=== PATIENT | female | born 1960 | race Caucasian/White ===

== ENCOUNTER 2016-04-01 09:54 | Emergency (ER) | payer BC ==
[2016-04-01] MEDS ORDERED: LORazepam 1 MG Tab PO ONE (10:07)
[2016-04-01 17:35] VITALS: BP 128/75
--- NOTE | 2016-04-02 12:35 | ER ---
DATE SEEN: 04/01/2016 TIME SEEN: The patient was seen at 0500 hours. CHIEF COMPLAINT: Anxiety attack. The patient went to [facility] last night. She was with her mother and father and has been living with them for the last 4 plus years. There, she experienced the anxiety attack. She was then taken to [facility] ED and given 2 doses of Ativan IV plus another medication - Vistaril. She seemed to do well. Then she came home. About 0300 or 0400 hours in the morning, she experienced another anxiety attack. Now presents because she has anxiety, does not know what to do with herself. I have known this patient before, extensive history. PAST MEDICAL HISTORY: Anorexia with weight loss, chronic obstructive lung disease, GERD, seizure disorder, insomnia, migraines, chronic headaches, DRUG- SEEKING BEHAVIOR, chronic pain, arthritis, antrectomy and vagotomy and pyloroplasty. History of chronic nausea and chronic pain. In the past, she has had problems with medication causing globus hystericus and felt like she "had a jawbreaker in her throat." She was given epinephrine one time. She also has a very significant social dilemma. She apparently has exhausted her relationship with her legal assistant because of her chronic complaints of pain and drug-seeking behavior. Quote per Dr. Dobson ([phone]), psychologist. I called him and he was very enlightening. He states she has not been seen by him for 10+ years. She has had chronic problem of drug addiction and drug withdrawal, frequent medicine abuse and shopping around for drugs. Often she would go 50 miles to get drugs outside the community. She has been to [place] for addiction therapy and has not seemed to be successful. Her has now given up on her, is more exhausted with her behavior. Consequently, she is living with her parents. She apparently has gone shopping for drugs on many occasions and abused analgesics for a long period of time, 25 years. More recently, the patient has been seen by Dr. Kwok, he has been decreasing her medications. I called Dr. Kwok and he started in December 2015, the patient came in "stoned". Could not talk. Her Keppra levels were less than 2, were very low. She was taking other medications, it was quite obvious to him that she was drug seeking, drug shopping, and abusing drugs. With this, he has carefully decreased her medications. She is taking less gabapentin. She was taking excessive amounts of gabapentin. In the past, she has seen Dr. Ayoub for cognitive behavior therapy and she has not seen Dr. Ayoub for a while. With this information, it is very apparent that patient does use the system, takes advantage of it, and takes advantage of her parents, is a drug seeker, and has many of the skills associated with that behavior. She claims that she was short of breath. At this point, there is no evidence for tachypnea. No evidence for compromised oxygen saturation as her oxygen saturation is 98%. ALLERGIES: Bupropion, Thorazine, metoclopramide, Zofran, and Compazine. CURRENT MEDICATIONS: 1. Lunesta (eszopiclone) 3 mg at bedtime. 2. Levothyroxine 50 mcg daily. 3. Dulcolax as needed. 4. Vitamin D. 5. Vitamin C. 6. Imitrex p.r.n. IM. 7. Xarelto 15 mg daily. 8. Ranitidine 150 mg b.i.d. 9. Potassium chloride 20 mEq daily. 10.Magnesium oxide 400 mg daily. 11.Levetiracetam 250 mg b.i.d. 12.Topiramate 200 mg at bedtime. 13.Carafate 1 g q.i.d. PHYSICAL EXAMINATION: GENERAL: An asthenic woman with decreased muscle mass. Alert, appropriate, and has angular features. Edentulous. VITAL SIGNS: Blood pressure 113/76, heart rate 90, respirations 18, oxygen saturation 100%, temperature is 36.7 degrees centigrade. 40.8 kg, unchanged from December 03, 2015, same weight. HEENT: PERRLA intact. The patient has pupils that are fixed at approximately 4 mm. They do react to light. EOMs normal. Hearing is appropriate. Oriented x3. NECK: No bruits. No thyromegaly. LUNGS: Clear to auscultation without rales, rhonchi, or wheezes. HEART: S1, S2. No murmur. Regular rate and rhythm. ABDOMEN: Soft. No guarding. No abdominal discomfort. BACK: Negative. EXTREMITIES: Lower extremities without pedal edema. Has decreased muscle mass in lower extremities. Deep tendon reflexes hypoactive, upper and lower extremities. NEUROLOGIC: Cranial nerves 2 through 12 intact. Oriented x3. Gait appropriate. The patient does not appear as anxious as she describes herself. She has kept saying that she is anxious. Before, I was able to speak to Dr. Dobson and also Dr. Kwok, I did give her medication 1 mg Ativan orally and "she wasn't feeling better," so I gave her 50 mg hydroxyzine orally. This seemed to decrease her anxiety and no more IV medicine given. Once I had the information from Dr. Dobson and Dr. Kwok, it was apparent that her drug seeking behavior is a long time, chronic, and 25 years' duration. I told her I did not want to be part of her drug-seeking behavior nor would I provide refill of her lorazepam. She has a container that was filled at [facility] last night, approximately 8 tablets of lorazepam. She can use as needed. If she runs out, then she has to deal with her anxiety and have further followup. She is to follow up with Dr. Kwok next week and Dr. Dobson states he is no longer practicing. Consequently, she needs to get appointment, find somebody else to help her with this. She has also seen Dr. Ayoub in the past. I find from Dr Argueta and Dr Kwok that her parents are enabling her behavior. She is also very manipulative and she needs a very concrete structured program to manage her anxiety. No laboratory tests were performed today. /[id number] LAURA/ELISABET BUCHANAN
--- NOTE | 2016-04-17 01:34 | ER ---
DATE SEEN: 04/01/2016 DIAGNOSES: 1. Anxiety attack. 2. Chemical dependency. 3. Anorexia. 4. Chronic obstructive pulmonary disease. 5. Gastroesophageal reflux disease. 6. Seizure disorder. 7. Insomnia. 8. Migraines. 9. Chronic headaches. 10.Drug-seeking behavior. 11.Chronic pain. 12.Arthritis. 13.Antrectomy, vagotomy, and pyloroplasty. 14.Chronic pain history. /[id number] LAURA/ELISABET
== END 2016-04-01 13:25 | disposition home or self-care (01) ==
LOC: FB.ED 09:54
DX: F41.9 Anxiety disorder, unspecified (principal); J44.9 Chronic obstructive pulmonary disease, unspecified; K21.9 Gastro-esophageal reflux disease without esophagitis; G40.909 Epilepsy, unspecified, not intractable, without status epilepticus; G47.00 Insomnia, unspecified; G43.909 Migraine, unspecified, not intractable, without status migrainosus; G89.29 Other chronic pain; M19.90 Unspecified osteoarthritis, unspecified site; Z76.5 Malingerer [conscious simulation]; Z98.890 Other specified postprocedural states; Z88.8 Allergy status to other drugs, medicaments and biological substances; Z79.899 Other long term (current) drug therapy
CPT/HCPCS: 99283; A9270

== ENCOUNTER 2016-04-13 15:24 | Emergency (ER) | payer BC ==
--- NOTE | 2016-04-15 15:17 | ER ---
DATE SEEN: 04/13/2016 TIME SEEN: The patient was seen at 1550. HISTORY OF PRESENT ILLNESS: Kayce has a remarkable history of drug seeking and anxiety attacks. Today, she is agitated because she has had many medications withdrawn from her regimen by Dr. Kwok. She has a long history of anorexia, COPD, smoking, GERD, seizure disorder, insomnia, migraines, chronic headache, drug-seeking behavior, chronic pain, arthritis, antrectomy, vagotomy, pyloroplasty, more recently seen for "something in the throat" (globus hystericus). See my previous note on 04/01/2016, in regard to significant history regarding her drug-seeking behavior. See notes of medication listed on the chart. I am not going to re-dictate them. For previous surgeries, please see what is documented also, which is antrectomy, vagotomy, and pyloroplasty. She has been to see Dr. Ayoub multiple times for cognitive behavior therapy. Of note, she has not pursued this consistently. The last time I saw her, I encouraged her to follow up with Dr. Kwok and Dr. Ayoub, and I had a lengthy discussion with Dr. Dobson, who is no longer practicing psychology. The patient is known to be very manipulative and I instructed her that she needs a very concrete structured program to manage her anxiety. No tests were performed on the and none will be done today. On examination, the patient started by saying she is so shaky, she does not know what to do with herself, but as the interview progressed, the shakiness relented. ALLERGIES: She has multiple allergies, see previous chart. MEDICATIONS: She has multiple medications, see chart before. PHYSICAL EXAMINATION: VITAL SIGNS: Blood pressure 137/89, heart rate 101, respirations 20, oxygen saturation 98%, temperature is 35.6. 45.8 kilos, unchanged from previous visit 04/01/2016. GENERAL: Very asthenic, thin woman, who was shaking with just watching her and she was shaking relentlessly. I think she can create the shaking if she wants to. HEENT: PERRLA intact. Pharynx without abnormality. NECK: Supple. No thyromegaly. LUNGS: Clear to auscultation. No rales or rhonchi. HEART: S1, S2. No murmur. Port is noted in the right anterior chest. She has marked bony thoracic cage. ABDOMEN: Soft. No hepatosplenomegaly. No guarding. Multiple scars noted, healed without tenderness. LOWER EXTREMITIES: Without edema. DISCUSSION: The patient when completed, she asked me, "Well, aren't you going to do a urinalysis, I just finished my urinary tract medicines yesterday." I told her that IDSA does not suggest repeating urinalysis the day after having completed urinary tract medicine. The patient is dismissed to follow up with Dr. Kwok and Dr. Ayoub. She needs to continue with cognitive behavior therapy and continue with the drug withdrawal process. I advised her that the agitation is a sign of drug withdrawal and is a good sign because she has a potential for getting in touch with the real life that she needs to lead, one without medication, drugs, and continued drug-seeking behavior. The patient dismissed to follow up with doctor in a week. /[id number] LAURA/ELISABET
--- NOTE | 2016-04-27 01:58 | ER ---
DATE SEEN: 04/13/2016 ADDENDUM: DIAGNOSES: 1. Anxiety neurosis. 2. Somatic disorder. 3. Depression. 4. Poor insight. 5. Past significant history of chemical dependence. 6. Manipulative behavior in the past. 7. Seizure disorder. 8. Gastroesophageal reflux disease. 9. Insomnia. 10.Migraines. 11.Chronic headaches. 12.Drug-seeking behavior. 13.Chronic pain. 14.Status post antrectomy. 15.Vagotomy. 16.Pyloroplasty. 17.Globus hystericus. 18.Previous surgery; antrectomy, vagotomy, and pyloroplasty. /[id number] LAURA/ELISABET
== END 2016-04-13 16:35 | disposition home or self-care (01) ==
LOC: FB.ED 15:24
CPT/HCPCS: 99283

== ENCOUNTER 2016-04-15 14:17 | Emergency (ER) | payer BC ==
[2016-04-15] MEDS ORDERED: Ketorolac 60 MG/2 ML SDV IM ONE (15:03)
--- NOTE | 2016-04-15 15:09 | EDM.PDOC ---
ED HPI GENERAL MEDICAL PROBLEM - General Stated Complaint: HEAD ACHE ANXITITY Time Seen by Provider: 04/15/16 15:04 Source of Information: Reports: Patient History Limitations: Reports: No limitations - History of Present Illness INITIAL COMMENTS - FREE TEXT/NARRATIVE: c/o "tough 4 weeks" also with R sided CORDOVA chronic HAs x yrs, has been seen in [place], [place] and [place] took Imitrex this AM and some APAP which did not help says her PCP Dr Kwok stopped tramadol and gabapentin at her last visit and she would like them back says she likes buprenorphine and Vistaril, however she also states she is taking Ativan and VIstaril daily has had drug seeking behavior x 25y, see previous note from Dr Carbajal from yesterday she just got off an antbx for a UTI and thinks it may be back - Related Data Allergies Allergy/AdvReac Type Severity Reaction Status Date / Time bupropion HCl Allergy Respiratory Verified 04/15/16 15:08 [From Wellbutrin] Distress chlorpromazine HCl Allergy Respiratory Verified 04/15/16 15:08 [From Thorazine] Distress metoclopramide [From Reglan] Allergy Anaphylactic Verified 04/15/16 15:08 Shock ondansetron HCl [From Zofran] Allergy Respiratory Verified 04/15/16 15:08 Distress prochlorperazine edisylate Allergy Respiratory Verified 04/15/16 15:08 [From Compazine] Distress prochlorperazine maleate Allergy Respiratory Verified 04/15/16 15:08 [From Compazine] Distress temazepam [From Restoril] Allergy Headache Verified 04/15/16 15:08 Home Meds: Home Meds Ranitidine HCl [Zantac] 150 mg PO BID PRN 10/19/12 [History] SUMAtriptan [Imitrex] 6 mg IM DAILY PRN 10/19/12 [History] Topiramate [Topamax] 200 mg PO BEDTIME 10/19/12 [History] Docusate Sodium [Colace] 200 mg PO DAILY 05/03/13 [History] Magnesium Oxide 400 mg PO DAILY 05/03/13 [History] Potassium Chloride 20 meq PO DAILY 05/03/13 [History] Esomeprazole [NexIUM] 40 mg PO DAILY 09/21/13 [History] Rivaroxaban [Xarelto] 15 mg PO DAILY 08/09/15 [History] Levothyroxine [Synthroid] 50 mcg PO ACBREAKFAST 10/07/15 [History] Sucralfate 1 gm PO QIDACANDBED 02/19/16 [History] Triamcinolone Acetonide [Triamcinolone Acetonide 0.1% Crm] 1 applic TOP ASDIRECTED PRN 02/19/16 [History] hydrOXYzine Pamoate [Vistaril] 25 mg PO TID PRN 02/19/16 [History] levETIRAcetam [Keppra] 250 mg PO BID 02/19/16 [History] LORazepam [Ativan] 1 mg PO ASDIRECTED PRN 04/13/16 [History] QUEtiapine [SEROquel] 25 mg PO ASDIRECTED 04/13/16 [History] Past Medical History - Past Health History Medical/Surgical History: Denies Medical/Surgical History HEENT History: Reports: Other (see below) Other HEENT History: chronic headaches Cardiovascular History: Reports: Blood clots/VTE/DVT Respiratory History: Reports: SOB Gastrointestinal History: Reports: Other (see below) Other Gastrointestinal History: Chronic nausea, ulcers 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: Neurological History: Reports: Headaches, chronic, Seizure Psychiatric History: Reports: Addiction, Depression Endocrine/Metabolic History: Reports: Hypothyroidism Other Dermatologic History: Open sores noted on bilateral arms, lower back - Infectious Disease History Infectious Disease History: Reports: Mumps - Past Surgical History Head Surgeries/Procedures: Reports: None GI Surgical History: Reports: Other (see below) Other GI Surgeries/Procedures: states that part of her stomach was taken out because of ulceration Musculoskeletal Surgical History: Reports: Other (see below) Other Musculoskeletal Surgeries/Procedures:: states that has been having trouble walking and was referred to PT; States that she was told by the PT that she is having toruble walking partly because she has no much muscles in her legs. Social & Family History - Family History Family Medical History: Noncontributory - Tobacco Use Smoking Status *Q: Never Smoker Month Tobacco Last Used: ? Second Hand Smoke Exposure: No - Caffeine Use Caffeine Use: Reports: Soda - Alcohol Use Days Per Week of Alcohol Use: 0 - Recreational Drug Use Recreational Drug Use: No ED ROS GENERAL - Review of Systems Review Of Systems: See Below Constitutional: Reports: no symptoms HEENT: Reports: No symptoms Respiratory: Reports: no symptoms Cardiovascular: Reports: No symptoms Endocrine: Reports: no symptoms GI/Abdominal: Reports: No symptoms : Reports: no symptoms Musculoskeletal: Reports: no symptoms Skin: Reports: no symptoms Neurological: Reports: headache Psychiatric: Reports: No symptoms Hematologic/Lymphatic: Reports: no symptoms Immunologic: Reports: no symptoms ED EXAM, GENERAL - Physical Exam Exam: See Below Exam Limited By: No limitations General Appearance: alert, WD/WN, no apparent distress Eye Exam: bilateral eye: normal inspection Nose: normal inspection, normal mucosa, no blood Throat/Mouth: Normal inspection, Normal lips, Normal gums, Normal oropharynx, Normal voice, No airway compromise, Other (denture plate up) Head: atraumatic, normocephalic Neck: normal inspection, supple, non-tender, full range of motion Respiratory/Chest: no respiratory distress, lungs clear, normal breath sounds, no accessory muscle use, chest non-tender Cardiovascular: normal peripheral pulses, regular rate, rhythm, no edema, no gallop, no JVD, other (2/6 JAYLA at [facility]SB) GI/Abdominal: soft, non tender Back Exam: normal inspection, full range of motion, NT Extremities: normal inspection, normal range of motion, non-tender, normal capillary refill, no pedal edema Neurological: alert, oriented, no motor/sensory deficits Psychiatric: normal affect, normal mood Skin Exam: Warm, Dry, Intact, Normal color, No rash Lymphatic: no adenopathy Course - Vital Signs Last Recorded V/S: Last Vital Signs Temp 36.8 C 04/15/16 14:20 Pulse 99 04/15/16 14:20 Resp 18 04/15/16 14:20 BP 113/79 04/15/16 14:20 Pulse Ox 99 04/15/16 14:20 - Orders/Labs/Meds Labs: Laboratory Tests 04/15/16 Range/Units 14:45 Urine Color Yellow (YELLOW) Urine Appearance Clear (CLEAR) Urine pH 5.0 (5.0-6.5) Ur Specific Ten Sleep 1.010 (1.010-1.025) Urine Protein Negative (NEGATIVE) mg/dL Urine Glucose (UA) Normal (NEGATIVE) mg/dL Urine Ketones Negative (NEGATIVE) mg/dL Urine Occult Blood Moderate H (NEGATIVE) Urine Nitrite Negative (NEGATIVE) Urine Bilirubin Negative (NEGATIVE) Urine Urobilinogen Normal (NEGATIVE) mg/dL Ur Leukocyte Esterase Negative (NEGATIVE) Urine RBC 0-5 (0) Urine WBC 0-5 (0) Ur Squamous Epith Cells Rare (NS,R,O) Urine Bacteria Few H (NS) Urine Mucus Few H (NS) Meds: Medications Discontinued Medications Generic Name Dose Route Start Last Admin Trade Name Freq PRN Reason Stop Dose Admin Ketorolac Tromethamine 60 mg 04/15/16 15:03 04/15/16 15:49 Toradol IM 04/15/16 15:04 60 mg ONETIME ONE Administration - Re-Assessments/Exams Free Text/Narrative Re-Assessment/Exam: 04/15/16 16:01 u/a neg, pt quite pleased to learn this, received Toradol, remains comfortable Departure - Departure Time of Disposition: 16:02 Disposition: Home, Self-Care 01 Condition: good Clinical Impression: Tension headache Additional Instructions: Continue current meds. Use ice packs and acetaminophen 650 mg 4 times a day for your headache. See Dr Kwok in the next week.
[2016-04-15 15:31] VITALS: BP 113/79
== END 2016-04-15 16:10 | disposition home or self-care (01) ==
LOC: FB.ED 14:17
DX: G44.209 Tension-type headache, unspecified, not intractable (principal); F32.9 Major depressive disorder, single episode, unspecified; E03.9 Hypothyroidism, unspecified; Z79.899 Other long term (current) drug therapy; Z88.8 Allergy status to other drugs, medicaments and biological substances
CPT/HCPCS: 81001; 96372; 99284; J1885

== ENCOUNTER 2016-06-03 15:16 | Emergency (ER) | payer BC ==
[2016-06-03] MEDS ORDERED: SUMAtriptan 6 MG/0.5 ML SDV SUBCUT ONE (17:12)
--- NOTE | 2016-06-03 17:15 | EDM.PDOC ---
ED HPI HEADACHE COMPLAINT - General Stated Complaint: HEADACHE Time Seen by Provider: 06/03/16 15:16 Source: Reports: Patient History Limitations: Reports: No limitations - History of Present Illness INITIAL COMMENTS - FREE TEXT/NARRATIVE: 56 years old w f with chronic H/A seen at multiple medical centers including [facility], [facility] etc. Pt was requesting mutiple pain meds. [facility] No N/V/D or other medical issues. Symptom Onset Date: 05/13/16 Symptom Onset Time: 09:00 Timing/Duration: Reports: intermittent, waxing/waning Location: Reports: generalized Quality: Reports: pounding, squeezing Severity: Reports: moderate Associated Symptoms: Reports: denies other symptoms - Related Data Allergies/ADRs: Allergies Allergy/AdvReac Type Severity Reaction Status Date / Time bupropion HCl Allergy Respiratory Verified 04/15/16 15:08 [From Wellbutrin] Distress chlorpromazine HCl Allergy Respiratory Verified 04/15/16 15:08 [From Thorazine] Distress metoclopramide [From Reglan] Allergy Anaphylactic Verified 04/15/16 15:08 Shock ondansetron HCl [From Zofran] Allergy Respiratory Verified 04/15/16 15:08 Distress prochlorperazine edisylate Allergy Respiratory Verified 04/15/16 15:08 [From Compazine] Distress prochlorperazine maleate Allergy Respiratory Verified 04/15/16 15:08 [From Compazine] Distress temazepam [From Restoril] Allergy Headache Verified 04/15/16 15:08 Home Meds: Home Meds Ranitidine HCl [Zantac] 150 mg PO BID PRN 10/19/12 [History] SUMAtriptan [Imitrex] 6 mg IM DAILY PRN 10/19/12 [History] Topiramate [Topamax] 200 mg PO BEDTIME 10/19/12 [History] Docusate Sodium [Colace] 200 mg PO DAILY 05/03/13 [History] Magnesium Oxide 400 mg PO DAILY 05/03/13 [History] Potassium Chloride 20 meq PO DAILY 05/03/13 [History] Esomeprazole [NexIUM] 40 mg PO DAILY 09/21/13 [History] Rivaroxaban [Xarelto] 15 mg PO DAILY 07/02/16 [History] Levothyroxine [Synthroid] 50 mcg PO ACBREAKFAST 10/07/15 [History] Sucralfate 1 gm PO QIDACANDBED 02/19/16 [History] Triamcinolone Acetonide [Triamcinolone Acetonide 0.1% Crm] 1 applic TOP ASDIRECTED PRN 02/19/16 [History] hydrOXYzine Pamoate [Vistaril] 25 mg PO TID PRN 02/19/16 [History] levETIRAcetam [Keppra] 250 mg PO BID 02/19/16 [History] LORazepam [Ativan] 1 mg PO ASDIRECTED PRN 04/13/16 [History] QUEtiapine [SEROquel] 25 mg PO ASDIRECTED 04/13/16 [History] Past Medical History - Past Health History Medical/Surgical History: Denies Medical/Surgical History HEENT History: Reports: Other (see below) Other HEENT History: chronic headaches Cardiovascular History: Reports: Blood clots/VTE/DVT Respiratory History: Reports: SOB Gastrointestinal History: Reports: Other (see below) Other Gastrointestinal History: Chronic nausea, ulcers 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: Neurological History: Reports: Headaches, chronic, Seizure Psychiatric History: Reports: Addiction, Depression Endocrine/Metabolic History: Reports: Hypothyroidism Other Dermatologic History: Open sores noted on bilateral arms, lower back - Infectious Disease History Infectious Disease History: Reports: Mumps - Past Surgical History Head Surgeries/Procedures: Reports: None GI Surgical History: Reports: Other (see below) Other GI Surgeries/Procedures: states that part of her stomach was taken out because of ulceration Musculoskeletal Surgical History: Reports: Other (see below) Other Musculoskeletal Surgeries/Procedures:: states that has been having trouble walking and was referred to PT; States that she was told by the PT that she is having toruble walking partly because she has no much muscles in her legs. Social & Family History - Family History Family Medical History: Noncontributory - Tobacco Use Smoking Status *Q: Never Smoker Month Tobacco Last Used: ? Second Hand Smoke Exposure: No - Caffeine Use Caffeine Use: Reports: Soda - Alcohol Use Days Per Week of Alcohol Use: 0 - Recreational Drug Use Recreational Drug Use: No ED ROS GENERAL - Review of Systems Review Of Systems: See Below Constitutional: Reports: no symptoms HEENT: Reports: No symptoms Respiratory: Reports: No Symptoms Cardiovascular: Reports: No symptoms Endocrine: Reports: no symptoms GI/Abdominal: Reports: No symptoms : Reports: no symptoms Musculoskeletal: Reports: no symptoms Skin: Reports: no symptoms Neurological: Reports: No Symptoms Psychiatric: Reports: No symptoms Hematologic/Lymphatic: Reports: no symptoms - Physical Exam Exam: See Below Exam Limited By: No limitations General Appearance: alert, WD/WN, mild distress, cachetic Eye Exam: bilateral eye: normal inspection Ears: normal external exam Nose: normal inspection Throat/Mouth: Other (dry mucosal membrane) Head Exam: atraumatic, normocephalic Neck: normal inspection, supple, non-tender, full range of motion Respiratory/Chest: no respiratory distress, lungs clear, normal breath sounds, no accessory muscle use, chest non-tender Cardiovascular: normal peripheral pulses, regular rate, rhythm, no edema GI/Abdominal: normal bowel sounds, soft, non tender, no organomegaly, no distention, no abnormal bruit, no mass (Female) Exam: Deferred Rectal (Female) Exam: Deferred Neuro Exam (Abbreviated): alert, oriented, CN II-XII intact, normal cognition, normal gait, no motor/sensory deficits Back Exam: normal inspection, full range of motion Extremities: normal inspection, normal range of motion, non-tender, no pedal edema Psychiatric: depressed mood Skin Exam: Warm, Dry, Intact, Normal color, No rash Course - Vital Signs Text/Narrative:: 56 years old w f with chronic H/A seen at multiple medical centers including [facility], [facility] etc. Pt was requesting mutiple pain meds. [facility]. No N/V/D or other medical issues. PE: Chronic headache Consultation: Dr. Kwok: Absolitely no Narcs as per neurologist Impression: Chronic intermittent H/A Tx: Imitrex Reexam: improved(?) Plan: D/C home with instructions - Orders/Labs/Meds Meds: Medications Discontinued Medications Generic Name Dose Route Start Last Admin Trade Name Freq PRN Reason Stop Dose Admin Sumatriptan Succinate 6 mg 06/03/16 17:12 06/03/16 17:25 Imitrex SUBCUT 06/03/16 17:13 6 mg ONETIME ONE Administration Departure - Departure Time of Disposition: 17:14 Disposition: Home, Self-Care 01 Condition: good Clinical Impression: Chronic headaches Qualifiers: Headache type: unspecified Intractability: not intractable Qualified Code(s): R51 - Headache Referrals: Greg Kwok MD [Primary Care Provider] - Forms: ED Department Discharge Additional Instructions: please f/u with Neuro/PMD please cont your current meds, Please come back if symptoms get worse acutely
[2016-06-03 21:55] VITALS: BP 147/82
== END 2016-06-03 17:45 | disposition home or self-care (01) ==
LOC: FB.ED 15:16
DX: R51 Headache (principal); F32.9 Major depressive disorder, single episode, unspecified; E03.9 Hypothyroidism, unspecified; Z88.8 Allergy status to other drugs, medicaments and biological substances; Z79.899 Other long term (current) drug therapy
CPT/HCPCS: 96372; 99283; J3030

== ENCOUNTER 2016-08-01 21:37 | Emergency (ER) | payer BC ==
[2016-08-01 21:55] VITALS: BP 137/84
[2016-08-01] MEDS ORDERED: hydrOXYzine HCl 50 MG/ML SDV IM ONE (22:19)
--- NOTE | 2016-08-01 22:35 | EDM.PDOC ---
ED HPI GENERAL MEDICAL PROBLEM - General Chief Complaint: Headache Stated Complaint: MIGRAINE Time Seen by Provider: 08/01/16 21:52 Source of Information: Reports: Patient, Other ([facility] staff) History Limitations: Reports: Uncooperative - History of Present Illness INITIAL COMMENTS - FREE TEXT/NARRATIVE: 56 y.o.w.f with multiple medical issues. H/O narcotic addition, came to the ed , from the assisted because of chronic pain at her r temp area. Pt is a little worse today. Pt received imitrex without help. it is not the worst headache, no trauma. Pt was seen for same multiple times in this ED. Pt is requesting Narcotics Pt denies any other acute medical issues at this time. Onset: Today Onset Date: 08/01/16 Onset Time: 14:00 Duration: Hour(s): Location: Reports: Head (not worsed headache) Quality: Reports: Dull Headache Pain Score (Numeric/FACES): 9 - Related Data Allergies Allergy/AdvReac Type Severity Reaction Status Date / Time bupropion HCl Allergy Respiratory Verified 08/01/16 21:52 [From Wellbutrin] Distress chlorpromazine HCl Allergy Respiratory Verified 08/01/16 21:52 [From Thorazine] Distress metoclopramide [From Reglan] Allergy Anaphylactic Verified 08/01/16 21:52 Shock ondansetron HCl [From Zofran] Allergy Respiratory Verified 08/01/16 21:52 Distress prochlorperazine edisylate Allergy Respiratory Verified 08/01/16 21:52 [From Compazine] Distress prochlorperazine maleate Allergy Respiratory Verified 08/01/16 21:52 [From Compazine] Distress temazepam [From Restoril] Allergy Headache Verified 08/01/16 21:52 Home Meds: Home Meds Ranitidine HCl [Zantac] 150 mg PO BID PRN 10/19/12 [History] SUMAtriptan [Imitrex] 6 mg IM DAILY PRN 10/19/12 [History] Topiramate [Topamax] 200 mg PO BEDTIME 10/19/12 [History] Docusate Sodium [Colace] 200 mg PO DAILY 05/03/13 [History] Magnesium Oxide 400 mg PO DAILY 05/03/13 [History] Potassium Chloride 20 meq PO DAILY 05/03/13 [History] Esomeprazole [NexIUM] 40 mg PO DAILY 09/21/13 [History] Rivaroxaban [Xarelto] 15 mg PO DAILY 08/09/15 [History] Levothyroxine [Synthroid] 50 mcg PO ACBREAKFAST 10/07/15 [History] Sucralfate 1 gm PO QIDACANDBED 02/19/16 [History] Triamcinolone Acetonide [Triamcinolone Acetonide 0.1% Crm] 1 applic TOP ASDIRECTED PRN 02/19/16 [History] hydrOXYzine Pamoate [Vistaril] 25 mg PO TID PRN 02/19/16 [History] levETIRAcetam [Keppra] 250 mg PO BID 02/19/16 [History] LORazepam [Ativan] 1 mg PO ASDIRECTED PRN 04/13/16 [History] QUEtiapine [SEROquel] 25 mg PO ASDIRECTED 04/13/16 [History] Past Medical History - Past Health History Medical/Surgical History: Denies Medical/Surgical History HEENT History: Reports: Other (See Below) Other HEENT History: chronic headaches Cardiovascular History: Reports: Blood Clots/VTE/DVT Respiratory History: Reports: SOB Gastrointestinal History: Reports: Other (See Below) Other Gastrointestinal History: Chronic nausea, ulcers 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: Neurological History: Reports: Headaches, Chronic, Seizure Psychiatric History: Reports: Addiction, Depression Endocrine/Metabolic History: Reports: Hypothyroidism Other Dermatologic History: Open sores noted on bilateral arms, lower back - Infectious Disease History Infectious Disease History: Reports: Mumps - Past Surgical History Head Surgeries/Procedures: Reports: None GI Surgical History: Reports: Other (See Below) Musculoskeletal Surgical History: Reports: Other (See Below) Social & Family History - Family History Family Medical History: Noncontributory - Tobacco Use Smoking Status *Q: Never Smoker Month Tobacco Last Used: ? Second Hand Smoke Exposure: No - Caffeine Use Caffeine Use: Reports: Soda - Alcohol Use Days Per Week of Alcohol Use: 0 - Recreational Drug Use Recreational Drug Use: No ED ROS GENERAL - Review of Systems Review Of Systems: See Below Constitutional: Reports: No Symptoms HEENT: Reports: Other (H/A) Respiratory: Reports: No Symptoms Cardiovascular: Reports: No Symptoms Endocrine: Reports: No Symptoms GI/Abdominal: Reports: No Symptoms : Reports: No Symptoms Musculoskeletal: Reports: No Symptoms Skin: Reports: No Symptoms Neurological: Reports: No Symptoms Psychiatric: Reports: No Symptoms Hematologic/Lymphatic: Reports: No Symptoms Immunologic: Reports: No Symptoms - Physical Exam Exam: See Below Exam Limited By: No Limitations General Appearance: Alert, No Apparent Distress, Cachetic Eye Exam: Bilateral Eye: Normal Inspection Ears: Normal External Exam Nose: Normal Inspection Throat/Mouth: Normal Inspection, Normal Lips Head Exam: Atraumatic, Normocephalic Neck: Normal Inspection, Supple, Non-Tender, Full Range of Motion Respiratory/Chest: No Respiratory Distress, Lungs Clear, Normal Breath Sounds Cardiovascular: Normal Peripheral Pulses, Regular Rate, Rhythm, No Edema GI/Abdominal: Normal Bowel Sounds, Soft, Non-Tender, No Organomegaly (Female) Exam: Deferred Rectal (Female) Exam: Deferred Neuro Exam (Abbreviated): Alert, Oriented, CN II-XII Intact, Normal Cognition, Normal Gait, No Motor/Sensory Deficits Back Exam: Normal Inspection, Full Range of Motion Extremities: Normal Inspection, Normal Range of Motion, Non-Tender, No Pedal Edema Psychiatric: Anxious Skin Exam: Warm, Dry, Intact, Normal Color, No Rash Course - Vital Signs Text/Narrative:: 56 y.o.w.f with multiple medical issues. H/O narcotic addition, came to the ed , from the assisted because of chronic pain at her r temp area. Pt is a little worse today. Pt received imitrex without help. it is not the worst headache, no trauma. Pt was seen for same multiple times in this ED. Pt is requesting Narcotics Pt denies any other acute medical issues at this time. Vistaril helped her in the past PE: Cachexia, H/O r temp headache. NAD Impression: Narcotic seeking, tension H/A H/O Migraine H/A Tx: Vistaril I.M Reexam: Improved Plan: D/C back to the [facility] with instructions Last Recorded V/S: Last Vital Signs Temp 36.8 C 08/01/16 21:52 Pulse 94 08/01/16 21:52 Resp 16 08/01/16 21:52 BP 137/84 08/01/16 21:52 Pulse Ox 100 08/01/16 21:52 - Orders/Labs/Meds Meds: Medications Discontinued Medications Generic Name Dose Route Start Last Admin Trade Name Kyung PRN Reason Stop Dose Admin Hydroxyzine HCl 25 mg 08/01/16 22:19 08/01/16 22:36 Vistaril IM 08/01/16 22:20 25 mg ONETIME ONE Administration Departure - Departure Time of Disposition: 22:34 Disposition: Home, Self-Care 01 Condition: Good Clinical Impression: Tension headache, Narcotic addiction - Discharge Information Referrals: Greg Kwok MD [Primary Care Provider] - Forms: ED Department Discharge Additional Instructions: please f/u in am with your PMD, come back if worse.
== END 2016-08-01 22:35 | disposition home or self-care (01) ==
LOC: FB.ED 21:37
DX: G44.209 Tension-type headache, unspecified, not intractable (principal); F11.20 Opioid dependence, uncomplicated; F32.9 Major depressive disorder, single episode, unspecified; E03.9 Hypothyroidism, unspecified; Z88.8 Allergy status to other drugs, medicaments and biological substances; Z79.899 Other long term (current) drug therapy
CPT/HCPCS: 96372; 99282; J3410

== ENCOUNTER 2016-08-19 03:20 | Emergency (ER) | payer BC ==
[2016-08-19 03:35] VITALS: BP 115/66
--- NOTE | 2016-08-19 03:59 | EDM.PDOC ---
ED HPI GENERAL MEDICAL PROBLEM - General Chief Complaint: Lower Extremity Injury/Pain Stated Complaint: FALL RT SIDE PAIN Time Seen by Provider: 08/19/16 03:45 Source of Information: Reports: Patient, Old Records History Limitations: Reports: No Limitations - History of Present Illness INITIAL COMMENTS - FREE TEXT/NARRATIVE: 56 yo female fell in her home about 6 pm 08/18. It took her until now to get to a phone due to R thigh pain that resulted from the fall. No other injuries reported. Here via EMS. 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) - Related Data Allergies Allergy/AdvReac Type Severity Reaction Status Date / Time bupropion HCl Allergy Respiratory Verified 08/19/16 03:25 [From Wellbutrin] Distress chlorpromazine HCl Allergy Respiratory Verified 08/19/16 03:25 [From Thorazine] Distress metoclopramide [From Reglan] Allergy Anaphylactic Verified 08/19/16 03:25 Shock ondansetron HCl [From Zofran] Allergy Respiratory Verified 08/19/16 03:25 Distress prochlorperazine edisylate Allergy Respiratory Verified 08/19/16 03:25 [From Compazine] Distress prochlorperazine maleate Allergy Respiratory Verified 08/19/16 03:25 [From Compazine] Distress temazepam [From Restoril] Allergy Headache Verified 08/19/16 03:25 Home Meds: Home Meds Ranitidine HCl [Zantac] 150 mg PO BID PRN 10/19/12 [History] SUMAtriptan [Imitrex] 6 mg IM DAILY PRN 10/19/12 [History] Topiramate [Topamax] 200 mg PO BEDTIME 10/19/12 [History] Docusate Sodium [Colace] 200 mg PO DAILY 05/03/13 [History] Magnesium Oxide 400 mg PO DAILY 05/03/13 [History] Potassium Chloride 20 meq PO DAILY 05/03/13 [History] Esomeprazole [NexIUM] 40 mg PO DAILY 09/21/13 [History] Rivaroxaban [Xarelto] 15 mg PO DAILY 08/09/15 [History] Levothyroxine [Synthroid] 50 mcg PO ACBREAKFAST 10/07/15 [History] Sucralfate 1 gm PO QIDACANDBED 02/19/16 [History] Triamcinolone Acetonide [Triamcinolone Acetonide 0.1% Crm] 1 applic TOP ASDIRECTED PRN 02/19/16 [History] hydrOXYzine Pamoate [Vistaril] 25 mg PO TID PRN 02/19/16 [History] levETIRAcetam [Keppra] 250 mg PO BID 02/19/16 [History] LORazepam [Ativan] 1 mg PO ASDIRECTED PRN 04/13/16 [History] QUEtiapine [SEROquel] 25 mg PO ASDIRECTED 04/13/16 [History] Past Medical History - Past Health History Medical/Surgical History: Denies Medical/Surgical History HEENT History: Reports: Other (See Below) Other HEENT History: chronic headaches Cardiovascular History: Reports: Blood Clots/VTE/DVT Respiratory History: Reports: SOB Gastrointestinal History: Reports: Other (See Below) Other Gastrointestinal History: Chronic nausea, ulcers 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: Neurological History: Reports: Headaches, Chronic, Seizure Psychiatric History: Reports: Addiction, Depression Endocrine/Metabolic History: Reports: Hypothyroidism Other Dermatologic History: Open sores noted on bilateral arms, lower back - Infectious Disease History Infectious Disease History: Reports: Mumps - Past Surgical History Head Surgeries/Procedures: Reports: None GI Surgical History: Reports: Other (See Below) Musculoskeletal Surgical History: Reports: Other (See Below) Social & Family History - Family History Family Medical History: Noncontributory - Tobacco Use Smoking Status *Q: Never Smoker Month Tobacco Last Used: ? Second Hand Smoke Exposure: No - Caffeine Use Caffeine Use: Reports: None - Alcohol Use Days Per Week of Alcohol Use: 0 - Recreational Drug Use Recreational Drug Use: No Review of Systems - Review of Systems Review Of Systems: See Below Constitutional: Reports: No Symptoms Eyes: Reports: No Symptoms Ears: Reports: No Symptoms Nose: Reports: No Symptoms Mouth/Throat: Reports: No Symptoms Respiratory: Reports: No Symptoms Cardiovascular: Reports: No Symptoms GI/Abdominal: Reports: No Symptoms Genitourinary: Reports: No Symptoms Musculoskeletal: Reports: Leg Pain (R thigh) Skin: Reports: No Symptoms Neurological: Reports: No Symptoms ED EXAM, GENERAL - Physical Exam Exam: See Below Exam Limited By: No Limitations General Appearance: Alert, No Apparent Distress, Thin Eye Exam: Bilateral Eye: Normal Inspection, PERRL Ears: Normal External Exam, Normal Canal, Hearing Grossly Normal Ear Exam: Bilateral Ear: Auricle Normal, Canal Normal Nose: Normal Inspection, Normal Mucosa, No Blood Throat/Mouth: Normal Inspection, Normal Lips, Normal Oropharynx, Normal Voice, No Airway Compromise, Other (edentulous) Head: Atraumatic, Normocephalic Neck: Normal Inspection, Supple, Non-Tender Respiratory/Chest: No Respiratory Distress, Lungs Clear, Normal Breath Sounds, No Accessory Muscle Use Cardiovascular: Regular Rate, Rhythm GI/Abdominal: Normal Bowel Sounds, Soft, Non-Tender, No Distention Back Exam: Normal Inspection. No: CVA Tenderness (R), CVA Tenderness (L) Extremities: Normal Inspection, Leg Pain (R thigh area laterally), Limited Range of Motion (apparently due to pain.). No: Normal Range of Motion, Non- Tender, Pedal Edema, Redness Neurological: Alert, Oriented, CN II-XII Intact, No Motor/Sensory Deficits Psychiatric: Normal Affect, Normal Mood Skin Exam: Warm, Dry, Intact, Normal Color, No Rash Lymphatic: No Adenopathy Course - Vital Signs Text/Narrative:: R femur X-ray-R intertroch hip fx R hip X-ray-R intertroch hip fx LR 125 ml/h IV, Dilaudid 1 [address] IV [place] [address]. Freeman accepting @ [facility] Last Recorded V/S: Last Vital Signs Temp 36.8 C 08/19/16 03:27 Pulse 88 08/19/16 03:27 Resp 18 08/19/16 03:27 BP 115/66 08/19/16 03:27 Pulse Ox 98 08/19/16 03:27 - Orders/Labs/Meds Orders: Active Orders 24 hr Category Date Time Status Femur Min 2V Rt [CR] Stat Exams 08/19/16 03:37 Ordered Hip Min 2V or 3V Rt [CR] Stat Exams 08/19/16 03:38 Ordered Departure - Departure Time of Disposition: 04:40 Disposition: DC/Tfer to Acute Hospital 02 Condition: Fair Clinical Impression: Intertrochanteric fracture, hip - Discharge Information Forms: ED Department Discharge - My Orders Last 24 Hours: My Active Orders 08/19/16 03:37 Femur Min 2V Rt [CR] Stat 08/19/16 03:38 Hip Min 2V or 3V Rt [CR] Stat - Assessment/Plan Last 24 Hours: My Active Orders 08/19/16 03:37 Femur Min 2V Rt [CR] Stat 08/19/16 03:38 Hip Min 2V or 3V Rt [CR] Stat
[2016-08-19] MEDS ORDERED: HYDROmorphone 2 MG/ML SDV IVPUSH ONE (04:11)
[2016-08-19] MEDS ORDERED: Lactated Ringers 1,000 ML IV SCH (04:15)
[2016-08-19] MEDS ORDERED: hydrOXYzine HCl 50 MG/ML SDV IM ONE (04:35)
--- NOTE | 2016-08-19 13:49 | CR ---
INDICATION: Fall. RIGHT FEMUR: Five images of the right femur were obtained 08/19/2016, and revealed a comminuted intertrochanteric fracture with lateral angulation at the fracture site and some distraction of the fracture fragments. There is also an appearance of posterior angulation at the fracture site. The hip joint appears fairly intact. Vascular calcifications are noted in the thigh. IMPRESSION: Comminuted intertrochanteric fracture with mild deformity. MTDD
== END 2016-08-19 05:45 ==
LOC: FB.ED 03:20
DX: S72.141A Displaced intertrochanteric fracture of right femur, initial encounter for closed fracture (principal); E03.9 Hypothyroidism, unspecified; F32.9 Major depressive disorder, single episode, unspecified; Z86.718 Personal history of other venous thrombosis and embolism; Z79.899 Other long term (current) drug therapy; Z88.8 Allergy status to other drugs, medicaments and biological substances; W19.XXXA Unspecified fall, initial encounter; Y92.009 Unspecified place in unspecified non-institutional (private) residence as the place of occurrence of the external cause
CPT/HCPCS: 36415; 73552; 80053; 83735; 85027; 96361; 96372; 96374; 99285; J1170; J3410; J7120

== ENCOUNTER 2016-11-17 20:22 | Emergency (ER) | payer BC ==
[2016-11-17] MEDS ORDERED: BUPRENORPHINE 0.3 MG/ML IVPUSH ONE (20:47)
[2016-11-17] MEDS ORDERED: hydrOXYzine HCl 50 MG/ML SDV IM ONE (20:48)
--- NOTE | 2016-11-17 20:55 | EDM.PDOC ---
ED HPI GENERAL MEDICAL PROBLEM - General Chief Complaint: Neuro Symptoms/Deficits Stated Complaint: GENERAL Time Seen by Provider: 11/17/16 20:40 Source of Information: Reports: Patient, Old Records History Limitations: Reports: No Limitations - History of Present Illness INITIAL COMMENTS - FREE TEXT/NARRATIVE: 56 yo female with multiple medical problems presents with intermittent shaking today. She has a CORDOVA and nausea without vomiting. No fever. Has a pHx of seizures and is on Keppra. Says she's not had a level done in a long time. Also has a hx of potassium deficit and hasn't had this checked for a long time either. Broke a hip in August and has been back to her home for about 2 weeks only after recovering at a local [facility]. Still uses a walker to get around and tonight is too light-headed to stand. Onset: Today Onset Date: 11/17/16 Onset Time: 11:00 Duration: Hour(s):, Getting Worse, Waxing/Waning Location: Reports: Generalized Quality: Reports: Ache (headache is her only new pain, has a pHx also of chronic CORDOVA's. ) Severity: Moderate Improves with: Reports: None Worsens with: Reports: None Context: Reports: Other (Hx of CORDOVA's. No hx of tremors like she's having today. ) Associated Symptoms: Reports: Headaches, Nausea/Vomiting (no vomiting), Weakness. 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) (none) - Related Data Allergies Allergy/AdvReac Type Severity Reaction Status Date / Time bupropion HCl Allergy Respiratory Verified 08/19/16 03:25 [From Wellbutrin] Distress chlorpromazine HCl Allergy Respiratory Verified 08/19/16 03:25 [From Thorazine] Distress metoclopramide [From Reglan] Allergy Anaphylactic Verified 08/19/16 03:25 Shock ondansetron HCl [From Zofran] Allergy Respiratory Verified 08/19/16 03:25 Distress prochlorperazine edisylate Allergy Respiratory Verified 08/19/16 03:25 [From Compazine] Distress prochlorperazine maleate Allergy Respiratory Verified 08/19/16 03:25 [From Compazine] Distress temazepam [From Restoril] Allergy Headache Verified 08/19/16 03:25 Home Meds: Home Meds Ranitidine HCl [Zantac] 150 mg PO BID PRN 10/19/12 [History] SUMAtriptan [Imitrex] 6 mg IM DAILY PRN 10/19/12 [History] Topiramate [Topamax] 200 mg PO BEDTIME 10/19/12 [History] Docusate Sodium [Colace] 200 mg PO DAILY 05/03/13 [History] Magnesium Oxide 400 mg PO DAILY 05/03/13 [History] Potassium Chloride 20 meq PO DAILY 05/03/13 [History] Esomeprazole [NexIUM] 40 mg PO DAILY 09/21/13 [History] Rivaroxaban [Xarelto] 15 mg PO DAILY 08/09/15 [History] Levothyroxine [Synthroid] 50 mcg PO ACBREAKFAST 10/07/15 [History] Sucralfate 1 gm PO QIDACANDBED 02/19/16 [History] Triamcinolone Acetonide [Triamcinolone Acetonide 0.1% Crm] 1 applic TOP ASDIRECTED PRN 02/19/16 [History] hydrOXYzine Pamoate [Vistaril] 25 mg PO TID PRN 02/19/16 [History] levETIRAcetam [Keppra] 250 mg PO BID 02/19/16 [History] LORazepam [Ativan] 1 mg PO ASDIRECTED PRN 04/13/16 [History] QUEtiapine [SEROquel] 25 mg PO ASDIRECTED 04/13/16 [History] Past Medical History - Past Health History Medical/Surgical History: Denies Medical/Surgical History HEENT History: Reports: Other (See Below) Other HEENT History: chronic headaches Cardiovascular History: Reports: Blood Clots/VTE/DVT Respiratory History: Reports: SOB Gastrointestinal History: Reports: Other (See Below) Other Gastrointestinal History: Chronic nausea, ulcers 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: Neurological History: Reports: Headaches, Chronic, Seizure Psychiatric History: Reports: Addiction, Depression Endocrine/Metabolic History: Reports: Hypothyroidism Other Dermatologic History: Open sores noted on bilateral arms, lower back - Infectious Disease History Infectious Disease History: Reports: Mumps - Past Surgical History Head Surgeries/Procedures: Reports: None GI Surgical History: Reports: Other (See Below) Musculoskeletal Surgical History: Reports: Other (See Below) Social & Family History - Family History Family Medical History: Noncontributory - Tobacco Use Smoking Status *Q: Never Smoker Month Tobacco Last Used: ? Second Hand Smoke Exposure: No - Caffeine Use Caffeine Use: Reports: None - Alcohol Use Days Per Week of Alcohol Use: 0 - Recreational Drug Use Recreational Drug Use: No ED ROS GENERAL - Review of Systems Review Of Systems: See Below Constitutional: Reports: Weakness. Denies: Fever, Chills, Diaphoresis HEENT: Reports: No Symptoms Respiratory: Reports: No Symptoms Cardiovascular: Reports: Lightheadedness. Denies: Chest Pain, Claudication, Dyspnea on Exertion, Edema, Orthopnea, Palpitations, Syncope Endocrine: Reports: No Symptoms GI/Abdominal: Reports: Nausea. Denies: Abdominal Pain, Anorexia, Black Stool, Bloody Stool, Constipation, Diarrhea, Decreased Appetite, Distension, Hematemesis, Hematochezia, Stool Incontinence, Vomiting : Reports: No Symptoms Musculoskeletal: Reports: No Symptoms Skin: Reports: No Symptoms Neurological: Reports: Dizziness, Headache, Tremors (intermittent coarse shaking , not a seizure as she is fully awake with them. ), Difficulty Walking, Weakness. Denies: Confusion, Numbness, Trouble Speaking, Change in Speech, Gait Disturbance Psychiatric: Reports: No Symptoms Hematologic/Lymphatic: Reports: No Symptoms ED EXAM, NEURO - Physical Exam Exam: See Below Exam Limited By: No Limitations General Appearance: Alert, WD/WN, No Apparent Distress, Thin Eye Exam: Bilateral Eye: Normal Inspection, PERRL Ears: Normal External Exam, Normal Canal, Hearing Grossly Normal Nose: Normal Inspection, Normal Mucosa, No Blood Throat/Mouth: Normal Inspection, Normal Lips, Normal Oropharynx, Normal Voice, No Airway Compromise, Other (edentulous) Head Exam: Atraumatic, Normocephalic Neck: Normal Inspection, Supple, Non-Tender Respiratory/Chest: No Respiratory Distress, Lungs Clear, Normal Breath Sounds, No Accessory Muscle Use Cardiovascular: Regular Rate, Rhythm, No Edema GI/Abdominal: Normal Bowel Sounds, Soft, Non-Tender, No Distention Neurological: Alert, Normal Mood/Affect, CN II-XII Intact, No Motor/Sensory Deficits, Oriented x 3 Back Exam: Normal Inspection. No: CVA Tenderness (R), CVA Tenderness (L) Extremities: Normal Inspection, Normal Range of Motion, Non-Tender, No Pedal Edema Psychiatric: Normal Affect, Normal Mood Skin Exam: Warm, Dry, Intact, Normal Color, No Rash Course - Vital Signs Last Recorded V/S: Last Vital Signs Temp 37.2 C 11/17/16 20:22 Pulse 91 11/17/16 20:22 Resp 18 11/17/16 20:22 BP 136/81 11/17/16 20:22 Pulse Ox 100 11/17/16 20:22 - Orders/Labs/Meds Orders: Active Orders 24 hr Category Date Time Status Central Line Assessment [RC] DAILY Care 11/17/16 21:09 Active CULTURE URINE [RM] Stat Lab 11/17/16 23:20 Ordered KEPPRA [REF] Stat Lab 11/17/16 21:00 Received Lactated Ringers [Ringers, Lactated] 1,000 ml Med 11/17/16 21:00 Active IV ASDIRECTED SUMAtriptan [Imitrex] Med 11/17/16 23:24 Once 6 mg SUBCUT ONETIME ONE Sodium Chloride 0.9% [Saline Flush] Med 11/17/16 21:30 Active 10 ml FLUSH ASDIRECTED PRN Medication Orders Lactated Ringer's (Ringers, Lactated) 1,000 mls @ 500 mls/hr IV ASDIRECTED DOMINIQUE Last Admin: 11/17/16 21:08 Dose: 500 mls/hr Sodium Chloride (Saline Flush) 10 ml FLUSH ASDIRECTED PRN PRN Reason: Keep Vein Open Last Admin: 11/17/16 23:19 Dose: 10 ml Admin: 11/17/16 21:31 Dose: 10 ml Labs: Laboratory Tests 11/17/16 11/17/16 11/17/16 Range/Units 21:00 21:00 22:53 WBC 3.9 L (4.5-12.0) X10-3/uL RBC 4.21 (3.23-5.20) x10(6)uL Hgb 11.9 (11.5-15.5) g/dL Hct 36.5 (30.0-51.3) % MCV 86.8 (80-96) fL MCH 28.3 (27.7-33.6) pg MCHC 32.6 (32.2-35.4) g/dL RDW 17.7 H (11.5-15.5) % Plt Count 300 (125-369) X10(3)uL Sodium 136 (135-145) mmol/L Potassium 3.8 (3.5-5.3) mmol/L Chloride 107 D (100-110) mmol/L Carbon Dioxide 21 L (23-29) mmol/L BUN 9 (5-20) mg/dL Creatinine 0.8 (0.6-1.3) mg/dL Est Cr Clr Drug Dosing TNP Estimated GFR (MDRD) > 60 (>60) BUN/Creatinine Ratio 11.3 (9-20) Glucose 109 (80-116) mg/dL Calcium 8.5 L (8.6-10.2) mg/dL Magnesium 1.9 (1.8-2.5) mg/dL Urine Color Yellow (YELLOW) Urine Appearance Slightly cloudy (CLEAR) Urine pH 7.0 H (5.0-6.5) Ur Specific [place] 1.010 (1.010-1.025) Urine Protein Negative (NEGATIVE) mg/dL Urine Glucose (UA) Normal (NEGATIVE) mg/dL Urine Ketones Negative (NEGATIVE) mg/dL Urine Occult Blood Negative (NEGATIVE) Urine Nitrite Negative (NEGATIVE) Urine Bilirubin Negative (NEGATIVE) Urine Urobilinogen Normal (NEGATIVE) mg/dL Ur Leukocyte Esterase Moderate H (NEGATIVE) Urine RBC 0-5 (0) Urine WBC 5-10 (0) Ur Squamous Epith Cells Occasional (NS,R,O) Urine Bacteria Many H (NS) Urine Mucus Few H (NS) Meds: Medications Generic Name Dose Route Start Last Admin Trade Name Kyung PRN Reason Stop Dose Admin Lactated Ringer's 1,000 mls @ 500 mls/hr 11/17/16 21:00 11/17/16 21:08 Ringers, Lactated IV 500 mls/hr ASDIRECTED DOMINIQUE Administration Sodium Chloride 10 ml 11/17/16 21:30 11/17/16 23:19 Saline Flush FLUSH 10 ml ASDIRECTED PRN Administration Keep Vein Open Discontinued Medications Generic Name Dose Route Start Last Admin Trade Name Freq PRN Reason Stop Dose Admin Buprenorphine 0.6 mg 11/17/16 20:47 11/17/16 21:20 Buprenex IVPUSH 11/17/16 20:48 0.6 mg ONETIME ONE Administration Heparin Sodium (Porcine) 500 units 11/17/16 23:09 11/17/16 23:19 Heparin Lock Flush 100 Units/Ml FLUSH 11/17/16 23:10 500 units ASDIRECTED ONE Administration Hydroxyzine HCl 50 mg 11/17/16 20:48 11/17/16 21:16 Vistaril IM 11/17/16 20:49 50 mg ONETIME ONE Administration Departure - Departure Time of Disposition: 23:24 Disposition: Home, Self-Care 01 Condition: Fair Clinical Impression: Nausea, Dizziness Headache Qualifiers: Headache type: unspecified Headache chronicity pattern: chronic headache Intractability: not intractable Qualified Code(s): R51 - Headache - Discharge Information Referrals: Jesse Gresham MD [Primary Care Provider] - Forms: ED Department Discharge - My Orders Last 24 Hours: My Active Orders 11/17/16 21:00 KEPPRA [REF] Stat Lactated Ringers [Ringers, Lactated] 1,000 ml IV ASDIRECTED 11/17/16 21:09 Central Line Assessment [RC] DAILY 11/17/16 21:30 Sodium Chloride 0.9% [Saline Flush] 10 ml FLUSH ASDIRECTED PRN 11/17/16 23:20 CULTURE URINE [RM] Stat 11/17/16 23:24 SUMAtriptan [Imitrex] 6 mg SUBCUT ONETIME ONE - Assessment/Plan Last 24 Hours: My Active Orders 11/17/16 21:00 KEPPRA [REF] Stat Lactated Ringers [Ringers, Lactated] 1,000 ml IV ASDIRECTED 11/17/16 21:09 Central Line Assessment [RC] DAILY 11/17/16 21:30 Sodium Chloride 0.9% [Saline Flush] 10 ml FLUSH ASDIRECTED PRN 11/17/16 23:20 CULTURE URINE [RM] Stat 11/17/16 23:24 SUMAtriptan [Imitrex] 6 mg SUBCUT ONETIME ONE
[2016-11-17] MEDS ORDERED: Lactated Ringers 1,000 ML IV SCH (21:00)
[2016-11-17] MEDS: Sodium Chloride 0.9% 10 ML Syringe FLUSH PRN ×2 (21:31→23:19)
[2016-11-17 21:46] VITALS: BP 136/81
[2016-11-17] MEDS ORDERED: SUMAtriptan 6 MG/0.5 ML SDV SUBCUT ONE (23:24)
--- NOTE | 2016-11-22 08:53 | ER ---
DATE SEEN: 11/17/2016 HISTORY OF PRESENT ILLNESS: The patient was seen by Dr. Tracey on 11/17/2016. This lab report returned greater than 100,000 colonies of E. coli. Plan to use TMP/SMX one b.i.d. for 3 days, total of 6 tablets. Prescription called into [facility]. Also, I spoke to the patient and she does not have symptoms of urinary tract infection presently, but we agreed it was appropriate to start the medicine. She has not had any recurrent shaking, but she has had "some twitching" since today, 11/20/2016. In the past, she has been on Keppra [address] Tracey so astutely did a Keppra level and the Keppra is less than 2 (normal is 5-30). PLAN: The patient was advised to increase her Keppra to b.i.d. Apparently, she had worked with her doctor, and they had attempted to decrease it to 500 mg a day, but she says the shaking is new. I think I am going to go back to b.i.d. She has ample medicines at home to give herself b.i.d. Consequently, the patient will continue with b.i.d. medicine Keppra and she is hopeful that that will diminish her shaking. The patient will be following up with Dr. Gresham. /[id number] LAURA/ELISABET
== END 2016-11-17 23:50 | disposition home or self-care (01) ==
LOC: FB.ED 20:22
DX: R51 Headache (principal); R42 Dizziness and giddiness; R11.2 Nausea with vomiting, unspecified; Z88.8 Allergy status to other drugs, medicaments and biological substances; Z79.899 Other long term (current) drug therapy; E03.9 Hypothyroidism, unspecified
CPT/HCPCS: 36591; 80048; 80177; 81001; 83735; 85027; 87086; 87088; 96361; 96372; 96374; 96375; 99284; J0592; J1642; J3030; J3410; J7050; J7120; 36415; 87186

== ENCOUNTER 2016-12-06 12:37 | Emergency (ER) | payer BC ==
[2016-12-06] MEDS ORDERED: BUPRENORPHINE 0.3 MG/ML IM STA (14:28)
[2016-12-06] MEDS ORDERED: hydrOXYzine HCl 50 MG/ML SDV IM ONE (14:28)
[2016-12-06] MEDS ORDERED: BUPRENORPHINE 0.3 MG/ML IVPUSH STA (15:08)
[2016-12-06] MEDS ORDERED: BUPRENORPHINE 0.3 MG/ML IM ONE (15:40)
[2016-12-06 15:56] VITALS: BP 119/73
--- NOTE | 2016-12-06 16:17 | EDM.PDOC ---
ED HPI GENERAL MEDICAL PROBLEM - General Chief Complaint: Headache Stated Complaint: HEADACHE, VOMITTING Time Seen by Provider: 12/06/16 12:37 Source of Information: Reports: Patient History Limitations: Reports: No Limitations, Physical Impairment - History of Present Illness INITIAL COMMENTS - FREE TEXT/NARRATIVE: 56 years old w f came to the ed due to headache and anxiety, her usual medical issues here in the ed. Pt was seen multiple times for same her in the ed requesting Vistaril, NS, vitamins and 0.6 mg Buprenex i.m Pt has many other chronic medical issues, Her BP 119/73 pulse 105 RR 20 Temp 36.5 Onset: Unknown/Unsure Onset Date: 12/06/16 Onset Time: 06:00 Duration: Chronic, Other (little worse today) Quality: Reports: Ache Severity: Mild Improves with: Reports: Rest Worsens with: Reports: Movement Context: Reports: Other (Unknown) Associated Symptoms: Reports: No Other Symptoms - Related Data Allergies Allergy/AdvReac Type Severity Reaction Status Date / Time bupropion HCl Allergy Respiratory Verified 08/19/16 03:25 [From Wellbutrin] Distress chlorpromazine HCl Allergy Respiratory Verified 08/19/16 03:25 [From Thorazine] Distress metoclopramide [From Reglan] Allergy Anaphylactic Verified 08/19/16 03:25 Shock ondansetron HCl [From Zofran] Allergy Respiratory Verified 08/19/16 03:25 Distress prochlorperazine edisylate Allergy Respiratory Verified 08/19/16 03:25 [From Compazine] Distress prochlorperazine maleate Allergy Respiratory Verified 08/19/16 03:25 [From Compazine] Distress temazepam [From Restoril] Allergy Headache Verified 08/19/16 03:25 Home Meds: Home Meds Ranitidine HCl [Zantac] 150 mg PO BID PRN 10/19/12 [History] SUMAtriptan [Imitrex] 6 mg IM DAILY PRN 10/19/12 [History] Docusate Sodium [Colace] 200 mg PO DAILY 05/03/13 [History] Magnesium Oxide 400 mg PO DAILY 05/03/13 [History] Potassium Chloride 20 meq PO DAILY 05/03/13 [History] Esomeprazole [NexIUM] 40 mg PO DAILY 09/21/13 [History] Rivaroxaban [Xarelto] 15 mg PO DAILY 08/09/15 [History] Levothyroxine [Synthroid] 50 mcg PO ACBREAKFAST 10/07/15 [History] Sucralfate 1 gm PO QIDACANDBED 02/19/16 [History] levETIRAcetam [Keppra] 250 mg PO DAILY 02/19/16 [History] LORazepam [Ativan] 1 mg PO ASDIRECTED PRN 04/13/16 [History] QUEtiapine [SEROquel] 25 mg PO ASDIRECTED 04/13/16 [History] Ascorbate Calcium [Vitamin C] 500 mg PO DAILY 11/18/16 [History] Bisacodyl [Dulcolax] 10 mg RECTAL DAILY PRN 11/18/16 [History] Calcium Carbonate 1,250 mg PO DAILY 11/18/16 [History] Cholecalciferol (Vitamin D3) [Vitamin D3] 2,000 unit PO DAILY 11/18/16 [History] Docusate Sodium [Colace] 100 mg PO DAILY PRN 11/18/16 [History] Esomeprazole [NexIUM] 40 mg PO DAILY 11/18/16 [History] Levothyroxine 37.5 mg PO DAILY 11/18/16 [History] Lidocaine 5% [Lidoderm 5%] 1 patch TOP Q12H 11/18/16 [History] Magnesium Oxide [Magnesium] 400 mg PO DAILY 11/18/16 [History] Melatonin/Pyridoxine HCl (B6) [Melatonin 3 mg Tablet] 6 mg PO DAILY 11/18/16 [ History] PARoxetine [Paxil] 20 mg PO DAILY 11/18/16 [History] Polyethylene Glycol [Polyox Wsr-301] 17 gm PO DAILY 11/18/16 [History] Potassium Chloride [Klor-Con M20] 20 meq PO DAILY 11/18/16 [History] QUEtiapine [SEROquel] 100 mg PO BEDTIME 11/18/16 [History] Scopolamine [Transderm-Scop] 1 patch TOP Q3D 11/18/16 [History] Sennosides/Docusate Sodium [Senna-Docusate Sodium Tablet] 1 tab PO BID PRN 11/18 [History] Topiramate 150 mg PO BEDTIME 11/18/16 [History] Zolpidem Tartrate [Ambien] 5 mg PO BEDTIME PRN 11/18/16 [History] hydrOXYzine Pamoate [Hydroxyzine Pamoate] 50 mg PO Q6H PRN 11/18/16 [History] oxyCODONE HCl/Acetaminophen [oxyCODONE-Acetaminophen 5-325] 1 tab PO TID PRN 01/23 [History] oxyCODONE [Oxycodone HCl] 10 mg PO BID 11/18/16 [History] Past Medical History - Past Health History Medical/Surgical History: Denies Medical/Surgical History HEENT History: Reports: Other (See Below) Other HEENT History: chronic headaches Cardiovascular History: Reports: Blood Clots/VTE/DVT Respiratory History: Reports: SOB Gastrointestinal History: Reports: Other (See Below) Other Gastrointestinal History: Chronic nausea, ulcers 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 History: Reports: Headaches, Chronic, Seizure Psychiatric History: Reports: Addiction, Depression Endocrine/Metabolic History: Reports: Hypothyroidism Other Dermatologic History: Open sores noted on bilateral arms, lower back - Infectious Disease History Infectious Disease History: Reports: Mumps - Past Surgical History Head Surgeries/Procedures: Reports: None GI Surgical History: Reports: Other (See Below) Musculoskeletal Surgical History: Reports: Other (See Below) Social & Family History - Family History Family Medical History: Noncontributory - Tobacco Use Smoking Status *Q: Never Smoker Month Tobacco Last Used: ? Second Hand Smoke Exposure: No - Caffeine Use Caffeine Use: Reports: None - Alcohol Use Days Per Week of Alcohol Use: 0 - Recreational Drug Use Recreational Drug Use: No ED ROS GENERAL - Review of Systems Review Of Systems: Unable To Obtain - Physical Exam Exam: See Below Exam Limited By: Physical Impairment General Appearance: Alert, WD/WN, No Apparent Distress, Cachetic Eye Exam: Bilateral Eye: Normal Inspection Ears: Normal External Exam Nose: Normal Inspection Throat/Mouth: Normal Inspection, Normal Lips Head Exam: Atraumatic, Normocephalic Neck: Normal Inspection, Supple, Non-Tender, Full Range of Motion Respiratory/Chest: No Respiratory Distress Cardiovascular: Normal Peripheral Pulses, Regular Rate, Rhythm GI/Abdominal: Normal Bowel Sounds, Soft, Non-Tender (Female) Exam: Deferred Rectal (Female) Exam: Deferred Neuro Exam (Abbreviated): Alert, Oriented, CN II-XII Intact, Normal Cognition, Normal Gait DTR: 0: Bicep (L) Back Exam: Normal Inspection Extremities: Normal Inspection, Normal Range of Motion, Non-Tender Psychiatric: Depressed Mood Skin Exam: Warm, Dry, Intact Course - Vital Signs Text/Narrative:: 56 years old w f came to the ed due to headache and anxiety, her usual medical issues here in the ed. Pt was seen multiple times for same her in the ed requesting Vistaril, NS, vitamins and 0.6 mg Buprenex i.m Pt has many other chronic medical issues, Her BP 119/73 pulse 105 RR 20 Temp 36.5 PE: Cachectic 56 y.o.w.f NAD with tension like headache Impression: Tension Headache, Anxiety Tx: Vistaril, Buprenex Reexam: Improved Plan: D/C with instructions Last Recorded V/S: Last Vital Signs Temp 36.9 C 12/06/16 15:55 Pulse 102 H 12/06/16 15:55 Resp 18 12/06/16 15:55 BP 119/73 12/06/16 15:55 Pulse Ox 97 12/06/16 15:55 - Orders/Labs/Meds Labs: Laboratory Tests 12/06/16 Range/Units 13:40 Urine Color Yellow (YELLOW) Urine Appearance Clear (CLEAR) Urine pH 5.0 (5.0-6.5) Ur Specific [place] 1.010 (1.010-1.025) Urine Protein Negative (NEGATIVE) mg/dL Urine Glucose (UA) Normal (NEGATIVE) mg/dL Urine Ketones 15 H (NEGATIVE) mg/dL Urine Occult Blood Moderate H (NEGATIVE) Urine Nitrite Negative (NEGATIVE) Urine Bilirubin Negative (NEGATIVE) Urine Urobilinogen Normal (NEGATIVE) mg/dL Ur Leukocyte Esterase Negative (NEGATIVE) Urine RBC 0-5 (0) Urine WBC 0-5 (0) Ur Squamous Epith Cells Occasional (NS,R,O) Urine Bacteria Rare H (NS) Meds: Medications Discontinued Medications Generic Name Dose Route Start Last Admin Trade Name Freq PRN Reason Stop Dose Admin Buprenorphine 0.3 mg 12/06/16 14:28 12/06/16 14:43 Buprenex IM 12/06/16 14:29 0.3 mg ONETIME STA Administration Buprenorphine 0.3 mg 12/06/16 15:08 12/06/16 15:41 Buprenex IVPUSH 12/06/16 15:09 Not Given ONETIME STA Buprenorphine 0.3 mg 12/06/16 15:40 12/06/16 15:43 Buprenex IM 12/06/16 15:41 0.3 mg ONETIME ONE Administration Hydroxyzine HCl 50 mg 12/06/16 14:28 12/06/16 14:43 Vistaril IM 12/06/16 14:29 50 mg ONETIME ONE Administration Departure - Departure Time of Disposition: 16:19 Disposition: Home, Self-Care 01 Condition: Good Clinical Impression: Anxiety Headache Qualifiers: Headache type: unspecified Headache chronicity pattern: chronic headache Intractability: not intractable Qualified Code(s): R51 - Headache - Discharge Information Referrals: Jesse Gresham MD [Primary Care Provider] - Forms: ED Department Discharge Additional Instructions: Please cont your meds, please come back if your symptoms get worse acutely.
== END 2016-12-06 16:05 | disposition home or self-care (01) ==
LOC: FB.ED 12:37
DX: G44.209 Tension-type headache, unspecified, not intractable (principal); Z88.8 Allergy status to other drugs, medicaments and biological substances; Z79.899 Other long term (current) drug therapy
CPT/HCPCS: 81001; 96372; 99283; J0592; J3410

== ENCOUNTER 2016-12-16 09:22 | Emergency (ER) | payer BC ==
[2016-12-16] MEDS ORDERED: hydrOXYzine HCl 50 MG/ML SDV IM ONE (10:29)
[2016-12-16] MEDS ORDERED: Sodium Chloride 0.9% 1,000 ML IV SCH (10:30)
[2016-12-16] MEDS ORDERED: Dexamethasone 4 MG/ML SDV IVPUSH ONE (10:34)
--- NOTE | 2016-12-16 10:39 | EDM.PDOC ---
ED HPI GENERAL MEDICAL PROBLEM - General Chief Complaint: Genitourinary Problem Stated Complaint: VOMITING Time Seen by Provider: 12/16/16 10:00 Source of Information: Reports: Patient, Old Records History Limitations: Reports: No Limitations - History of Present Illness INITIAL COMMENTS - FREE TEXT/NARRATIVE: Theresa returns to [facility] with ongoing sxs of migraine headache over the past 3 weeks, associated with some nausea, loss of appetite, and 5# wt loss. She tapered off the OxyContin 3 days ago, and has escalated use of Percocet 5/325 to about 4-5 pills per day for headache management. She feels weak, tired, and is requesting a Buprenex 0.6 mg IV injection. She was seen by a PCP 3 days ago, and prescribed the Percocet. She was last seen at [facility] on December 06 for similar concerns. Right Leg Pain Score (Numeric/FACES): 9 - Related Data Allergies Allergy/AdvReac Type Severity Reaction Status Date / Time bupropion HCl Allergy Respiratory Verified 12/16/16 09:47 [From Wellbutrin] Distress chlorpromazine HCl Allergy Respiratory Verified 12/16/16 09:47 [From Thorazine] Distress metoclopramide [From Reglan] Allergy Anaphylactic Verified 12/16/16 09:47 Shock ondansetron HCl [From Zofran] Allergy Respiratory Verified 12/16/16 09:47 Distress prochlorperazine edisylate Allergy Respiratory Verified 12/16/16 09:47 [From Compazine] Distress prochlorperazine maleate Allergy Respiratory Verified 12/16/16 09:47 [From Compazine] Distress temazepam [From Restoril] Allergy Headache Verified 12/16/16 09:47 Home Meds: Home Meds Ranitidine HCl [Zantac] 150 mg PO BID PRN 10/19/12 [History] SUMAtriptan [Imitrex] 6 mg IM DAILY PRN 10/19/12 [History] Docusate Sodium [Colace] 200 mg PO DAILY 05/03/13 [History] Magnesium Oxide 400 mg PO DAILY 05/03/13 [History] Potassium Chloride 20 meq PO DAILY 05/03/13 [History] Esomeprazole [NexIUM] 40 mg PO DAILY 09/21/13 [History] Rivaroxaban [Xarelto] 15 mg PO DAILY 08/09/15 [History] Levothyroxine [Synthroid] 50 mcg PO ACBREAKFAST 10/07/15 [History] Sucralfate 1 gm PO QIDACANDBED 02/19/16 [History] levETIRAcetam [Keppra] 250 mg PO DAILY 02/19/16 [History] LORazepam [Ativan] 1 mg PO ASDIRECTED PRN 04/13/16 [History] QUEtiapine [SEROquel] 25 mg PO ASDIRECTED 04/13/16 [History] Ascorbate Calcium [Vitamin C] 500 mg PO DAILY 11/18/16 [History] Bisacodyl [Dulcolax] 10 mg RECTAL DAILY PRN 11/18/16 [History] Calcium Carbonate 1,250 mg PO DAILY 11/18/16 [History] Cholecalciferol (Vitamin D3) [Vitamin D3] 2,000 unit PO DAILY 11/18/16 [History] Docusate Sodium [Colace] 100 mg PO DAILY PRN 11/18/16 [History] Esomeprazole [NexIUM] 40 mg PO DAILY 11/18/16 [History] Levothyroxine 37.5 mg PO DAILY 11/18/16 [History] Lidocaine 5% [Lidoderm 5%] 1 patch TOP Q12H 11/18/16 [History] Magnesium Oxide [Magnesium] 400 mg PO DAILY 11/18/16 [History] Melatonin/Pyridoxine HCl (B6) [Melatonin 3 mg Tablet] 6 mg PO DAILY 11/18/16 [ History] PARoxetine [Paxil] 20 mg PO DAILY 11/18/16 [History] Polyethylene Glycol [Polyox Wsr-301] 17 gm PO DAILY 11/18/16 [History] Potassium Chloride [Klor-Con M20] 20 meq PO DAILY 11/18/16 [History] QUEtiapine [SEROquel] 100 mg PO BEDTIME 11/18/16 [History] Scopolamine [Transderm-Scop] 1 patch TOP Q3D 11/18/16 [History] Sennosides/Docusate Sodium [Senna-Docusate Sodium Tablet] 1 tab PO BID PRN 11/18 [History] Topiramate 150 mg PO BEDTIME 11/18/16 [History] Zolpidem Tartrate [Ambien] 5 mg PO BEDTIME PRN 11/18/16 [History] hydrOXYzine Pamoate [Hydroxyzine Pamoate] 50 mg PO Q6H PRN 11/18/16 [History] oxyCODONE HCl/Acetaminophen [oxyCODONE-Acetaminophen 5-325] 1 tab PO TID PRN 01/23 [History] oxyCODONE [Oxycodone HCl] 10 mg PO BID 11/18/16 [History] Past Medical History - Past Health History Medical/Surgical History: Denies Medical/Surgical History HEENT History: Reports: Other (See Below) Other HEENT History: chronic headaches Cardiovascular History: Reports: Blood Clots/VTE/DVT Respiratory History: Reports: SOB Gastrointestinal History: Reports: Other (See Below) Other Gastrointestinal History: Chronic nausea, ulcers [employer] History: Reports: Neurological History: Reports: Headaches, Chronic, Migraines, Seizure Psychiatric History: Reports: Addiction, Depression Endocrine/Metabolic History: Reports: Hypothyroidism Dermatologic History: Reports: Other (See Below) Other Dermatologic History: Open sores noted on bilateral arms, lower back - Infectious Disease History Infectious Disease History: Reports: Mumps - Past Surgical History Head Surgeries/Procedures: Reports: None GI Surgical History: Reports: Other (See Below) Musculoskeletal Surgical History: Reports: Other (See Below) Social & Family History - Family History Family Medical History: Noncontributory - Tobacco Use Smoking Status *Q: Never Smoker Month Tobacco Last Used: ? Second Hand Smoke Exposure: No - Caffeine Use Caffeine Use: Reports: Soda - Alcohol Use Days Per Week of Alcohol Use: 0 - Recreational Drug Use Recreational Drug Use: No ED ROS GENERAL - Review of Systems Review Of Systems: ROS reveals no pertinent complaints other than HPI. ED EXAM, GENERAL - Physical Exam Exam: See Below Exam Limited By: No Limitations General Appearance: Alert, WD/WN, No Apparent Distress, Anxious Eye Exam: Bilateral Eye: Normal Inspection, PERRL Ears: Normal External Exam Nose: Normal Inspection Throat/Mouth: Normal Inspection Head: Atraumatic, Normocephalic Neck: Normal Inspection, Supple Respiratory/Chest: Lungs Clear, Normal Breath Sounds, No Accessory Muscle Use Cardiovascular: Regular Rate, Rhythm, No Murmur GI/Abdominal: Normal Bowel Sounds, Soft, Non-Tender, No Organomegaly, No Distention Back Exam: Normal Inspection Extremities: Normal Inspection Neurological: Alert, Oriented, CN II-XII Intact, No Motor/Sensory Deficits Psychiatric: Normal Affect, Anxious Skin Exam: Warm, Dry Lymphatic: No Adenopathy Course - Vital Signs Text/Narrative:: Following assession at the [facility], I administered NS 1L IV thru port, Decadron 10 mg IV, and Vistaril 50 mg IM. She reported no improvement in anxiety with the Vistaril, and administered Ativan 1.0 mg po. Patient tolerated therapy. Her request for opioids was denied. Last Recorded V/S: Last Vital Signs Temp 36.8 C 12/16/16 09:56 Pulse 80 12/16/16 12:00 Resp 18 12/16/16 09:56 BP 135/81 12/16/16 12:00 Pulse Ox 100 12/16/16 09:56 - Orders/Labs/Meds Orders: Active Orders 24 hr Category Date Time Status Implanted Port Access [RC] ASDIRECTED Care 12/16/16 10:39 Active Implanted Port De-Access [RC] ASDIRECTED Care 12/16/16 11:59 Active Meds: Medications Discontinued Medications Generic Name Dose Route Start Last Admin Trade Name Freq PRN Reason Stop Dose Admin Dexamethasone 10 mg 12/16/16 10:34 12/16/16 10:48 Dexamethasone IVPUSH 12/16/16 10:35 10 mg ONETIME ONE Administration Heparin Sodium (Porcine) 300 units 12/16/16 11:38 Heparin Lock Flush 100 Units/Ml FLUSH ASDIRECTED PRN Keep Vein Open Heparin Sodium (Porcine) 500 units 12/16/16 11:42 12/16/16 11:44 Heparin Lock Flush 100 Units/Ml FLUSH 500 units ASDIRECTED PRN Administration Keep Vein Open Hydroxyzine HCl 50 mg 12/16/16 10:29 12/16/16 10:48 Vistaril IM 12/16/16 10:30 50 mg ONETIME ONE Administration Sodium Chloride 1,000 mls @ 999 mls/hr 12/16/16 10:30 12/16/16 10:46 Normal Saline IV 999 mls/hr ASDIRECTED DOMINIQUE Administration Lorazepam 1 mg 12/16/16 11:36 12/16/16 11:43 Ativan PO 12/16/16 11:37 1 mg ONETIME ONE Administration Departure - Departure Time of Disposition: 12:00 Disposition: Home, Self-Care 01 Condition: Fair Clinical Impression: Migraine - Discharge Information Referrals: Jesse Gersham MD [Primary Care Provider] - Forms: ED Department Discharge Additional Instructions: See PCP as needed - Problem List & Annotations (1) Migraine SNOMED Code(s): 38310104 Code(s): G43.909 - MIGRAINE, UNSP, NOT INTRACTABLE, WITHOUT STATUS MIGRAINOSUS Status: Acute Annotation/Comment:: Organized migraine headache, managed with Dilaudid 2 mg IM and Vistaril 50 mg IM. She will follow up with neurology this week. Headache with migrainous features that showed improvement with rehydration. Nausea improved with Vistaril 50 mg IM. A request for opioids was denied. She was advised to follow up with PCP who already has provided her with a prescription for Percocet 5/325. Decadron 10 mg IV was administered for prevention of recurrence of migraine headache. (2) Anxiety SNOMED Code(s): 30200856 Code(s): F41.9 - ANXIETY DISORDER, UNSPECIFIED Status: Acute Annotation/ Comment:: Anxiety improved with Ativan 1 mg po. She must see PCP for any maintenance management of chronic anxiety. - Problem List Review Problem List Initiated/Reviewed/Updated: Yes - My Orders Last 24 Hours: My Active Orders 12/16/16 10:39 Implanted Port Access [RC] ASDIRECTED 12/16/16 11:59 Implanted Port De-Access [RC] ASDIRECTED - Assessment/Plan Last 24 Hours: My Active Orders 12/16/16 10:39 Implanted Port Access [RC] ASDIRECTED 12/16/16 11:59 Implanted Port De-Access [RC] ASDIRECTED Plan: Follow up with PCP.
[2016-12-16] MEDS ORDERED: LORazepam 1 MG Tab PO ONE (11:36)
[2016-12-16 12:02] VITALS: BP 135/81
== END 2016-12-16 12:00 | disposition home or self-care (01) ==
LOC: FB.ED 09:22
DX: G43.909 Migraine, unspecified, not intractable, without status migrainosus (principal); F32.9 Major depressive disorder, single episode, unspecified; E03.9 Hypothyroidism, unspecified; Z79.899 Other long term (current) drug therapy; Z88.8 Allergy status to other drugs, medicaments and biological substances
CPT/HCPCS: 96361; 96372; 96374; 99283; A9270; J1100; J1642; J3410; J7040

== ENCOUNTER 2016-12-20 09:50 | Emergency (ER) | payer BC ==
[2016-12-20] MEDS ORDERED: hydrOXYzine HCl 50 MG/ML SDV IM ONE ×3 (10:33→12:50)
[2016-12-20] MEDS ORDERED: Ketorolac 60 MG/2 ML SDV IM ONE ×2 (10:34→10:41)
--- NOTE | 2016-12-20 10:39 | EDM.PDOC ---
ED HPI GENERAL MEDICAL PROBLEM - General Stated Complaint: VOMITING Time Seen by Provider: 12/20/16 10:25 Source of Information: Reports: Patient History Limitations: Reports: No Limitations - History of Present Illness INITIAL COMMENTS - FREE TEXT/NARRATIVE: c/o CORDOVA x 3w also with chronic anxiety, out of oxycodone which she has been taking 2 tabs at a time says she came to ED because no clinic apts available no acute c/o wants more oxycodone altho told that this cannot be rx'ed from ED requesting Vistaril took Imitrex this AM without benefit has nausea seen in clinic 1w ago with same c/o, pt did not like the provider PCP Dr Gresham who is on vacation - Related Data Allergies Allergy/AdvReac Type Severity Reaction Status Date / Time bupropion HCl Allergy Respiratory Verified 12/16/16 09:47 [From Wellbutrin] Distress chlorpromazine HCl Allergy Respiratory Verified 12/16/16 09:47 [From Thorazine] Distress metoclopramide [From Reglan] Allergy Anaphylactic Verified 12/16/16 09:47 Shock ondansetron HCl [From Zofran] Allergy Respiratory Verified 12/16/16 09:47 Distress prochlorperazine edisylate Allergy Respiratory Verified 12/16/16 09:47 [From Compazine] Distress prochlorperazine maleate Allergy Respiratory Verified 12/16/16 09:47 [From Compazine] Distress temazepam [From Restoril] Allergy Headache Verified 12/16/16 09:47 Home Meds: Home Meds Ranitidine HCl [Zantac] 150 mg PO BID PRN 10/19/12 [History] SUMAtriptan [Imitrex] 6 mg IM DAILY PRN 10/19/12 [History] Docusate Sodium [Colace] 200 mg PO DAILY 05/03/13 [History] Magnesium Oxide 400 mg PO DAILY 05/03/13 [History] Potassium Chloride 20 meq PO DAILY 05/03/13 [History] Esomeprazole [NexIUM] 40 mg PO DAILY 09/21/13 [History] Rivaroxaban [Xarelto] 15 mg PO DAILY 08/09/15 [History] Levothyroxine [Synthroid] 50 mcg PO ACBREAKFAST 10/07/15 [History] Sucralfate 1 gm PO QIDACANDBED 02/19/16 [History] levETIRAcetam [Keppra] 250 mg PO DAILY 02/19/16 [History] LORazepam [Ativan] 1 mg PO ASDIRECTED PRN 04/13/16 [History] QUEtiapine [SEROquel] 25 mg PO ASDIRECTED 04/13/16 [History] Ascorbate Calcium [Vitamin C] 500 mg PO DAILY 11/18/16 [History] Bisacodyl [Dulcolax] 10 mg RECTAL DAILY PRN 11/18/16 [History] Calcium Carbonate 1,250 mg PO DAILY 11/18/16 [History] Cholecalciferol (Vitamin D3) [Vitamin D3] 2,000 unit PO DAILY 11/18/16 [History] Docusate Sodium [Colace] 100 mg PO DAILY PRN 11/18/16 [History] Esomeprazole [NexIUM] 40 mg PO DAILY 11/18/16 [History] Levothyroxine 37.5 mg PO DAILY 11/18/16 [History] Lidocaine 5% [Lidoderm 5%] 1 patch TOP Q12H 11/18/16 [History] Magnesium Oxide [Magnesium] 400 mg PO DAILY 11/18/16 [History] Melatonin/Pyridoxine HCl (B6) [Melatonin 3 mg Tablet] 6 mg PO DAILY 11/18/16 [ History] PARoxetine [Paxil] 20 mg PO DAILY 11/18/16 [History] Polyethylene Glycol [Polyox Wsr-301] 17 gm PO DAILY 11/18/16 [History] Potassium Chloride [Klor-Con M20] 20 meq PO DAILY 11/18/16 [History] QUEtiapine [SEROquel] 100 mg PO BEDTIME 11/18/16 [History] Scopolamine [Transderm-Scop] 1 patch TOP Q3D 11/18/16 [History] Sennosides/Docusate Sodium [Senna-Docusate Sodium Tablet] 1 tab PO BID PRN 11/18 [History] Topiramate 150 mg PO BEDTIME 11/18/16 [History] Zolpidem Tartrate [Ambien] 5 mg PO BEDTIME PRN 11/18/16 [History] hydrOXYzine Pamoate [Hydroxyzine Pamoate] 50 mg PO Q6H PRN 11/18/16 [History] oxyCODONE HCl/Acetaminophen [oxyCODONE-Acetaminophen 5-325] 1 tab PO TID PRN 01/23 [History] oxyCODONE [Oxycodone HCl] 10 mg PO BID 11/18/16 [History] hydrOXYzine Pamoate [Hydroxyzine Pamoate] 50 mg PO TID PRN #60 capsule 12/20/16 [Rx] Past Medical History - Past Health History Medical/Surgical History: Denies Medical/Surgical History HEENT History: Reports: Other (See Below) Other HEENT History: chronic headaches Cardiovascular History: Reports: Blood Clots/VTE/DVT Respiratory History: Reports: SOB Gastrointestinal History: Reports: Other (See Below) Other Gastrointestinal History: Chronic nausea, 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: Neurological History: Reports: Headaches, Chronic, Migraines, Seizure Psychiatric History: Reports: Addiction, Depression Endocrine/Metabolic History: Reports: Hypothyroidism Dermatologic History: Reports: Other (See Below) Other Dermatologic History: Open sores noted on bilateral arms, lower back - Infectious Disease History Infectious Disease History: Reports: Mumps - Past Surgical History Head Surgeries/Procedures: Reports: None GI Surgical History: Reports: Other (See Below) Musculoskeletal Surgical History: Reports: Other (See Below) Social & Family History - Family History Family Medical History: Noncontributory - Tobacco Use Smoking Status *Q: Never Smoker Month Tobacco Last Used: ? Second Hand Smoke Exposure: No - Caffeine Use Caffeine Use: Reports: Soda - Alcohol Use Days Per Week of Alcohol Use: 0 - Recreational Drug Use Recreational Drug Use: No ED ROS GENERAL - Review of Systems Review Of Systems: See Below Constitutional: Reports: No Symptoms HEENT: Reports: No Symptoms Respiratory: Reports: No Symptoms Cardiovascular: Reports: No Symptoms Endocrine: Reports: No Symptoms GI/Abdominal: Reports: No Symptoms : Reports: No Symptoms Musculoskeletal: Reports: No Symptoms Skin: Reports: No Symptoms Neurological: Reports: Headache Psychiatric: Reports: No Symptoms Hematologic/Lymphatic: Reports: No Symptoms Immunologic: Reports: No Symptoms ED EXAM, GENERAL - Physical Exam Exam: See Below Exam Limited By: No Limitations General Appearance: Alert, WD/WN, No Apparent Distress, Other (moves easily, no evidence of pain or distress) Eye Exam: Bilateral Eye: EOMI, PERRL Ears: Normal External Exam Nose: Normal Inspection, Normal Mucosa, No Blood Throat/Mouth: Normal Inspection, Normal Lips, Normal Voice, No Airway Compromise Head: Atraumatic, Normocephalic, Other (NT, turns neck easily) Neck: Normal Inspection, Supple, Non-Tender, Full Range of Motion Respiratory/Chest: No Respiratory Distress, Lungs Clear, Normal Breath Sounds, No Accessory Muscle Use, Chest Non-Tender Cardiovascular: Normal Peripheral Pulses, Regular Rate, Rhythm, No Edema, No Gallop, No JVD, No Rub, Other (2/6 JAYLA at [facility]) GI/Abdominal: Normal Bowel Sounds, Soft, Non-Tender Back Exam: Normal Inspection, Full Range of Motion, NT Extremities: Normal Inspection, Normal Range of Motion, Non-Tender, No Pedal Edema, Other (turgor wnl) Neurological: Alert, Oriented, CN II-XII Intact, Normal Cognition, No Motor/ Sensory Deficits Psychiatric: Anxious Skin Exam: Warm, Dry, Intact, Normal Color, No Rash Lymphatic: No Adenopathy Course - Vital Signs Last Recorded V/S: Last Vital Signs Temp 36.8 C 12/20/16 11:30 Pulse 93 12/20/16 11:30 Resp 18 12/20/16 11:30 BP 134/84 12/20/16 11:30 Pulse Ox 100 12/20/16 11:30 - Orders/Labs/Meds Orders: Active Orders 24 hr Category Date Time Status Sodium Chloride 0.9% [Normal Saline] 1,000 ml Med 12/20/16 11:44 Ordered IV .BOLUS Medication Orders Sodium Chloride (Normal Saline) 1,000 mls @ 999 mls/hr IV .BOLUS ONE Stop: 12/20/16 12:44 Meds: Medications Generic Name Dose Route Start Last Admin Trade Name Freq PRN Reason Stop Dose Admin Sodium Chloride 1,000 mls @ 999 mls/hr 12/20/16 11:44 Normal Saline IV 12/20/16 12:44 .BOLUS ONE Discontinued Medications Generic Name Dose Route Start Last Admin Trade Name Freq PRN Reason Stop Dose Admin Diphenhydramine HCl 50 mg 12/20/16 11:16 12/20/16 11:39 Benadryl IM 12/20/16 11:17 50 mg ONETIME ONE Administration Hydroxyzine HCl 50 mg 12/20/16 10:33 12/20/16 10:58 Vistaril IM 12/20/16 10:34 Not Given ONETIME ONE Hydroxyzine HCl 50 mg 12/20/16 10:41 12/20/16 11:02 Vistaril IM 12/20/16 10:42 50 mg ONETIME ONE Administration Ketorolac Tromethamine 60 mg 12/20/16 10:34 12/20/16 10:58 Toradol IM 12/20/16 10:35 Not Given ONETIME ONE Ketorolac Tromethamine 60 mg 12/20/16 10:41 12/20/16 11:19 Toradol IM 12/20/16 10:42 60 mg ONETIME ONE Administration Metoclopramide HCl 10 mg 12/20/16 10:56 Reglan IM 12/20/16 10:57 ONETIME ONE - Re-Assessments/Exams Free Text/Narrative Re-Assessment/Exam: 12/20/16 12:00 pt declined Toradol, did accept Vistaril 50 mg IM and Benadryl 50 mg IM, she requested RF on her hydroxyzine 50 mg tid at home, has 2 caps left, had gottne 60 tabs on last fill Departure - Departure Time of Disposition: 12:00 Disposition: Home, Self-Care 01 Condition: Good Clinical Impression: Chronic daily headache, Opioid dependence, Opioid withdrawal - Discharge Information Prescriptions: hydrOXYzine Pamoate [Hydroxyzine Pamoate] 50 mg PO TID PRN #60 capsule PRN Reason: Headache Referrals: Magdaleno Alvarez MD [Primary Care Provider] - Additional Instructions: Continue current meds. See a doctor at the clinic in the 1-2 days for followup. - My Orders Last 24 Hours: My Active Orders 12/20/16 11:44 Sodium Chloride 0.9% [Normal Saline] 1,000 ml IV .BOLUS - Assessment/Plan Last 24 Hours: My Active Orders 12/20/16 11:44 Sodium Chloride 0.9% [Normal Saline] 1,000 ml IV .BOLUS
[2016-12-20] MEDS ORDERED: Metoclopramide 10 MG/2 ML SDV IM ONE (10:56)
[2016-12-20] MEDS ORDERED: diphenhydrAMINE 50 MG/ML SDV IM ONE (11:16)
[2016-12-20 11:31] VITALS: BP 134/84
[2016-12-20] MEDS ORDERED: Sodium Chloride 0.9% 1,000 ML IV ONE (11:44)
[2016-12-20] MEDS ORDERED: Sodium Chloride 0.9% 10 ML Syringe FLUSH STA (13:22)
== END 2016-12-20 13:54 | disposition home or self-care (01) ==
LOC: FB.ED 09:50
DX: R51 Headache (principal); F11.23 Opioid dependence with withdrawal; F32.9 Major depressive disorder, single episode, unspecified; E03.9 Hypothyroidism, unspecified; Z79.899 Other long term (current) drug therapy; Z88.8 Allergy status to other drugs, medicaments and biological substances
CPT/HCPCS: 96360; 96372; 99283; J1200; J1642; J1885; J3410; J7040; J7050

== ENCOUNTER 2017-01-01 14:12 | Emergency (ER) | payer BC ==
[2017-01-01] MEDS ORDERED: Sodium Chloride 0.9% 1,000 ML IV ONE (14:36)
[2017-01-01] MEDS: Sodium Chloride 0.9% 10 ML Syringe FLUSH PRN ×2 (14:45→16:45)
--- NOTE | 2017-01-01 15:03 | EDM.PDOC ---
ED HPI GENERAL MEDICAL PROBLEM - General Chief Complaint: Headache Stated Complaint: HEADACHE Time Seen by Provider: 01/01/17 14:12 Source of Information: Reports: Patient, Family (mother) - History of Present Illness INITIAL COMMENTS - FREE TEXT/NARRATIVE: 56 y.o.w.f with multiple medical issues, including eating disorder, chronic intermittent headache and nausea, came to the ed due severe weight loss and weakness, unable to ambulate. Pt came to the ED by wheelchair with her mom. Her mom is very concerned about her daughter's fast deteriorating. Pt is requesting pain meds and vistaril for nausea. Pt denied vomiting but does eat nearly close to nothing. BP 138/99 pulse 98 temp 36.9 RR 16 Pulse ox 100% Onset Date: 12/15/16 Onset Time: 08:00 Duration: Chronic, Constant Location: Reports: Head, Generalized Quality: Reports: Ache, Same as Previous Episode Severity: Severe (weight loss) Improves with: Reports: Eating Headache Pain Score (Numeric/FACES): 7 - Related Data Allergies Allergy/AdvReac Type Severity Reaction Status Date / Time bupropion HCl Allergy Respiratory Verified 01/01/17 14:56 [From Wellbutrin] Distress chlorpromazine HCl Allergy Respiratory Verified 01/01/17 14:56 [From Thorazine] Distress metoclopramide [From Reglan] Allergy Anaphylactic Verified 01/01/17 14:56 Shock ondansetron HCl [From Zofran] Allergy Respiratory Verified 01/01/17 14:56 Distress prochlorperazine edisylate Allergy Respiratory Verified 01/01/17 14:56 [From Compazine] Distress prochlorperazine maleate Allergy Respiratory Verified 01/01/17 14:56 [From Compazine] Distress temazepam [From Restoril] Allergy Headache Verified 01/01/17 14:56 Home Meds: Home Meds Ranitidine HCl [Zantac] 150 mg PO BID PRN 10/19/12 [History] SUMAtriptan [Imitrex] 6 mg IM DAILY PRN 10/19/12 [History] Docusate Sodium [Colace] 200 mg PO DAILY 05/03/13 [History] Rivaroxaban [Xarelto] 15 mg PO DAILY 08/09/15 [History] Levothyroxine [Synthroid] 50 mcg PO ACBREAKFAST 10/07/15 [History] Sucralfate 1 gm PO QIDACANDBED 02/19/16 [History] levETIRAcetam [Keppra] 250 mg PO DAILY 02/19/16 [History] LORazepam [Ativan] 1 mg PO ASDIRECTED PRN 04/13/16 [History] QUEtiapine [SEROquel] 25 mg PO ASDIRECTED 04/13/16 [History] Ascorbate Calcium [Vitamin C] 500 mg PO DAILY 11/18/16 [History] Bisacodyl [Dulcolax] 10 mg RECTAL DAILY PRN 11/18/16 [History] Calcium Carbonate 1,250 mg PO DAILY 11/18/16 [History] Cholecalciferol (Vitamin D3) [Vitamin D3] 2,000 unit PO DAILY 11/18/16 [History] Docusate Sodium [Colace] 100 mg PO DAILY PRN 11/18/16 [History] Esomeprazole [NexIUM] 40 mg PO DAILY 11/18/16 [History] Levothyroxine 37.5 mg PO DAILY 11/18/16 [History] Lidocaine 5% [Lidoderm 5%] 1 patch TOP Q12H 11/18/16 [History] Magnesium Oxide [Magnesium] 400 mg PO DAILY 11/18/16 [History] Melatonin/Pyridoxine HCl (B6) [Melatonin 3 mg Tablet] 6 mg PO DAILY 11/18/16 [ History] PARoxetine [Paxil] 20 mg PO DAILY 11/18/16 [History] Polyethylene Glycol [Polyox Wsr-301] 17 gm PO DAILY 11/18/16 [History] Potassium Chloride [Klor-Con M20] 20 meq PO DAILY 11/18/16 [History] QUEtiapine [SEROquel] 100 mg PO BEDTIME 11/18/16 [History] Scopolamine [Transderm-Scop] 1 patch TOP Q3D 11/18/16 [History] Sennosides/Docusate Sodium [Senna-Docusate Sodium Tablet] 1 tab PO BID PRN 11/18 [History] Topiramate 150 mg PO BEDTIME 11/18/16 [History] Zolpidem Tartrate [Ambien] 5 mg PO BEDTIME PRN 11/18/16 [History] hydrOXYzine Pamoate [Hydroxyzine Pamoate] 50 mg PO Q6H PRN 11/18/16 [History] oxyCODONE HCl/Acetaminophen [oxyCODONE-Acetaminophen 5-325] 1 tab PO BID PRN 01/23 [History] hydrOXYzine Pamoate [Hydroxyzine Pamoate] 50 mg PO TID PRN #60 capsule 12/20/16 [Rx] Meclizine [Antivert] 12.5 mg PO TID PRN 01/01/17 [History] Past Medical History - Past Health History Medical/Surgical History: Denies Medical/Surgical History HEENT History: Reports: Other (See Below) Other HEENT History: chronic headaches Cardiovascular History: Reports: Blood Clots/VTE/DVT Respiratory History: Reports: SOB Gastrointestinal History: Reports: Other (See Below) Other Gastrointestinal History: Chronic nausea, ulcers [employer] History: Reports: Neurological History: Reports: Headaches, Chronic, Migraines, Seizure Psychiatric History: Reports: Addiction, Depression Endocrine/Metabolic History: Reports: Hypothyroidism Dermatologic History: Reports: Other (See Below) Other Dermatologic History: Open sores noted on bilateral arms, lower back - Infectious Disease History Infectious Disease History: Reports: Mumps - Past Surgical History Head Surgeries/Procedures: Reports: None GI Surgical History: Reports: Other (See Below) Musculoskeletal Surgical History: Reports: Other (See Below) Social & Family History - Family History Family Medical History: Noncontributory - Tobacco Use Smoking Status *Q: Never Smoker Month Tobacco Last Used: ? Second Hand Smoke Exposure: No - Caffeine Use Caffeine Use: Reports: Soda - Alcohol Use Days Per Week of Alcohol Use: 0 - Recreational Drug Use Recreational Drug Use: No Recreational Drug Type: Reports: Ativan ED ROS GENERAL - Review of Systems Review Of Systems: See Below Constitutional: Reports: Weakness, Weight Loss HEENT: Reports: No Symptoms Respiratory: Reports: No Symptoms Cardiovascular: Reports: No Symptoms Endocrine: Reports: No Symptoms GI/Abdominal: Reports: No Symptoms : Reports: No Symptoms Musculoskeletal: Reports: Other (too weak to ambulate) Skin: Reports: No Symptoms Neurological: Reports: Difficulty Walking, Weakness Psychiatric: Reports: No Symptoms Hematologic/Lymphatic: Reports: No Symptoms Immunologic: Reports: No Symptoms - Physical Exam Exam: See Below Exam Limited By: Physical Impairment General Appearance: Alert, WD/WN, No Apparent Distress, Cachetic (severe ) Eye Exam: Bilateral Eye: Normal Inspection Ears: Normal External Exam Nose: Normal Inspection Throat/Mouth: Other (dry mucosal membrane) Head Exam: Atraumatic, Normocephalic Neck: Normal Inspection, Supple, Non-Tender Respiratory/Chest: No Respiratory Distress Cardiovascular: Normal Peripheral Pulses, Regular Rate, Rhythm GI/Abdominal: Normal Bowel Sounds, Soft, Non-Tender (Female) Exam: Deferred Rectal (Female) Exam: Deferred Neuro Exam (Abbreviated): Alert, Oriented, CN II-XII Intact, Normal Cognition, Abnormal Gait (deu to weakness) Back Exam: Normal Inspection, Full Range of Motion Extremities: Other (peripheral muscle wasting) Psychiatric: Other (h/o eating disorder as per Gordon Morales) Skin Exam: Warm, Dry Course - Vital Signs Text/Narrative:: 56 y.o.w.f with multiple medical issues, including eating disorder, chronic intermittent headache and nausea, came to the ed due severe weight loss and weakness, unable to ambulate. Pt came to the ED by wheelchair with her mom. He mom is very concerned about her daughter's fast deteriorating. Pt is requesting pain meds and vistaril for nausea. Pt denied vomiting but does eat nearly close to nothing. BP 138/99 pulse 98 temp 36.9 RR 16 Pulse ox 100% PE: cachectic, weak 56 WF requesting specific meds for headache and nausea Labs: CBC WNL CK 15, BUN/CR 9/ UA no UTI Impression: Gen weakness, decreased CK (15, nl 60-160), severe cachexia, dehydration, unable to ambulate, chronic nausea, pathological weight loss, unable to ambulate, H/O eating disorder. 4.00 pm: consultation: Dr. Gresham: send to [facility], did not recommend more pain meds which may have effects on her eating disorder. 4.12 pm consultation: Dr. Freeman. Hospitalist [facility]: Refused accepting the patient for transfer and admission for parenteral nutrition 4.39 pm consultation: Dr. Chakraborty, Hospitalist: [facility]: Accepted the patient for further care 5.10 pm Pt refused to be admitted to this Hospital as well. Tx: Vistaril for nausea. Reexam: Nausea has improved, pt is too week to ambulate, no able to ambulate by wheelchair because of her weakness. Pt is very argumentative the entire time while here in the ED. Her mom was present 5:14 pm Pt decided to sign out AMA. She was signing the AMA papers. She received the lab results as well. Pt was OX# at he time of signing koko AMA papers Plan: Pt signed out AMA and left by wheelchair with help from her mom Addendum: 01/02/2017 Pt's mom came back on 01/02/2017 requesting the entire medical record, which was given to her by the nurse by accident. The medical record was not reviewed and signed at that time Last Recorded V/S: Last Vital Signs Temp 36.8 C 01/01/17 14:15 Pulse Resp 16 01/01/17 16:10 BP 132/84 01/01/17 16:10 Pulse Ox 99 01/01/17 16:10 - Orders/Labs/Meds Labs: Laboratory Tests 01/01/17 01/01/17 01/01/17 Range/Units 14:45 14:45 15:30 WBC 7.2 (4.5-12.0) X10-3/uL RBC 4.45 (3.23-5.20) x10(6)uL Hgb 13.4 (11.5-15.5) g/dL Hct 39.8 (30.0-51.3) % MCV 89.5 (80-96) fL MCH 30.1 (27.7-33.6) pg MCHC 33.6 (32.2-35.4) g/dL RDW 15.0 (11.5-15.5) % Plt Count 424 H (125-369) X10(3)uL MPV 7.2 L (7.4-10.4) fL Neut % (Auto) 71.6 (46-82) % Lymph % (Auto) 21.8 (13-37) % Miner % (Auto) 5.7 (4-12) % Eos % (Auto) 1 (1.0-5.0) % Baso % (Auto) 0 (0-2) % Neut # (Auto) 5.2 (1.6-8.3) # Lymph # (Auto) 1.6 (0.6-5.0) # Miner # (Auto) 0.4 (0.0-1.3) # Eos # (Auto) 0.0 (0.0-0.8) # Baso # (Auto) 0.0 (0.0-0.2) # Sodium 135 (135-145) mmol/L Potassium 3.6 (3.5-5.3) mmol/L Chloride 106 (100-110) mmol/L Carbon Dioxide 19 L (23-29) mmol/L BUN 9 (5-20) mg/dL Creatinine 0.9 (0.6-1.3) mg/dL Est Cr Clr Drug Dosing TNP Estimated GFR (MDRD) > 60 (>60) BUN/Creatinine Ratio 10.0 (9-20) Glucose 132 H (80-116) mg/dL Calcium 9.2 (8.6-10.2) mg/dL Creatine Kinase 15 L (60-160) IU/L Urine Color Yellow (YELLOW) Urine Appearance Clear (CLEAR) Urine pH 5.0 (5.0-6.5) Ur Specific [place] 1.020 (1.010-1.025) Urine Protein Negative (NEGATIVE) mg/dL Urine Glucose (UA) Normal (NEGATIVE) mg/dL Urine Ketones Negative (NEGATIVE) mg/dL Urine Occult Blood Trace (NEGATIVE) Urine Nitrite Negative (NEGATIVE) Urine Bilirubin Negative (NEGATIVE) Urine Urobilinogen Normal (NEGATIVE) mg/dL Ur Leukocyte Esterase Negative (NEGATIVE) Urine RBC Not seen (0) Urine WBC 0-5 (0) Ur Squamous Epith Cells Few H (NS,R,O) Urine Bacteria Few H (NS) Meds: Medications Discontinued Medications Generic Name Dose Route Start Last Admin Trade Name Freq PRN Reason Stop Dose Admin Heparin Sodium (Porcine) Confirm 01/01/17 16:19 01/01/17 16:40 Heparin Lock Flush 100 Units/Ml Administered 01/01/17 16:20 Not Given Dose 500 units .ROUTE .STK-MED ONE Heparin Sodium (Porcine) 500 units 01/01/17 16:00 01/01/17 16:22 Heparin Lock Flush 100 Units/Ml FLUSH 500 units ASDIRECTED PRN Administration Keep Vein Open Hydroxyzine HCl 25 mg 01/01/17 17:06 01/01/17 17:18 Vistaril IM 01/01/17 17:07 25 mg Q4H ONE Administration Sodium Chloride 1,000 mls @ 999 mls/hr 01/01/17 14:36 01/01/17 14:52 Normal Saline IV 01/01/17 15:36 999 mls/hr .BOLUS ONE Administration Sodium Chloride 10 ml 01/01/17 16:00 01/01/17 16:45 Saline Flush FLUSH 10 ml ASDIRECTED PRN Administration Keep Vein Open Departure - Departure Time of Disposition: 17:40 Disposition: Against Medical Advice 07 Condition: Fair Clinical Impression: Cachexia, Abnormal creatine kinase level, Dehydration - Discharge Information Referrals: Jesse Gresham MD [Primary Care Provider] - Forms: ED Department Discharge
[2017-01-01] MEDS ORDERED: hydrOXYzine HCl 50 MG/ML SDV IM ONE (17:06)
[2017-01-01 18:22] VITALS: BP 132/84
== END 2017-01-01 17:40 | disposition left against medical advice (07) ==
LOC: FB.ED 14:12
DX: E86.0 Dehydration (principal); R64 Cachexia; R94.4 Abnormal results of kidney function studies; Z88.8 Allergy status to other drugs, medicaments and biological substances; Z79.899 Other long term (current) drug therapy
CPT/HCPCS: 80048; 81001; 82550; 85025; 96360; 96372; 99284; J1642; J3410; J7040; J7050; 36415

== ENCOUNTER 2017-01-05 17:41 | Observation (INO) | payer BC ==
[2017-01-05] MEDS ORDERED: Sodium Chloride 0.9% 1,000 ML IV ONE (17:49)
[2017-01-05] MEDS ORDERED: Sodium Chloride 0.9% 10 ML Syringe FLUSH PRN (17:49)
--- NOTE | 2017-01-05 19:45 | EDM.PDOC ---
ED HPI GENERAL MEDICAL PROBLEM - General Chief Complaint: Gastrointestinal Problem Stated Complaint: MIGRAINE Time Seen by Provider: 01/05/17 18:33 Source of Information: Reports: Patient, Family History Limitations: Reports: Physical Impairment, Uncooperative - History of Present Illness INITIAL COMMENTS - FREE TEXT/NARRATIVE: 56 years old w f with multiple medical issues, including severe cachexia, drug seeking behaviour, chronic intermittent nausea, tension headache, multiple visits to clinics including [facility], signed out AMA a few days ago when she initially agreed to be transferred to [facility] by EMS due to here severe cachexia, came to ED again, after she was seen in the clinic by Dr. Gresham, to be admitted to the Hospital. Pt had no new medical complains. Her mom is present. BP 121/95 pulse 52 Temp 36.4 O2 sat 95% on RA. Onset Date: 12/08/16 Onset Time: 08:00 Duration: Getting Worse, Intermittent Location: Reports: Generalized Severity: Moderate Improves with: Reports: Eating Worsens with: Reports: Other (not eating) Context: Reports: Other (cachexia, eating disorder) Generalized Pain Score (Numeric/FACES): 9 Frontal Headache Pain Score (Numeric/FACES): 9 - Related Data Allergies Allergy/AdvReac Type Severity Reaction Status Date / Time bupropion HCl Allergy Respiratory Verified 01/05/17 20:12 [From Wellbutrin] Distress chlorpromazine HCl Allergy Respiratory Verified 01/05/17 20:12 [From Thorazine] Distress metoclopramide [From Reglan] Allergy Anaphylactic Verified 01/05/17 20:12 Shock ondansetron HCl [From Zofran] Allergy Respiratory Verified 01/05/17 20:12 Distress prochlorperazine edisylate Allergy Respiratory Verified 01/05/17 20:12 [From Compazine] Distress prochlorperazine maleate Allergy Respiratory Verified 01/05/17 20:12 [From Compazine] Distress temazepam [From Restoril] Allergy Headache Verified 01/05/17 20:12 Home Meds: Home Meds Ranitidine HCl [Zantac] 150 mg PO BID PRN 10/19/12 [History] SUMAtriptan [Imitrex] 6 mg IM DAILY PRN 10/19/12 [History] Docusate Sodium [Colace] 200 mg PO DAILY 05/03/13 [History] Rivaroxaban [Xarelto] 15 mg PO DAILY 08/09/15 [History] Levothyroxine [Synthroid] 50 mcg PO ACBREAKFAST 10/07/15 [History] Sucralfate 1 gm PO QIDACANDBED 02/19/16 [History] levETIRAcetam [Keppra] 250 mg PO DAILY 02/19/16 [History] LORazepam [Ativan] 1 mg PO ASDIRECTED PRN 04/13/16 [History] QUEtiapine [SEROquel] 25 mg PO ASDIRECTED 04/13/16 [History] Ascorbate Calcium [Vitamin C] 500 mg PO DAILY 11/18/16 [History] Bisacodyl [Dulcolax] 10 mg RECTAL DAILY PRN 11/18/16 [History] Calcium Carbonate 1,250 mg PO DAILY 11/18/16 [History] Cholecalciferol (Vitamin D3) [Vitamin D3] 2,000 unit PO DAILY 11/18/16 [History] Docusate Sodium [Colace] 100 mg PO DAILY PRN 11/18/16 [History] Esomeprazole [NexIUM] 40 mg PO DAILY 11/18/16 [History] Levothyroxine 37.5 mg PO DAILY 11/18/16 [History] Lidocaine 5% [Lidoderm 5%] 1 patch TOP Q12H 11/18/16 [History] Magnesium Oxide [Magnesium] 400 mg PO DAILY 11/18/16 [History] Melatonin/Pyridoxine HCl (B6) [Melatonin 3 mg Tablet] 6 mg PO DAILY 11/18/16 [ History] PARoxetine [Paxil] 20 mg PO DAILY 11/18/16 [History] Polyethylene Glycol [Polyox Wsr-301] 17 gm PO DAILY 11/18/16 [History] Potassium Chloride [Klor-Con M20] 20 meq PO DAILY 11/18/16 [History] QUEtiapine [SEROquel] 100 mg PO BEDTIME 11/18/16 [History] Scopolamine [Transderm-Scop] 1 patch TOP Q3D 11/18/16 [History] Sennosides/Docusate Sodium [Senna-Docusate Sodium Tablet] 1 tab PO BID PRN 11/18 [History] Topiramate 150 mg PO BEDTIME 11/18/16 [History] Zolpidem Tartrate [Ambien] 5 mg PO BEDTIME PRN 11/18/16 [History] hydrOXYzine Pamoate [Hydroxyzine Pamoate] 50 mg PO Q6H PRN 11/18/16 [History] oxyCODONE HCl/Acetaminophen [oxyCODONE-Acetaminophen 5-325] 1 tab PO BID PRN 01/23 [History] hydrOXYzine Pamoate [Hydroxyzine Pamoate] 50 mg PO TID PRN #60 capsule 12/20/16 [Rx] Meclizine [Antivert] 12.5 mg PO TID PRN 01/01/17 [History] Past Medical History - Past Health History Medical/Surgical History: Denies Medical/Surgical History HEENT History: Reports: Other (See Below) Other HEENT History: chronic headaches Cardiovascular History: Reports: Blood Clots/VTE/DVT Respiratory History: Reports: SOB Gastrointestinal History: Reports: Other (See Below) Other Gastrointestinal History: Chronic nausea, ulcers [employer] History: Reports: Musculoskeletal History: Reports: Fibromyalgia Neurological History: Reports: Headaches, Chronic, Migraines, Seizure Psychiatric History: Reports: Addiction, Depression Endocrine/Metabolic History: Reports: Hypothyroidism Dermatologic History: Reports: Other (See Below) Other Dermatologic History: Open sores noted on bilateral arms, lower back - Infectious Disease History Infectious Disease History: Reports: Mumps - Past Surgical History Head Surgeries/Procedures: Reports: None Social & Family History - Family History Family Medical History: Noncontributory - Tobacco Use Smoking Status *Q: Never Smoker Used Tobacco, but Quit: Yes Month Tobacco Last Used: ? Second Hand Smoke Exposure: No - Caffeine Use Caffeine Use: Reports: None - Alcohol Use Days Per Week of Alcohol Use: 0 - Recreational Drug Use Recreational Drug Use: No Recreational Drug Type: Reports: Ativan ED ROS GENERAL - Review of Systems Review Of Systems: Unable To Obtain ED EXAM, GENERAL - Physical Exam Exam: See Below Exam Limited By: Physical Impairment (uncooperative) General Appearance: Alert, Mild Distress, Cachetic (severely) Eye Exam: Bilateral Eye: Normal Inspection Ears: Normal External Exam Ear Exam: Bilateral Ear: Auricle Normal Nose: Normal Inspection Throat/Mouth: Other (severely decreased moisture of the mucosal membrane) Head: Atraumatic, Normocephalic Neck: Normal Inspection, Supple, Non-Tender Respiratory/Chest: No Respiratory Distress, Lungs Clear, Normal Breath Sounds Cardiovascular: Normal Peripheral Pulses, Regular Rate, Rhythm, No Edema, No Gallop Peripheral Pulses: 1+: Femoral (L), Femoral (R) GI/Abdominal: Normal Bowel Sounds, Soft (Female) Exam: Deferred Rectal (Female) Exam: Deferred Back Exam: Normal Inspection Extremities: Normal Inspection Neurological: Alert, Oriented, CN II-XII Intact, Other (unable to ambulate due to weakness) Psychiatric: Other (eating disorder weight loss) Skin Exam: Warm, Dry Lymphatic: No Adenopathy Course - Vital Signs Text/Narrative:: 56 years old w f with multiple medical issues, including severe cachexia, drug seeking behaviour, chronic intermittent nausea, tension headache, multiple visits to clinics including [facility], signed out AMA a few days ago when she initially agreed to be transferred to [facility] by EMS due to here severe cachexia, came to ED again, after she was seen in the clinic by Dr. Gresham, to be admitted to the Hospital. Pt had no new medical complains. Her mom is present. BP 121/95 pulse 52 Temp 36.4 O2 sat 95% on RA. PE: Thin, cachectic 56 y.o.w.f with eating disorder, noncompliant, too weak to ambulate Labs: D Dimer Nl, CBC and BMP WNL Impression: Dehydration, severe cachexia, too weak to ambulate, chronic intermittent nausea, Drug seeking behaviour Consultation: Dr. Gresham: Accepted the pt for admission Plan: Admit to M/S tele for obs Last Recorded V/S: Last Vital Signs Temp 36.7 C 01/05/17 18:33 Pulse 52 L 01/05/17 18:33 Resp 16 01/05/17 19:03 BP 128/84 01/05/17 19:03 Pulse Ox 99 01/05/17 19:45 - Orders/Labs/Meds Orders: Active Orders 24 hr Category Date Time Status Central Line Assessment [RC] 08,16,00 Care 01/05/17 18:49 Active Sodium Chloride 0.9% [Saline Flush] Med 01/05/17 17:49 Active 10 ml FLUSH ASDIRECTED PRN Peripheral IV Insertion Adult [OM.PC] Routine Oth 01/05/17 17:49 Ordered Medication Orders Hydroxyzine HCl (Vistaril) 50 mg IM Q6H PRN PRN Reason: Nausea/Vomiting Lactated Ringer's (Ringers, Lactated) 1,000 mls @ 125 mls/hr IV ASDIRECTED DOMINIQUE Last Admin: 01/05/17 19:49 Dose: 125 mls/hr Sodium Chloride (Saline Flush) 10 ml FLUSH ASDIRECTED PRN PRN Reason: Keep Vein Open Last Admin: 01/05/17 18:53 Dose: 10 ml Labs: Laboratory Tests 01/05/17 01/05/17 01/05/17 Range/Units 18:43 18:43 18:43 WBC 5.9 (4.5-12.0) X10-3/uL RBC 4.16 (3.23-5.20) x10(6)uL Hgb 12.6 (11.5-15.5) g/dL Hct 37.4 (30.0-51.3) % MCV 89.9 (80-96) fL MCH 30.2 (27.7-33.6) pg MCHC 33.6 (32.2-35.4) g/dL RDW 14.5 (11.5-15.5) % Plt Count 388 H (125-369) X10(3)uL MPV 7.3 L (7.4-10.4) fL Neut % (Auto) 63.2 (46-82) % Lymph % (Auto) 28.8 (13-37) % Gulf % (Auto) 6.4 (4-12) % Eos % (Auto) 1 (1.0-5.0) % Baso % (Auto) 1 (0-2) % Neut # (Auto) 3.7 (1.6-8.3) # Lymph # (Auto) 1.7 (0.6-5.0) # Gulf # (Auto) 0.4 (0.0-1.3) # Eos # (Auto) 0.1 (0.0-0.8) # Baso # (Auto) 0.0 (0.0-0.2) # PT 12.3 H (8.7-11.1) INR 1.22 H (0.89-1.13) D-Dimer, Quantitative 142 (100-400) ng/mL Sodium (135-145) mmol/L Potassium (3.5-5.3) mmol/L Chloride (100-110) mmol/L Carbon Dioxide (21-32) mmol/L BUN (7-18) mg/dL Creatinine (0.55-1.02) mg/dL Est Cr Clr Drug Dosing mL/min Estimated GFR (MDRD) (>60) BUN/Creatinine Ratio (9-20) Glucose (80-116) mg/dL Calcium (8.6-10.2) mg/dL NT-Pro-B Natriuret Pep (<=125) pg/mL 01/05/17 01/05/17 Range/Units 18:43 18:43 WBC (4.5-12.0) X10-3/uL RBC (3.23-5.20) x10(6)uL Hgb (11.5-15.5) g/dL Hct (30.0-51.3) % MCV (80-96) fL MCH (27.7-33.6) pg MCHC (32.2-35.4) g/dL RDW (11.5-15.5) % Plt Count (125-369) X10(3)uL MPV (7.4-10.4) fL Neut % (Auto) (46-82) % Lymph % (Auto) (13-37) % Gulf % (Auto) (4-12) % Eos % (Auto) (1.0-5.0) % Baso % (Auto) (0-2) % Neut # (Auto) (1.6-8.3) # Lymph # (Auto) (0.6-5.0) # Gulf # (Auto) (0.0-1.3) # Eos # (Auto) (0.0-0.8) # Baso # (Auto) (0.0-0.2) # PT (8.7-11.1) INR (0.89-1.13) D-Dimer, Quantitative (100-400) ng/mL Sodium 140 (135-145) mmol/L Potassium 3.3 L (3.5-5.3) mmol/L Chloride 109 (100-110) mmol/L Carbon Dioxide 19 L (21-32) mmol/L BUN 9 (7-18) mg/dL Creatinine 1.0 (0.55-1.02) mg/dL Est Cr Clr Drug Dosing 43.03 mL/min Estimated GFR (MDRD) 57 L (>60) BUN/Creatinine Ratio 9.0 (9-20) Glucose 96 (80-116) mg/dL Calcium 8.6 (8.6-10.2) mg/dL NT-Pro-B Natriuret Pep 519 H (<=125) pg/mL Meds: Medications Generic Name Dose Route Start Last Admin Trade Name Freq PRN Reason Stop Dose Admin Hydroxyzine HCl 50 mg 01/05/17 19:03 Vistaril IM Q6H PRN Nausea/Vomiting Lactated Ringer's 1,000 mls @ 125 mls/hr 01/05/17 19:15 01/05/17 19:49 Ringers, Lactated IV 125 mls/hr ASDIRECTED DOMINIQUE Administration Sodium Chloride 10 ml 01/05/17 17:49 01/05/17 18:53 Saline Flush FLUSH 10 ml ASDIRECTED PRN Administration Keep Vein Open Discontinued Medications Generic Name Dose Route Start Last Admin Trade Name Freq PRN Reason Stop Dose Admin Sodium Chloride 1,000 mls @ 999 mls/hr 01/05/17 17:49 01/05/17 18:50 Normal Saline IV 01/05/17 18:49 999 mls/hr .BOLUS ONE Administration Pneumococcal Polyvalent Vaccine 0.5 ml 01/05/17 20:04 Pneumovax 23 SUBCUT 01/05/17 20:05 .ONCE ONE Departure - Departure Time of Disposition: 20:00 Disposition: Admitted As Inpatient 66 Condition: Fair Clinical Impression: Dehydration, Cachexia - Discharge Information - My Orders Last 24 Hours: My Active Orders 01/05/17 17:49 Sodium Chloride 0.9% [Saline Flush] 10 ml FLUSH ASDIRECTED PRN Peripheral IV Insertion Adult [OM.PC] Routine 01/05/17 18:49 Central Line Assessment [RC] 08,16,00 - Assessment/Plan Last 24 Hours: My Active Orders 01/05/17 17:49 Sodium Chloride 0.9% [Saline Flush] 10 ml FLUSH ASDIRECTED PRN Peripheral IV Insertion Adult [OM.PC] Routine 01/05/17 18:49 Central Line Assessment [RC] 08,16,00
[2017-01-05] MEDS: Lactated Ringers 1,000 ML IV SCH (19:49)
[2017-01-05] MEDS ORDERED: Pneumococcal Polyvalent-23 Vaccine 0.5 ML SDV SUBCUT ONE (20:04)
[2017-01-06] MEDS: Lactated Ringers 1,000 ML IV SCH ×3 (03:54→19:26)
[2017-01-06] MEDS: hydrOXYzine HCl 50 MG/ML SDV IM PRN ×3 (04:01→23:02)
[2017-01-06] MEDS ORDERED: Docusate Sodium 100 MG Cap PO PRN (09:25)
[2017-01-06] MEDS ORDERED: Bisacodyl 10 MG Supp RECTAL PRN (09:25)
--- NOTE | 2017-01-06 09:25 | PCM.HP ---
H&P History of Present Illness - General Date of Service: 01/06/17 Admit Problem/Dx: Admission Diagnosis/Problem Admission Diagnosis/Problem Dehydration Source of Information: Patient History Limitations: Reports: No Limitations - History of Present Illness Initial Comments - Free Text/Narative: This is a 56-year-old female multiple medical problems came to clinic and then stretches the ER because of dehydration and headaches. She was admitted. She's been having a lot of weight loss and not eating and nausea migraines. Patient likes Buprenex for headaches and when she doesn't get that that she is not very happy. She claims a nausea, weight loss Neb able to eat weakness. She had a fracture of her right femur within the last 6 months. She was post to see the physical therapist but has not got it there. At this time. She denies fevers, chills, chest pain. She says she was short of breath. She was evaluated the ER doc we did not do a chest x-ray. She denies shortness of breath today. Generalized Pain Score (Numeric/FACES): 9 Frontal Headache Pain Score (Numeric/FACES): 9 - Related Data Allergies/Adverse Reactions: Allergies Allergy/AdvReac Type Severity Reaction Status Date / Time bupropion HCl Allergy Respiratory Verified 01/05/17 20:12 [From Wellbutrin] Distress chlorpromazine HCl Allergy Respiratory Verified 01/05/17 20:12 [From Thorazine] Distress metoclopramide [From Reglan] Allergy Anaphylactic Verified 01/05/17 20:12 Shock ondansetron HCl [From Zofran] Allergy Respiratory Verified 01/05/17 20:12 Distress prochlorperazine edisylate Allergy Respiratory Verified 01/05/17 20:12 [From Compazine] Distress prochlorperazine maleate Allergy Respiratory Verified 01/05/17 20:12 [From Compazine] Distress temazepam [From Restoril] Allergy Headache Verified 01/05/17 20:12 Home Medications: Home Meds Ranitidine HCl [Zantac] 150 mg PO BID@,21 10/19/12 [History] SUMAtriptan [Imitrex] 6 mg IM DAILY PRN MDD 2 10/19/12 [History] Docusate Sodium [Colace] 200 mg PO DAILY PRN 05/03/13 [History] Rivaroxaban [Xarelto] 15 mg PO WITHDINNER 08/09/15 [History] Sucralfate 1 gm PO QIDACANDBED 02/19/16 [History] levETIRAcetam [Keppra] 250 mg PO DAILY@12 02/19/16 [History] Ascorbate Calcium [Vitamin C] 500 mg PO DAILY@12 11/18/16 [History] Bisacodyl [Dulcolax] 10 mg RECTAL DAILY PRN 11/18/16 [History] Calcium Carbonate 1,250 mg PO DAILY@12 11/18/16 [History] Esomeprazole [NexIUM] 40 mg PO DAILY@1130 11/18/16 [History] Levothyroxine 37.5 mg PO DAILY@11/18/16 [History] Lidocaine 5% [Lidoderm 5%] 700 mg TOP DAILY PRN 11/18/16 [History] Melatonin/Pyridoxine HCl (B6) [Melatonin 3 mg Tablet] 6 mg PO BEDTIME 11/18/16 [ History] PARoxetine [Paxil] 20 mg PO DAILY@11/18/16 [History] Potassium Chloride [Klor-Con M20] 20 meq PO DAILY@18 11/18/16 [History] QUEtiapine [SEROquel] 100 mg PO BEDTIME 11/18/16 [History] Scopolamine [Transderm-Scop] 1 patch TOP Q3D 11/18/16 [History] Sennosides/Docusate Sodium [Senna-Docusate Sodium Tablet] 1 tab PO BEDTIME PRN 11/18/16 [History] Topiramate 150 mg PO BEDTIME 11/18/16 [History] Zolpidem Tartrate [Ambien] 5 mg PO BEDTIME 11/18/16 [History] hydrOXYzine Pamoate [Hydroxyzine Pamoate] 100 mg PO Q6H PRN 11/18/16 [History] Meclizine [Antivert] 12.5 mg PO BID@ PRN 01/01/17 [History] Acetaminophen [Tylenol Extra Strength] 1,000 mg PO Q4H PRN 01/06/17 [History] Polyethylene Glycol 3350 [MiraLAX] 17 gm PO DAILY PRN 01/06/17 [History] busPIRone [Buspar] 15 mg PO BEDTIME 01/06/17 [History] Past Medical History - Past Health History Medical/Surgical History: Denies Medical/Surgical History HEENT History: Reports: Other (See Below) Other HEENT History: chronic headaches Cardiovascular History: Reports: Blood Clots/VTE/DVT Respiratory History: Reports: SOB Gastrointestinal History: Reports: Other (See Below) Other Gastrointestinal History: Chronic nausea, ulcers 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: Musculoskeletal History: Reports: Fibromyalgia Neurological History: Reports: Headaches, Chronic, Migraines, Seizure Psychiatric History: Reports: Addiction, Depression Endocrine/Metabolic History: Reports: Hypothyroidism Dermatologic History: Reports: Other (See Below) Other Dermatologic History: Open sores noted on bilateral arms, lower back - Infectious Disease History Infectious Disease History: Reports: Mumps - Past Surgical History Head Surgeries/Procedures: Reports: None Social & Family History - Family History Family Medical History: Noncontributory - Tobacco Use Smoking Status *Q: Never Smoker Used Tobacco, but Quit: Yes Month Tobacco Last Used: ? Second Hand Smoke Exposure: No - Caffeine Use Caffeine Use: Reports: None Other Caffeine Use: cola 2-3 per day - Alcohol Use Days Per Week of Alcohol Use: 0 - Recreational Drug Use Recreational Drug Use: No Recreational Drug Type: Reports: Ativan H&P Review of Systems - Review of Systems: Review Of Systems: See Below General: Reports: No Symptoms HEENT: Reports: No Symptoms Pulmonary: Reports: No Symptoms Cardiovascular: Reports: No Symptoms Gastrointestinal: Reports: Nausea. Denies: Abdominal Pain, Bloody Stool, Vomiting Genitourinary: Reports: No Symptoms Musculoskeletal: Reports: Other (Right leg pain) Skin: Reports: No Symptoms Psychiatric: Reports: Depression, Anxiety Neurological: Reports: No Symptoms Hematologic/Lymphatic: Reports: No Symptoms Immunologic: Reports: No Symptoms Exam - Exam Exam: See Below - Vital Signs Vital Signs: Last Vital Signs Temp 98.0 F 01/06/17 07:25 Pulse 91 01/06/17 07:25 Resp 20 01/06/17 07:25 BP 123/81 01/06/17 07:25 Pulse Ox 98 01/06/17 07:25 Weight: 98 lb 3.2 oz - Patient Data Result Diagrams: 01/05/17 18:43 01/05/17 18:43 *Q Meaningful Use (ADM) - VTE *Q VTE Criteria *Q: - Stroke *Q Stroke Criteria *Q: - AMI *Q AMI Criteria *Q: - Problem List (1) Status post fracture of femur SNOMED Code(s): 196638878 ICD Code: Z87.81 - PERSONAL HISTORY OF (HEALED) TRAUMATIC FRACTURE Status: Acute Current Visit: Yes (2) Cachexia SNOMED Code(s): 625569278 ICD Code: R64 - CACHEXIA Status: Acute Current Visit: Yes (3) Dehydration SNOMED Code(s): 29013050 ICD Code: E86.0 - DEHYDRATION Status: Acute Current Visit: Yes (4) Chronic headache disorder SNOMED Code(s): 267187049 ICD Code: R51 - HEADACHE Status: Acute Current Visit: No Qualifiers: Headache type: unspecified Intractability: not intractable Qualified Code (s): R51 - Headache (5) Insomnia SNOMED Code(s): 191328589 ICD Code: G47.00 - INSOMNIA, UNSPECIFIED Status: Acute Current Visit: Yes (6) Palliative care status SNOMED Code(s): 108304900 ICD Code: Z51.5 - ENCOUNTER FOR PALLIATIVE CARE Status: Acute Current Visit: Yes (7) Narcotic addiction SNOMED Code(s): 93734600 ICD Code: F11.20 - OPIOID DEPENDENCE, UNCOMPLICATED Status: Acute Current Visit: No Problem List Initiated/Reviewed/Updated: Yes Orders Last 24hrs: Medication Orders Hydroxyzine HCl (Vistaril) 50 mg IM Q6H PRN PRN Reason: Nausea/Vomiting Last Admin: 01/06/17 04:01 Dose: 50 mg Lactated Ringer's (Ringers, Lactated) 1,000 mls @ 125 mls/hr IV ASDIRECTED DOMINIQUE Last Admin: 01/06/17 03:54 Dose: 125 mls/hr Infusion: 01/06/17 03:49 Dose: 125 mls/hr Admin: 01/05/17 19:49 Dose: 125 mls/hr Sodium Chloride (Saline Flush) 10 ml FLUSH ASDIRECTED PRN PRN Reason: Keep Vein Open Last Admin: 01/05/17 18:53 Dose: 10 ml Assessment/Plan Comment:: 1. Admit for observation. 2. Hydrate. 3. Regular food and RD consult. 4. Physical therapy consult regards to her right femur fracture and she has not had rehabilitation. She's been in a wheelchair. 5. Meet with family discussed her care and her living circumstances. 6. Toradol IV when necessary for headache with Vistaril for nausea. 7. I will hold some of her medications and give only the necessary once. 8. Patient wants Ambien for sleep. I told her I'm not given her anything has a action potential.
[2017-01-06] MEDS ORDERED: Ketorolac 30 MG/ML SDV IVPUSH PRN (09:27)
[2017-01-06] MEDS: Acetaminophen 500 MG Tab PO PRN (10:08)
[2017-01-06] MEDS: Calcium Carbonate/Vitamin D3 1250 MG-200 Unit Tab PO SCH (11:30)
[2017-01-06] MEDS: Pantoprazole 40 MG Tab.CR PO SCH (11:30)
[2017-01-06] MEDS: Ascorbic Acid 500 MG Tab PO SCH (11:31)
[2017-01-06] MEDS: PARoxetine 20 MG Tab PO SCH (11:31)
[2017-01-06] MEDS: Levothyroxine 75 MCG Tab PO SCH (11:31)
[2017-01-06] MEDS: levETIRAcetam 250 MG Tab PO SCH (11:31)
[2017-01-06] MEDS ORDERED: Rivaroxaban 15 MG Tab PO SCH (18:00)
--- NOTE | 2017-01-06 18:59 | PCM.SN ---
- Free Text/Narrative Note: Had a long discussion with the patient and her family but her headaches and probable drug-seeking behavior. Patient was very resistant to not taking all the stuff that she had. states she's been to treatment twice for drugs. Had lost her license because she was under the influence of narcotics and. Daughter will speak to her because of this issue. She states she has a 9/10 headache. I told her that is unlikely that the way she is talking and acting at this time. Her states that she is to get a migraine once a month and he knew what it was like in this is nothing like it. Mother states that she doesn' t have a vomiting like she used to. Patient was very adamant that she has many problems headaches and seizures. The mother stated that she was told by neurology that she did not have seizures. And the stated they felt it was from drugs. But she's been on seizure medicine. She states she needs to be on that medicine. But she's not driving so would consider stopping it. Told her we need to get off most of her medications except for maybe Xeralto a few other things. Will attempt to discharge her home tomorrow. With PT and have her see a psychologist at [place]. We'll check her out with the hospitalist tomorrow. I spent 90 minutes with this patient and family in a discussion about patient's medical conditions, drug-seeking behavior, headaches, living situation
[2017-01-06] MEDS ORDERED: busPIRone 15 MG Tab PO SCH (21:00)
[2017-01-07] MEDS: Acetaminophen 500 MG Tab PO PRN (00:44)
[2017-01-07] MEDS: Lactated Ringers 1,000 ML IV SCH (03:32)
[2017-01-07] MEDS ORDERED: hydrOXYzine HCl 50 MG/ML SDV IM ONE (08:32)
[2017-01-07] MEDS ORDERED: Ketorolac 30 MG/ML SDV IVPUSH ONE (08:32)
--- NOTE | 2017-01-07 08:38 | PCM.PN ---
- General Info Date of Service: 01/07/17 Admission Dx/Problem (Free Text): Admission Diagnosis/Problem Admission Diagnosis/Problem Dehydration Subjective Update: 56-year-old female complains of headache today. She demands to have Vistaril IM in liue of oral and Toradol IV. I had a long discussion with Dr. Gresham at check- out yesterday and recommends no medications for her and also discontinued most of her medications including Keppra. - Patient Data Vitals - Most Recent: Last Vital Signs Temp 98.4 F 01/07/17 04:00 Pulse 82 01/07/17 04:00 Resp 16 01/07/17 04:00 BP 117/76 01/07/17 04:00 Pulse Ox 97 01/07/17 04:00 Weight - Most Recent: 45.45 kg I&O - Last 24 Hours: Intake & Output 01/06/17 01/07/17 01/07/17 22:59 06:59 14:59 Intake Total 969 1003 Balance 969 1003 Med Orders - Current: Current Medications Acetaminophen (Tylenol Extra Strength) 1,000 mg PO Q4H PRN PRN Reason: Headache Last Admin: 01/07/17 00:44 Dose: 1,000 mg Ascorbic Acid (Vitamin C) 500 mg PO 1200 DOMINIQUE Last Admin: 01/06/17 11:31 Dose: 500 mg Bisacodyl (Dulcolax) 10 mg RECTAL DAILY PRN PRN Reason: Constipation Buspirone HCl (Buspar) 15 mg PO BEDTIME DOMINIQUE Last Admin: 01/06/17 20:03 Dose: 15 mg Calcium Carbonate (Calcium Carbonate/Vitamin D 1250 Mg-200 Unit) 1 tab PO 1200 DOMINIQUE Last Admin: 01/06/17 11:30 Dose: 1 tab Docusate Sodium (Colace) 200 mg PO DAILY PRN PRN Reason: Constipation Hydroxyzine HCl (Vistaril) 50 mg IM Q6H PRN PRN Reason: Nausea/Vomiting Last Admin: 01/06/17 23:02 Dose: 50 mg Hydroxyzine HCl (Vistaril) 100 mg IM ONETIME ONE Stop: 01/07/17 08:33 Hydroxyzine Pamoate (Vistaril) 100 mg PO Q6H PRN PRN Reason: Anxiety Last Admin: 01/06/17 10:08 Dose: 100 mg Lactated Ringer's (Ringers, Lactated) 1,000 mls @ 125 mls/hr IV ASDIRECTED [facility] Last Admin: 01/07/17 03:32 Dose: 125 mls/hr Ketorolac Tromethamine (Toradol) 30 mg IVPUSH Q6H PRN PRN Reason: Headache Stop: 01/11/17 09:28 Last Admin: 01/06/17 16:10 Dose: 30 mg Ketorolac Tromethamine (Toradol) 30 mg IVPUSH ONETIME ONE Stop: 01/07/17 08:33 Levetiracetam (Keppra) 250 mg PO DAILY@12 [facility] Last Admin: 01/06/17 11:31 Dose: 250 mg Levothyroxine Sodium (Levothyroxine) 37.5 mcg PO DAILY@12 [facility] Last Admin: 01/06/17 11:31 Dose: 37.5 mcg Pantoprazole Sodium (Protonix) 40 mg PO DAILY@1130 [facility] Last Admin: 01/06/17 11:30 Dose: 40 mg Paroxetine HCl (Paxil) 20 mg PO DAILY@12 [facility] Last Admin: 01/06/17 11:31 Dose: 20 mg Rivaroxaban (Xarelto) 15 mg PO WITHDINNER [facility] Last Admin: 01/06/17 19:11 Dose: 15 mg Sodium Chloride (Saline Flush) 10 ml FLUSH ASDIRECTED PRN PRN Reason: Keep Vein Open Last Admin: 01/05/17 18:53 Dose: 10 ml Discontinued Medications Sodium Chloride (Normal Saline) 1,000 mls @ 999 mls/hr IV .BOLUS ONE Stop: 01/05/17 18:49 Last Admin: 01/05/17 18:50 Dose: 999 mls/hr Pneumococcal Polyvalent Vaccine (Pneumovax 23) 0.5 ml SUBCUT .ONCE ONE Stop: 01/05/17 20:05 - Exam Quality Assessment: No: Supplemental Oxygen General: Alert, Oriented HEENT: Pupils Equal Neck: Supple Neurological: No New Focal Deficit Psy/Mental Status: Alert, Labile Mood - Problem List & Annotations (1) Cachexia SNOMED Code(s): 884692447 Code(s): R64 - CACHEXIA Status: Acute Current Visit: Yes (2) Dehydration SNOMED Code(s): 54801899 Code(s): E86.0 - DEHYDRATION Status: Acute Current Visit: Yes (3) Headache SNOMED Code(s): 76217670 Code(s): R51 - HEADACHE Status: Acute Current Visit: No Qualifiers: Headache type: unspecified Headache chronicity pattern: chronic headache Intractability: not intractable Qualified Code(s): R51 - Headache - Problem List Review Problem List Initiated/Reviewed/Updated: Yes - My Orders Last 24 Hours: My Active Orders 01/07/17 08:32 Ketorolac [Toradol] 30 mg IVPUSH ONETIME ONE hydrOXYzine HCl [Vistaril] 100 mg IM ONETIME ONE - Plan Plan:: I will give him 1 dose of Toradol IV. I will also give a Vistaril IM. I will didn't start a home. She will continue with home PT and OT and also follow-up with her PCP Dr. Gresham
[2017-01-07] MEDS: Pantoprazole 40 MG Tab.CR PO SCH (12:35)
[2017-01-07] MEDS: Calcium Carbonate/Vitamin D3 1250 MG-200 Unit Tab PO SCH (12:35)
[2017-01-07] MEDS: PARoxetine 20 MG Tab PO SCH (12:35)
[2017-01-07] MEDS: Levothyroxine 75 MCG Tab PO SCH (12:35)
[2017-01-07] MEDS: Ascorbic Acid 500 MG Tab PO SCH (12:36)
[2017-01-07] MEDS: levETIRAcetam 250 MG Tab PO SCH (12:36)
[2017-01-07 15:36] VITALS: BP 132/86
== END 2017-01-07 14:08 | disposition home or self-care (01) ==
LOC: FB.ED 17:41 → FB.MS 19:03
PROVIDERS: ADMIT Emergency Medicine; ATTEND Family Medicine
DX: R64 Cachexia (principal); E86.0 Dehydration; R51 Headache; G47.00 Insomnia, unspecified; F11.20 Opioid dependence, uncomplicated; F32.9 Major depressive disorder, single episode, unspecified; E03.9 Hypothyroidism, unspecified; Z88.8 Allergy status to other drugs, medicaments and biological substances; Z79.899 Other long term (current) drug therapy; Z87.81 Personal history of (healed) traumatic fracture; Z51.5 Encounter for palliative care
CPT/HCPCS: 80048; 83880; 85025; 85379; 85610; 96360; 99284; A9270; J1885; J3410; J7040; J7050; J7120; 90732; 96361; 96372; 96374; 96376; G0009; G0378

== ENCOUNTER 2017-01-08 10:35 | Emergency (ER) | payer BC ==
[2017-01-08 12:25] LABS: ACETAMINOPHEN < 2 ug/mL (10-30)
--- NOTE | 2017-01-08 12:27 | EDM.PDOC ---
ED HPI GENERAL MEDICAL PROBLEM - General Chief Complaint: Lower Extremity Injury/Pain Stated Complaint: LEG PAIN Time Seen by Provider: 01/08/17 10:35 Source of Information: Reports: Patient History Limitations: Reports: Physical Impairment - History of Present Illness INITIAL COMMENTS - FREE TEXT/NARRATIVE: 56 y.o.w.f with severe eating disorder, weight loss, cachexia cam by EMS due to a fall and suicidal ideation. Her [employer] called EMS. Onset: Today Onset Date: 01/08/17 Onset Time: 07:00 Duration: Hour(s):, Intermittent Location: Reports: Head Severity: Mild Context: Reports: Other (pt said she is suicidal but denied it on arriva, c/o right hip discomfort.) Right Leg Pain Score (Numeric/FACES): 9 - Related Data Allergies Allergy/AdvReac Type Severity Reaction Status Date / Time bupropion HCl Allergy Respiratory Verified 01/08/17 10:47 [From Wellbutrin] Distress chlorpromazine HCl Allergy Respiratory Verified 01/08/17 10:47 [From Thorazine] Distress metoclopramide [From Reglan] Allergy Anaphylactic Verified 01/08/17 10:47 Shock ondansetron HCl [From Zofran] Allergy Respiratory Verified 01/08/17 10:47 Distress prochlorperazine edisylate Allergy Respiratory Verified 01/08/17 10:47 [From Compazine] Distress prochlorperazine maleate Allergy Respiratory Verified 01/08/17 10:47 [From Compazine] Distress temazepam [From Restoril] Allergy Headache Verified 01/08/17 10:47 Home Meds: Home Meds Rivaroxaban [Xarelto] 15 mg PO WITHDINNER 08/09/15 [History] Ascorbate Calcium [Vitamin C] 500 mg PO DAILY@12 11/18/16 [History] Bisacodyl [Dulcolax] 10 mg RECTAL DAILY PRN 11/18/16 [History] Esomeprazole [NexIUM] 40 mg PO DAILY@1130 11/18/16 [History] Levothyroxine 37.5 mcg PO DAILY@12 11/18/16 [History] Lidocaine 5% [Lidoderm 5%] 700 mg TOP DAILY PRN 11/18/16 [History] PARoxetine [Paxil] 20 mg PO DAILY@12 11/18/16 [History] hydrOXYzine Pamoate [Hydroxyzine Pamoate] 100 mg PO Q6H PRN 11/18/16 [History] Meclizine [Antivert] 12.5 mg PO BID@ PRN 01/01/17 [History] Acetaminophen [Tylenol Extra Strength] 1,000 mg PO Q4H PRN 01/06/17 [History] Potassium 99 mg PO DAILY 1 Days #1 tablet 01/08/17 [Rx] Past Medical History - Past Health History Medical/Surgical History: Denies Medical/Surgical History HEENT History: Reports: Other (See Below) Other HEENT History: chronic headaches Cardiovascular History: Reports: Blood Clots/VTE/DVT Respiratory History: Reports: SOB Gastrointestinal History: Reports: Other (See Below) Other Gastrointestinal History: Chronic nausea, ulcers 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: Musculoskeletal History: Reports: Fibromyalgia Neurological History: Reports: Headaches, Chronic, Migraines, Seizure Psychiatric History: Reports: Addiction, Depression Endocrine/Metabolic History: Reports: Hypothyroidism Dermatologic History: Reports: Other (See Below) Other Dermatologic History: Open sores noted on bilateral arms, lower back - Infectious Disease History Infectious Disease History: Reports: Mumps - Past Surgical History Head Surgeries/Procedures: Reports: None Female Surgical History: Reports: None Social & Family History - Family History Family Medical History: Noncontributory - Tobacco Use Smoking Status *Q: Never Smoker Used Tobacco, but Quit: Yes Month Tobacco Last Used: ? Second Hand Smoke Exposure: No - Caffeine Use Caffeine Use: Reports: Soda Other Caffeine Use: cola 2-3 per day - Alcohol Use Days Per Week of Alcohol Use: 0 - Recreational Drug Use Recreational Drug Use: No Recreational Drug Type: Reports: Ativan Review of Systems - Review of Systems Review Of Systems: See Below Constitutional: Reports: No Symptoms Eyes: Reports: No Symptoms Ears: Reports: No Symptoms Nose: Reports: No Symptoms Mouth/Throat: Reports: No Symptoms, Other (no teeth.) Respiratory: Reports: No Symptoms Cardiovascular: Reports: No Symptoms GI/Abdominal: Reports: No Symptoms Genitourinary: Reports: No Symptoms Musculoskeletal: Reports: Other (severe cachexia) Skin: Reports: No Symptoms Neurological: Reports: No Symptoms Psychiatric: Reports: Other (eating disorder, suicidal ideation) ED EXAM, GENERAL - Physical Exam Exam: See Below Exam Limited By: Physical Impairment General Appearance: Alert, WD/WN, Cachetic Eye Exam: Bilateral Eye: Normal Inspection Ears: Normal External Exam Ear Exam: Bilateral Ear: Auricle Normal Nose: Normal Inspection Throat/Mouth: Other (no teeth) Head: Atraumatic, Normocephalic Neck: Normal Inspection, Supple, Non-Tender, Full Range of Motion Respiratory/Chest: No Respiratory Distress, Lungs Clear, Normal Breath Sounds, No Accessory Muscle Use, Chest Non-Tender Cardiovascular: Normal Peripheral Pulses, Regular Rate, Rhythm, No Edema Peripheral Pulses: 1+: Femoral (L), Femoral (R) GI/Abdominal: Normal Bowel Sounds, Soft, Non-Tender (Female) Exam: Deferred Rectal (Female) Exam: Deferred Back Exam: Normal Inspection, Other (minor skin abrasion mid lower back) Extremities: Normal Inspection Neurological: Alert, Oriented, CN II-XII Intact, Normal Cognition, Abnormal Gait (due to weakness) Psychiatric: Normal Affect Skin Exam: Rash (pressure abrasion mid lower back) Lymphatic: No Adenopathy Course - Vital Signs Text/Narrative:: 56 y.o.w.f with severe eating disorder, weight loss, cachexia cam by EMS due to a fall and suicidal ideation. Her [employer] called EMS. PE: Cachectic w f with suicidal ideatio, resolving and right hip pain Imaging: R femur: NAD Labs: K 2.8 Impression: R hip sprain, hypokalemia, suicidal ideatio (not confirmed by [facility]) Consultation: [facility]: Pt is not suicidal and can be sent home Tx: Ice, Potassium Reexam: Improved D/C with instructions Last Recorded V/S: Last Vital Signs Temp 36.8 C 01/08/17 10:49 Pulse 97 01/08/17 14:09 Resp 16 01/08/17 10:49 BP 135/94 H 01/08/17 14:09 Pulse Ox 100 01/08/17 10:49 - Orders/Labs/Meds Orders: Active Orders 24 hr Category Date Time Status Femur Min 1V Rt [CR] Stat Exams 01/08/17 12:15 Taken Labs: Laboratory Tests 01/08/17 01/08/17 01/08/17 Range/Units 11:25 11:25 11:25 WBC 6.0 (4.5-12.0) X10-3/uL RBC 3.58 (3.23-5.20) x10(6)uL Hgb 10.5 L (11.5-15.5) g/dL Hct 31.6 (30.0-51.3) % MCV 88.2 (80-96) fL MCH 29.3 (27.7-33.6) pg MCHC 33.3 (32.2-35.4) g/dL RDW 14.3 (11.5-15.5) % Plt Count 282 (125-369) X10(3)uL MPV 7.1 L (7.4-10.4) fL Neut % (Auto) 72.3 (46-82) % Lymph % (Auto) 20.5 (13-37) % [place] % (Auto) 6.1 (4-12) % Eos % (Auto) 1 (1.0-5.0) % Baso % (Auto) 0 (0-2) % Neut # (Auto) 4.4 (1.6-8.3) # Lymph # (Auto) 1.2 (0.6-5.0) # [place] # (Auto) 0.4 (0.0-1.3) # Eos # (Auto) 0.0 (0.0-0.8) # Baso # (Auto) 0.0 (0.0-0.2) # Sodium 144 (135-145) mmol/L Potassium 2.8 L* (3.5-5.3) mmol/L Chloride 111 H (100-110) mmol/L Carbon Dioxide 21 (21-32) mmol/L BUN 8 (7-18) mg/dL Creatinine 0.8 (0.55-1.02) mg/dL Est Cr Clr Drug Dosing 53.79 mL/min Estimated GFR (MDRD) > 60 (>60) BUN/Creatinine Ratio 10.0 (9-20) Glucose 101 (80-116) mg/dL Calcium 7.8 L (8.6-10.2) mg/dL TSH, Ultra Sensitive 2.10 (0.36-3.74) IU/mL Salicylates < 2.0 L (2.8-20.0) mg/dL Urine Opiates Screen (NEGATIVE) Ur Oxycodone Screen (NEGATIVE) Ur Propoxyphene Screen (NEGATIVE) Acetaminophen < 2 L (10-30) ug/mL Ur Barbituates Screen (NEGATIVE) Ur Tricyclics Screen (NEGATIVE) Ur Phencyclidine Scrn (NEGATIVE) Ur Amphetamine Screen (NEGATIVE) Urine MDMA Screen (NEGATIVE) U Benzodiazepines Scrn (NEGATIVE) U Cocaine Metab Screen (NEGATIVE) U Marijuana (THC) Screen (NEGATIVE) Ethyl Alcohol < 0.03 (<0.03) % 01/08/17 Range/Units 12:21 WBC (4.5-12.0) X10-3/uL RBC (3.23-5.20) x10(6)uL Hgb (11.5-15.5) g/dL Hct (30.0-51.3) % MCV (80-96) fL MCH (27.7-33.6) pg MCHC (32.2-35.4) g/dL RDW (11.5-15.5) % Plt Count (125-369) X10(3)uL MPV (7.4-10.4) fL Neut % (Auto) (46-82) % Lymph % (Auto) (13-37) % [place] % (Auto) (4-12) % Eos % (Auto) (1.0-5.0) % Baso % (Auto) (0-2) % Neut # (Auto) (1.6-8.3) # Lymph # (Auto) (0.6-5.0) # [place] # (Auto) (0.0-1.3) # Eos # (Auto) (0.0-0.8) # Baso # (Auto) (0.0-0.2) # Sodium (135-145) mmol/L Potassium (3.5-5.3) mmol/L Chloride (100-110) mmol/L Carbon Dioxide (21-32) mmol/L BUN (7-18) mg/dL Creatinine (0.55-1.02) mg/dL Est Cr Clr Drug Dosing mL/min Estimated GFR (MDRD) (>60) BUN/Creatinine Ratio (9-20) Glucose (80-116) mg/dL Calcium (8.6-10.2) mg/dL TSH, Ultra Sensitive (0.36-3.74) IU/mL Salicylates (2.8-20.0) mg/dL Urine Opiates Screen Negative (NEGATIVE) Ur Oxycodone Screen Negative (NEGATIVE) Ur Propoxyphene Screen Negative (NEGATIVE) Acetaminophen (10-30) ug/mL Ur Barbituates Screen Negative (NEGATIVE) Ur Tricyclics Screen Negative (NEGATIVE) Ur Phencyclidine Scrn Negative (NEGATIVE) Ur Amphetamine Screen Negative (NEGATIVE) Urine MDMA Screen Negative (NEGATIVE) U Benzodiazepines Scrn Negative (NEGATIVE) U Cocaine Metab Screen Negative (NEGATIVE) U Marijuana (THC) Screen Negative (NEGATIVE) Ethyl Alcohol (<0.03) % Meds: Medications Discontinued Medications Generic Name Dose Route Start Last Admin Trade Name Freq PRN Reason Stop Dose Admin Potassium Chloride 40 meq 01/08/17 12:28 01/08/17 12:49 Klor-Con M20 PO 01/08/17 12:29 40 meq ONETIME STA Administration Departure - Departure Time of Disposition: 12:34 Disposition: Home, Self-Care 01 Condition: Good Clinical Impression: Cachexia, Eating disorder Fall Qualifiers: Encounter type: subsequent encounter Qualified Code(s): W19.XXXD - Unspecified fall, subsequent encounter - Discharge Information Prescriptions: Potassium 99 mg PO DAILY 1 Days #1 tablet Referrals: Jesse Gresham MD [Primary Care Provider] - Forms: ED Department Discharge Additional Instructions: Please take the potassium at 5 pm today, please check the potassium level this tuesday at your PMD's office. Please come back if your symptoms worsen. - My Orders Last 24 Hours: My Active Orders 01/08/17 12:15 Femur Min 1V Rt [CR] Stat - Assessment/Plan Last 24 Hours: My Active Orders 01/08/17 12:15 Femur Min 1V Rt [CR] Stat
[2017-01-08] MEDS ORDERED: Potassium Chloride 20 MEQ Tab.ER PO STA (12:28)
[2017-01-08 14:09] VITALS: BP 135/94
== END 2017-01-08 14:16 | disposition home or self-care (01) ==
LOC: FB.ED 10:35
DX: R64 Cachexia (principal); F50.9 Eating disorder, unspecified; Z88.8 Allergy status to other drugs, medicaments and biological substances; Z79.899 Other long term (current) drug therapy; S73.101D Unspecified sprain of right hip, subsequent encounter; W19.XXXD Unspecified fall, subsequent encounter
CPT/HCPCS: 73552; 80048; 80305; 84443; 85025; 99284; A9270; G0480; 73551-RT

== ENCOUNTER 2017-02-08 14:56 | Emergency (ER) | payer BC ==
[2017-02-08] MEDS ORDERED: Sodium Chloride 0.9% 10 ML Syringe FLUSH PRN (15:30)
--- NOTE | 2017-02-08 15:52 | EDM.PDOC ---
ED HPI GENERAL MEDICAL PROBLEM - General Chief Complaint: Behavioral/Psych Stated Complaint: HALLUCINATORY Time Seen by Provider: 02/08/17 15:41 Source of Information: Reports: Patient, Family History Limitations: Reports: Altered Mental Status, Physical Impairment - History of Present Illness INITIAL COMMENTS - FREE TEXT/NARRATIVE: 56 y.o.w.f with H/O Eating disorder, Cachexia, drug seeking behavior, multiple ed visits, came to the ed because of r hip pain after she fell 2-3 weeks ago. No family was present in the ed. BP 169/97 pulse 105 Temp 36.6 Pulse o100% Onset Date: 12/29/16 Onset Time: 05:00 Duration: Week(s):, Intermittent Location: Reports: Generalized Quality: Reports: Ache, Burning, Dull Improves with: Reports: Rest Worsens with: Reports: Movement Context: Reports: Other (Pt with H/O eating disorder came to the ed with her SO due to pain at her r hip after a fall a few weeks ago.) Headache Pain Score (Numeric/FACES): 10 - Related Data Allergies Allergy/AdvReac Type Severity Reaction Status Date / Time bupropion HCl Allergy Respiratory Verified 01/08/17 10:47 [From Wellbutrin] Distress chlorpromazine HCl Allergy Respiratory Verified 01/08/17 10:47 [From Thorazine] Distress metoclopramide [From Reglan] Allergy Anaphylactic Verified 01/08/17 10:47 Shock ondansetron HCl [From Zofran] Allergy Respiratory Verified 01/08/17 10:47 Distress prochlorperazine edisylate Allergy Respiratory Verified 01/08/17 10:47 [From Compazine] Distress prochlorperazine maleate Allergy Respiratory Verified 01/08/17 10:47 [From Compazine] Distress temazepam [From Restoril] Allergy Headache Verified 01/08/17 10:47 Home Meds: Home Meds Rivaroxaban [Xarelto] 15 mg PO WITHDINNER 08/09/15 [History] Ascorbate Calcium [Vitamin C] 500 mg PO DAILY@12 11/18/16 [History] Bisacodyl [Dulcolax] 10 mg RECTAL DAILY PRN 11/18/16 [History] Esomeprazole [NexIUM] 40 mg PO DAILY@1130 11/18/16 [History] Levothyroxine 37.5 mcg PO DAILY@12 11/18/16 [History] Lidocaine 5% [Lidoderm 5%] 700 mg TOP DAILY PRN 11/18/16 [History] PARoxetine [Paxil] 20 mg PO DAILY@12 11/18/16 [History] hydrOXYzine Pamoate [Hydroxyzine Pamoate] 100 mg PO Q6H PRN 11/18/16 [History] Meclizine [Antivert] 12.5 mg PO BID@ PRN 01/01/17 [History] Acetaminophen [Tylenol Extra Strength] 1,000 mg PO Q4H PRN 01/06/17 [History] Potassium 99 mg PO DAILY 1 Days #1 tablet 01/08/17 [Rx] Past Medical History - Past Health History Medical/Surgical History: Denies Medical/Surgical History HEENT History: Reports: Other (See Below) Other HEENT History: chronic headaches Cardiovascular History: Reports: Blood Clots/VTE/DVT Respiratory History: Reports: SOB Gastrointestinal History: Reports: Other (See Below) Other Gastrointestinal History: Chronic nausea, ulcers 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: Musculoskeletal History: Reports: Fibromyalgia Neurological History: Reports: Headaches, Chronic, Migraines, Seizure Psychiatric History: Reports: Addiction, Depression Endocrine/Metabolic History: Reports: Hypothyroidism Dermatologic History: Reports: Other (See Below) Other Dermatologic History: Open sores noted on bilateral arms, lower back - Infectious Disease History Infectious Disease History: Reports: Mumps - Past Surgical History Head Surgeries/Procedures: Reports: None Female Surgical History: Reports: None Social & Family History - Family History Family Medical History: Noncontributory - Tobacco Use Smoking Status *Q: Never Smoker Used Tobacco, but Quit: Yes Month Tobacco Last Used: ? Second Hand Smoke Exposure: No - Caffeine Use Caffeine Use: Reports: Soda Other Caffeine Use: cola 2-3 per day - Alcohol Use Days Per Week of Alcohol Use: 0 - Recreational Drug Use Recreational Drug Use: No Recreational Drug Type: Reports: Ativan ED ROS GENERAL - Review of Systems Review Of Systems: Unable To Obtain ED EXAM, NEURO - Physical Exam Exam: See Below Exam Limited By: Physical Impairment General Appearance: Alert, No Apparent Distress, Cachetic Eye Exam: Bilateral Eye: Normal Inspection Ears: Normal External Exam, Normal Canal Nose: Normal Inspection, Normal Mucosa, No Blood Throat/Mouth: Normal Inspection, Other (no teeth) Head Exam: Atraumatic, Normocephalic Neck: Normal Inspection, Supple, Non-Tender Respiratory/Chest: No Respiratory Distress, Lungs Clear Cardiovascular: Normal Peripheral Pulses GI/Abdominal: Normal Bowel Sounds (Female) Exam: Deferred Rectal (Female) Exam: Deferred Neurological: Alert, Normal Mood/Affect, CN II-XII Intact Back Exam: Normal Inspection, Full Range of Motion Extremities: Normal Inspection, Normal Range of Motion, Non-Tender Psychiatric: Depressed Mood, Other (eating disorder) Skin Exam: Warm, Dry Course - Vital Signs Text/Narrative:: 56 y.o.w.f with H/O Eating disorder, Cachexia, drug seeking behavior, multiple ed visits, came to the ed because of r hip pain after she fell 2-3 weeks ago. No family was present in the ed. BP 169/97 pulse 105 Temp 36.6 Pulse ox 100% PE: Severe cachexia, r lat hip discomfort, FROM of right hip Labs: potassium 3.1 Imaging: R hip: NAD Impression: R hip sprain, hypokalemia Tx: Potassium, ICE Reexam: Improved Plan: D/C with instructions Last Recorded V/S: Last Vital Signs Temp 36.6 C 02/08/17 17:19 Pulse 104 H 02/08/17 17:19 Resp 20 02/08/17 17:19 BP 166/97 H 02/08/17 17:19 Pulse Ox 100 02/08/17 17:19 - Orders/Labs/Meds Labs: Laboratory Tests 02/08/17 02/08/17 Range/Units 14:50 14:50 WBC 7.0 (4.5-12.0) X10-3/uL RBC 4.05 (3.23-5.20) x10(6)uL Hgb 11.5 (11.5-15.5) g/dL Hct 36.5 (30.0-51.3) % MCV 90.0 (80-96) fL MCH 28.3 (27.7-33.6) pg MCHC 31.4 L (32.2-35.4) g/dL RDW 16.8 H (11.5-15.5) % Plt Count 261 (125-369) X10(3)uL MPV 8.0 (7.4-10.4) fL Neut % (Auto) 68.7 (46-82) % Lymph % (Auto) 23.0 (13-37) % [place] % (Auto) 7.6 (4-12) % Eos % (Auto) 0 L (1.0-5.0) % Baso % (Auto) 0 (0-2) % Neut # (Auto) 4.9 (1.6-8.3) # Lymph # (Auto) 1.6 (0.6-5.0) # [place] # (Auto) 0.5 (0.0-1.3) # Eos # (Auto) 0.0 (0.0-0.8) # Baso # (Auto) 0.0 (0.0-0.2) # Sodium 145 (135-145) mmol/L Potassium 3.1 L (3.5-5.3) mmol/L Chloride 107 (100-110) mmol/L Carbon Dioxide 25 (21-32) mmol/L BUN 8 (7-18) mg/dL Creatinine 0.8 (0.55-1.02) mg/dL Est Cr Clr Drug Dosing TNP Estimated GFR (MDRD) > 60 (>60) BUN/Creatinine Ratio 10.0 (9-20) Glucose 91 (80-116) mg/dL Calcium 9.1 (8.6-10.2) mg/dL Meds: Medications Discontinued Medications Generic Name Dose Route Start Last Admin Trade Name Freq PRN Reason Stop Dose Admin Heparin Sodium (Porcine) 500 units 02/08/17 15:28 02/08/17 16:40 Heparin Lock Flush 100 Units/Ml FLUSH 500 units ASDIRECTED PRN Administration port flush Potassium Chloride 40 meq 02/08/17 16:26 02/08/17 16:32 Klor-Con M20 PO 02/08/17 16:27 40 meq ONETIME ONE Administration Sodium Chloride 10 ml 02/08/17 15:30 02/08/17 15:47 Saline Flush FLUSH 10 ml ASDIRECTED PRN Administration port flush Departure - Departure Time of Disposition: 17:04 Disposition: Home, Self-Care 01 Condition: Good Clinical Impression: Cachexia, Eating disorder, Sprain of right hip - Discharge Information Referrals: Jesse Gresham MD [Primary Care Provider] - Forms: ED Department Discharge Additional Instructions: Please f/u with your PMD in 1-2 days to get the potassium level checked. Please come back if your symptoms get worse acutely.
[2017-02-08] MEDS ORDERED: Potassium Chloride 20 MEQ Tab.ER PO ONE (16:26)
--- NOTE | 2017-02-08 16:36 | CR ---
INDICATION: Fell on ice 4 days ago, hip pain. PELVIS WITH RIGHT HIP: Two frontal views of the pelvis and a lateral view of the right hip were obtained 02/08/2017 and compared with 01/08/2017, again revealing hip pinning on the right and on the left, for that matter. The hip pinning devices are intact. No acute fractures or dislocation is suggested. Old fractures of the pubic symphysis and inferior pubic ramus on the right again noted. Demineralization is again suggested, compatible with osteoporosis. IMPRESSION: 1. No acute fracture or dislocation. 2. Osteoporosis. 3. Bilateral hip pinnings appear intact. Report was called to Dr. Michaels at 1615 hours, 02/08/2017. DEWAYNE
[2017-02-08 17:28] VITALS: BP 166/97
== END 2017-02-08 17:39 | disposition home or self-care (01) ==
LOC: FB.ED 14:56
DX: S73.101A Unspecified sprain of right hip, initial encounter (principal); F50.9 Eating disorder, unspecified; R64 Cachexia; Z88.8 Allergy status to other drugs, medicaments and biological substances; Z79.899 Other long term (current) drug therapy; Z68.1 Body mass index [BMI] 19.9 or less, adult; W19.XXXA Unspecified fall, initial encounter
CPT/HCPCS: 73501; 80048; 85025; 96374; 99284; A9270; J1642; J7050

== ENCOUNTER 2017-06-20 21:42 | Emergency (ER) | payer BC ==
[2017-06-20] MEDS ORDERED: Ketorolac 30 MG/ML SDV IM ONE (21:54)
[2017-06-20] MEDS ORDERED: Polyethylene Glycol 3350 Powder 17 GM Packet PO ONE (21:55)
--- NOTE | 2017-06-20 22:16 | EDM.PDOC ---
ED HPI GENERAL MEDICAL PROBLEM - General Chief Complaint: General Stated Complaint: WEAKNESS Time Seen by Provider: 06/20/17 21:55 Source of Information: Reports: Patient, Old Records, RN History Limitations: Reports: No Limitations - History of Present Illness INITIAL COMMENTS - FREE TEXT/NARRATIVE: 57 yo female with an extensive medical history presents with a laundry list of complaints. She apparently had all her meds stopped by her primary and then never went back for follow up. 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 She is worried about her potassium level. She has difficulty swallowing. Tells me that she can' t go home due to not being able to get up/down the stairs where she has been living. Onset: Gradual Onset Date: 01/26/17 (roughly 6 mos ago per patient) Duration: Week(s): (or months) Location: Reports: Lower Extremity, Right (hip clicking, with pain. ) Quality: Reports: Dull Severity: Moderate Improves with: Reports: Immobilization, Rest Worsens with: Reports: Movement Context: Reports: Other (R hip replaced after a fall with resulting fx. 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 SPECIALIST: Reports: Other (see below) (none) right hip Pain Score (Numeric/FACES): 8 - Related Data Allergies Allergy/AdvReac Type Severity Reaction Status Date / Time bupropion HCl Allergy Respiratory Verified 06/20/17 21:55 [From Wellbutrin] Distress chlorpromazine HCl Allergy Respiratory Verified 06/20/17 21:55 [From Thorazine] Distress metoclopramide [From Reglan] Allergy Anaphylactic Verified 06/20/17 21:55 Shock ondansetron HCl [From Zofran] Allergy Respiratory Verified 06/20/17 21:55 Distress prochlorperazine edisylate Allergy Respiratory Verified 06/20/17 21:55 [From Compazine] Distress prochlorperazine maleate Allergy Respiratory Verified 06/20/17 21:55 [From Compazine] Distress temazepam [From Restoril] Allergy Headache Verified 06/20/17 21:55 Home Meds: Home Meds Ibuprofen [Advil] 200 mg PO ASDIRECTED PRN 06/20/17 [History] Potassium Chloride 20 meq PO TID #14 tablet.er 06/20/17 [Rx] Past Medical History - Past Health History Medical/Surgical History: Denies Medical/Surgical History HEENT History: Reports: Other (See Below) Other HEENT History: chronic headaches Cardiovascular History: Reports: Blood Clots/VTE/DVT Respiratory History: Reports: SOB Gastrointestinal History: Reports: Other (See Below) Other Gastrointestinal History: Chronic nausea, ulcers 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: Musculoskeletal History: Reports: Fibromyalgia Neurological History: Reports: Headaches, Chronic, Migraines, Seizure Psychiatric History: Reports: Addiction, Depression Endocrine/Metabolic History: Reports: Hypothyroidism Hematologic History: Reports: Other (See Below) Other Hematologic History: low potassium Dermatologic History: Reports: Other (See Below) Other Dermatologic History: Open sores noted on bilateral arms, lower back - Infectious Disease History Infectious Disease History: Reports: Mumps - Past Surgical History Head Surgeries/Procedures: Reports: None Female Surgical History: Reports: None Social & Family History - Family History Family Medical History: Noncontributory - Tobacco Use Smoking Status *Q: Never Smoker - Caffeine Use Caffeine Use: Reports: None Other Caffeine Use: cola 2-3 per day - Recreational Drug Use Recreational Drug Use: No ED ROS GENERAL - Review of Systems Review Of Systems: See Below Constitutional: Reports: No Symptoms HEENT: Reports: No Symptoms Respiratory: Reports: Shortness of Breath (chronic) Cardiovascular: Reports: No Symptoms Endocrine: Reports: No Symptoms GI/Abdominal: Reports: Constipation (now tells us she had a BM today.). Denies : Black Stool, Bloody Stool, Diarrhea, Distension, Hematemesis, Hematochezia, Nausea, Vomiting : Reports: Frequency. Denies: Dysuria Musculoskeletal: Reports: Joint Pain (R hip with clicking.) Skin: Reports: No Symptoms Neurological: Reports: Other (feels like she has a fine tremor/twitch of arms/ legs.) Psychiatric: Reports: Anxiety (chronic) ED EXAM, GENERAL - Physical Exam Exam: See Below Exam Limited By: Other (disorganized historian, rambling history.) General Appearance: Alert, WD/WN, No Apparent Distress, Anxious Eye Exam: Bilateral Eye: EOMI, PERRL, Other (slight pallor of conjunctivas) Ears: Normal External Exam, Normal Canal, Hearing Grossly Normal Ear Exam: Bilateral Ear: Auricle Normal, Canal Normal, TM normal Nose: Normal Inspection, Normal Mucosa, No Blood Throat/Mouth: Normal Inspection, Normal Lips, Normal Oropharynx, Normal Voice, No Airway Compromise. No: Normal Teeth (edentulous) Head: Atraumatic, Normocephalic Neck: Normal Inspection Respiratory/Chest: No Respiratory Distress, Lungs Clear, Normal Breath Sounds, No Accessory Muscle Use Cardiovascular: Regular Rate, Rhythm, No Edema GI/Abdominal: Normal Bowel Sounds, Soft, Non-Tender, No Distention Back Exam: Normal Inspection Extremities: Normal Inspection, Normal Range of Motion, Non-Tender, No Pedal Edema, Other (Full ROM of R hip with some resulting discomfort, clicking not noted although my exam did not involve weight bearing. ) Neurological: Alert, Oriented, CN II-XII Intact, Normal Cognition, No Motor/ Sensory Deficits Psychiatric: Normal Affect, Normal Mood, Anxious Skin Exam: Warm, Dry, Intact, Normal Color, No Rash Lymphatic: Other (Has a puffy area to the R of the base of her neck that she states has been present about 6 mos., nontender.) Course - Vital Signs Last Recorded V/S: Last Vital Signs Temp 36.7 C 06/20/17 21:42 Pulse 113 H 06/20/17 21:42 Resp 20 06/20/17 21:42 BP 166/100 H 06/20/17 21:42 Pulse Ox 100 06/20/17 21:42 - Orders/Labs/Meds Orders: Active Orders 24 hr Category Date Time Status UA W/MICROSCOPIC [URIN] Stat Lab 06/20/17 21:45 Ordered Labs: Laboratory Tests 06/20/17 06/20/17 06/20/17 Range/Units 21:45 22:40 22:40 WBC 9.7 (4.5-12.0) X10-3/uL RBC 4.29 (3.23-5.20) x10(6)uL Hgb 11.5 (11.5-15.5) g/dL Hct 35.9 (30.0-51.3) % MCV 83.7 (80-96) fL MCH 26.8 L (27.7-33.6) pg MCHC 32.1 L (32.2-35.4) g/dL RDW 14.3 (11.5-15.5) % Plt Count 235 (125-369) X10(3)uL Sodium 142 (135-145) mmol/L Potassium 2.9 L (3.5-5.3) mmol/L Chloride 107 (100-110) mmol/L Carbon Dioxide 19 L (21-32) mmol/L BUN 14 (7-18) mg/dL Creatinine 1.0 (0.55-1.02) mg/dL Est Cr Clr Drug Dosing 52.31 mL/min Estimated GFR (MDRD) 57 L (>60) BUN/Creatinine Ratio 14.0 (9-20) Glucose 131 H (80-116) mg/dL Calcium 8.9 (8.6-10.2) mg/dL Magnesium 1.8 (1.8-2.5) mg/dL Urine Color Yellow (YELLOW) Urine Appearance Clear (CLEAR) Urine pH 5.0 (5.0-6.5) Ur Specific [place] 1.005 L (1.010-1.025) Urine Protein Negative (NEGATIVE) mg/dL Urine Glucose (UA) Normal (NEGATIVE) mg/dL Urine Ketones Negative (NEGATIVE) mg/dL Urine Occult Blood Large H (NEGATIVE) Urine Nitrite Negative (NEGATIVE) Urine Bilirubin Negative (NEGATIVE) Urine Urobilinogen Normal (NEGATIVE) mg/dL Ur Leukocyte Esterase Negative (NEGATIVE) Urine RBC 0-5 (0) Urine WBC 0-5 (0) Ur Squamous Epith Cells Occasional (NS,R,O) Urine Bacteria Rare H (NS) Meds: Medications Discontinued Medications Generic Name Dose Route Start Last Admin Trade Name Freq PRN Reason Stop Dose Admin Ketorolac Tromethamine 30 mg 06/20/17 21:54 06/20/17 22:16 Toradol IM 06/20/17 21:55 30 mg ONETIME ONE Administration Polyethylene Glycol 34 gm 06/20/17 21:55 06/20/17 22:17 Miralax PO 06/20/17 21:56 Not Given ONETIME ONE Potassium Chloride 40 meq 06/20/17 23:05 06/20/17 23:20 Klor-Con M20 PO 06/20/17 23:06 40 meq ONETIME ONE Administration Departure - Departure Time of Disposition: 23:25 Disposition: Home, Self-Care 01 Condition: Fair Clinical Impression: Hypokalemia, Chronic pain of right hip, Insomnia HTN (hypertension) Qualifiers: Hypertension type: essential hypertension Qualified Code(s): I10 - Essential ( primary) hypertension - Discharge Information Prescriptions: Potassium Chloride 20 meq PO TID #14 tablet.er Referrals: PCP,None [Ordering Only Provider] - Forms: ED Department Discharge Care Plan Goals: Resume potassium supplementation in the morning([facility]). See your doctor regarding your insomnia, R hip pain, BP, low potassiu, stomach/swallowing concerns, etc. You should consider physical therapy for your hip to strengthen the muscles in this area. If PT does not help, then you may need to see your orthopedic doctor. - My Orders Last 24 Hours: My Active Orders 06/20/17 21:45 UA W/MICROSCOPIC [URIN] Stat - Assessment/Plan Last 24 Hours: My Active Orders 06/20/17 21:45 UA W/MICROSCOPIC [URIN] Stat
[2017-06-20] MEDS ORDERED: Potassium Chloride 20 MEQ Tab.ER PO ONE (23:05)
[2017-06-20] MEDS ORDERED: Sodium Chloride 0.9% 10 ML Syringe FLUSH PRN (23:15)
[2017-06-20] MEDS ORDERED: Zolpidem 10 MG Tab PO ONE (23:27)
[2017-06-20 23:58] VITALS: BP 162/84
== END 2017-06-20 23:47 | disposition home or self-care (01) ==
LOC: FB.ED 21:42
DX: M25.551 Pain in right hip (principal); G89.29 Other chronic pain; E87.6 Hypokalemia; I10 Essential (primary) hypertension; G47.00 Insomnia, unspecified; Z88.8 Allergy status to other drugs, medicaments and biological substances
CPT/HCPCS: 80048; 81001; 83735; 85027; 96372; 99283; A9270; J1885; J7050

== ENCOUNTER 2017-10-11 19:07 | Emergency (ER) | payer BC ==
--- NOTE | 2017-10-11 19:30 | EDM.PDOC ---
ED HPI GENERAL MEDICAL PROBLEM - General Chief Complaint: Genitourinary Problem Stated Complaint: GENERAL Time Seen by Provider: 10/11/17 19:15 Source of Information: Reports: Patient, Family, Old Records History Limitations: Reports: No Limitations - History of Present Illness INITIAL COMMENTS - FREE TEXT/NARRATIVE: Theresa comes into [facility] ED with sxs of urinary frequency, sleep interruption from voiding frequency, and some mucous discharge with BMs today. Sxs seem to wax and wane recently. There is no dysuria, incontinence, back pain or stone disease. - Related Data Allergies Allergy/AdvReac Type Severity Reaction Status Date / Time bupropion HCl Allergy Respiratory Verified 09/14/17 06:22 [From Wellbutrin] Distress chlorpromazine HCl Allergy Respiratory Verified 09/14/17 06:22 [From Thorazine] Distress metoclopramide [From Reglan] Allergy Anaphylactic Verified 09/14/17 06:22 Shock ondansetron HCl [From Zofran] Allergy Respiratory Verified 09/14/17 06:22 Distress prochlorperazine edisylate Allergy Respiratory Verified 09/14/17 06:22 [From Compazine] Distress prochlorperazine maleate Allergy Respiratory Verified 09/14/17 06:22 [From Compazine] Distress temazepam [From Restoril] Allergy Headache Verified 09/14/17 06:22 Home Meds: Home Meds Ibuprofen [Advil] 200 mg PO ASDIRECTED PRN 06/20/17 [History] Potassium Chloride 20 meq PO TID #14 tablet.er 06/20/17 [Rx] hydrOXYzine pamoate [Vistaril] 50 mg PO BEDTIME PRN #10 cap 09/14/17 [Rx] Past Medical History - Past Health History Medical/Surgical History: Denies Medical/Surgical History HEENT History: Reports: Other (See Below) Other HEENT History: chronic headaches Cardiovascular History: Reports: Blood Clots/VTE/DVT Respiratory History: Reports: SOB Gastrointestinal History: Reports: Other (See Below) Other Gastrointestinal History: Chronic nausea, ulcers 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: Musculoskeletal History: Reports: Fibromyalgia Neurological History: Reports: Headaches, Chronic, Migraines, Seizure Psychiatric History: Reports: Addiction, Depression Endocrine/Metabolic History: Reports: Hypothyroidism Hematologic History: Reports: Other (See Below) Other Hematologic History: low potassium Dermatologic History: Reports: Other (See Below) Other Dermatologic History: Open sores noted on bilateral arms, lower back - Infectious Disease History Infectious Disease History: Reports: Mumps - Past Surgical History Head Surgeries/Procedures: Reports: None Female Surgical History: Reports: None Other Musculoskeletal Surgeries/Procedures:: Hip surgery May 2017 Social & Family History - Family History Family Medical History: Noncontributory - Caffeine Use Caffeine Use: Reports: Soda Other Caffeine Use: cola 2-3 per day ED ROS GENERAL - Review of Systems Review Of Systems: ROS reveals no pertinent complaints other than HPI. ED EXAM, GENERAL - Physical Exam Exam: See Below Exam Limited By: No Limitations General Appearance: Alert, WD/WN, No Apparent Distress, Anxious Head: Normocephalic Neck: Normal Inspection, Supple, Full Range of Motion Respiratory/Chest: Lungs Clear, Normal Breath Sounds Cardiovascular: Regular Rate, Rhythm, No Murmur GI/Abdominal: Normal Bowel Sounds, Soft, Non-Tender, No Organomegaly, No Distention, No Mass (Female) Exam: Deferred Rectal (Female) Exam: Deferred Back Exam: Normal Inspection Extremities: Normal Inspection Neurological: Alert, Oriented, CN II-XII Intact, Normal Cognition, Normal Gait, No Motor/Sensory Deficits Psychiatric: Normal Affect, Anxious Skin Exam: Warm, Dry, Intact, Normal Color Lymphatic: No Adenopathy Course - Vital Signs Text/Narrative:: Theresa remained stable during the ED visit. No meds were dispensed. Last Recorded V/S: Last Vital Signs Temp 36.9 C 10/11/17 19:35 Pulse 87 10/11/17 19:35 Resp 16 10/11/17 19:35 BP 177/94 H 10/11/17 19:35 Pulse Ox 99 10/11/17 19:35 - Orders/Labs/Meds Orders: Active Orders 24 hr Category Date Time Status CULTURE URINE [RM] Stat Lab 10/11/17 20:02 Ordered URINALYSIS W/MICROSCOPIC [UA W/MICROSCOPIC] [URIN] Stat Lab 10/11/17 19:35 Ordered Heparin Sodium [Heparin Lock Flush 100 Units/ML] Med 10/11/17 19:56 Active 500 units FLUSH ASDIRECTED PRN Medication Orders Heparin Sodium (Porcine) (Heparin Lock Flush 100 Units/Ml) 500 units FLUSH ASDIRECTED PRN PRN Reason: Keep Vein Open Labs: Laboratory Tests 10/11/17 Range/Units 19:35 Urine Color Yellow (YELLOW) Urine Appearance Clear (CLEAR) Urine pH 6.0 (5.0-6.5) Ur Specific [place] 1.005 L (1.010-1.025) Urine Protein 30 H (NEGATIVE) mg/dL Urine Glucose (UA) Normal (NEGATIVE) mg/dL Urine Ketones Negative (NEGATIVE) mg/dL Urine Occult Blood Large H (NEGATIVE) Urine Nitrite Negative (NEGATIVE) Urine Bilirubin Negative (NEGATIVE) Urine Urobilinogen Normal (NEGATIVE) mg/dL Ur Leukocyte Esterase Negative (NEGATIVE) Urine RBC 30-40 H (0) Urine WBC 0-5 (0) Ur Squamous Epith Cells Few H (NS,R,O) Urine Bacteria Few H (NS) Meds: Medications Generic Name Dose Route Start Last Admin Trade Name Freq PRN Reason Stop Dose Admin Heparin Sodium (Porcine) 500 units 10/11/17 19:56 Heparin Lock Flush 100 Units/Ml FLUSH ASDIRECTED PRN Keep Vein Open Departure - Departure Time of Disposition: 20:10 Disposition: Home, Self-Care 01 Condition: Fair Clinical Impression: Hematuria Qualifiers: Hematuria type: unspecified type Qualified Code(s): R31.9 - Hematuria, unspecified - Discharge Information *PRESCRIPTION DRUG MONITORING PROGRAM REVIEWED*: Not Applicable *COPY OF PRESCRIPTION DRUG MONITORING REPORT IN PATIENT [place]: Not Applicable Referrals: Jesse Gresham MD [Primary Care Provider] - Forms: ED Department Discharge - Problem List & Annotations (1) Hematuria SNOMED Code(s): 39588090 Code(s): R31.9 - HEMATURIA, UNSPECIFIED Status: Acute Current Visit: Yes Annotation/Comment:: Theresa has persistent hematuria, in addition to sxs of urgency and frequency of urination. I suggested a Urologic consult and any needed diagnostic testing. She will follow thru. Qualifiers: Hematuria type: unspecified type Qualified Code(s): R31.9 - Hematuria, unspecified - Problem List Review Problem List Initiated/Reviewed/Updated: Yes - My Orders Last 24 Hours: My Active Orders 10/11/17 19:35 URINALYSIS W/MICROSCOPIC [UA W/MICROSCOPIC] [URIN] Stat 10/11/17 19:56 Heparin Sodium [Heparin Lock Flush 100 Units/ML] 500 units FLUSH ASDIRECTED PRN 10/11/17 20:02 CULTURE URINE [RM] Stat - Assessment/Plan Last 24 Hours: My Active Orders 10/11/17 19:35 URINALYSIS W/MICROSCOPIC [UA W/MICROSCOPIC] [URIN] Stat 10/11/17 19:56 Heparin Sodium [Heparin Lock Flush 100 Units/ML] 500 units FLUSH ASDIRECTED PRN 10/11/17 20:02 CULTURE URINE [RM] Stat Plan: Follow up with PCP. A request for hypnotics was denied.
[2017-10-11] MEDS ORDERED: Sodium Chloride 0.9% 10 ML Syringe FLUSH PRN (20:20)
[2017-10-11 23:32] VITALS: BP 172/91
== END 2017-10-11 20:30 | disposition home or self-care (01) ==
LOC: FB.ED 19:07
DX: R31.9 Hematuria, unspecified (principal); Z88.8 Allergy status to other drugs, medicaments and biological substances
CPT/HCPCS: 81001; 87086; 87088; 87186; 99283; J1642; J7050

== ENCOUNTER 2017-10-18 14:26 | Emergency (ER) | payer BC ==
[2017-10-18 15:20] VITALS: BP 145/85
--- NOTE | 2017-10-18 15:23 | EDM.PDOC ---
ED HPI GENERAL MEDICAL PROBLEM - General Chief Complaint: Gastrointestinal Problem Stated Complaint: PAIN IN LOWER BACK Time Seen by Provider: 10/18/17 15:10 Source of Information: Reports: Patient, Old Records History Limitations: Reports: No Limitations - History of Present Illness INITIAL COMMENTS - FREE TEXT/NARRATIVE: Theresa Palacios returns to [facility] ED with ongoing sxs of mucous-BRB tinged discharge from the rectum, ED notes from October 11 reviewed. She is requesting pain medication. There has been no reported escalation of gastrointestinal sxs since last ED visit. She did see PCP earlier this week and was dispensed Cipro 500mg tid for bowel sxs. A Abd-Pelvic noncontrast CT did note some thickening of descending colon wall suggestive of colitis. Groin Pain Score (Numeric/FACES): 9 - Related Data Allergies Allergy/AdvReac Type Severity Reaction Status Date / Time bupropion HCl Allergy Respiratory Verified 10/18/17 14:51 [From Wellbutrin] Distress chlorpromazine HCl Allergy Respiratory Verified 10/18/17 14:51 [From Thorazine] Distress metoclopramide [From Reglan] Allergy Anaphylactic Verified 10/18/17 14:51 Shock ondansetron HCl [From Zofran] Allergy Respiratory Verified 10/18/17 14:51 Distress prochlorperazine edisylate Allergy Respiratory Verified 10/18/17 14:51 [From Compazine] Distress prochlorperazine maleate Allergy Respiratory Verified 10/18/17 14:51 [From Compazine] Distress temazepam [From Restoril] Allergy Headache Verified 10/18/17 14:51 Home Meds: Home Meds Ibuprofen [Advil] 200 mg PO ASDIRECTED PRN 06/20/17 [History] Ciprofloxacin HCl [Cipro] 500 mg PO BID #20 tablet 10/14/17 [Rx] Esomeprazole Magnesium [Nexium 24Hr] 20 mg PO DAILY 10/18/17 [History] Melatonin/Pyridoxine HCl (B6) [Melatonin 5 mg Tablet] 5 mg PO DAILY 10/18/17 [ History] Potassium Chloride 40 meq PO TID 10/18/17 [History] QUEtiapine Fumarate [Seroquel] 25 mg PO BEDTIME 10/18/17 [History] Ramelteon [Rozerem] 8 mg PO BEDTIME 10/18/17 [History] Ranitidine [Zantac] 50 mg PO DAILY 10/18/17 [History] hydrOXYzine pamoate [Vistaril] 50 mg PO TID 10/18/17 [History] Past Medical History - Past Health History Medical/Surgical History: Denies Medical/Surgical History HEENT History: Reports: Other (See Below) Other HEENT History: chronic headaches Cardiovascular History: Reports: Blood Clots/VTE/DVT Respiratory History: Reports: SOB Gastrointestinal History: Reports: Other (See Below) Other Gastrointestinal History: Chronic nausea, ulcers 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: Musculoskeletal History: Reports: Fibromyalgia Neurological History: Reports: Headaches, Chronic, Migraines, Seizure Psychiatric History: Reports: Addiction, Depression Endocrine/Metabolic History: Reports: Hypothyroidism Hematologic History: Reports: Other (See Below) Other Hematologic History: low potassium Dermatologic History: Reports: Other (See Below) Other Dermatologic History: Open sores noted on bilateral arms, lower back - Infectious Disease History Infectious Disease History: Reports: Mumps - Past Surgical History Head Surgeries/Procedures: Reports: None Female Surgical History: Reports: None Other Musculoskeletal Surgeries/Procedures:: Hip surgery May 2017 Social & Family History - Family History Family Medical History: Noncontributory - Tobacco Use Smoking Status *Q: Never Smoker - Caffeine Use Caffeine Use: Reports: Soda Other Caffeine Use: cola 2-3 per day - Recreational Drug Use Recreational Drug Use: No ED ROS GENERAL - Review of Systems Review Of Systems: ROS reveals no pertinent complaints other than HPI. ED EXAM, GI/ABD - Physical Exam Exam: See Below Exam Limited By: No Limitations General Appearance: Alert, WD/WN, No Apparent Distress, Anxious Head: Normocephalic Neck: Normal Inspection, Supple Respiratory/Chest: Lungs Clear Cardiovascular: Regular Rate, Rhythm GI/Abdominal Exam: Normal Bowel Sounds, Soft, Non-Tender, No Organomegaly, No Distention, No Mass (Female) Exam: Deferred Rectal (Female) Exam: Deferred Back Exam: Normal Inspection Extremities: Normal Inspection Neurological: Alert, Oriented, CN II-XII Intact, No Motor/Sensory Deficits Psychiatric: Normal Affect, Anxious Skin Exam: Warm, Dry, Intact, Normal Color Lymphatic: No Adenopathy Course - Vital Signs Text/Narrative:: Theresa would benefit from a colonscopy to elucidate the nature of colitis suspected on the Abd-Pelvic CT, and she mentioned Dr Cardoso as a resource to proceed. No meds were dispensed in the ED. Last Recorded V/S: Last Vital Signs Temp 36.4 C 10/18/17 15:10 Pulse 117 H 10/18/17 15:10 Resp 16 10/18/17 15:10 BP 145/85 H 10/18/17 15:10 Pulse Ox 100 10/18/17 15:10 Departure - Departure Time of Disposition: 15:25 Disposition: Home, Self-Care 01 Condition: Fair Clinical Impression: Colitis - Discharge Information *PRESCRIPTION DRUG MONITORING PROGRAM REVIEWED*: Not Applicable *COPY OF PRESCRIPTION DRUG MONITORING REPORT IN PATIENT [place]: Not Applicable Referrals: Jesse Gresham MD [Primary Care Provider] - Forms: ED Department Discharge - Problem List & Annotations (1) Colitis SNOMED Code(s): 53295663 Code(s): K52.9 - NONINFECTIVE GASTROENTERITIS AND COLITIS, UNSPECIFIED Status: Acute Current Visit: Yes Annotation/Comment:: Follow up with Dr Cardoso - Problem List Review Problem List Initiated/Reviewed/Updated: Yes - Assessment/Plan Plan: Follow up with PCP.
== END 2017-10-18 15:10 | disposition home or self-care (01) ==
LOC: FB.ED 14:26
DX: K52.9 Noninfective gastroenteritis and colitis, unspecified (principal); E03.9 Hypothyroidism, unspecified; Z79.899 Other long term (current) drug therapy; Z88.8 Allergy status to other drugs, medicaments and biological substances
CPT/HCPCS: 99283

== ENCOUNTER 2017-10-28 11:17 | Emergency (ER) | payer BC ==
--- NOTE | 2017-10-28 11:41 | EDM.PDOC ---
ED HPI GENERAL MEDICAL PROBLEM - General Chief Complaint: Headache Stated Complaint: HEAD ACHE Time Seen by Provider: 10/28/17 11:50 Source of Information: Reports: Patient History Limitations: Reports: No Limitations (Onset of headacahe was during the night "I woke up and had headaches". I took acetaminophen.I got a shot of vistaril at the clinic. I am really limited in what I can have.I have the headacahes now and it is a 9/10. It is not different from the headaches I usually have.The lights also bother me. I have tried many things for my headaches) - History of Present Illness Duration: Chronic Location: Reports: Head, Face Severity: Moderate Improves with: Reports: Other (nothing) Worsens with: Reports: Other (light) Associated Symptoms: Reports: Headaches. Denies: Confusion, Fever/Chills head Pain Score (Numeric/FACES): 9 right hip Pain Score (Numeric/FACES): 7 - Related Data Allergies Allergy/AdvReac Type Severity Reaction Status Date / Time bupropion HCl Allergy Respiratory Verified 10/28/17 11:40 [From Wellbutrin] Distress chlorpromazine HCl Allergy Respiratory Verified 10/28/17 11:40 [From Thorazine] Distress metoclopramide [From Reglan] Allergy Anaphylactic Verified 10/28/17 11:40 Shock ondansetron HCl [From Zofran] Allergy Respiratory Verified 10/28/17 11:40 Distress prochlorperazine edisylate Allergy Respiratory Verified 10/28/17 11:40 [From Compazine] Distress prochlorperazine maleate Allergy Respiratory Verified 10/28/17 11:40 [From Compazine] Distress temazepam [From Restoril] Allergy Headache Verified 10/28/17 11:40 Home Meds: Home Meds Ibuprofen [Advil] 200 mg PO ASDIRECTED PRN 06/20/17 [History] Esomeprazole Magnesium [Nexium 24Hr] 20 mg PO DAILY 10/18/17 [History] Potassium Chloride 40 meq PO TID 10/18/17 [History] QUEtiapine Fumarate [Seroquel] 25 mg PO BEDTIME 10/18/17 [History] Ranitidine [Zantac] 50 mg PO DAILY 10/18/17 [History] hydrOXYzine pamoate [Vistaril] 50 mg PO TID 10/18/17 [History] LORazepam [Ativan] 1 tab PO DAILY PRN 10/28/17 [History] Scopolamine [Transderm-Scop] 1 each TD ASDIRECTED 10/28/17 [History] Past Medical History - Past Health History Medical/Surgical History: Denies Medical/Surgical History HEENT History: Reports: Other (See Below) Other HEENT History: chronic headaches Cardiovascular History: Reports: Blood Clots/VTE/DVT Respiratory History: Reports: SOB Gastrointestinal History: Reports: Other (See Below) Other Gastrointestinal History: Chronic nausea, ulcers 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: Musculoskeletal History: Reports: Fibromyalgia Neurological History: Reports: Headaches, Chronic, Migraines, Seizure Psychiatric History: Reports: Addiction, Depression Endocrine/Metabolic History: Reports: Hypothyroidism Hematologic History: Reports: Other (See Below) Other Hematologic History: low potassium Dermatologic History: Reports: Other (See Below) Other Dermatologic History: Open sores noted on bilateral arms, lower back - Infectious Disease History Infectious Disease History: Reports: Mumps - Past Surgical History Head Surgeries/Procedures: Reports: None Female Surgical History: Reports: None Other Musculoskeletal Surgeries/Procedures:: Hip surgery May 2017 Social & Family History - Family History Family Medical History: Noncontributory - Caffeine Use Caffeine Use: Reports: Soda Other Caffeine Use: cola 2-3 per day ED ROS GENERAL - Review of Systems Review Of Systems: See Below Respiratory: Denies: Shortness of Breath, Wheezing Cardiovascular: Denies: Chest Pain, Dyspnea on Exertion GI/Abdominal: Denies: Abdominal Pain, Nausea, Vomiting Skin: Denies: Cyanosis, Jaundice Neurological: Reports: Headache. Denies: Confusion, Dizziness ED EXAM, GENERAL - Physical Exam Exam: See Below Exam Limited By: No Limitations General Appearance: No Apparent Distress Ear Exam: Bilateral Ear: Auricle Normal Nose: Normal Inspection Head: Atraumatic, Normocephalic Neck: Supple Respiratory/Chest: No Respiratory Distress, Lungs Clear, Normal Breath Sounds Cardiovascular: Regular Rate, Rhythm, No Rub Neurological: Alert, Oriented, Normal Cognition. No: Inattentive, Confused, Disoriented, Slow to Respond, Unresponsive Psychiatric: Normal Affect, Normal Mood Course - Vital Signs Text/Narrative:: Female patient here with history of opiate addiction and opiate abuse. Asking for Buprenex for headaches. Patient states she's had this in the past before and records do show she had Buprenex injections here eighteenSeptember 2017. She is giving a history of pain of 9/10, but appears very calm speaking clearly coherently, appears to be in no distress. Patient insists she has a headache care Plan of the [facility]. She had already gotten hydroxyzine at outpatient facility. I did review a [facility] either. She has not had opioids prescription more than once in the past 6 months. From further conversation patient seems to have retracted the statement that she has a care plan for headache from [facility]. Headaches not o of sudden onset, similar to her chronic headaches has had in the past associated light sensitivity with nausea with no focal findings. Strongly counseled patient to see primary care physician on outpatient. She stated Toradol is of no benefit to her symptoms. She is encouraged to continue Imitrex prescription Last Recorded V/S: Last Vital Signs Temp 36.6 C 10/28/17 11:40 Pulse 87 10/28/17 12:30 Resp 17 10/28/17 12:30 BP 146/95 H 10/28/17 12:30 Pulse Ox 100 10/28/17 12:30 - Orders/Labs/Meds Meds: Medications Discontinued Medications Generic Name Dose Route Start Last Admin Trade Name Edmondq PRN Reason Stop Dose Admin Hydrocodone Bitart/Acetaminophen 1 tab 10/28/17 12:11 10/28/17 12:20 [place] 325-5 Mg PO 10/28/17 12:12 1 tab ONETIME ONE Administration - Re-Assessments/Exams Free Text/Narrative Re-Assessment/Exam: 10/28/17 12:10 Patient is a well-looking pedis to be in no distress Departure - Departure Time of Disposition: 12:19 Disposition: Home, Self-Care 01 Condition: Good Clinical Impression: Tension-type headache, Headache, Migraine - Discharge Information *PRESCRIPTION DRUG MONITORING PROGRAM REVIEWED*: Yes *COPY OF PRESCRIPTION DRUG MONITORING REPORT IN PATIENT [place]: No Instructions: Recurrent Migraine Headache, [id number] Referrals: Jesse Gresham MD [Primary Care Provider] - Forms: ED Department Discharge - Problem List & Annotations (1) Chronic headaches SNOMED Code(s): 292904413 Code(s): R51 - HEADACHE Status: Chronic Qualifiers: Headache type: unspecified Intractability: not intractable Qualified Code (s): R51 - Headache (2) Migraine SNOMED Code(s): 03946059 Code(s): G43.909 - MIGRAINE, UNSP, NOT INTRACTABLE, WITHOUT STATUS MIGRAINOSUS Status: Acute Qualifiers: Migraine type: without aura Status migrainosus presence: without status migrainosus Intractability: not intractable Qualified Code(s): G43.009 - Migraine without aura, not intractable, without status migrainosus
[2017-10-28] MEDS ORDERED: Acetaminophen/HYDROcodone 325-5 MG Tab PO ONE (12:11)
[2017-10-28 12:46] VITALS: BP 146/95
== END 2017-10-28 12:30 | disposition home or self-care (01) ==
LOC: FB.ED 11:17
DX: G44.209 Tension-type headache, unspecified, not intractable (principal); G43.909 Migraine, unspecified, not intractable, without status migrainosus; E03.9 Hypothyroidism, unspecified; Z79.899 Other long term (current) drug therapy; Z88.8 Allergy status to other drugs, medicaments and biological substances
CPT/HCPCS: 99283; A9270

== ENCOUNTER 2017-11-03 12:56 | Emergency (ER) | payer BC ==
[2017-11-03] MEDS ORDERED: Ketorolac 60 MG/2 ML SDV IM ONE (13:39)
[2017-11-03] MEDS ORDERED: hydrOXYzine HCl 50 MG/ML SDV IM ONE (13:40)
--- NOTE | 2017-11-03 13:46 | EDM.PDOC ---
ED HPI GENERAL MEDICAL PROBLEM - General Stated Complaint: HEADACHE Time Seen by Provider: 11/03/17 13:20 Source of Information: Reports: Patient History Limitations: Reports: No Limitations - History of Present Illness INITIAL COMMENTS - FREE TEXT/NARRATIVE: c/o CORDOVA, wants meds refilled requesting refills on 4 meds--seroquel plus 3 controlled meds (Ativan, T-3, one other), requesting Bupinex here which is no longer being given by Dr Gresham or Dr Newsome in the clinic on cipro for a UTI 2w ago, off x 1w, now with "blood clot" on void, has appointment with urologist on 12/18, did have cystoscopy x 1 several yrs ago MPMP shows 4 fills of 10 tabs of each this month, no fills in previous 10 months of controlled meds, last narcotic fill was 12/24 Dr Gresham's note at clinic indicates that he will not give additional Bupinex or narcotics pt with vague c/o of CORDOVA and chronic R hip pain since fx and ORIF 14m ago does seem more alert and pleasant than in the past did agree to Toradol and Vistaril for her CORDOVA headache Pain Score (Numeric/FACES): 8 - Related Data Allergies Allergy/AdvReac Type Severity Reaction Status Date / Time bupropion HCl Allergy Respiratory Verified 11/03/17 14:11 [From Wellbutrin] Distress chlorpromazine HCl Allergy Respiratory Verified 11/03/17 14:11 [From Thorazine] Distress metoclopramide [From Reglan] Allergy Anaphylactic Verified 11/03/17 14:11 Shock ondansetron HCl [From Zofran] Allergy Respiratory Verified 11/03/17 14:11 Distress prochlorperazine edisylate Allergy Respiratory Verified 11/03/17 14:11 [From Compazine] Distress prochlorperazine maleate Allergy Respiratory Verified 11/03/17 14:11 [From Compazine] Distress temazepam [From Restoril] Allergy Headache Verified 11/03/17 14:11 Home Meds: Home Meds Ibuprofen [Advil] 200 mg PO ASDIRECTED PRN 06/20/17 [History] Esomeprazole Magnesium [Nexium 24Hr] 20 mg PO DAILY 10/18/17 [History] Potassium Chloride 40 meq PO TID 10/18/17 [History] QUEtiapine Fumarate [Seroquel] 25 mg PO BEDTIME 10/18/17 [History] Ranitidine [Zantac] 50 mg PO DAILY 10/18/17 [History] hydrOXYzine pamoate [Vistaril] 50 mg PO TID 10/18/17 [History] LORazepam [Ativan] 1 tab PO DAILY PRN 10/28/17 [History] Scopolamine [Transderm-Scop] 1 each TD ASDIRECTED 10/28/17 [History] Melatonin 1 mg PO BEDTIME 11/03/17 [History] PARoxetine HCl [Paxil] 20 mg PO DAILY 11/03/17 [History] Ramelteon [Rozerem] 8 mg PO BEDTIME 11/03/17 [History] Past Medical History - Past Health History Medical/Surgical History: Denies Medical/Surgical History HEENT History: Reports: Other (See Below) Other HEENT History: chronic headaches Cardiovascular History: Reports: Blood Clots/VTE/DVT Respiratory History: Reports: SOB Gastrointestinal History: Reports: Other (See Below) Other Gastrointestinal History: Chronic nausea, ulcers 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: Musculoskeletal History: Reports: Fibromyalgia Neurological History: Reports: Headaches, Chronic, Migraines, Seizure Psychiatric History: Reports: Addiction, Depression Endocrine/Metabolic History: Reports: Hypothyroidism Hematologic History: Reports: Other (See Below) Other Hematologic History: low potassium Dermatologic History: Reports: Other (See Below) Other Dermatologic History: Open sores noted on bilateral arms, lower back - Infectious Disease History Infectious Disease History: Reports: Mumps - Past Surgical History Head Surgeries/Procedures: Reports: None Female Surgical History: Reports: None Other Musculoskeletal Surgeries/Procedures:: Hip surgery May 2017 Social & Family History - Family History Family Medical History: Noncontributory - Caffeine Use Caffeine Use: Reports: Soda Other Caffeine Use: cola 2-3 per day ED ROS GENERAL - Review of Systems Review Of Systems: See Below Constitutional: Reports: No Symptoms HEENT: Reports: No Symptoms Respiratory: Reports: No Symptoms Cardiovascular: Reports: No Symptoms Endocrine: Reports: No Symptoms GI/Abdominal: Reports: No Symptoms : Reports: No Symptoms Musculoskeletal: Reports: No Symptoms Skin: Reports: No Symptoms Neurological: Reports: Headache Psychiatric: Reports: No Symptoms Hematologic/Lymphatic: Reports: No Symptoms Immunologic: Reports: No Symptoms ED EXAM, GENERAL - Physical Exam Exam: See Below Exam Limited By: No Limitations General Appearance: Alert, WD/WN, No Apparent Distress Nose: Normal Inspection, Normal Mucosa Throat/Mouth: Normal Inspection, No Airway Compromise Head: Atraumatic, Normocephalic Neck: Normal Inspection, Supple, Non-Tender, Full Range of Motion Respiratory/Chest: No Respiratory Distress, Lungs Clear, Normal Breath Sounds, Chest Non-Tender Cardiovascular: Regular Rate, Rhythm, No Gallop, No Murmur GI/Abdominal: Soft, Non-Tender Back Exam: Normal Inspection, Full Range of Motion Extremities: Normal Inspection, Normal Range of Motion, Non-Tender, No Pedal Edema Neurological: Alert, Oriented, CN II-XII Intact, Normal Cognition, No Motor/ Sensory Deficits Skin Exam: Warm, Dry, Intact, Normal Color, No Rash Lymphatic: No Adenopathy Course - Vital Signs Last Recorded V/S: Last Vital Signs Temp 36.3 C 11/03/17 13:00 Pulse 98 11/03/17 13:00 Resp 18 11/03/17 13:00 BP 132/70 11/03/17 13:00 Pulse Ox 100 11/03/17 13:00 - Orders/Labs/Meds Labs: Laboratory Tests 11/03/17 Range/Units 13:30 Urine Color Yellow (YELLOW) Urine Appearance Clear (CLEAR) Urine pH 5.0 (5.0-6.5) Ur Specific [place] 1.010 (1.010-1.025) Urine Protein Negative (NEGATIVE) mg/dL Urine Glucose (UA) Normal (NEGATIVE) mg/dL Urine Ketones Negative (NEGATIVE) mg/dL Urine Occult Blood Moderate H (NEGATIVE) Urine Nitrite Negative (NEGATIVE) Urine Bilirubin Negative (NEGATIVE) Urine Urobilinogen Normal (NEGATIVE) mg/dL Ur Leukocyte Esterase Negative (NEGATIVE) Urine RBC 0-5 (0) Ur Squamous Epith Cells Rare (NS,R,O) Urine Bacteria Rare H (NS) Meds: Medications Discontinued Medications Generic Name Dose Route Start Last Admin Trade Name Freq PRN Reason Stop Dose Admin Hydroxyzine HCl 50 mg 11/03/17 13:40 11/03/17 13:54 Vistaril IM 11/03/17 13:41 50 mg ONETIME ONE Administration Ketorolac Tromethamine 60 mg 11/03/17 13:39 11/03/17 13:55 Toradol IM 11/03/17 13:40 60 mg ONETIME ONE Administration Departure - Departure Time of Disposition: 14:00 Disposition: Home, Self-Care 01 Condition: Good Clinical Impression: Tension headache - Discharge Information *PRESCRIPTION DRUG MONITORING PROGRAM REVIEWED*: Not Applicable *COPY OF PRESCRIPTION DRUG MONITORING REPORT IN PATIENT [place]: Not Applicable Referrals: Jesse Gresham MD [Primary Care Provider] - Forms: ED Department Discharge Additional Instructions: Continue current meds. Follow up with your PCP. There is no evidence of a UTI on your urinalysis.
[2017-11-03 14:09] VITALS: BP 132/70
== END 2017-11-03 14:00 | disposition home or self-care (01) ==
LOC: FB.ED 12:56
DX: G44.209 Tension-type headache, unspecified, not intractable (principal); E03.9 Hypothyroidism, unspecified; Z88.8 Allergy status to other drugs, medicaments and biological substances; Z79.899 Other long term (current) drug therapy
CPT/HCPCS: 81001; 96372; 99284; J1885; J3410

== ENCOUNTER 2018-02-23 12:36 | Emergency (ER) | payer BC ==
[2018-02-23 12:57] VITALS: BP 132/98
--- NOTE | 2018-02-23 13:12 | EDM.PDOC ---
ED HPI GENERAL MEDICAL PROBLEM - General Chief Complaint: Headache Stated Complaint: MIGRAINE Time Seen by Provider: 02/23/18 13:05 Source of Information: Reports: Patient, Family History Limitations: Reports: No Limitations - History of Present Illness INITIAL COMMENTS - FREE TEXT/NARRATIVE: c/o R alejandra CORDOVA has had HAs for "days", took Imitrex this AM without benefit argued long and hard that she needed a controlled med, that that was the only thing that would help, that her [place] physicians "had found something" holding emesis basin living with her parents her mother is with her she has been seen 9x in the past 6w in the ED with c/o CORDOVA, did get buprenorphine once, otherwise not gotten controlled meds, usually given Toradol and Vistaril when she does not refuse them 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 (see below) Other Treatments CANAL DRIVER: Imitrex Headache Pain Score (Numeric/FACES): 10 - Related Data Allergies Allergy/AdvReac Type Severity Reaction Status Date / Time bupropion HCl Allergy Respiratory Verified 02/23/18 12:45 [From Wellbutrin] Distress chlorpromazine HCl Allergy Respiratory Verified 02/23/18 12:45 [From Thorazine] Distress gabapentin Allergy Anaphylactic Verified 02/23/18 12:45 Shock metoclopramide [From Reglan] Allergy Anaphylactic Verified 02/23/18 12:45 Shock ondansetron HCl [From Zofran] Allergy Respiratory Verified 02/23/18 12:45 Distress prochlorperazine edisylate Allergy Respiratory Verified 02/23/18 12:45 [From Compazine] Distress prochlorperazine maleate Allergy Respiratory Verified 02/23/18 12:45 [From Compazine] Distress temazepam [From Restoril] Allergy Headache Verified 02/23/18 12:45 Home Meds: Home Meds Ibuprofen [Advil] 200 mg PO Q4H PRN 06/20/17 [History] Esomeprazole Magnesium [Nexium 24Hr] 20 mg PO DAILY 10/18/17 [History] Potassium Chloride 20 meq PO DAILY 10/18/17 [History] Ranitidine [Zantac] 50 mg PO DAILY 10/18/17 [History] hydrOXYzine pamoate [Vistaril] 50 mg PO TID PRN 10/18/17 [History] LORazepam [Ativan] 1 tab PO DAILY PRN 10/28/17 [History] Scopolamine [Transderm-Scop] 1 each TD Q72H PRN 10/28/17 [History] Melatonin 1 mg PO BEDTIME PRN 11/03/17 [History] PARoxetine HCl [Paxil] 20 mg PO DAILY 11/03/17 [History] Clotrimazole [Lotrimin AF 1% Crm] 30 gm TOP BID #1 tube 02/10/18 [Rx] Past Medical History HEENT History: Reports: Other (See Below) Other HEENT History: chronic headaches Cardiovascular History: Reports: Blood Clots/VTE/DVT Other Cardiovascular History: Hx palpitations. Hx DVT and pulmonary embolism. 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 Intractable chronic migraine headaches. Psychiatric History: Reports: Addiction, Depression Other Psychiatric History: Hx polypharmacy. Endocrine/Metabolic History: Reports: Hypothyroidism Hematologic History: Reports: Other (See Below) Other Hematologic History: low potassium Dermatologic History: Reports: Other (See Below) Other Dermatologic History: Open sores noted on bilateral arms, lower back - Infectious Disease History Infectious Disease History: Reports: Mumps - Past Surgical History Head Surgeries/Procedures: Reports: None Female Surgical History: Reports: None Other Musculoskeletal Surgeries/Procedures:: Hip surgery May 2017 Social & Family History - Family History Family Medical History: Noncontributory - Tobacco Use Smoking Status *Q: Never Smoker Second Hand Smoke Exposure: No - Caffeine Use Caffeine Use: Reports: Soda Other Caffeine Use: cola 2-3 per day - Recreational Drug Use Recreational Drug Use: No ED ROS GENERAL - Review of Systems Review Of Systems: See Below Constitutional: Reports: No Symptoms HEENT: Reports: No Symptoms Respiratory: Reports: No Symptoms Cardiovascular: Reports: No Symptoms Endocrine: Reports: No Symptoms GI/Abdominal: Reports: Nausea : Reports: No Symptoms Musculoskeletal: Reports: No Symptoms Skin: Reports: No Symptoms Neurological: Reports: Headache Psychiatric: Reports: No Symptoms Hematologic/Lymphatic: Reports: No Symptoms Immunologic: Reports: No Symptoms ED EXAM, GENERAL - Physical Exam Exam: See Below General Appearance: Alert, WD/WN, No Apparent Distress, Other (good eye contact , normal speech pattern, NAD, nonill) Nose: Normal Inspection, Normal Mucosa, No Blood Throat/Mouth: Normal Lips, Normal Gums, Normal Oropharynx, Normal Voice, No Airway Compromise, Other (edentulous) Head: Atraumatic, Normocephalic, Other (temporal artery NT, R temporal area NT) Neck: Normal Inspection, Supple, Non-Tender, Full Range of Motion. No: Lymphadenopathy (R), Lymphadenopathy (L) Respiratory/Chest: No Respiratory Distress, Lungs Clear, Normal Breath Sounds, No Accessory Muscle Use, Chest Non-Tender Cardiovascular: Regular Rate, Rhythm, No Edema, No Gallop, No JVD, No Murmur, No Rub GI/Abdominal: Soft, Non-Tender Back Exam: Normal Inspection Extremities: Normal Inspection, Normal Range of Motion, Non-Tender, No Pedal Edema Neurological: Alert, Oriented, CN II-XII Intact, No Motor/Sensory Deficits Skin Exam: Warm, Dry, Intact, Normal Color, No Rash Lymphatic: No Adenopathy Course - Vital Signs Last Recorded V/S: Last Vital Signs Temp 36.8 C 02/23/18 12:40 Pulse 120 H 02/23/18 12:40 Resp 20 02/23/18 12:40 BP 132/98 H 02/23/18 12:40 Pulse Ox 100 02/23/18 12:40 - Re-Assessments/Exams Free Text/Narrative Re-Assessment/Exam: 02/23/18 13:22 HR wnl on PE Departure - Departure Time of Disposition: 13:22 Disposition: Home, Self-Care 01 Condition: Good Clinical Impression: Tension headache, chronic, Drug-seeking behavior Referrals: Jesse Gresham MD [Primary Care Provider] - Additional Instructions: Continue your current meds. See Dr Gresham in the next week.
[2018-02-23] MEDS ORDERED: Ondansetron 4 MG Tab.DIS PO ONE (13:17)
[2018-02-23] MEDS ORDERED: Ketorolac 60 MG/2 ML SDV IM ONE (13:17)
[2018-02-23] MEDS ORDERED: hydrOXYzine HCl 50 MG/ML SDV IM ONE (13:17)
== END 2018-02-23 13:40 | disposition home or self-care (01) ==
LOC: FB.ED 12:36
DX: G44.209 Tension-type headache, unspecified, not intractable (principal); Z65.8 Other specified problems related to psychosocial circumstances; Z86.718 Personal history of other venous thrombosis and embolism; Z86.711 Personal history of pulmonary embolism; Z79.891 Long term (current) use of opiate analgesic; Z79.899 Other long term (current) drug therapy; Z88.6 Allergy status to analgesic agent; Z88.8 Allergy status to other drugs, medicaments and biological substances; F32.9 Major depressive disorder, single episode, unspecified; E03.9 Hypothyroidism, unspecified; Z98.890 Other specified postprocedural states
CPT/HCPCS: 96372; 99283; J1885; J3410

== ENCOUNTER 2018-02-27 08:25 | Emergency (ER) | payer BC ==
[2018-02-27] MEDS ORDERED: hydrOXYzine HCl 50 MG/ML SDV IM ONE (08:34)
--- NOTE | 2018-02-27 08:42 | EDM.PDOC ---
ED HPI GENERAL MEDICAL PROBLEM - General Stated Complaint: SWALLOWING ISSUE Time Seen by Provider: 02/27/18 08:25 Source of Information: Reports: Patient, Family History Limitations: Reports: No Limitations - History of Present Illness INITIAL COMMENTS - FREE TEXT/NARRATIVE: 57 y.o.w.f with H/O of H/A for 30 years, multiple visits to the ed for same, came to the ed with her MOM due to N/V, headache and burning chest pain. As per mom, pt caro not eat, she drinks all day coke and other sugar like drinks. Pt did not vomit blood. No dizziness, no lightheadedness no diaphoresis. Pt has H/ O tension H/A for which she received Toradol in the past. No other acute medical issues. BP 140/105 RR 20 Pulse ox 98% on RA Temp 36.8 pulse 115 Onset Date: 01/24/18 Onset Time: 10:00 Duration: Week(s):, Intermittent Location: Reports: Head Quality: Reports: Ache, Same as Previous Episode Severity: Moderate Improves with: Reports: Medication Worsens with: Reports: None Context: Reports: Other Associated Symptoms: Reports: Chest Pain, Other (nausea) - Related Data Allergies Allergy/AdvReac Type Severity Reaction Status Date / Time bupropion HCl Allergy Respiratory Verified 02/27/18 08:43 [From Wellbutrin] Distress chlorpromazine HCl Allergy Respiratory Verified 02/27/18 08:43 [From Thorazine] Distress gabapentin Allergy Anaphylactic Verified 02/27/18 08:43 Shock metoclopramide [From Reglan] Allergy Anaphylactic Verified 02/27/18 08:43 Shock ondansetron HCl [From Zofran] Allergy Respiratory Verified 02/27/18 08:43 Distress prochlorperazine edisylate Allergy Respiratory Verified 02/27/18 08:43 [From Compazine] Distress prochlorperazine maleate Allergy Respiratory Verified 02/27/18 08:43 [From Compazine] Distress temazepam [From Restoril] Allergy Headache Verified 02/27/18 08:43 Home Meds: Home Meds Ibuprofen [Advil] 200 mg PO Q4H PRN 06/20/17 [History] Esomeprazole Magnesium [Nexium 24Hr] 20 mg PO DAILY 10/18/17 [History] Potassium Chloride 20 meq PO DAILY 10/18/17 [History] Ranitidine [Zantac] 50 mg PO DAILY 10/18/17 [History] hydrOXYzine pamoate [Vistaril] 50 mg PO TID PRN 10/18/17 [History] LORazepam [Ativan] 1 tab PO DAILY PRN 10/28/17 [History] Scopolamine [Transderm-Scop] 1 each TD Q72H PRN 10/28/17 [History] Melatonin 1 mg PO BEDTIME PRN 11/03/17 [History] PARoxetine HCl [Paxil] 20 mg PO DAILY 11/03/17 [History] Clotrimazole [Lotrimin AF 1% Crm] 30 gm TOP BID #1 tube 02/10/18 [Rx] Past Medical History HEENT History: Reports: Other (See Below) Other HEENT History: chronic headaches Cardiovascular History: Reports: Blood Clots/VTE/DVT Other Cardiovascular History: Hx palpitations. Hx DVT and pulmonary embolism. 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 Intractable chronic migraine headaches. Psychiatric History: Reports: Addiction, Depression Other Psychiatric History: Hx polypharmacy. Endocrine/Metabolic History: Reports: Hypothyroidism Hematologic History: Reports: Other (See Below) Other Hematologic History: low potassium Dermatologic History: Reports: Other (See Below) Other Dermatologic History: Open sores noted on bilateral arms, lower back - Infectious Disease History Infectious Disease History: Reports: Mumps - Past Surgical History Head Surgeries/Procedures: Reports: None Female Surgical History: Reports: None Other Musculoskeletal Surgeries/Procedures:: Hip surgery May 2017 Social & Family History - Family History Family Medical History: Noncontributory - Caffeine Use Caffeine Use: Reports: Soda Other Caffeine Use: cola 2-3 per day ED ROS ENT - Review of Systems Review Of Systems: See Below Constitutional: Reports: No Symptoms HEENT: Reports: No Symptoms Respiratory: Reports: No Symptoms Cardiovascular: Reports: Chest Pain Endocrine: Reports: No Symptoms GI/Abdominal: Reports: No Symptoms : Reports: No Symptoms Musculoskeletal: Reports: No Symptoms Skin: Reports: No Symptoms Neurological: Reports: No Symptoms Psychiatric: Reports: Agitation Hematologic/Lymphatic: Reports: No Symptoms Immunologic: Reports: No Symptoms ED EXAM, ENT - Physical Exam Exam: See Below Exam Limited By: No Limitations General Appearance: Alert, Mild Distress, Cachetic Eye Exam: Bilateral Eye: Normal Inspection Ears: Normal External Exam Nose: Normal Inspection Mouth/Throat: Normal Inspection, Normal Gums, Normal Lips, Other (dry mucosal membranes) Head: Atraumatic, Normocephalic Neck: Normal Inspection, Supple, Non-Tender Respiratory/Chest: No Respiratory Distress, Lungs Clear, Normal Breath Sounds, No Accessory Muscle Use, Chest Non-Tender Cardiovascular: Normal Peripheral Pulses, Regular Rate, Rhythm, No Gallop, No Murmur, No Rub GI/Abdominal: Normal Bowel Sounds, No Organomegaly, No Distention, No Abnormal Bruit, No Mass, Pelvis Stable, Tender (epigastric) (Female) Exam: Deferred Rectal (Female) Exam: Deferred Back: Normal Inspection, Full Range of Motion Extremities: Normal Inspection, Normal Range of Motion, Non-Tender, No Pedal Edema, Normal Capillary Refill Neurological: Alert, Oriented, CN II-XII Intact, Normal Cognition, Normal Gait Psychiatric: Anxious, Depressed Mood Skin: Warm, Dry, Intact, Normal Color, No Rash Lymphatic: No Adenopathy EKG INTERPRETATION EKG Date: 02/27/18 Time: 10:50 Rhythm: NSR Rate (Beats/Min): 109 [place]: Normal P-Wave: Present QRS: Normal ST-T: Normal QT: Normal Comparison: NA - No Prior EKG Course - Vital Signs Text/Narrative:: 57 y.o.w.f with H/O of H/A for 30 years, multiple visits to the ed for same, came to the ed with her MOM due to N/V, headache and burning chest pain. As per mom, pt caro not eat, she drinks all day coke and other sugar like drinks. Pt did not vomit blood. No dizziness, no lightheadedness no diaphoresis. Pt has H/ O tension H/A for which she received Toradol in the past. No other acute medical issues. BP 140/105 RR 20 Pulse ox 98% on RA Temp 36.8 pulse 115 PE: Cachectic 57 y.o.w.f with chrinich H/A, N/V and burning CP ECG: NSR Labs: CBC, BMP Nl Except GFR is 57 Glc 145 Troponin 0.017 (nl) Impression: Tension H/A, gastritis, Cachexia TxL Zofran(nt alergic) Phenergen, Vistaril, NS, GI Cocktail and Protronix. Reexam: Pt was pain free and d/c'd with her mom Plan: D/C with instructions Last Recorded V/S: Last Vital Signs Temp 36.7 C 02/27/18 14:10 Pulse 85 02/27/18 14:10 Resp 18 02/27/18 14:10 BP 154/96 H 02/27/18 14:10 Pulse Ox 96 02/27/18 14:10 - Orders/Labs/Meds Orders: Active Orders 24 hr Category Date Time Status EKG 12 Lead [EK] Routine Ther 02/27/18 10:44 Ordered Labs: Laboratory Tests 02/27/18 02/27/18 02/27/18 Range/Units 11:00 11:00 11:00 WBC 8.2 (4.5-12.0) X10-3/uL RBC 4.73 (3.23-5.20) x10(6)uL Hgb 13.6 (11.5-15.5) g/dL Hct 42.0 (30.0-51.3) % MCV 88.9 (80-96) fL MCH 28.8 (27.7-33.6) pg MCHC 32.5 (32.2-35.4) g/dL RDW 15.2 (11.5-15.5) % Plt Count 340 (125-369) X10(3)uL MPV 8.0 (7.4-10.4) fL Neut % (Auto) 81.6 (46-82) % Lymph % (Auto) 14.0 (13-37) % [place] % (Auto) 3.8 L (4-12) % Eos % (Auto) 0 L (1.0-5.0) % Baso % (Auto) 0 (0-2) % Neut # (Auto) 6.8 (1.6-8.3) # Lymph # (Auto) 1.1 (0.6-5.0) # [place] # (Auto) 0.3 (0.0-1.3) # Eos # (Auto) 0.0 (0.0-0.8) # Baso # (Auto) 0.0 (0.0-0.2) # Sodium 137 (135-145) mmol/L Potassium 3.7 (3.5-5.3) mmol/L Chloride 103 (100-110) mmol/L Carbon Dioxide 22 (21-32) mmol/L BUN 9 (7-18) mg/dL Creatinine 1.0 (0.55-1.02) mg/dL Est Cr Clr Drug Dosing 46.84 mL/min Estimated GFR (MDRD) 57 L (>60) BUN/Creatinine Ratio 9.0 (9-20) Glucose 145 H (80-116) mg/dL Calcium 8.9 (8.6-10.2) mg/dL Troponin I < 0.017 L (<0.017-0.056) ng/mL Meds: Medications Discontinued Medications Generic Name Dose Route Start Last Admin Trade Name Freq PRN Reason Stop Dose Admin Clonidine HCl 0.1 mg 02/27/18 11:36 02/27/18 11:51 Catapres PO 02/27/18 11:37 0.1 mg ONETIME ONE Administration Al Hydroxide/Mg Hydroxide 15 0 ml 02/27/18 10:49 02/27/18 11:05 ml/ Lidocaine HCl 15 ml PO 02/27/18 10:50 30 ml ONETIME ONE Administration Heparin Sodium (Porcine) 30 unit 02/27/18 14:11 02/27/18 14:16 Heparin Lock Flush 10 Units/Ml FLUSH 02/27/18 14:12 30 unit ASDIRECTED STA Administration Hydroxyzine HCl 50 mg 02/27/18 08:34 02/27/18 08:38 Vistaril IM 02/27/18 08:35 50 mg ONETIME ONE Administration Lactated Ringer's 1,000 mls @ 999 mls/hr 02/27/18 12:21 02/27/18 12:29 Ringers, Lactated IV 02/27/18 13:21 999 mls/hr BOLUS ONE Administration Promethazine HCl 12.5 mg/ 50.5 mls @ 200 mls/hr 02/27/18 12:52 02/27/18 13:03 Sodium Chloride IV 02/27/18 13:07 200 mls/hr ONETIME STA Administration Ketorolac Tromethamine 60 mg 02/27/18 09:07 02/27/18 09:11 Toradol IM 02/27/18 09:08 60 mg ONETIME ONE Administration Labetalol HCl 10 mg 02/27/18 12:43 02/27/18 14:11 Normodyne IVPUSH 02/27/18 12:44 Not Given ONETIME ONE Protocol Ondansetron HCl 8 mg 02/27/18 10:44 02/27/18 10:47 Zofran Odt PO 02/27/18 10:45 8 mg ONETIME ONE Administration Pantoprazole Sodium 40 mg 02/27/18 12:21 02/27/18 12:29 Protonix Iv IVPUSH 02/27/18 12:22 40 mg ONETIME ONE Administration Departure - Departure Time of Disposition: 14:09 Disposition: Home, Self-Care 01 Condition: Good Clinical Impression: Tension headache Gastritis Qualifiers: Gastritis type: unspecified gastritis Chronicity: acute Gastritis bleeding: without bleeding Qualified Code(s): K29.00 - Acute gastritis without bleeding - Discharge Information Instructions: Gastritis, Adult, [id number], Tension Headache, Adult, Easy-to- Read Referrals: Jesse Gresham MD [Primary Care Provider] - Forms: ED Department Discharge Additional Instructions: Please f/u with your PMD as scheduled tomorrow at 2.30 pm, come back if your symptoms get worse acutely - My Orders Last 24 Hours: My Active Orders 02/27/18 10:44 EKG 12 Lead [EK] Routine - Assessment/Plan Last 24 Hours: My Active Orders 02/27/18 10:44 EKG 12 Lead [EK] Routine
[2018-02-27] MEDS ORDERED: Ketorolac 60 MG/2 ML SDV IM ONE (09:07)
--- NOTE | 2018-02-27 10:31 | CR ---
INDICATION: Feels like has tight throat, question epiglottitis. NECK SOFT TISSUE: Frontal and two lateral views of the neck for soft tissue were obtained. The lateral view was less than ideal but did show what appears to be an open airway. There may be some mild thickening of the epiglottis however the appearance is not obstructive. Depending upon clinical correlation CT may be helpful for confirmation. Incidentally noted were decreased disc spaces at C3-4 and C4-5 very minimally at C5-6 with hypertrophic changes of mild degree at C4-5. Prevertebral space appears to be normal. IMRESSION: No definite airway obstruction is seen. The epiglottis is not ideally visualized and may be slightly thickened. CT may be helpful for confirmation as felt to be clinically necessary. MTDD
[2018-02-27] MEDS ORDERED: Ondansetron 8 MG Tab.DIS PO ONE (10:44)
[2018-02-27] MEDS ORDERED: Alum Hydroxide/Mag Hydroxide 15 ML, Lidocaine 2% 15 ML PO ONE ×2 (10:49)
--- NOTE | 2018-02-27 10:55 | CT ---
INDICATION: Airway evaluation of neck. CT SOFT TISSUE OF NECK WITHOUT CONTRAST: Spiral 2.5 mm axial sections were obtained with sagittal and coronal reconstructions of the neck soft tissue and revealed the airway to be fully patent and the epiglottis to be entirely normal. No evidence of significant inflammatory process was identified. Total exam DLP = 462.84 mGy-cm. The prevertebral space appeared normal. There is no distention of the hypopharynx. IMPRESSION: No evidence of epiglottis is identified. Report was called to Dr. Michaels at 1039 hours. [facility]
[2018-02-27] MEDS ORDERED: cloNIDine 0.1 MG Tab PO ONE (11:36)
[2018-02-27] MEDS ORDERED: Pantoprazole 40 MG Vial IVPUSH ONE (12:21)
[2018-02-27] MEDS ORDERED: Lactated Ringers 1,000 ML IV ONE (12:21)
[2018-02-27] MEDS: Labetalol 20 MG/4 ML Syringe IVPUSH ONE ×2 (12:47→14:11)
[2018-02-27] MEDS ORDERED: Promethazine 12.5 MG in Sodium Chloride 0.9% 50 ML IV STA (12:52)
[2018-02-27] MEDS ORDERED: Heparin Sodium 10 Units/ML 5 ML Syringe FLUSH STA (14:11)
[2018-02-27 16:12] VITALS: BP 154/96
== END 2018-02-27 14:25 | disposition home or self-care (01) ==
LOC: FB.ED 08:25
DX: K29.00 Acute gastritis without bleeding (principal); G44.209 Tension-type headache, unspecified, not intractable; R64 Cachexia; Z88.8 Allergy status to other drugs, medicaments and biological substances; Z79.899 Other long term (current) drug therapy
CPT/HCPCS: 70360; 70490; 80048; 84484; 85025; 93005; 96361; 96372; 96374; 96375; 99284; A9270-GY; C9113; J1642; J1885; J2550; J3410; J3490; J7050; J7120

== ENCOUNTER 2018-02-28 17:46 | Inpatient (IN) | payer BC ==
[2018-02-28] MEDS ORDERED: Sodium Chloride 0.9% 1,000 ML IV ONE (17:58)
[2018-02-28] MEDS ORDERED: Dextrose 5%-Lactated Ringers 1,000 ML IV SCH (18:00)
[2018-02-28] MEDS ORDERED: HYDROmorphone 2 MG/ML SDV IVPUSH PRN (18:10)
[2018-02-28] MEDS ORDERED: LORazepam 0.5 MG Tab PO PRN (18:23)
[2018-02-28] MEDS ORDERED: Acetaminophen 1,000 MG in Premix Bag 1 BAG IV PRN (18:28)
[2018-02-28] MEDS: hydrOXYzine HCl 50 MG/ML SDV IM PRN (18:32)
[2018-02-28] MEDS: Lactated Ringers 1,000 ML IV SCH (19:10)
[2018-02-28] MEDS ORDERED: Pneumococcal Polyvalent-23 Vaccine 0.5 ML SDV SUBCUT ONE (20:04)
[2018-02-28] MEDS ORDERED: Enoxaparin 40 MG/0.4 ML Syringe SUBCUT SCH (21:00)
[2018-02-28] MEDS ORDERED: Clotrimazole 1% Crm 30 GM Tube TOP SCH (21:00)
[2018-02-28] MEDS ORDERED: Enoxaparin 30 MG/0.3 ML Syringe ONE (21:05)
[2018-02-28] MEDS: Enoxaparin 40 MG/0.4 ML Syringe SUBCUT SCH (21:18)
[2018-02-28] MEDS: Scopolamine 1.5 MG Transdermal Patch TRDERM PRN (21:19)
[2018-03-01] MEDS: hydrOXYzine HCl 50 MG/ML SDV IM PRN (02:46)
[2018-03-01] MEDS: Lactated Ringers 1,000 ML IV SCH ×3 (03:39→20:14)
--- NOTE | 2018-03-01 06:10 | EDM.PDOC ---
ED HPI GENERAL MEDICAL PROBLEM - General Chief Complaint: Abdominal Pain Stated Complaint: MIGRAINE-N/V Time Seen by Provider: 02/28/18 17:55 Source of Information: Reports: Patient History Limitations: Reports: No Limitations - History of Present Illness INITIAL COMMENTS - FREE TEXT/NARRATIVE: Patient notes significant abdominal discomfort with associated vomiting for the past one week and [address] Gresham noted she will probably need to be admitted because of her dehydration. 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 She 's been seen for seizures, chemical dependency, cachexia, anorexia, depression, has never been suicidal; eating disorder tension headaches migraines, because of her social dysfunction she lives with her mother, is still , practice in the [facility], is very supportive of her financially but doesn't support her behavior Treatments [employer]: Reports: Other Medication(s) - Related Data Allergies Allergy/AdvReac Type Severity Reaction Status Date / Time bupropion HCl Allergy Respiratory Verified 02/27/18 08:43 [From Wellbutrin] Distress chlorpromazine HCl Allergy Respiratory Verified 02/27/18 08:43 [From Thorazine] Distress gabapentin Allergy Anaphylactic Verified 02/27/18 08:43 Shock metoclopramide [From Reglan] Allergy Anaphylactic Verified 02/27/18 08:43 Shock ondansetron HCl [From Zofran] Allergy Respiratory Verified 02/27/18 08:43 Distress prochlorperazine edisylate Allergy Respiratory Verified 02/27/18 08:43 [From Compazine] Distress prochlorperazine maleate Allergy Respiratory Verified 02/27/18 08:43 [From Compazine] Distress temazepam [From Restoril] Allergy Headache Verified 02/27/18 08:43 Home Meds: Home Meds Ibuprofen [Advil] 200 mg PO Q4H PRN 06/20/17 [History] Esomeprazole Magnesium [Nexium 24Hr] 20 mg PO DAILY 10/18/17 [History] Potassium Chloride 20 meq PO DAILY 10/18/17 [History] Ranitidine [Zantac] 50 mg PO DAILY 10/18/17 [History] hydrOXYzine pamoate [Vistaril] 50 mg PO TID PRN 10/18/17 [History] LORazepam [Ativan] 1 tab PO DAILY PRN 10/28/17 [History] Scopolamine [Transderm-Scop] 1 each TD Q72H PRN 10/28/17 [History] Melatonin 1 mg PO BEDTIME PRN 11/03/17 [History] PARoxetine HCl [Paxil] 20 mg PO DAILY 11/03/17 [History] Clotrimazole [Lotrimin AF 1% Crm] 30 gm TOP BID #1 tube 02/10/18 [Rx] Past Medical History HEENT History: Reports: Other (See Below) Other HEENT History: chronic headaches Cardiovascular History: Reports: Blood Clots/VTE/DVT Other Cardiovascular History: Hx palpitations. Hx DVT and pulmonary embolism. 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 Intractable chronic migraine headaches. Psychiatric History: Reports: Addiction, Depression Other Psychiatric History: Hx polypharmacy. Endocrine/Metabolic History: Reports: Hypothyroidism Hematologic History: Reports: Other (See Below) Other Hematologic History: low potassium Dermatologic History: Reports: Other (See Below) Other Dermatologic History: Open sores noted on bilateral arms, lower back - Infectious Disease History Infectious Disease History: Reports: Mumps - Past Surgical History Head Surgeries/Procedures: Reports: None GI Surgical History: Reports: Other (See Below) Other GI Surgeries/Procedures: removed part of stomach due to ulcers Female Surgical History: Reports: None Other Musculoskeletal Surgeries/Procedures:: Hip surgery May 2017 Social & Family History - Family History Family Medical History: Noncontributory - Tobacco Use Smoking Status *Q: Never Smoker - Caffeine Use Caffeine Use: Reports: Soda Other Caffeine Use: 3 sodas a day - Recreational Drug Use Recreational Drug Use: No ED ROS GENERAL - Review of Systems Review Of Systems: ROS reveals no pertinent complaints other than HPI. ED EXAM, GENERAL - Physical Exam Exam: See Below Free Text/Narrative:: Asthenic pleasant woman who was happy to see me as I'm seeing her and spent much time within the past. Complains of nausea and 8/9/10 abdominal discomfort. An 11 pound weight loss in the past week. She's had previous flu shot. Denies cough. Her fever. And has mild temporal headache no recent migraines. Last migraine one month ago. Has not used biological injections for her headaches. Exam Limited By: No Limitations General Appearance: Alert, Moderate Distress, Other (Is continuing groaning out loud and in despair over her abdominal discomfort and nausea. When I leave the room the groin does dissipate.) Eye Exam: Bilateral Eye: Abnormal Pupil (Side effects at 3 mm. - she use buprenoxone 3:30 this afternoon.) Ear Exam: Bilateral Ear: Auricle Normal, Canal Normal, TM normal Nose: Normal Inspection Throat/Mouth: Normal Inspection, Normal Lips, Normal Gums, Normal Oropharynx, Normal Voice, Other (Edentulous dry oral mucosa) Head: Atraumatic, Normocephalic Neck: Normal Inspection, Supple, Non-Tender, Full Range of Motion Respiratory/Chest: No Respiratory Distress, Lungs Clear, Normal Breath Sounds, No Accessory Muscle Use, Chest Non-Tender Cardiovascular: Normal Peripheral Pulses, Regular Rate, Rhythm, No Edema, No Gallop, No Murmur, No Rub Peripheral Pulses: 1+: Radial (R), Femoral (L) GI/Abdominal: Normal Bowel Sounds, Soft, Non-Tender, No Organomegaly, No Distention, No Abnormal Bruit, No Mass, Other (Hyperactive abnormal bowel sounds ) (Female) Exam: Deferred Rectal (Female) Exam: Deferred Back Exam: Normal Inspection Extremities: Normal Inspection, Normal Range of Motion, Non-Tender, No Pedal Edema, Normal Capillary Refill Skin Exam: Warm, Dry, Intact, Normal Color, No Rash Lymphatic: No Adenopathy Course - Vital Signs Last Recorded V/S: Last Vital Signs Temp 36.8 C 03/01/18 02:45 Pulse 96 03/01/18 02:45 Resp 16 03/01/18 02:45 BP 128/73 03/01/18 02:45 Pulse Ox 96 03/01/18 02:45 - Orders/Labs/Meds Orders: Active Orders 24 hr Category Date Time Status Patient Status [ADT] Routine ADT 02/28/18 18:10 Active Cardiac Monitoring [RC] INTERMITTENT Care 02/28/18 18:17 Inactive Notify Provider Vital Signs [RC] ASDIRECTED Care 02/28/18 18:17 Active Oxygen Therapy [RC] PRN Care 02/28/18 18:10 Active Pulse Oximetry [RC] PRN Care 02/28/18 18:17 Active Vital Signs [RC] Q4H Care 02/28/18 18:10 Active Clear Liquid Diet [DIET] Diet 02/28/18 Breakfast Ordered Abdomen 2V AP Flat Upright [CR] Stat Exams 02/28/18 17:59 Taken CBC W/O DIFF,HEMOGRAM [HEME] AM Lab 03/01/18 05:11 Ordered COMPREHENSIVE METABOLIC PN,CMP [CHEM] AM Lab 03/01/18 05:11 Ordered Acetaminophen [Ofirmev] 1,000 mg Med 02/28/18 18:28 Active Premix Bag 1 bag IV Q6H HYDROmorphone [Dilaudid] Med 02/28/18 18:10 Active 0.5 mg IVPUSH Q2H PRN LORazepam [Ativan] Med 02/28/18 18:23 Active 0.5 mg PO DAILY PRN Lactated Ringers [Ringers, Lactated] 1,000 ml Med 02/28/18 18:15 Active IV ASDIRECTED Melatonin Med 02/28/18 18:45 Active 1 mg PO BEDTIME PRN PARoxetine [Paxil] Med 03/01/18 09:00 Active 20 mg PO DAILY Potassium Chloride [Klor-Con M20] Med 03/01/18 09:00 Active 20 meq PO DAILY Ranitidine [Zantac] Med 03/01/18 09:00 Pending 50 mg PO DAILY Scopolamine [Transderm-Scop] Med 02/28/18 18:23 Active 1.5 mg TRDERM Q72H PRN Sodium Chloride 0.9% [Saline Flush] Med 02/28/18 18:10 Active 10 ml FLUSH ASDIRECTED PRN hydrOXYzine HCl [Vistaril] Med 02/28/18 18:10 Active 100 mg IM Q6H PRN hydrOXYzine pamoate [Vistaril] Med 02/28/18 18:23 Active 50 mg PO TID PRN Peripheral IV Insertion Adult [OM.PC] Routine Oth 02/28/18 18:10 Ordered Resuscitation Status Routine Resus Stat 02/28/18 18:10 Ordered Medication Orders Clotrimazole (Lotrimin Af 1% Crm) 0 gm TOP BID DOMINIQUE Enoxaparin Sodium (Lovenox) 40 mg SUBCUT Q24H [facility] Last Admin: 02/28/18 21:18 Dose: 40 mg Hydromorphone HCl (Dilaudid) 0.5 mg IVPUSH Q2H PRN PRN Reason: Pain (severe 7-10) Last Admin: 02/28/18 18:32 Dose: 0.5 mg Hydroxyzine HCl (Vistaril) 100 mg IM Q6H PRN PRN Reason: Nausea/Vomiting Last Admin: 03/01/18 02:46 Dose: 100 mg Admin: 02/28/18 18:32 Dose: 100 mg Hydroxyzine Pamoate (Vistaril) 50 mg PO TID PRN PRN Reason: Anxiety Lactated Ringer's (Ringers, Lactated) 1,000 mls @ 125 mls/hr IV ASDIRECTED [facility] Last Admin: 03/01/18 03:39 Dose: 125 mls/hr Infusion: 03/01/18 03:10 Dose: 125 mls/hr Admin: 02/28/18 19:10 Dose: 125 mls/hr Acetaminophen 1,000 mg/ Premix 100 mls @ 400 mls/hr IV Q6H PRN PRN Reason: Pain Stop: 03/01/18 18:29 Lorazepam (Ativan) 0.5 mg PO DAILY PRN PRN Reason: Anxiety Melatonin (Melatonin) 1 mg PO BEDTIME PRN PRN Reason: INSOMNIA Non-Formulary Medication (Ranitidine [Zantac]) 50 mg PO DAILY [facility] Paroxetine HCl (Paxil) 20 mg PO DAILY [facility] Potassium Chloride (Klor-Con M20) 20 meq PO DAILY [facility] Scopolamine (Transderm-Scop) 1.5 mg TRDERM Q72H PRN PRN Reason: Nausea Last Admin: 02/28/18 21:19 Dose: 1.5 mg Sodium Chloride (Saline Flush) 10 ml FLUSH ASDIRECTED PRN PRN Reason: Keep Vein Open Labs: Laboratory Tests 02/28/18 02/28/18 02/28/18 Range/Units 18:00 18:00 18:00 WBC 9.3 (4.5-12.0) X10-3/uL RBC 4.08 (3.23-5.20) x10(6)uL Hgb 11.8 (11.5-15.5) g/dL Hct 36.2 (30.0-51.3) % MCV 88.7 (80-96) fL MCH 29.0 (27.7-33.6) pg MCHC 32.6 (32.2-35.4) g/dL RDW 15.0 (11.5-15.5) % Plt Count 303 (125-369) X10(3)uL MPV 7.9 (7.4-10.4) fL Neut % (Auto) 83.2 H (46-82) % Lymph % (Auto) 12.3 L (13-37) % Meagher % (Auto) 3.9 L (4-12) % Eos % (Auto) 0 L (1.0-5.0) % Baso % (Auto) 0 (0-2) % Neut # (Auto) 7.8 (1.6-8.3) # Lymph # (Auto) 1.1 (0.6-5.0) # Meagher # (Auto) 0.4 (0.0-1.3) # Eos # (Auto) 0.0 (0.0-0.8) # Baso # (Auto) 0.0 (0.0-0.2) # PT 13.9 H (8.7-11.1) INR 1.44 H (0.89-1.13) Sodium 139 (135-145) mmol/L Potassium 3.7 (3.5-5.3) mmol/L Chloride 106 (100-110) mmol/L Carbon Dioxide 21 (21-32) mmol/L BUN 13 (7-18) mg/dL Creatinine 1.0 (0.55-1.02) mg/dL Est Cr Clr Drug Dosing TNP Estimated GFR (MDRD) 57 L (>60) BUN/Creatinine Ratio 13.0 (9-20) Glucose 159 H (80-116) mg/dL Lactic Acid (0.4-2.2) mmol/L Calcium 8.3 L (8.6-10.2) mg/dL Phosphorus (2.6-4.6) mg/dL Magnesium (1.8-2.5) mg/dL Total Bilirubin 1.0 (0.1-1.3) mg/dL AST 100 H D (5-25) IU/L ALT 47 H D (12-36) U/L Alkaline Phosphatase 211 H (56-112) IU/L Total Protein 6.0 (6.0-8.0) g/dL Albumin 3.1 L (3.5-5.2) g/dL Globulin 2.9 g/dL Albumin/Globulin Ratio 1.1 02/28/18 02/28/18 Range/Units 18:00 18:00 WBC (4.5-12.0) X10-3/uL RBC (3.23-5.20) x10(6)uL Hgb (11.5-15.5) g/dL Hct (30.0-51.3) % MCV (80-96) fL MCH (27.7-33.6) pg MCHC (32.2-35.4) g/dL RDW (11.5-15.5) % Plt Count (125-369) X10(3)uL MPV (7.4-10.4) fL Neut % (Auto) (46-82) % Lymph % (Auto) (13-37) % Meagher % (Auto) (4-12) % Eos % (Auto) (1.0-5.0) % Baso % (Auto) (0-2) % Neut # (Auto) (1.6-8.3) # Lymph # (Auto) (0.6-5.0) # Meagher # (Auto) (0.0-1.3) # Eos # (Auto) (0.0-0.8) # Baso # (Auto) (0.0-0.2) # PT (8.7-11.1) INR (0.89-1.13) Sodium (135-145) mmol/L Potassium (3.5-5.3) mmol/L Chloride (100-110) mmol/L Carbon Dioxide (21-32) mmol/L BUN (7-18) mg/dL Creatinine (0.55-1.02) mg/dL Est Cr Clr Drug Dosing Estimated GFR (MDRD) (>60) BUN/Creatinine Ratio (9-20) Glucose (80-116) mg/dL Lactic Acid 2.3 H (0.4-2.2) mmol/L Calcium (8.6-10.2) mg/dL Phosphorus 3.5 (2.6-4.6) mg/dL Magnesium 1.6 L (1.8-2.5) mg/dL Total Bilirubin (0.1-1.3) mg/dL AST (5-25) IU/L ALT (12-36) U/L Alkaline Phosphatase (56-112) IU/L Total Protein (6.0-8.0) g/dL Albumin (3.5-5.2) g/dL Globulin g/dL Albumin/Globulin Ratio Meds: Medications Generic Name Dose Route Start Last Admin Trade Name Freq PRN Reason Stop Dose Admin Clotrimazole 0 gm 03/01/18 09:00 Lotrimin Af 1% Crm TOP BID [facility] Enoxaparin Sodium 40 mg 02/28/18 21:08 02/28/18 21:18 Lovenox SUBCUT 40 mg Q24H DOMINIQUE Administration Hydromorphone HCl 0.5 mg 02/28/18 18:10 02/28/18 18:32 Dilaudid IVPUSH 0.5 mg Q2H PRN Administration Pain (severe 7-10) Hydroxyzine HCl 100 mg 02/28/18 18:10 03/01/18 02:46 Vistaril IM 100 mg Q6H PRN Administration Nausea/Vomiting Hydroxyzine Pamoate 50 mg 02/28/18 18:23 Vistaril PO TID PRN Anxiety Lactated Ringer's 1,000 mls @ 125 mls/hr 02/28/18 18:15 03/01/18 03:39 Ringers, Lactated IV 125 mls/hr ASDIRECTED DOMINIQUE Administration Acetaminophen 1,000 mg/ Premix 100 mls @ 400 mls/hr 02/28/18 18:28 IV 03/01/18 18:29 Q6H PRN Pain Lorazepam 0.5 mg 02/28/18 18:23 Ativan PO DAILY PRN Anxiety Melatonin 1 mg 02/28/18 18:45 Melatonin PO BEDTIME PRN INSOMNIA Non-Formulary Medication 50 mg 03/01/18 09:00 Ranitidine [Zantac] PO DAILY [facility] Paroxetine HCl 20 mg 03/01/18 09:00 Paxil PO DAILY [facility] Potassium Chloride 20 meq 03/01/18 09:00 Klor-Con M20 PO DAILY DOMINIQUE Scopolamine 1.5 mg 02/28/18 18:23 02/28/18 21:19 Transderm-Scop TRDERM 1.5 mg Q72H PRN Administration Nausea Sodium Chloride 10 ml 02/28/18 18:10 Saline Flush FLUSH ASDIRECTED PRN Keep Vein Open Discontinued Medications Generic Name Dose Route Start Last Admin Trade Name Freq PRN Reason Stop Dose Admin Clotrimazole 0 gm 02/28/18 21:00 02/28/18 23:50 Lotrimin Af 1% Crm TOP Not Given BID DOMINIQUE Enoxaparin Sodium 30 mg 02/28/18 21:00 02/28/18 21:10 Lovenox SUBCUT Not Given Q24H DOMINIQUE Enoxaparin Sodium Confirm 02/28/18 21:05 02/28/18 21:09 Lovenox Administered 02/28/18 21:06 Not Given Dose 30 mg .ROUTE .STK-MED ONE Dextrose/Lactated Ringer's 1,000 mls @ 999 mls/hr 02/28/18 18:00 02/28/18 18: 00 Dextrose 5%-Lactated Ringers IV 999 mls/hr ASDIRECTED DOMINIQUE Administration Sodium Chloride 1,000 mls @ 999 mls/min 02/28/18 17:58 02/28/18 21:20 Normal Saline IV 02/28/18 17:59 999 mls/min .BOLUS ONE Administration Pneumococcal Polyvalent Vaccine 0.5 ml 02/28/18 20:04 Pneumovax 23 SUBCUT 02/28/18 20:05 .ONCE ONE Departure - Departure Time of Disposition: 18:30 (Patient is dehydrated will need IV therapy she reveals saved 2000 mL IV fluid in the ED plus another thousand was hung on 50 mL per hour. Slightly better. Ebony was discussed with Dr. Alvarez) Disposition: Admitted As Inpatient 64 Condition: Good Clinical Impression: Personality disorder in adult Abdominal pain Qualifiers: Abdominal location: generalized Qualified Code(s): R10.84 - Generalized abdominal pain - Discharge Information *PRESCRIPTION DRUG MONITORING PROGRAM REVIEWED*: Not Applicable *COPY OF PRESCRIPTION DRUG MONITORING REPORT IN PATIENT [place]: Not Applicable - My Orders Last 24 Hours: My Active Orders 02/28/18 17:59 Abdomen 2V AP Flat Upright [CR] Stat 02/28/18 18:10 Patient Status [ADT] Routine Oxygen Therapy [RC] PRN Vital Signs [RC] Q4H HYDROmorphone [Dilaudid] 0.5 mg IVPUSH Q2H PRN Sodium Chloride 0.9% [Saline Flush] 10 ml FLUSH ASDIRECTED PRN hydrOXYzine HCl [Vistaril] 100 mg IM Q6H PRN Peripheral IV Insertion Adult [OM.PC] Routine Resuscitation Status Routine 02/28/18 18:15 Lactated Ringers [Ringers, Lactated] 1,000 ml IV ASDIRECTED 02/28/18 18:17 Cardiac Monitoring [RC] INTERMITTENT Notify Provider Vital Signs [RC] ASDIRECTED Pulse Oximetry [RC] PRN 02/28/18 18:23 LORazepam [Ativan] 0.5 mg PO DAILY PRN Scopolamine [Transderm-Scop] 1.5 mg TRDERM Q72H PRN hydrOXYzine pamoate [Vistaril] 50 mg PO TID PRN 02/28/18 18:28 Acetaminophen [Ofirmev] 1,000 mg Premix Bag 1 bag IV Q6H 02/28/18 18:45 Melatonin 1 mg PO BEDTIME PRN 02/28/18 Breakfast Clear Liquid Diet [DIET] 03/01/18 05:11 CBC W/O DIFF,HEMOGRAM [HEME] AM COMPREHENSIVE METABOLIC PN,CMP [CHEM] AM 03/01/18 09:00 PARoxetine [Paxil] 20 mg PO DAILY Potassium Chloride [Klor-Con M20] 20 meq PO DAILY Ranitidine [Zantac] 50 mg PO DAILY - Assessment/Plan Last 24 Hours: My Active Orders 02/28/18 17:59 Abdomen 2V AP Flat Upright [CR] Stat 02/28/18 18:10 Patient Status [ADT] Routine Oxygen Therapy [RC] PRN Vital Signs [RC] Q4H HYDROmorphone [Dilaudid] 0.5 mg IVPUSH Q2H PRN Sodium Chloride 0.9% [Saline Flush] 10 ml FLUSH ASDIRECTED PRN hydrOXYzine HCl [Vistaril] 100 mg IM Q6H PRN Peripheral IV Insertion Adult [OM.PC] Routine Resuscitation Status Routine 02/28/18 18:15 Lactated Ringers [Ringers, Lactated] 1,000 ml IV ASDIRECTED 02/28/18 18:17 Cardiac Monitoring [RC] INTERMITTENT Notify Provider Vital Signs [RC] ASDIRECTED Pulse Oximetry [RC] PRN 02/28/18 18:23 LORazepam [Ativan] 0.5 mg PO DAILY PRN Scopolamine [Transderm-Scop] 1.5 mg TRDERM Q72H PRN hydrOXYzine pamoate [Vistaril] 50 mg PO TID PRN 02/28/18 18:28 Acetaminophen [Ofirmev] 1,000 mg Premix Bag 1 bag IV Q6H 02/28/18 18:45 Melatonin 1 mg PO BEDTIME PRN 02/28/18 Breakfast Clear Liquid Diet [DIET] 03/01/18 05:11 CBC W/O DIFF,HEMOGRAM [HEME] AM COMPREHENSIVE METABOLIC PN,CMP [CHEM] AM 03/01/18 09:00 PARoxetine [Paxil] 20 mg PO DAILY Potassium Chloride [Klor-Con M20] 20 meq PO DAILY Ranitidine [Zantac] 50 mg PO DAILY
[2018-03-01] MEDS ORDERED: Melatonin 3 MG Tab PO PRN (08:50)
[2018-03-01] MEDS ORDERED: RANITIDINE PO SCH (09:00)
[2018-03-01] MEDS: PARoxetine 20 MG Tab PO SCH (09:43)
[2018-03-01] MEDS: Clotrimazole 1% Crm 30 GM Tube TOP SCH ×2 (09:44→21:05)
--- NOTE | 2018-03-01 10:20 | CR ---
INDICATION: Vomiting. ABDOMEN TWO VIEW: Four images of the abdomen were obtained with supine and upright projections 02/28/18 and were compared with 08-20-13 and 04-10-08. What appears to be a distended splenic flexure including distal transverse colon is noted. This should be correlated clinically. There appears to be relative narrowing of the descending colon below the splenic flexure. There is stool and air in the distal colon. The possibility of a relative obstructive process at the proximal descending would be a consideration. However, no significant dilatation of small bowel loops was identified. CT examination may be helpful for further evaluation as felt to be clinically necessary. Evidence of cholecystectomy is noted. Bilateral hip pinning is noted new on the right compared with 2008 and 2013 examinations. No other organomegaly, mass lesions or pathologic calcifications were identified. There are some calcifications in both buttock areas likely due to injection sites. These are present previously and appear somewhat more prominent especially on the left. IMPRESSION: Somewhat dilated splenic flexure: raising question of an early, or partially obstructive process, possibly in the proximal descending colon. Findings should be correlated clinically. Additional work up may be warranted. MTDD
[2018-03-01] MEDS ORDERED: Ondansetron 4 MG/2 ML SDV IVPUSH PRN (10:23)
[2018-03-01] MEDS ORDERED: SUMATRIPTAN SUCCINATE 6 MG SUBCUT PRN (10:33)
[2018-03-01] MEDS ORDERED: LORazepam 1 MG Tab PO PRN (10:33)
--- NOTE | 2018-03-01 10:36 | PCM.HP ---
H&P History of Present Illness - General Date of Service: 03/01/18 Admit Problem/Dx: Admission Diagnosis/Problem Admission Diagnosis/Problem Vomiting Source of Information: Patient, Old Records History Limitations: Reports: No Limitations - History of Present Illness Initial Comments - Free Text/Narative: Theresa is a 57-year-old female with chronic medical problems, mostly with vomiting, headache chronic abdominal pain and narcotic addiction. She was admitted to the ER with the suspicion of dehydration because she had been vomiting nonstop,over several days. However,her symptoms chronic long-standing and this is well-documented in the extensive medical record. She's been seen at least 16 times in 2 months either in the urgent care clinic, outpatient or in the ER. She complains of severe headache that is diffuse and intractable. In addition,she started dry heaving and retching ,with vomiting. Denies fever, chest pain Headache Pain Score (Numeric/FACES): 8 - Related Data Allergies/Adverse Reactions: Allergies Allergy/AdvReac Type Severity Reaction Status Date / Time bupropion HCl Allergy Respiratory Verified 02/27/18 08:43 [From Wellbutrin] Distress chlorpromazine HCl Allergy Respiratory Verified 02/27/18 08:43 [From Thorazine] Distress gabapentin Allergy Anaphylactic Verified 02/27/18 08:43 Shock metoclopramide [From Reglan] Allergy Anaphylactic Verified 02/27/18 08:43 Shock ondansetron HCl [From Zofran] Allergy Respiratory Verified 02/27/18 08:43 Distress prochlorperazine edisylate Allergy Respiratory Verified 02/27/18 08:43 [From Compazine] Distress prochlorperazine maleate Allergy Respiratory Verified 02/27/18 08:43 [From Compazine] Distress temazepam [From Restoril] Allergy Headache Verified 02/27/18 08:43 Home Medications: Home Meds Ibuprofen [Advil] 200 mg PO Q4H PRN 06/20/17 [History] Esomeprazole Magnesium [Nexium 24Hr] 20 mg PO DAILY 10/18/17 [History] Potassium Chloride 20 meq PO DAILY 10/18/17 [History] hydrOXYzine pamoate [Vistaril] 50 mg PO TID PRN 10/18/17 [History] Scopolamine [Transderm-Scop] 1 each TD Q72H PRN 10/28/17 [History] PARoxetine HCl [Paxil] 20 mg PO DAILY 11/03/17 [History] Clotrimazole [Lotrimin AF 1% Crm] 30 gm TOP BID #1 tube 02/10/18 [Rx] Acetaminophen with Codeine [Tylenol with Codeine #3 Tablet] 1 tab PO Q6H PRN [History] Erenumab-Aooe [Aimovig Autoinjector] 70 mg SUBCUT Q30D 03/01/18 [History] Eszopiclone [Lunesta] 2 mg PO BEDTIME PRN 03/01/18 [History] LORazepam 1 mg PO BID PRN 03/01/18 [History] Melatonin 10 mg PO BEDTIME PRN 03/01/18 [History] Ranitidine HCl [Zantac] 150 mg PO BID 03/01/18 [History] SUMAtriptan Succinate [Imitrex] 6 mg SUBCUT ASDIRECTED PRN 03/01/18 [History] traZODone 100 mg PO BEDTIME PRN 03/01/18 [History] Past Medical History HEENT History: Reports: Other (See Below) Other HEENT History: chronic headaches Cardiovascular History: Reports: Blood Clots/VTE/DVT Other Cardiovascular History: Hx palpitations. Hx DVT and pulmonary embolism. 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 Intractable chronic migraine headaches. Psychiatric History: Reports: Addiction, Depression Other Psychiatric History: Hx polypharmacy. Endocrine/Metabolic History: Reports: Hypothyroidism Hematologic History: Reports: Other (See Below) Other Hematologic History: low potassium Dermatologic History: Reports: Other (See Below) Other Dermatologic History: Open sores noted on bilateral arms, lower back - Infectious Disease History Infectious Disease History: Reports: Mumps - Past Surgical History Head Surgeries/Procedures: Reports: None GI Surgical History: Reports: Other (See Below) Other GI Surgeries/Procedures: removed part of stomach due to ulcers Female Surgical History: Reports: None Other Musculoskeletal Surgeries/Procedures:: Hip surgery May 2017 Social & Family History - Family History Family Medical History: Noncontributory - Tobacco Use Smoking Status *Q: Never Smoker - Caffeine Use Caffeine Use: Reports: Soda Other Caffeine Use: 3 sodas a day - Recreational Drug Use Recreational Drug Use: No H&P Review of Systems - Review of Systems: Review Of Systems: ROS reveals no pertinent complaints other than HPI. Exam - Exam Exam: See Below - Vital Signs Vital Signs: Last Vital Signs Temp 98.3 F 03/01/18 02:45 Pulse 96 03/01/18 02:45 Resp 16 03/01/18 02:45 BP 128/73 03/01/18 02:45 Pulse Ox 96 03/01/18 02:45 Weight: 50.53 kg - Exam General: Alert, Oriented, 4 HEENT: PERRLA, Hearing Intact, Mucosa Moist & [place], Nares Patent, Normal Nasal Septum, Posterior Pharynx Clear, Conjunctiva Clear, EOMI, EACs Clear, TMs Clear Neck: Supple, Trachea Midline, 2 Lungs: Clear to Auscultation, Normal Respiratory Effort Cardiovascular: Regular Rate, Regular Rhythm GI/Abdominal Exam: Normal Bowel Sounds, Soft, Non-Tender, No Organomegaly, No Distention, No Abnormal Bruit, No Mass, Pelvis Stable (Female) Exam: Deferred Rectal (Female) Exam: Deferred Back Exam: Normal Inspection, Full Range of Motion, NT Extremities: Normal Inspection, Normal Range of Motion, Non-Tender, No Pedal Edema, Normal Capillary Refill Skin: Warm, Dry, Intact Neurological: Cranial Nerves Intact, Reflexes Equal Bilateral Neuro Extensive - Mental Status: Alert, Oriented x3, Normal Mood/Affect, Normal Cognition Neuro Extensive - Motor, Sensory, Reflexes: CN II-XII Intact, Normal Gait, Normal Reflexes Psychiatric: Alert, Normal Affect, Normal Mood - Patient Data Lab Results Last 24 hrs: Laboratory Results - last 24 hr 02/28/18 02/28/18 02/28/18 Range/Units 18:00 18:00 18:00 WBC 9.3 (4.5-12.0) X10-3/uL RBC 4.08 (3.23-5.20) x10(6)uL Hgb 11.8 (11.5-15.5) g/dL Hct 36.2 (30.0-51.3) % MCV 88.7 (80-96) fL MCH 29.0 (27.7-33.6) pg MCHC 32.6 (32.2-35.4) g/dL RDW 15.0 (11.5-15.5) % Plt Count 303 (125-369) X10(3)uL MPV 7.9 (7.4-10.4) fL Neut % (Auto) 83.2 H (46-82) % Lymph % (Auto) 12.3 L (13-37) % [place] % (Auto) 3.9 L (4-12) % Eos % (Auto) 0 L (1.0-5.0) % Baso % (Auto) 0 (0-2) % Neut # (Auto) 7.8 (1.6-8.3) # Lymph # (Auto) 1.1 (0.6-5.0) # Gr[place]gs # (Auto) 0.4 (0.0-1.3) # Eos # (Auto) 0.0 (0.0-0.8) # Baso # (Auto) 0.0 (0.0-0.2) # PT 13.9 H (8.7-11.1) INR 1.44 H (0.89-1.13) Sodium 139 (135-145) mmol/L Potassium 3.7 (3.5-5.3) mmol/L Chloride 106 (100-110) mmol/L Carbon Dioxide 21 (21-32) mmol/L BUN 13 (7-18) mg/dL Creatinine 1.0 (0.55-1.02) mg/dL Est Cr Clr Drug Dosing TNP Estimated GFR (MDRD) 57 L (>60) BUN/Creatinine Ratio 13.0 (9-20) Glucose 159 H (80-116) mg/dL Lactic Acid (0.4-2.2) mmol/L Calcium 8.3 L (8.6-10.2) mg/dL Phosphorus (2.6-4.6) mg/dL Magnesium (1.8-2.5) mg/dL Total Bilirubin 1.0 (0.1-1.3) mg/dL AST 100 H D (5-25) IU/L ALT 47 H D (12-36) U/L Alkaline Phosphatase 211 H (56-112) IU/L Total Protein 6.0 (6.0-8.0) g/dL Albumin 3.1 L (3.5-5.2) g/dL Globulin 2.9 g/dL Albumin/Globulin Ratio 1.1 Urine Color (YELLOW) Urine Appearance (CLEAR) Urine pH (5.0-6.5) Ur Specific [place] (1.010-1.025) Urine Protein (NEGATIVE) mg/dL Urine Glucose (UA) (NEGATIVE) mg/dL Urine Ketones (NEGATIVE) mg/dL Urine Occult Blood (NEGATIVE) Urine Nitrite (NEGATIVE) Urine Bilirubin (NEGATIVE) Urine Urobilinogen (NEGATIVE) mg/dL Ur Leukocyte Esterase (NEGATIVE) Urine RBC (0) Urine WBC (0) Ur Squamous Epith Cells (NS,R,O) Urine Bacteria (NS) Urine Mucus (NS) 02/28/18 02/28/18 03/01/18 Range/Units 18:00 18:00 02:40 WBC (4.5-12.0) X10-3/uL RBC (3.23-5.20) x10(6)uL Hgb (11.5-15.5) g/dL Hct (30.0-51.3) % MCV (80-96) fL MCH (27.7-33.6) pg MCHC (32.2-35.4) g/dL RDW (11.5-15.5) % Plt Count (125-369) X10(3)uL MPV (7.4-10.4) fL Neut % (Auto) (46-82) % Lymph % (Auto) (13-37) % [place]gs % (Auto) (4-12) % Eos % (Auto) (1.0-5.0) % Baso % (Auto) (0-2) % Neut # (Auto) (1.6-8.3) # Lymph # (Auto) (0.6-5.0) # Griggs # (Auto) (0.0-1.3) # Eos # (Auto) (0.0-0.8) # Baso # (Auto) (0.0-0.2) # PT (8.7-11.1) INR (0.89-1.13) Sodium (135-145) mmol/L Potassium (3.5-5.3) mmol/L Chloride (100-110) mmol/L Carbon Dioxide (21-32) mmol/L BUN (7-18) mg/dL Creatinine (0.55-1.02) mg/dL Est Cr Clr Drug Dosing Estimated GFR (MDRD) (>60) BUN/Creatinine Ratio (9-20) Glucose (80-116) mg/dL Lactic Acid 2.3 H (0.4-2.2) mmol/L Calcium (8.6-10.2) mg/dL Phosphorus 3.5 (2.6-4.6) mg/dL Magnesium 1.6 L (1.8-2.5) mg/dL Total Bilirubin (0.1-1.3) mg/dL AST (5-25) IU/L ALT (12-36) U/L Alkaline Phosphatase (56-112) IU/L Total Protein (6.0-8.0) g/dL Albumin (3.5-5.2) g/dL Globulin g/dL Albumin/Globulin Ratio Urine Color Yellow (YELLOW) Urine Appearance Slightly cloudy (CLEAR) Urine pH 6.0 (5.0-6.5) Ur Specific [place] 1.030 H (1.010-1.025) Urine Protein Negative (NEGATIVE) mg/dL Urine Glucose (UA) 250 H (NEGATIVE) mg/dL Urine Ketones 15 H (NEGATIVE) mg/dL Urine Occult Blood Moderate H (NEGATIVE) Urine Nitrite Negative (NEGATIVE) Urine Bilirubin Small H (NEGATIVE) Urine Urobilinogen 1 H (NEGATIVE) mg/dL Ur Leukocyte Esterase Negative (NEGATIVE) Urine RBC 5-10 (0) Urine WBC 5-10 (0) Ur Squamous Epith Cells Few H (NS,R,O) Urine Bacteria Few H (NS) Urine Mucus Few H (NS) 03/01/18 Range/Units 09:55 WBC 6.8 (4.5-12.0) X10-3/uL RBC 3.41 (3.23-5.20) x10(6)uL Hgb 9.9 L (11.5-15.5) g/dL Hct 30.3 (30.0-51.3) % MCV 88.9 (80-96) fL MCH 29.2 (27.7-33.6) pg MCHC 32.8 (32.2-35.4) g/dL RDW 15.1 (11.5-15.5) % Plt Count 224 (125-369) X10(3)uL MPV (7.4-10.4) fL Neut % (Auto) (46-82) % Lymph % (Auto) (13-37) % [place] % (Auto) (4-12) % Eos % (Auto) (1.0-5.0) % Baso % (Auto) (0-2) % Neut # (Auto) (1.6-8.3) # Lymph # (Auto) (0.6-5.0) # [place] # (Auto) (0.0-1.3) # Eos # (Auto) (0.0-0.8) # Baso # (Auto) (0.0-0.2) # PT (8.7-11.1) INR (0.89-1.13) Sodium (135-145) mmol/L Potassium (3.5-5.3) mmol/L Chloride (100-110) mmol/L Carbon Dioxide (21-32) mmol/L BUN (7-18) mg/dL Creatinine (0.55-1.02) mg/dL Est Cr Clr Drug Dosing Estimated GFR (MDRD) (>60) BUN/Creatinine Ratio (9-20) Glucose (80-116) mg/dL Lactic Acid (0.4-2.2) mmol/L Calcium (8.6-10.2) mg/dL Phosphorus (2.6-4.6) mg/dL Magnesium (1.8-2.5) mg/dL Total Bilirubin (0.1-1.3) mg/dL AST (5-25) IU/L ALT (12-36) U/L Alkaline Phosphatase (56-112) IU/L Total Protein (6.0-8.0) g/dL Albumin (3.5-5.2) g/dL Globulin g/dL Albumin/Globulin Ratio Urine Color (YELLOW) Urine Appearance (CLEAR) Urine pH (5.0-6.5) Ur Specific [place] (1.010-1.025) Urine Protein (NEGATIVE) mg/dL Urine Glucose (UA) (NEGATIVE) mg/dL Urine Ketones (NEGATIVE) mg/dL Urine Occult Blood (NEGATIVE) Urine Nitrite (NEGATIVE) Urine Bilirubin (NEGATIVE) Urine Urobilinogen (NEGATIVE) mg/dL Ur Leukocyte Esterase (NEGATIVE) Urine RBC (0) Urine WBC (0) Ur Squamous Epith Cells (NS,R,O) Urine Bacteria (NS) Urine Mucus (NS) Result Diagrams: 03/01/18 09:55 03/01/18 09:55 - Problem List (1) Dehydration SNOMED Code(s): 34627221 ICD Code: E86.0 - DEHYDRATION Status: Acute Current Visit: No (2) Chronic daily headache SNOMED Code(s): 778800311919 ICD Code: R51 - HEADACHE Status: Acute Current Visit: No (3) Abdominal pain SNOMED Code(s): 03523476 ICD Code: R10.9 - UNSPECIFIED ABDOMINAL PAIN Status: Acute Current Visit : Yes Qualifiers: Abdominal location: generalized Qualified Code(s): R10.84 - Generalized abdominal pain (4) Personality disorder in adult SNOMED Code(s): 29160946 ICD Code: F60.9 - PERSONALITY DISORDER, UNSPECIFIED Status: Acute Current Visit: Yes (5) Anxiety SNOMED Code(s): 43986180 ICD Code: F41.9 - ANXIETY DISORDER, UNSPECIFIED Status: Acute Current Visit: No Problem Details: Anxiety improved with Ativan 1 mg po. She must see PCP for any maintenance management of chronic anxiety. (6) Depression SNOMED Code(s): 64161098 ICD Code: F32.9 - MAJOR DEPRESSIVE DISORDER, SINGLE EPISODE, UNSPECIFIED Status: Acute Current Visit: No Qualifiers: Depression Type: major depressive disorder Major depression recurrence: recurrent Active/Remission status: in partial remission Qualified Code(s): F33.41 - Major depressive disorder, recurrent, in partial remission (7) Dizziness SNOMED Code(s): 118382569, 810147311 ICD Code: R42 - DIZZINESS AND GIDDINESS Status: Acute Current Visit: No (8) Drug-seeking behavior SNOMED Code(s): 813683466 ICD Code: Z76.5 - MALINGERER [CONSCIOUS SIMULATION] Status: Acute Current Visit: No (9) Gastritis SNOMED Code(s): 4984468 ICD Code: K29.70 - GASTRITIS, UNSPECIFIED, WITHOUT BLEEDING Status: Acute Current Visit: No Qualifiers: Gastritis type: unspecified gastritis Chronicity: acute Gastritis bleeding: without bleeding Qualified Code(s): K29.00 - Acute gastritis without bleeding (10) HTN (hypertension) SNOMED Code(s): 62258181 ICD Code: I10 - ESSENTIAL (PRIMARY) HYPERTENSION Status: Acute Current Visit: No Qualifiers: Hypertension type: essential hypertension Qualified Code(s): I10 - Essential (primary) hypertension (11) Nausea SNOMED Code(s): 946278400 ICD Code: R11.0 - NAUSEA Status: Acute Current Visit: No Problem List Initiated/Reviewed/Updated: Yes Orders Last 24hrs: Active Orders 24 hr Category Date Time Status Patient Status [ADT] Routine ADT 02/28/18 18:10 Active Cardiac Monitoring [RC] INTERMITTENT Care 02/28/18 18:17 Inactive Notify Provider Vital Signs [RC] ASDIRECTED Care 02/28/18 18:17 Active Oxygen Therapy [RC] PRN Care 02/28/18 18:10 Active Pulse Oximetry [RC] PRN Care 02/28/18 18:17 Active Vital Signs [RC] Q4H Care 02/28/18 18:10 Active COMPREHENSIVE METABOLIC PN,CMP [CHEM] AM Lab 03/01/18 09:55 Received H PYLORI, IGM, IGG, IGA AB Routine Lab 03/01/18 09:55 Received Clotrimazole [Lotrimin AF 1% Crm] Med 03/01/18 09:00 Active 0 gm TOP BID Enoxaparin [Lovenox] Med 02/28/18 21:08 Active 40 mg SUBCUT Q24H Esomeprazole Magnesium [Nexium 24Hr] Med 03/02/18 09:00 Ordered 20 mg PO DAILY Eszopiclone [Lunesta] Med 03/01/18 10:33 Ordered 2 mg PO BEDTIME PRN HYDROmorphone [Dilaudid] Med 02/28/18 18:10 Stop Req 0.5 mg IVPUSH Q2H PRN LORazepam [Ativan] Med 02/28/18 18:23 Stop Req 0.5 mg PO DAILY PRN LORazepam [Ativan] Med 03/01/18 10:33 Ordered 1 mg PO BID PRN Lactated Ringers [Ringers, Lactated] 1,000 ml Med 02/28/18 18:15 Active IV ASDIRECTED Melatonin [Melatonin] Med 03/01/18 10:33 Ordered 10 mg PO BEDTIME PRN Ondansetron [Zofran] Med 03/01/18 10:23 Ordered 4 mg IVPUSH Q6H PRN PARoxetine [Paxil] Med 03/01/18 09:00 Active 20 mg PO DAILY Potassium Chloride [Klor-Con M20] Med 03/01/18 09:00 Active 20 meq PO DAILY Ranitidine HCl [Zantac] Med 03/01/18 21:00 Ordered 150 mg PO BID Ranitidine [Zantac] Med 03/01/18 09:00 Pending 50 mg PO DAILY SUMAtriptan Succinate [Imitrex] Med 03/01/18 10:33 Ordered 6 mg SUBCUT ASDIRECTED PRN Scopolamine [Transderm-Scop] Med 02/28/18 18:23 Active 1.5 mg TRDERM Q72H PRN Sodium Chloride 0.9% [Saline Flush] Med 02/28/18 18:10 Active 10 ml FLUSH ASDIRECTED PRN hydrOXYzine HCl [Vistaril] Med 02/28/18 18:10 Active 100 mg IM Q6H PRN hydrOXYzine pamoate [Vistaril] Med 02/28/18 18:23 Active 50 mg PO TID PRN traZODone Med 03/01/18 10:33 Ordered 100 mg PO BEDTIME PRN Peripheral IV Insertion Adult [OM.PC] Routine Oth 02/28/18 18:10 Ordered Resuscitation Status Routine Resus Stat 02/28/18 18:10 Ordered Medication Orders Clotrimazole (Lotrimin Af 1% Crm) 0 gm TOP BID [facility] Last Admin: 03/01/18 09:44 Dose: 1 applic Enoxaparin Sodium (Lovenox) 40 mg SUBCUT Q24H [facility] Last Admin: 02/28/18 21:18 Dose: 40 mg Hydroxyzine HCl (Vistaril) 100 mg IM Q6H PRN PRN Reason: Nausea/Vomiting Last Admin: 03/01/18 02:46 Dose: 100 mg Admin: 02/28/18 18:32 Dose: 100 mg Hydroxyzine Pamoate (Vistaril) 50 mg PO TID PRN PRN Reason: Anxiety Lactated Ringer's (Ringers, Lactated) 1,000 mls @ 125 mls/hr IV ASDIRECTED [facility] Last Admin: 03/01/18 03:39 Dose: 125 mls/hr Infusion: 03/01/18 03:10 Dose: 125 mls/hr Admin: 02/28/18 19:10 Dose: 125 mls/hr Lorazepam (Ativan) 1 mg PO BID PRN PRN Reason: Anxiety Non-Formulary Medication (Ranitidine [Zantac]) 50 mg PO DAILY DOMINIQUE Non-Formulary Medication (Esomeprazole Magnesium [Nexium 24hr]) 20 mg PO DAILY DOMINIQUE Non-Formulary Medication (Eszopiclone [Lunesta]) 2 mg PO BEDTIME PRN PRN Reason: Insomnia Non-Formulary Medication (Melatonin [Melatonin]) 10 mg PO BEDTIME PRN PRN Reason: Insomnia Ondansetron HCl (Zofran) 4 mg IVPUSH Q6H PRN PRN Reason: Nausea/Vomiting Paroxetine HCl (Paxil) 20 mg PO DAILY DOMINIQUE Last Admin: 03/01/18 09:43 Dose: 20 mg Potassium Chloride (Klor-Con M20) 20 meq PO DAILY [facility] Scopolamine (Transderm-Scop) 1.5 mg TRDERM Q72H PRN PRN Reason: Nausea Last Admin: 02/28/18 21:19 Dose: 1.5 mg Sodium Chloride (Saline Flush) 10 ml FLUSH ASDIRECTED PRN PRN Reason: Keep Vein Open Assessment/Plan Comment:: Several liters of crystalloids provided without improvement of her urine output. She still complains of intractable headache which was controlled with Dilaudid overnight and some Vistaril last night. I feel that narcotics will be the wrong route to take ,as such I recommended to continue with fluids resuscitation, Zofran and Tylenol or Imitrex as needed
[2018-03-01] MEDS: SUMAtriptan 6 MG/0.5 ML SDV SUBCUT PRN (13:13)
[2018-03-01] MEDS: Potassium Chloride 20 MEQ Tab.ER PO SCH (13:21)
[2018-03-01] MEDS: Acetaminophen 325 MG Tab PO PRN (17:36)
[2018-03-01] MEDS: Famotidine 20 MG Tab PO SCH (21:05)
[2018-03-01] MEDS: Enoxaparin 40 MG/0.4 ML Syringe SUBCUT SCH (21:05)
[2018-03-01] MEDS: Zolpidem 5 MG Tab PO PRN (21:16)
[2018-03-01] MEDS: traZODone 50 MG Tab ONE ×3 (21:37→21:42)
[2018-03-01] MEDS: traZODone 100 MG Tab PO PRN (21:40)
[2018-03-02] MEDS: Lactated Ringers 1,000 ML IV SCH (04:18)
[2018-03-02] MEDS: Pantoprazole 40 MG Tab.CR PO SCH (07:16)
--- NOTE | 2018-03-02 08:39 | PCM.PN ---
- General Info Date of Service: 03/02/18 Subjective Update: Theresa slept better after she got doses of trazodone ,Melatonin and Ambien. She still complains of significant headache, and dizziness on ambulation. She feels generally weak and safely able to go back home today. I headache is intractable ,however we've avoided narcotics. Functional Status: Reports: Pain Controlled - Review of Systems Pulmonary: Reports: No Symptoms Cardiovascular: Reports: No Symptoms - Patient Data Vitals - Most Recent: Last Vital Signs Temp 97.9 F 03/02/18 04:25 Pulse 73 03/02/18 04:25 Resp 16 03/02/18 04:25 BP 119/79 03/02/18 04:25 Pulse Ox 96 03/02/18 04:25 Weight - Most Recent: 50.53 kg I&O - Last 24 Hours: Intake & Output 03/01/18 03/02/18 03/02/18 22:59 06:59 14:59 Intake Total 1877 1020 Output Total 150 75 Balance 1727 945 Lab Results Last 24 Hours: Laboratory Results - last 24 hr 03/01/18 03/01/18 Range/Units 09:55 09:55 WBC 6.8 (4.5-12.0) X10-3/uL RBC 3.41 (3.23-5.20) x10(6)uL Hgb 9.9 L (11.5-15.5) g/dL Hct 30.3 (30.0-51.3) % MCV 88.9 (80-96) fL MCH 29.2 (27.7-33.6) pg MCHC 32.8 (32.2-35.4) g/dL RDW 15.1 (11.5-15.5) % Plt Count 224 (125-369) X10(3)uL Sodium 140 (135-145) mmol/L Potassium 3.6 (3.5-5.3) mmol/L Chloride 109 (100-110) mmol/L Carbon Dioxide 25 (21-32) mmol/L BUN 10 (7-18) mg/dL Creatinine 0.8 (0.55-1.02) mg/dL Est Cr Clr Drug Dosing 60.40 mL/min Estimated GFR (MDRD) > 60 (>60) BUN/Creatinine Ratio 12.5 (9-20) Glucose 95 (80-116) mg/dL Calcium 8.0 L (8.6-10.2) mg/dL Total Bilirubin 0.8 (0.1-1.3) mg/dL AST 85 H D (5-25) IU/L ALT 43 H (12-36) U/L Alkaline Phosphatase 170 H (56-112) IU/L Total Protein 5.1 L (6.0-8.0) g/dL Albumin 2.7 L (3.5-5.2) g/dL Globulin 2.4 g/dL Albumin/Globulin Ratio 1.1 Med Orders - Current: Current Medications Acetaminophen (Tylenol) 650 mg PO Q4H PRN PRN Reason: Headache Last Admin: 03/01/18 17:36 Dose: 650 mg Clotrimazole (Lotrimin Af 1% Crm) 0 gm TOP BID [facility] Last Admin: 03/01/18 21:05 Dose: 1 applic Enoxaparin Sodium (Lovenox) 40 mg SUBCUT Q24H [facility] Last Admin: 03/01/18 21:05 Dose: 40 mg Famotidine (Pepcid) 20 mg PO BID [facility] Last Admin: 03/01/18 21:05 Dose: 20 mg Hydroxyzine HCl (Vistaril) 100 mg IM Q6H PRN PRN Reason: Nausea/Vomiting Last Admin: 03/01/18 02:46 Dose: 100 mg Hydroxyzine Pamoate (Vistaril) 50 mg PO TID PRN PRN Reason: Anxiety Lorazepam (Ativan) 1 mg PO BID PRN PRN Reason: Anxiety Melatonin (Melatonin) 10 mg PO BEDTIME PRN PRN Reason: INSOMNIA Last Admin: 03/01/18 21:39 Dose: 10 mg Ondansetron HCl (Zofran) 4 mg IVPUSH Q6H PRN PRN Reason: Nausea/Vomiting Last Admin: 03/01/18 10:45 Dose: 4 mg Pantoprazole Sodium (Protonix) 40 mg PO ACBREAKFAST [facility] Last Admin: 03/02/18 07:16 Dose: 40 mg Paroxetine HCl (Paxil) 20 mg PO DAILY [facility] Last Admin: 03/01/18 09:43 Dose: 20 mg Potassium Chloride (Klor-Con M20) 20 meq PO DAILY [facility] Last Admin: 03/01/18 13:21 Dose: 20 meq Scopolamine (Transderm-Scop) 1.5 mg TRDERM Q72H PRN PRN Reason: Nausea Last Admin: 02/28/18 21:19 Dose: 1.5 mg Sodium Chloride (Saline Flush) 10 ml FLUSH ASDIRECTED PRN PRN Reason: Keep Vein Open Sumatriptan Succinate (Imitrex) 6 mg SUBCUT DAILY PRN PRN Reason: Headache Last Admin: 03/01/18 13:13 Dose: 6 mg Trazodone HCl (Trazodone) 100 mg PO BEDTIME PRN PRN Reason: Insomnia Last Admin: 03/01/18 21:40 Dose: 100 mg Zolpidem Tartrate (Ambien) 5 mg PO BEDTIME PRN PRN Reason: INSOMNIA Last Admin: 03/01/18 21:16 Dose: 5 mg Discontinued Medications Clotrimazole (Lotrimin Af 1% Crm) 0 gm TOP BID [facility] Last Admin: 02/28/18 23:50 Dose: Not Given Enoxaparin Sodium (Lovenox) 30 mg SUBCUT Q24H [facility] Last Admin: 02/28/18 21:10 Dose: Not Given Enoxaparin Sodium (Lovenox) Confirm Administered Dose 30 mg .ROUTE .STK-MED ONE Stop: 02/28/18 21:06 Last Admin: 02/28/18 21:09 Dose: Not Given Hydromorphone HCl (Dilaudid) 0.5 mg IVPUSH Q2H PRN PRN Reason: Pain (severe 7-10) Last Admin: 02/28/18 18:32 Dose: 0.5 mg Dextrose/Lactated Ringer's (Dextrose 5%-Lactated Ringers) 1,000 mls @ 999 mls/ hr IV ASDIRECTED [facility] Last Admin: 02/28/18 18:00 Dose: 999 mls/hr Sodium Chloride (Normal Saline) 1,000 mls @ 999 mls/min IV .BOLUS ONE Stop: 02/28/18 17:59 Last Admin: 02/28/18 21:20 Dose: 999 mls/min Lactated Ringer's (Ringers, Lactated) 1,000 mls @ 125 mls/hr IV ASDIRECTED [facility] Last Admin: 03/02/18 04:18 Dose: 125 mls/hr Acetaminophen 1,000 mg/ Premix 100 mls @ 400 mls/hr IV Q6H PRN PRN Reason: Pain Stop: 03/01/18 18:29 Lorazepam (Ativan) 0.5 mg PO DAILY PRN PRN Reason: Anxiety Melatonin (Melatonin) 1 mg PO BEDTIME PRN PRN Reason: INSOMNIA Melatonin (Melatonin) 3 mg PO BEDTIME PRN PRN Reason: INSOMNIA Non-Formulary Medication (Sumatriptan Succinate [Imitrex]) 6 mg SUBCUT ASDIRECTED PRN PRN Reason: MIGRAINES Pneumococcal Polyvalent Vaccine (Pneumovax 23) 0.5 ml SUBCUT .ONCE ONE Stop: 02/28/18 20:05 Trazodone HCl (Trazodone) Confirm Administered Dose 100 mg .ROUTE .STK-MED ONE Stop: 03/01/18 21:19 Last Admin: 03/01/18 21:42 Dose: Not Given - Exam General: Alert, Oriented HEENT: Pupils Equal Neck: Supple Lungs: Clear to Auscultation Cardiovascular: Regular Rate Extremities: Pedal Edema Skin: Warm, Other (facial edema) Neurological: No New Focal Deficit - Problem List & Annotations (1) Dehydration SNOMED Code(s): 66228825 Code(s): E86.0 - DEHYDRATION Status: Acute Current Visit: No (2) Chronic daily headache SNOMED Code(s): 507539112947 Code(s): R51 - HEADACHE Status: Acute Current Visit: No (3) Abdominal pain SNOMED Code(s): 21710676 Code(s): R10.9 - UNSPECIFIED ABDOMINAL PAIN Status: Acute Current Visit: Yes Qualifiers: Abdominal location: generalized Qualified Code(s): R10.84 - Generalized abdominal pain (4) Personality disorder in adult SNOMED Code(s): 59327137 Code(s): F60.9 - PERSONALITY DISORDER, UNSPECIFIED Status: Acute Current Visit: Yes (5) Anxiety SNOMED Code(s): 23067044 Code(s): F41.9 - ANXIETY DISORDER, UNSPECIFIED Status: Acute Current Visit: No Annotation/Comment:: Anxiety improved with Ativan 1 mg po. She must see PCP for any maintenance management of chronic anxiety. (6) Depression SNOMED Code(s): 40635543 Code(s): F32.9 - MAJOR DEPRESSIVE DISORDER, SINGLE EPISODE, UNSPECIFIED Status: Acute Current Visit: No Qualifiers: Depression Type: major depressive disorder Major depression recurrence: recurrent Active/Remission status: in partial remission Qualified Code(s): F33.41 - Major depressive disorder, recurrent, in partial remission (7) Dizziness SNOMED Code(s): 595782996, 853281368 Code(s): R42 - DIZZINESS AND GIDDINESS Status: Acute Current Visit: No (8) Drug-seeking behavior SNOMED Code(s): 758985885 Code(s): Z76.5 - MALINGERER [CONSCIOUS SIMULATION] Status: Acute Current Visit: No (9) Gastritis SNOMED Code(s): 2480695 Code(s): K29.70 - GASTRITIS, UNSPECIFIED, WITHOUT BLEEDING Status: Acute Current Visit: No Qualifiers: Gastritis type: unspecified gastritis Chronicity: acute Gastritis bleeding: without bleeding Qualified Code(s): K29.00 - Acute gastritis without bleeding (10) HTN (hypertension) SNOMED Code(s): 03601244 Code(s): I10 - ESSENTIAL (PRIMARY) HYPERTENSION Status: Acute Current Visit: No Qualifiers: Hypertension type: essential hypertension Qualified Code(s): I10 - Essential (primary) hypertension (11) Nausea SNOMED Code(s): 429404422 Code(s): R11.0 - NAUSEA Status: Acute Current Visit: No - Problem List Review Problem List Initiated/Reviewed/Updated: Yes - My Orders Last 24 Hours: My Active Orders 03/01/18 09:55 H PYLORI, IGM, IGG, IGA AB Routine 03/01/18 10:23 Ondansetron [Zofran] 4 mg IVPUSH Q6H PRN 03/01/18 10:33 LORazepam [Ativan] 1 mg PO BID PRN traZODone 100 mg PO BEDTIME PRN 03/01/18 10:45 Melatonin 10 mg PO BEDTIME PRN 03/01/18 13:00 SUMAtriptan [Imitrex] 6 mg SUBCUT DAILY PRN 03/01/18 15:25 Zolpidem [Ambien] 5 mg PO BEDTIME PRN 03/01/18 17:16 Acetaminophen [Tylenol] 650 mg PO Q4H PRN 03/01/18 21:00 Famotidine [Pepcid] 20 mg PO BID 03/02/18 07:30 Pantoprazole [ProTONIX] 40 mg PO ACBREAKFAST 03/02/18 08:34 OT Evaluation and Treatment [CONS] Routine PT Evaluation and Treatment [CONS] Routine 03/02/18 Lunch Regular Diet [DIET] - Plan Plan:: Theresa has gotten several literes of fluids, with a descent amount of urine output.Her hgb has droped,likely dilutional. I will continue with the symptomatic treatment with Imitrex, Zofran as needed. I've consulted physical and occupational therapy for strengthening,ambulation and the dizziness that she complains of. I feel she can go home tomorrow. Hep-Lock IV today,increase diet to regular,full diet,and encourage ambulation. PT will assess independence for ADLS
[2018-03-02] MEDS: Sodium Chloride 0.9% 10 ML Syringe FLUSH PRN (10:10)
[2018-03-02] MEDS: SUMAtriptan 6 MG/0.5 ML SDV SUBCUT PRN (10:13)
[2018-03-02] MEDS: Potassium Chloride 20 MEQ Tab.ER PO SCH (10:15)
[2018-03-02] MEDS: Clotrimazole 1% Crm 30 GM Tube TOP SCH ×2 (10:16→20:47)
[2018-03-02] MEDS: PARoxetine 20 MG Tab PO SCH (10:16)
[2018-03-02] MEDS: Famotidine 20 MG Tab PO SCH ×2 (10:16→20:47)
[2018-03-02] MEDS: hydrOXYzine HCl 50 MG/ML SDV IM PRN (12:29)
[2018-03-02] MEDS: Enoxaparin 40 MG/0.4 ML Syringe SUBCUT SCH (20:47)
[2018-03-02] MEDS: Acetaminophen 325 MG Tab PO PRN (20:48)
[2018-03-02] MEDS: Zolpidem 5 MG Tab PO PRN (21:01)
[2018-03-02] MEDS: traZODone 100 MG Tab PO PRN (21:02)
[2018-03-03] MEDS: Pantoprazole 40 MG Tab.CR PO SCH (06:29)
[2018-03-03] MEDS: hydrOXYzine HCl 50 MG/ML SDV IM PRN (07:29)
[2018-03-03] MEDS: Potassium Chloride 20 MEQ Tab.ER PO SCH (08:57)
[2018-03-03] MEDS: Clotrimazole 1% Crm 30 GM Tube TOP SCH ×2 (08:57→21:27)
[2018-03-03] MEDS: SUMAtriptan 6 MG/0.5 ML SDV SUBCUT PRN (08:57)
[2018-03-03] MEDS: Famotidine 20 MG Tab PO SCH ×2 (08:57→21:30)
[2018-03-03] MEDS: PARoxetine 20 MG Tab PO SCH (08:57)
[2018-03-03] MEDS ORDERED: BUPRENORPHINE 0.3 MG/ML IM ONE (08:58)
[2018-03-03] MEDS ORDERED: hydrOXYzine HCl 50 MG/ML SDV IM ONE (09:00)
--- NOTE | 2018-03-03 09:07 | PCM.PN ---
- General Info Date of Service: 03/03/18 Admission Dx/Problem (Free Text): Patient states she is very nauseated today and feels that she's got a rash. She' s always a headache. She's not able to drink anything she states she's not able to eat anything. She has no fevers, chills. She has some burning abdominal pain. She is urinating. - Patient Data Vitals - Most Recent: Last Vital Signs Temp 98.9 F 03/03/18 04:15 Pulse 90 03/03/18 04:15 Resp 16 03/03/18 04:15 BP 148/90 H 03/03/18 04:15 Pulse Ox 94 L 03/03/18 04:15 Weight - Most Recent: 111 lb Med Orders - Current: Current Medications Acetaminophen (Tylenol) 650 mg PO Q4H PRN PRN Reason: Headache Last Admin: 03/02/18 20:48 Dose: 650 mg Buprenorphine (Buprenex) 0.6 mg IM ONETIME ONE Stop: 03/03/18 08:59 Clotrimazole (Lotrimin Af 1% Crm) 0 gm TOP BID [facility] Last Admin: 03/03/18 08:57 Dose: 1 applic Enoxaparin Sodium (Lovenox) 40 mg SUBCUT Q24H [facility] Last Admin: 03/02/18 20:47 Dose: 40 mg Famotidine (Pepcid) 20 mg PO BID [facility] Last Admin: 03/03/18 08:57 Dose: 20 mg Heparin Sodium (Porcine) (Heparin Lock Flush 100 Units/Ml) 300 units FLUSH ASDIRECTED PRN PRN Reason: FLUSH PORT Last Admin: 03/02/18 10:14 Dose: 300 units Hydroxyzine HCl (Vistaril) 100 mg IM Q6H PRN PRN Reason: Nausea/Vomiting Last Admin: 03/03/18 07:29 Dose: 100 mg Hydroxyzine HCl (Vistaril) 50 mg IM ONETIME ONE Stop: 03/03/18 09:01 Hydroxyzine Pamoate (Vistaril) 50 mg PO TID PRN PRN Reason: Anxiety Lorazepam (Ativan) 1 mg PO BID PRN PRN Reason: Anxiety Melatonin (Melatonin) 10 mg PO BEDTIME PRN PRN Reason: INSOMNIA Last Admin: 01/23/19 21:39 Dose: 10 mg Ondansetron HCl (Zofran) 4 mg IVPUSH Q6H PRN PRN Reason: Nausea/Vomiting Last Admin: 03/01/18 10:45 Dose: 4 mg Pantoprazole Sodium (Protonix) 40 mg PO ACBREAKFAST [facility] Last Admin: 03/03/18 06:29 Dose: 40 mg Paroxetine HCl (Paxil) 20 mg PO DAILY [facility] Last Admin: 03/03/18 08:57 Dose: 20 mg Potassium Chloride (Klor-Con M20) 20 meq PO DAILY [facility] Last Admin: 03/03/18 08:57 Dose: 20 meq Scopolamine (Transderm-Scop) 1.5 mg TRDERM Q72H PRN PRN Reason: Nausea Last Admin: 02/28/18 21:19 Dose: 1.5 mg Sodium Chloride (Saline Flush) 10 ml FLUSH ASDIRECTED PRN PRN Reason: Keep Vein Open Last Admin: 03/02/18 10:10 Dose: 10 ml Sucralfate (Carafate) 1 gm PO QIDACANDBED [facility] Sumatriptan Succinate (Imitrex) 6 mg SUBCUT DAILY PRN PRN Reason: Headache Last Admin: 03/03/18 08:57 Dose: 6 mg Trazodone HCl (Trazodone) 100 mg PO BEDTIME PRN PRN Reason: Insomnia Last Admin: 03/02/18 21:02 Dose: 100 mg Zolpidem Tartrate (Ambien) 5 mg PO BEDTIME PRN PRN Reason: INSOMNIA Last Admin: 03/02/18 21:01 Dose: 5 mg Discontinued Medications Clotrimazole (Lotrimin Af 1% Crm) 0 gm TOP BID [facility] Last Admin: 02/28/18 23:50 Dose: Not Given Enoxaparin Sodium (Lovenox) 30 mg SUBCUT Q24H [facility] Last Admin: 02/28/18 21:10 Dose: Not Given Enoxaparin Sodium (Lovenox) Confirm Administered Dose 30 mg .ROUTE .STK-MED ONE Stop: 02/28/18 21:06 Last Admin: 02/28/18 21:09 Dose: Not Given Hydromorphone HCl (Dilaudid) 0.5 mg IVPUSH Q2H PRN PRN Reason: Pain (severe 7-10) Last Admin: 02/28/18 18:32 Dose: 0.5 mg Dextrose/Lactated Ringer's (Dextrose 5%-Lactated Ringers) 1,000 mls @ 999 mls/ hr IV ASDIRECTED [facility] Last Admin: 02/28/18 18:00 Dose: 999 mls/hr Sodium Chloride (Normal Saline) 1,000 mls @ 999 mls/min IV .BOLUS ONE Stop: 02/28/18 17:59 Last Admin: 02/28/18 21:20 Dose: 999 mls/min Lactated Ringer's (Ringers, Lactated) 1,000 mls @ 125 mls/hr IV ASDIRECTED [facility] Last Admin: 03/02/18 04:18 Dose: 125 mls/hr Acetaminophen 1,000 mg/ Premix 100 mls @ 400 mls/hr IV Q6H PRN PRN Reason: Pain Stop: 03/01/18 18:29 Lorazepam (Ativan) 0.5 mg PO DAILY PRN PRN Reason: Anxiety Melatonin (Melatonin) 1 mg PO BEDTIME PRN PRN Reason: INSOMNIA Melatonin (Melatonin) 3 mg PO BEDTIME PRN PRN Reason: INSOMNIA Non-Formulary Medication (Sumatriptan Succinate [Imitrex]) 6 mg SUBCUT ASDIRECTED PRN PRN Reason: MIGRAINES Pneumococcal Polyvalent Vaccine (Pneumovax 23) 0.5 ml SUBCUT .ONCE ONE Stop: 02/28/18 20:05 Trazodone HCl (Trazodone) Confirm Administered Dose 100 mg .ROUTE .STK-MED ONE Stop: 03/01/18 21:19 Last Admin: 03/01/18 21:42 Dose: Not Given - Exam General: Alert, Oriented Lungs: Clear to Auscultation, Normal Respiratory Effort Cardiovascular: Regular Rate, Regular Rhythm, No Murmurs GI/Abdominal Exam: Normal Bowel Sounds, Soft, Non-Tender, No Distention, No Mass - Problem List & Annotations (1) History of DVT (deep vein thrombosis) SNOMED Code(s): 674381106 Code(s): Z86.718 - PERSONAL HISTORY OF OTHER VENOUS THROMBOSIS AND EMBOLISM Status: Acute Current Visit: Yes (2) Abdominal pain SNOMED Code(s): 90056083 Code(s): R10.9 - UNSPECIFIED ABDOMINAL PAIN Status: Acute Current Visit: Yes Qualifiers: Abdominal location: generalized Qualified Code(s): R10.84 - Generalized abdominal pain (3) Anxiety SNOMED Code(s): 84335365 Code(s): F41.9 - ANXIETY DISORDER, UNSPECIFIED Status: Acute Current Visit: No Annotation/Comment:: Anxiety improved with Ativan 1 mg po. She must see PCP for any maintenance management of chronic anxiety. (4) Cachexia SNOMED Code(s): 079768948 Code(s): R64 - CACHEXIA Status: Acute Current Visit: No (5) Dehydration SNOMED Code(s): 35751745 Code(s): E86.0 - DEHYDRATION Status: Acute Current Visit: No (6) Dizziness SNOMED Code(s): 068727287, 589552553 Code(s): R42 - DIZZINESS AND GIDDINESS Status: Acute Current Visit: No (7) Eating disorder SNOMED Code(s): 32759750 Code(s): F50.9 - EATING DISORDER, UNSPECIFIED Status: Acute Current Visit : No (8) Headache SNOMED Code(s): 85827189 Code(s): R51 - HEADACHE Status: Acute Current Visit: No Qualifiers: Headache type: unspecified Headache chronicity pattern: chronic headache Intractability: not intractable Qualified Code(s): R51 - Headache - Problem List Review Problem List Initiated/Reviewed/Updated: Yes - My Orders Last 24 Hours: My Active Orders 03/03/18 08:58 Buprenorphine [Buprenex] 0.6 mg IM ONETIME ONE 03/03/18 09:00 hydrOXYzine HCl [Vistaril] 50 mg IM ONETIME ONE 03/03/18 11:30 Sucralfate [Carafate] 1 gm PO QIDACANDBED - Plan Plan:: 1. Deep neck 0.6 with Vistaril 50 im which using abs her headaches. 2. She was on anticoagulation for DVTs and PEs in the past. She stopped about a year ago on her own. I believe she needs to be restarted. Started Xarelto prophylactic dose and then stop Lovenox. 3. If the patient gets better with her nausea, vomiting and abdominal pain she may be able to go home later today or tomorrow. 4. She's normal and Nexium and that's on formulary so 40 mg of tonic swing Carafate 1 g 4 times a day. Start today. 5. Ambulate frequently.
[2018-03-03] MEDS: Sucralfate 1 GM Tab PO SCH ×3 (11:19→21:27)
[2018-03-03] MEDS ORDERED: Rivaroxaban 10 MG Tab PO SCH (18:00)
[2018-03-03] MEDS: traZODone 100 MG Tab PO PRN (21:30)
[2018-03-04] MEDS: Sucralfate 1 GM Tab PO SCH ×2 (07:11→11:03)
[2018-03-04] MEDS: Pantoprazole 40 MG Tab.CR PO SCH (07:11)
--- NOTE | 2018-03-04 08:34 | PCM.PN ---
- General Info Date of Service: 03/04/18 Admission Dx/Problem (Free Text): Patient states she's just a little nauseated this morning. Yesterday afternoon she says she was feeling much better. She has no headaches, fevers, chills or abdominal pain. She has been scoped by Dr. Cardoso with a EGD in the last couple years. She's had some gastritis in the past. - Patient Data Vitals - Most Recent: Last Vital Signs Temp 98.4 F 03/04/18 04:00 Pulse 85 03/04/18 04:00 Resp 20 03/04/18 04:00 BP 134/81 03/04/18 04:00 Pulse Ox 95 03/04/18 04:00 Weight - Most Recent: 111 lb Lab Results Last 24 Hours: Laboratory Results - last 24 hr 03/01/18 Range/Units 09:55 H. pylori IgG Antibody 0.11 (0.00-0.79) H. pylori IgA Antibody <9.0 (0.0-8.9) units H. pylori IgM Antibody <9.0 (0.0-8.9) units Med Orders - Current: Current Medications Acetaminophen (Tylenol) 650 mg PO Q4H PRN PRN Reason: Headache Last Admin: 03/02/18 20:48 Dose: 650 mg Clotrimazole (Lotrimin Af 1% Crm) 0 gm TOP BID [facility] Last Admin: 03/03/18 21:27 Dose: 1 applic Famotidine (Pepcid) 20 mg PO BID [facility] Last Admin: 03/03/18 21:30 Dose: 20 mg Heparin Sodium (Porcine) (Heparin Lock Flush 100 Units/Ml) 300 units FLUSH ASDIRECTED PRN PRN Reason: FLUSH PORT Last Admin: 03/02/18 10:14 Dose: 300 units Hydroxyzine HCl (Vistaril) 100 mg IM Q6H PRN PRN Reason: Nausea/Vomiting Last Admin: 03/03/18 07:29 Dose: 100 mg Hydroxyzine Pamoate (Vistaril) 50 mg PO TID PRN PRN Reason: Anxiety Lorazepam (Ativan) 1 mg PO BID PRN PRN Reason: Anxiety Melatonin (Melatonin) 10 mg PO BEDTIME PRN PRN Reason: INSOMNIA Last Admin: 03/03/18 21:30 Dose: 10 mg Ondansetron HCl (Zofran) 4 mg IVPUSH Q6H PRN PRN Reason: Nausea/Vomiting Last Admin: 03/01/18 10:45 Dose: 4 mg Pantoprazole Sodium (Protonix) 40 mg PO ACBREAKFAST [facility] Last Admin: 03/04/18 07:11 Dose: 40 mg Paroxetine HCl (Paxil) 20 mg PO DAILY [facility] Last Admin: 03/03/18 08:57 Dose: 20 mg Potassium Chloride (Klor-Con M20) 20 meq PO DAILY [facility] Last Admin: 03/03/18 08:57 Dose: 20 meq Rivaroxaban (Xarelto) 10 mg PO WITHDINNER [facility] Last Admin: 03/03/18 17:46 Dose: 10 mg Scopolamine (Transderm-Scop) 1.5 mg TRDERM Q72H PRN PRN Reason: Nausea Last Admin: 02/28/18 21:19 Dose: 1.5 mg Sodium Chloride (Saline Flush) 10 ml FLUSH ASDIRECTED PRN PRN Reason: Keep Vein Open Last Admin: 03/02/18 10:10 Dose: 10 ml Sucralfate (Carafate) 1 gm PO QIDACANDBED [facility] Last Admin: 03/04/18 07:11 Dose: 1 gm Sumatriptan Succinate (Imitrex) 6 mg SUBCUT DAILY PRN PRN Reason: Headache Last Admin: 03/03/18 08:57 Dose: 6 mg Trazodone HCl (Trazodone) 100 mg PO BEDTIME PRN PRN Reason: Insomnia Last Admin: 03/03/18 21:30 Dose: 100 mg Zolpidem Tartrate (Ambien) 5 mg PO BEDTIME PRN PRN Reason: INSOMNIA Last Admin: 03/02/18 21:01 Dose: 5 mg Discontinued Medications Buprenorphine (Buprenex) 0.6 mg IM ONETIME ONE Stop: 03/03/18 08:59 Last Admin: 03/03/18 09:23 Dose: 0.6 mg Clotrimazole (Lotrimin Af 1% Crm) 0 gm TOP BID [facility] Last Admin: 02/28/18 23:50 Dose: Not Given Enoxaparin Sodium (Lovenox) 30 mg SUBCUT Q24H [facility] Last Admin: 02/28/18 21:10 Dose: Not Given Enoxaparin Sodium (Lovenox) 40 mg SUBCUT Q24H [facility] Last Admin: 03/02/18 20:47 Dose: 40 mg Enoxaparin Sodium (Lovenox) Confirm Administered Dose 30 mg .ROUTE .STK-MED ONE Stop: 02/28/18 21:06 Last Admin: 02/28/18 21:09 Dose: Not Given Hydromorphone HCl (Dilaudid) 0.5 mg IVPUSH Q2H PRN PRN Reason: Pain (severe 7-10) Last Admin: 02/28/18 18:32 Dose: 0.5 mg Dextrose/Lactated Ringer's (Dextrose 5%-Lactated Ringers) 1,000 mls @ 999 mls/ hr IV ASDIRECTED [facility] Last Admin: 02/28/18 18:00 Dose: 999 mls/hr Sodium Chloride (Normal Saline) 1,000 mls @ 999 mls/min IV .BOLUS ONE Stop: 02/28/18 17:59 Last Admin: 02/28/18 21:20 Dose: 999 mls/min Lactated Ringer's (Ringers, Lactated) 1,000 mls @ 125 mls/hr IV ASDIRECTED [facility] Last Admin: 03/02/18 04:18 Dose: 125 mls/hr Acetaminophen 1,000 mg/ Premix 100 mls @ 400 mls/hr IV Q6H PRN PRN Reason: Pain Stop: 03/01/18 18:29 Lorazepam (Ativan) 0.5 mg PO DAILY PRN PRN Reason: Anxiety Melatonin (Melatonin) 1 mg PO BEDTIME PRN PRN Reason: INSOMNIA Melatonin (Melatonin) 3 mg PO BEDTIME PRN PRN Reason: INSOMNIA Non-Formulary Medication (Sumatriptan Succinate [Imitrex]) 6 mg SUBCUT ASDIRECTED PRN PRN Reason: MIGRAINES Pneumococcal Polyvalent Vaccine (Pneumovax 23) 0.5 ml SUBCUT .ONCE ONE Stop: 02/28/18 20:05 Trazodone HCl (Trazodone) Confirm Administered Dose 100 mg .ROUTE .STK-MED ONE Stop: 03/01/18 21:19 Last Admin: 03/01/18 21:42 Dose: Not Given - Exam General: Alert, Oriented Lungs: Normal Respiratory Effort GI/Abdominal Exam: Normal Bowel Sounds, Soft, Non-Tender, No Distention, No Mass Psy/Mental Status: Alert, Normal Affect, Normal Mood - Problem List & Annotations (1) History of DVT (deep vein thrombosis) SNOMED Code(s): 172936266 Code(s): Z86.718 - PERSONAL HISTORY OF OTHER VENOUS THROMBOSIS AND EMBOLISM Status: Acute Current Visit: Yes (2) Abdominal pain SNOMED Code(s): 39886734 Code(s): R10.9 - UNSPECIFIED ABDOMINAL PAIN Status: Acute Current Visit: Yes Qualifiers: Abdominal location: generalized Qualified Code(s): R10.84 - Generalized abdominal pain (3) Anxiety SNOMED Code(s): 72599258 Code(s): F41.9 - ANXIETY DISORDER, UNSPECIFIED Status: Acute Current Visit: No Annotation/Comment:: Anxiety improved with Ativan 1 mg po. She must see PCP for any maintenance management of chronic anxiety. (4) Cachexia SNOMED Code(s): 799454745 Code(s): R64 - CACHEXIA Status: Acute Current Visit: No (5) Dehydration SNOMED Code(s): 72582724 Code(s): E86.0 - DEHYDRATION Status: Acute Current Visit: No (6) Dizziness SNOMED Code(s): 675366501, 410416031 Code(s): R42 - DIZZINESS AND GIDDINESS Status: Acute Current Visit: No (7) Eating disorder SNOMED Code(s): 03745761 Code(s): F50.9 - EATING DISORDER, UNSPECIFIED Status: Acute Current Visit : No (8) Headache SNOMED Code(s): 14432683 Code(s): R51 - HEADACHE Status: Acute Current Visit: No Qualifiers: Headache type: unspecified Headache chronicity pattern: chronic headache Intractability: not intractable Qualified Code(s): R51 - Headache - Problem List Review Problem List Initiated/Reviewed/Updated: Yes - My Orders Last 24 Hours: My Active Orders 03/03/18 11:30 Sucralfate [Carafate] 1 gm PO QIDACANDBED 03/03/18 18:00 Rivaroxaban [Xarelto] 10 mg PO WITHDINNER - Plan Plan:: 1. Discharge to home 2. Recheck in one week.
--- NOTE | 2018-03-04 08:42 | PCM.DCSUM1 ---
Discharge Summary - Hospital Course Free Text/Narrative:: Hospital course-patient was seen in the ER after see me in the clinic and then admitted. She got 3 L and had hardly any urination she was so dehydrated. She was given Imitrex and Vistaril for her nausea vomiting. She slowly improved. She still had a headache at times was given Bumex 1. In the past she was on 0 total for DVT and PE prophylaxis because she's had this before. She stopped a year ago so I restarted. Patient had distal nauseated but doing much better so discharge to home and follow outpatient. She was put on Carafate him back on a proton pump inhibitor which also helped her stomach. She has been scoped with the last couple years by Dr. Cardoso. Brief History: Theresa is a 57-year-old female with chronic medical problems, mostly with vomiting, headache chronic abdominal pain and narcotic addiction. She was admitted to the ER with the suspicion of dehydration because she had been vomiting nonstop,over several days. However,her symptoms chronic long- standing and this is well-documented in the extensive medical record. She's been seen at least 16 times in 2 months either in the urgent care clinic, outpatient or in the ER. She complains of severe headache that is diffuse and intractable. In addition,she started dry heaving and retching ,with vomiting. Denies fever,chest pain. Headache Diagnosis: Stroke: No - Discharge Data Discharge Date: 03/04/18 Discharge Disposition: Home, Self-Care 01 Condition: Good - Discharge Diagnosis/Problem(s) (1) History of DVT (deep vein thrombosis) SNOMED Code(s): 195665916 ICD Code: Z86.718 - PERSONAL HISTORY OF OTHER VENOUS THROMBOSIS AND EMBOLISM Status: Acute Current Visit: Yes (2) Abdominal pain SNOMED Code(s): 73800134 ICD Code: R10.9 - UNSPECIFIED ABDOMINAL PAIN Status: Acute Current Visit : Yes Qualifiers: Abdominal location: generalized Qualified Code(s): R10.84 - Generalized abdominal pain (3) Anxiety SNOMED Code(s): 53045612 ICD Code: F41.9 - ANXIETY DISORDER, UNSPECIFIED Status: Acute Current Visit: No Problem Details: Anxiety improved with Ativan 1 mg po. She must see PCP for any maintenance management of chronic anxiety. (4) Cachexia SNOMED Code(s): 413258946 ICD Code: R64 - CACHEXIA Status: Acute Current Visit: No (5) Dehydration SNOMED Code(s): 20995153 ICD Code: E86.0 - DEHYDRATION Status: Acute Current Visit: No (6) Dizziness SNOMED Code(s): 456954668, 591843424 ICD Code: R42 - DIZZINESS AND GIDDINESS Status: Acute Current Visit: No (7) Eating disorder SNOMED Code(s): 92399068 ICD Code: F50.9 - EATING DISORDER, UNSPECIFIED Status: Acute Current Visit: No (8) Headache SNOMED Code(s): 80461643 ICD Code: R51 - HEADACHE Status: Acute Current Visit: No Qualifiers: Headache type: unspecified Headache chronicity pattern: chronic headache Intractability: not intractable Qualified Code(s): R51 - Headache - Patient Summary/Data Consults: Consultations 03/02/18 08:34 OT Evaluation and Treatment [CONS] Routine Please Evaluate and Treat. OT Reason for Consult: ADL's This query below is only for informational purposes and is not editable. Admission Diagnosis/Problem: Vomiting PT Evaluation and Treatment [CONS] Routine Please Evaluate and Treat. PT Reason for Consult: Vestibular This query below is only for informational purposes and is not editable. Admission Diagnosis/Problem: Vomiting - Patient Instructions Diet: Regular Diet as Tolerated Activity: As Tolerated Driving: May Drive Today Showering/Bathing: May Shower Notify Provider of: Fever, Increased Pain Other/Special Instructions: 1. Recheck with Dr. Gresham in 1 week. - Discharge Plan *PRESCRIPTION DRUG MONITORING PROGRAM REVIEWED*: Not Applicable *COPY OF PRESCRIPTION DRUG MONITORING REPORT IN PATIENT [place]: Not Applicable Prescriptions/Med Rec: Rivaroxaban [Xarelto] 10 mg PO WITHDINNER #30 tablet Sucralfate [Carafate] 1 gm PO QIDACANDBED #120 cup Home Medications: Home Meds Ibuprofen [Advil] 200 mg PO Q4H PRN 06/20/17 [History] Esomeprazole Magnesium [Nexium 24Hr] 20 mg PO DAILY 10/18/17 [History] Potassium Chloride 20 meq PO DAILY 10/18/17 [History] hydrOXYzine pamoate [Vistaril] 50 mg PO TID PRN 10/18/17 [History] Scopolamine [Transderm-Scop] 1 each TD Q72H PRN 10/28/17 [History] PARoxetine HCl [Paxil] 20 mg PO DAILY 11/03/17 [History] Clotrimazole [Lotrimin AF 1% Crm] 30 gm TOP BID #1 tube 02/10/18 [Rx] Erenumab-Aooe [Aimovig Autoinjector] 70 mg SUBCUT Q30D 03/01/18 [History] Eszopiclone [Lunesta] 2 mg PO BEDTIME PRN 03/01/18 [History] Melatonin 10 mg PO BEDTIME PRN 03/01/18 [History] Ranitidine HCl [Zantac] 150 mg PO BID 03/01/18 [History] SUMAtriptan Succinate [Imitrex] 6 mg SUBCUT ASDIRECTED PRN 03/01/18 [History] traZODone 100 mg PO BEDTIME PRN 03/01/18 [History] Rivaroxaban [Xarelto] 10 mg PO WITHDINNER #30 tablet 03/04/18 [Rx] SUMAtriptan [Imitrex] 6 mg SUBCUT DAILY PRN vial 03/04/18 [Rx] Sucralfate [Carafate] 1 gm PO QIDACANDBED #120 cup 03/04/18 [Rx] Patient Handouts: Migraine Headache, [id number], Nausea and Vomiting, Adult, [id number], Fall Prevention in Hospitals, Adult, Venous Thromboembolism Prevention Forms: ED Department Discharge Referrals: Jesse Gresham MD [Primary Care Provider] - - Discharge Summary/Plan Comment DC Time >30 min.: No - Patient Data Vitals - Most Recent: Last Vital Signs Temp 98.4 F 03/04/18 04:00 Pulse 85 03/04/18 04:00 Resp 20 03/04/18 04:00 BP 134/81 03/04/18 04:00 Pulse Ox 95 03/04/18 04:00 Weight - Most Recent: 111 lb Lab Results - Last 24 hrs: Laboratory Results - last 24 hr 03/01/18 Range/Units 09:55 H. pylori IgG Antibody 0.11 (0.00-0.79) H. pylori IgA Antibody <9.0 (0.0-8.9) units H. pylori IgM Antibody <9.0 (0.0-8.9) units Med Orders - Current: Current Medications Acetaminophen (Tylenol) 650 mg PO Q4H PRN PRN Reason: Headache Last Admin: 03/02/18 20:48 Dose: 650 mg Clotrimazole (Lotrimin Af 1% Crm) 0 gm TOP BID [facility] Last Admin: 03/03/18 21:27 Dose: 1 applic Famotidine (Pepcid) 20 mg PO BID [facility] Last Admin: 03/03/18 21:30 Dose: 20 mg Heparin Sodium (Porcine) (Heparin Lock Flush 100 Units/Ml) 300 units FLUSH ASDIRECTED PRN PRN Reason: FLUSH PORT Last Admin: 03/02/18 10:14 Dose: 300 units Hydroxyzine HCl (Vistaril) 100 mg IM Q6H PRN PRN Reason: Nausea/Vomiting Last Admin: 03/03/18 07:29 Dose: 100 mg Hydroxyzine Pamoate (Vistaril) 50 mg PO TID PRN PRN Reason: Anxiety Lorazepam (Ativan) 1 mg PO BID PRN PRN Reason: Anxiety Melatonin (Melatonin) 10 mg PO BEDTIME PRN PRN Reason: INSOMNIA Last Admin: 03/03/18 21:30 Dose: 10 mg Ondansetron HCl (Zofran) 4 mg IVPUSH Q6H PRN PRN Reason: Nausea/Vomiting Last Admin: 03/01/18 10:45 Dose: 4 mg Pantoprazole Sodium (Protonix) 40 mg PO ACBREAKFAST [facility] Last Admin: 03/04/18 07:11 Dose: 40 mg Paroxetine HCl (Paxil) 20 mg PO DAILY [facility] Last Admin: 03/03/18 08:57 Dose: 20 mg Potassium Chloride (Klor-Con M20) 20 meq PO DAILY [facility] Last Admin: 03/03/18 08:57 Dose: 20 meq Rivaroxaban (Xarelto) 10 mg PO WITHDINNER [facility] Last Admin: 03/03/18 17:46 Dose: 10 mg Scopolamine (Transderm-Scop) 1.5 mg TRDERM Q72H PRN PRN Reason: Nausea Last Admin: 02/28/18 21:19 Dose: 1.5 mg Sodium Chloride (Saline Flush) 10 ml FLUSH ASDIRECTED PRN PRN Reason: Keep Vein Open Last Admin: 03/02/18 10:10 Dose: 10 ml Sucralfate (Carafate) 1 gm PO QIDACANDBED [facility] Last Admin: 03/04/18 07:11 Dose: 1 gm Sumatriptan Succinate (Imitrex) 6 mg SUBCUT DAILY PRN PRN Reason: Headache Last Admin: 03/03/18 08:57 Dose: 6 mg Trazodone HCl (Trazodone) 100 mg PO BEDTIME PRN PRN Reason: Insomnia Last Admin: 03/03/18 21:30 Dose: 100 mg Zolpidem Tartrate (Ambien) 5 mg PO BEDTIME PRN PRN Reason: INSOMNIA Last Admin: 03/02/18 21:01 Dose: 5 mg Discontinued Medications Buprenorphine (Buprenex) 0.6 mg IM ONETIME ONE Stop: 03/03/18 08:59 Last Admin: 03/03/18 09:23 Dose: 0.6 mg Clotrimazole (Lotrimin Af 1% Crm) 0 gm TOP BID [facility] Last Admin: 02/28/18 23:50 Dose: Not Given Enoxaparin Sodium (Lovenox) 30 mg SUBCUT Q24H [facility] Last Admin: 02/28/18 21:10 Dose: Not Given Enoxaparin Sodium (Lovenox) 40 mg SUBCUT Q24H [facility] Last Admin: 03/02/18 20:47 Dose: 40 mg Enoxaparin Sodium (Lovenox) Confirm Administered Dose 30 mg .ROUTE .STK-MED ONE Stop: 02/28/18 21:06 Last Admin: 02/28/18 21:09 Dose: Not Given Hydromorphone HCl (Dilaudid) 0.5 mg IVPUSH Q2H PRN PRN Reason: Pain (severe 7-10) Last Admin: 02/28/18 18:32 Dose: 0.5 mg Dextrose/Lactated Ringer's (Dextrose 5%-Lactated Ringers) 1,000 mls @ 999 mls/ hr IV ASDIRECTED [facility] Last Admin: 02/28/18 18:00 Dose: 999 mls/hr Sodium Chloride (Normal Saline) 1,000 mls @ 999 mls/min IV .BOLUS ONE Stop: 02/28/18 17:59 Last Admin: 02/28/18 21:20 Dose: 999 mls/min Lactated Ringer's (Ringers, Lactated) 1,000 mls @ 125 mls/hr IV ASDIRECTED [facility] Last Admin: 03/02/18 04:18 Dose: 125 mls/hr Acetaminophen 1,000 mg/ Premix 100 mls @ 400 mls/hr IV Q6H PRN PRN Reason: Pain Stop: 03/01/18 18:29 Lorazepam (Ativan) 0.5 mg PO DAILY PRN PRN Reason: Anxiety Melatonin (Melatonin) 1 mg PO BEDTIME PRN PRN Reason: INSOMNIA Melatonin (Melatonin) 3 mg PO BEDTIME PRN PRN Reason: INSOMNIA Non-Formulary Medication (Sumatriptan Succinate [Imitrex]) 6 mg SUBCUT ASDIRECTED PRN PRN Reason: MIGRAINES Pneumococcal Polyvalent Vaccine (Pneumovax 23) 0.5 ml SUBCUT .ONCE ONE Stop: 02/28/18 20:05 Trazodone HCl (Trazodone) Confirm Administered Dose 100 mg .ROUTE .STK-MED ONE Stop: 03/01/18 21:19 Last Admin: 03/01/18 21:42 Dose: Not Given
[2018-03-04] MEDS: Clotrimazole 1% Crm 30 GM Tube TOP SCH (09:41)
[2018-03-04] MEDS: Potassium Chloride 20 MEQ Tab.ER PO SCH (09:41)
[2018-03-04] MEDS: PARoxetine 20 MG Tab PO SCH (09:42)
[2018-03-04] MEDS: Famotidine 20 MG Tab PO SCH (09:42)
[2018-03-04] MEDS: SUMAtriptan 6 MG/0.5 ML SDV SUBCUT PRN (11:03)
[2018-03-04] MEDS: Sodium Chloride 0.9% 10 ML Syringe FLUSH PRN (11:12)
[2018-03-04] MEDS: Acetaminophen 325 MG Tab PO PRN (13:08)
[2018-03-04 13:42] VITALS: BP 130/79
[2018-03-04] MEDS: Scopolamine 1.5 MG Transdermal Patch TRDERM PRN (13:59)
== END 2018-03-04 14:12 | disposition home or self-care (01) | DRG 422 ==
LOC: FB.ED 17:46 → FB.MS 18:42
PROVIDERS: ADMIT Family Medicine; ATTEND Family Medicine
DX: E86.0 Dehydration (principal); R10.84 Generalized abdominal pain; Z76.5 Malingerer [conscious simulation]; I10 Essential (primary) hypertension; Z68.1 Body mass index [BMI] 19.9 or less, adult; F11.20 Opioid dependence, uncomplicated; F41.9 Anxiety disorder, unspecified; F33.41 Major depressive disorder, recurrent, in partial remission; R42 Dizziness and giddiness; F60.9 Personality disorder, unspecified; G40.909 Epilepsy, unspecified, not intractable, without status epilepticus; R51 Headache; Z86.718 Personal history of other venous thrombosis and embolism; Z86.711 Personal history of pulmonary embolism; R11.0 Nausea; K29.00 Acute gastritis without bleeding; Z87.11 Personal history of peptic ulcer disease; Z90.3 Acquired absence of stomach [part of]; F50.9 Eating disorder, unspecified; R64 Cachexia; T45.516A Underdosing of anticoagulants, initial encounter; Z91.128 Patient's intentional underdosing of medication regimen for other reason; Y92.009 Unspecified place in unspecified non-institutional (private) residence as the place of occurrence of the external cause; Z79.01 Long term (current) use of anticoagulants; Z88.8 Allergy status to other drugs, medicaments and biological substances
CPT/HCPCS: 36415; 74019; 80053; 81001; 83605; 83735; 84100; 85025; 85027; 85610; 86677; 96361; 96372; 96374; 97165-GO; 99285; A9270-GY; J0592; J1170; J1642; J1650; J2405; J3030; J3410; J7030; J7042; J7120

== ENCOUNTER 2018-04-06 14:53 | Emergency (ER) | payer BC ==
[2018-04-06 15:11] VITALS: BP 152/97
[2018-04-06] MEDS ORDERED: Ketorolac 60 MG/2 ML SDV IM ONE (16:01)
[2018-04-06] MEDS ORDERED: hydrOXYzine HCl 50 MG/ML SDV IM ONE (16:01)
--- NOTE | 2018-04-06 16:47 | EDM.PDOC ---
ED HPI GENERAL MEDICAL PROBLEM - General Chief Complaint: Headache Stated Complaint: HEAD ACHE Time Seen by Provider: 04/06/18 15:20 Source of Information: Reports: Patient History Limitations: Reports: No Limitations - History of Present Illness INITIAL COMMENTS - FREE TEXT/NARRATIVE: c/o bifrontal CORDOVA x [address]m [address] Beltran out of office x 1w has typical CORDOVA, no n/v, took Imitrex injection at home no f/c/d requesting buprenorphine 0.6 mg as well as hydroxyzine 100 mg IM pt informed that all controlled meds would need to come through PCP, pt requested that Dr Alvarez be called, RN called the office and spoke with Dr Barcenas' s nurse who declined pt's request for buprenorphine pt initially declined Toradol, "it does not work", but then changed her mind when she was informed that controlled meds could not be given pt walking and appeared to be doing well at time of d/c no objective clinical findings head Pain Score (Numeric/FACES): 10 - Related Data Allergies Allergy/AdvReac Type Severity Reaction Status Date / Time bupropion HCl Allergy Respiratory Verified 04/06/18 15:06 [From Wellbutrin] Distress chlorpromazine HCl Allergy Respiratory Verified 04/06/18 15:06 [From Thorazine] Distress gabapentin Allergy Anaphylactic Verified 04/06/18 15:06 Shock metoclopramide [From Reglan] Allergy Anaphylactic Verified 04/06/18 15:06 Shock ondansetron HCl [From Zofran] Allergy Respiratory Verified 04/06/18 15:06 Distress prochlorperazine edisylate Allergy Respiratory Verified 04/06/18 15:06 [From Compazine] Distress prochlorperazine maleate Allergy Respiratory Verified 04/06/18 15:06 [From Compazine] Distress temazepam [From Restoril] Allergy Headache Verified 04/06/18 15:06 Home Meds: Home Meds Esomeprazole Magnesium [Nexium 24Hr] 20 mg PO DAILY 10/18/17 [History] Potassium Chloride 20 meq PO DAILY 10/18/17 [History] hydrOXYzine pamoate [Vistaril] 50 mg PO TID PRN 10/18/17 [History] Scopolamine [Transderm-Scop] 1 each TD Q72H PRN 10/28/17 [History] PARoxetine HCl [Paxil] 20 mg PO DAILY 11/03/17 [History] Erenumab-Aooe [Aimovig Autoinjector] 70 mg SUBCUT Q30D 03/01/18 [History] Eszopiclone [Lunesta] 2 mg PO BEDTIME PRN 03/01/18 [History] Melatonin 10 mg PO BEDTIME PRN 03/01/18 [History] Ranitidine HCl [Zantac] 150 mg PO BID 03/01/18 [History] traZODone 100 mg PO BEDTIME PRN 03/01/18 [History] SUMAtriptan [Imitrex] 6 mg SUBCUT DAILY PRN vial 03/04/18 [Rx] Sucralfate [Carafate] 1 gm PO QIDACANDBED #120 cup 03/04/18 [Rx] Clotrimazole [Lotrimin AF 1% Crm] 30 gm TOP BID PRN 03/09/18 [History] Past Medical History HEENT History: Reports: Other (See Below) Other HEENT History: chronic headaches Cardiovascular History: Reports: Blood Clots/VTE/DVT Other Cardiovascular History: Hx palpitations. Hx DVT and pulmonary embolism. 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 Intractable chronic migraine headaches. Psychiatric History: Reports: Addiction, Depression Other Psychiatric History: Hx polypharmacy. Endocrine/Metabolic History: Reports: Hypothyroidism Hematologic History: Reports: Other (See Below) Other Hematologic History: low potassium Dermatologic History: Reports: Other (See Below) Other Dermatologic History: Open sores noted on bilateral arms, lower back - Infectious Disease History Infectious Disease History: Reports: Mumps - Past Surgical History Head Surgeries/Procedures: Reports: None GI Surgical History: Reports: Other (See Below) Other GI Surgeries/Procedures: removed part of stomach due to ulcers Female Surgical History: Reports: None Other Musculoskeletal Surgeries/Procedures:: Hip surgery May 2017 Social & Family History - Family History Family Medical History: Noncontributory - Tobacco Use Smoking Status *Q: Never Smoker - Caffeine Use Caffeine Use: Reports: None Other Caffeine Use: 3 sodas a day - Recreational Drug Use Recreational Drug Use: No ED ROS GENERAL - Review of Systems Review Of Systems: See Below Constitutional: Reports: No Symptoms HEENT: Reports: No Symptoms Respiratory: Reports: No Symptoms Cardiovascular: Reports: No Symptoms Endocrine: Reports: No Symptoms GI/Abdominal: Reports: No Symptoms : Reports: No Symptoms Musculoskeletal: Reports: No Symptoms Skin: Reports: No Symptoms Neurological: Reports: Headache Psychiatric: Reports: No Symptoms Hematologic/Lymphatic: Reports: No Symptoms Immunologic: Reports: No Symptoms ED EXAM, GENERAL - Physical Exam Exam: See Below Exam Limited By: No Limitations General Appearance: Alert, WD/WN, No Apparent Distress Eye Exam: Bilateral Eye: EOMI Ears: Normal External Exam, Hearing Grossly Normal Nose: Normal Inspection, Normal Mucosa, No Blood Throat/Mouth: Normal Inspection, Normal Lips, Normal Gums, Normal Oropharynx, Normal Voice, No Airway Compromise, Other (edentulous) Head: Atraumatic, Normocephalic Neck: Normal Inspection, Supple, Non-Tender, Full Range of Motion. No: Lymphadenopathy (R), Lymphadenopathy (L) Respiratory/Chest: No Respiratory Distress, Lungs Clear, Normal Breath Sounds, No Accessory Muscle Use, Chest Non-Tender Cardiovascular: Regular Rate, Rhythm, No Edema, No Gallop, No JVD, No Murmur, No Rub GI/Abdominal: Soft, Non-Tender Back Exam: Normal Inspection, Full Range of Motion, NT Extremities: Normal Inspection, Normal Range of Motion, Non-Tender, No Pedal Edema Neurological: Alert, Oriented, CN II-XII Intact, Normal Cognition, Normal Gait, No Motor/Sensory Deficits Psychiatric: Normal Affect, Normal Mood Skin Exam: Warm, Dry, Intact, Normal Color, No Rash Lymphatic: No Adenopathy Course - Vital Signs Last Recorded V/S: Last Vital Signs Temp 36.7 C 04/06/18 14:53 Pulse 102 H 04/06/18 14:53 Resp 18 04/06/18 14:53 BP 152/97 H 04/06/18 14:53 Pulse Ox 100 04/06/18 14:53 - Orders/Labs/Meds Meds: Medications Discontinued Medications Generic Name Dose Route Start Last Admin Trade Name Freq PRN Reason Stop Dose Admin Hydroxyzine HCl 100 mg 04/06/18 16:01 04/06/18 16:06 Vistaril IM 04/06/18 16:02 100 mg ONETIME ONE Administration Ketorolac Tromethamine 60 mg 04/06/18 16:01 04/06/18 16:06 Toradol IM 04/06/18 16:02 60 mg ONETIME ONE Administration - Re-Assessments/Exams Free Text/Narrative Re-Assessment/Exam: 04/06/18 16:49 MPMP reviewed, 2 rx's for controlled meds in past 12m: T-3 #10 and lorazepam 1 mg #10, both on 10-18-17 Departure - Departure Time of Disposition: 16:39 Disposition: Home, Self-Care 01 Condition: Good Clinical Impression: Chronic headache - Discharge Information *PRESCRIPTION DRUG MONITORING PROGRAM REVIEWED*: Not Applicable *COPY OF PRESCRIPTION DRUG MONITORING REPORT IN PATIENT [place]: Not Applicable Referrals: Jesse Gresham MD [Primary Care Provider] - Additional Instructions: Continue current meds. To break the pain cycle, take acetaminophen 325 mg 2 tabs and ibuprofen 200 mg 3 tabs 4 times a day for 2 days. Use ice for 10 minutes 4 times a day for 2 days. See your doctor next week.
== END 2018-04-06 16:45 | disposition home or self-care (01) ==
LOC: FB.ED 14:53
DX: R51 Headache (principal); Z79.899 Other long term (current) drug therapy; Z88.8 Allergy status to other drugs, medicaments and biological substances
CPT/HCPCS: 96372; 99282; J1885; J3410

== ENCOUNTER 2018-04-23 12:26 | Emergency (ER) | payer BC ==
[2012-12-19 14:15] VITALS: BP 92/60
--- NOTE | 2018-04-23 12:41 | EDM.PDOC ---
ED HPI GENERAL MEDICAL PROBLEM - General Stated Complaint: HEADACHE, WEIGHT LOSS Time Seen by Provider: 04/23/18 12:30 Source of Information: Reports: Patient - History of Present Illness INITIAL COMMENTS - FREE TEXT/NARRATIVE: pt with chronic daily HAs for years, comes with C/O of recurrent usual HAs / bilateral throbbing pain , denies fever chills , neck stiffness or recent head trauma or any associated neuro sx. pt has drug seeking behavier, and her PCP Dr Gresham has directed the ER not to prescrib her any Narcotics. pt here today was specifically asking for Buprenox and has no other medical concerns. - Related Data Allergies Allergy/AdvReac Type Severity Reaction Status Date / Time bupropion HCl Allergy Respiratory Verified 04/06/18 15:06 [From Wellbutrin] Distress chlorpromazine HCl Allergy Respiratory Verified 04/06/18 15:06 [From Thorazine] Distress gabapentin Allergy Anaphylactic Verified 04/06/18 15:06 Shock metoclopramide [From Reglan] Allergy Anaphylactic Verified 04/06/18 15:06 Shock ondansetron HCl [From Zofran] Allergy Respiratory Verified 04/06/18 15:06 Distress prochlorperazine edisylate Allergy Respiratory Verified 04/06/18 15:06 [From Compazine] Distress prochlorperazine maleate Allergy Respiratory Verified 04/06/18 15:06 [From Compazine] Distress temazepam [From Restoril] Allergy Headache Verified 04/06/18 15:06 Home Meds: Home Meds Esomeprazole Magnesium [Nexium 24Hr] 20 mg PO DAILY 10/18/17 [History] Potassium Chloride 20 meq PO DAILY 10/18/17 [History] hydrOXYzine pamoate [Vistaril] 50 mg PO TID PRN 10/18/17 [History] Scopolamine [Transderm-Scop] 1 each TD Q72H PRN 10/28/17 [History] PARoxetine HCl [Paxil] 20 mg PO DAILY 11/03/17 [History] Erenumab-Aooe [Aimovig Autoinjector] 70 mg SUBCUT Q30D 03/01/18 [History] Eszopiclone [Lunesta] 2 mg PO BEDTIME PRN 03/01/18 [History] Melatonin 10 mg PO BEDTIME PRN 03/01/18 [History] Ranitidine HCl [Zantac] 150 mg PO BID 03/01/18 [History] traZODone 100 mg PO BEDTIME PRN 03/01/18 [History] SUMAtriptan [Imitrex] 6 mg SUBCUT DAILY PRN vial 03/04/18 [Rx] Sucralfate [Carafate] 1 gm PO QIDACANDBED #120 cup 03/04/18 [Rx] Clotrimazole [Lotrimin AF 1% Crm] 30 gm TOP BID PRN 03/09/18 [History] Past Medical History HEENT History: Reports: Other (See Below) Other HEENT History: chronic headaches Cardiovascular History: Reports: Blood Clots/VTE/DVT Other Cardiovascular History: Hx palpitations. Hx DVT and pulmonary embolism. 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 Intractable chronic migraine headaches. Psychiatric History: Reports: Addiction, Depression Other Psychiatric History: Hx polypharmacy. Endocrine/Metabolic History: Reports: Hypothyroidism Hematologic History: Reports: Other (See Below) Other Hematologic History: low potassium Dermatologic History: Reports: Other (See Below) Other Dermatologic History: Open sores noted on bilateral arms, lower back - Infectious Disease History Infectious Disease History: Reports: Mumps - Past Surgical History Head Surgeries/Procedures: Reports: None GI Surgical History: Reports: Other (See Below) Other GI Surgeries/Procedures: removed part of stomach due to ulcers Female Surgical History: Reports: None Other Musculoskeletal Surgeries/Procedures:: Hip surgery May 2017 Social & Family History - Family History Family Medical History: Noncontributory - Caffeine Use Caffeine Use: Reports: None Other Caffeine Use: 3 sodas a day ED ROS GENERAL - Review of Systems Review Of Systems: See Below Constitutional: Reports: No Symptoms HEENT: Reports: No Symptoms Respiratory: Reports: No Symptoms Cardiovascular: Reports: No Symptoms GI/Abdominal: Reports: Anorexia, Nausea. Denies: Vomiting Musculoskeletal: Reports: No Symptoms Skin: Reports: No Symptoms Neurological: Reports: Headache. Denies: Numbness, Paresthesia, Pre-Existing Deficit, Seizure, Syncope, Tingling, Weakness ED EXAM, GENERAL - Physical Exam Exam: See Below Exam Limited By: No Limitations General Appearance: Alert, Mild Distress Ears: Normal TMs Nose: Normal Inspection, Normal Mucosa Throat/Mouth: Normal Inspection Head: Atraumatic, Normocephalic Neck: Normal Inspection, Supple, Non-Tender Respiratory/Chest: No Respiratory Distress, Lungs Clear, Normal Breath Sounds Cardiovascular: Normal Peripheral Pulses, Regular Rate, Rhythm GI/Abdominal: Normal Bowel Sounds, Soft, Non-Tender Neurological: Alert, Oriented, CN II-XII Intact, No Motor/Sensory Deficits. No : Confused, Abnormal Gait Psychiatric: Flat Affect Skin Exam: Warm, Normal Color Course - Vital Signs Text/Narrative:: pt has chronic condition/ chronic daily HAs, she is medically stable to follow on this issue with her PCP. pt has specific drug dependancy. she was given Vistaril and Toradol here, was asked to follow with Dr Gresham on the above issues. Departure - Departure Time of Disposition: 12:44 Disposition: Home, Self-Care 01 Clinical Impression: Chronic daily headache - Discharge Information Referrals: Jesse Gresham MD [Primary Care Provider] -
[2018-04-23] MEDS ORDERED: hydrOXYzine HCl 50 MG/ML SDV IM ONE (12:45)
[2018-04-23] MEDS ORDERED: Ketorolac 60 MG/2 ML SDV IM ONE (12:45)
[2018-04-23 17:14] VITALS: BP 120/94
== END 2018-04-23 13:10 | disposition home or self-care (01) ==
LOC: SUPCPDRO 12:26 → FB.ED 12:26
DX: R51 Headache (principal); F32.9 Major depressive disorder, single episode, unspecified; E03.9 Hypothyroidism, unspecified; Z88.8 Allergy status to other drugs, medicaments and biological substances; Z79.899 Other long term (current) drug therapy
CPT/HCPCS: 96372; 99283; J1885; J3410

== ENCOUNTER 2018-05-04 10:00 | Emergency (ER) | payer BC ==
--- NOTE | 2018-05-04 11:06 | EDM.PDOC ---
ED HPI GENERAL MEDICAL PROBLEM - General Chief Complaint: General Stated Complaint: headache Time Seen by Provider: 05/04/18 10:45 Source of Information: Reports: Patient, EMS, Old Records History Limitations: Reports: No Limitations - History of Present Illness INITIAL COMMENTS - FREE TEXT/NARRATIVE: Theresa comes back to [facility] ED with ongoing sxs of generalized headaches. She has been at the ED numerous times with similar sxs, without reported escalation of pain, vomiting, LOC or seizure activity. She did call who summoned EMS for the transport. Upon arrival, her VSS, alert, orientated and cooperative, and easily distractable. She is requesting refills of maintenance meds, and was advised to seek refills from her PCP. She also reports urinary frequency and some urgency. - Related Data Allergies Allergy/AdvReac Type Severity Reaction Status Date / Time bupropion HCl Allergy Respiratory Verified 04/06/18 15:06 [From Wellbutrin] Distress chlorpromazine HCl Allergy Respiratory Verified 04/06/18 15:06 [From Thorazine] Distress gabapentin Allergy Anaphylactic Verified 04/06/18 15:06 Shock metoclopramide [From Reglan] Allergy Anaphylactic Verified 04/06/18 15:06 Shock ondansetron HCl [From Zofran] Allergy Respiratory Verified 04/06/18 15:06 Distress prochlorperazine edisylate Allergy Respiratory Verified 04/06/18 15:06 [From Compazine] Distress prochlorperazine maleate Allergy Respiratory Verified 04/06/18 15:06 [From Compazine] Distress temazepam [From Restoril] Allergy Headache Verified 04/06/18 15:06 Home Meds: Home Meds Esomeprazole Magnesium [Nexium 24Hr] 20 mg PO DAILY 10/18/17 [History] Potassium Chloride 20 meq PO DAILY 10/18/17 [History] hydrOXYzine pamoate [Vistaril] 50 mg PO TID PRN 10/18/17 [History] Scopolamine [Transderm-Scop] 1 each TD Q72H PRN 10/28/17 [History] PARoxetine HCl [Paxil] 20 mg PO DAILY 11/03/17 [History] Erenumab-Aooe [Aimovig Autoinjector] 70 mg SUBCUT Q30D 03/01/18 [History] Eszopiclone [Lunesta] 2 mg PO BEDTIME PRN 03/01/18 [History] Melatonin 10 mg PO BEDTIME PRN 03/01/18 [History] Ranitidine HCl [Zantac] 150 mg PO BID 03/01/18 [History] traZODone 100 mg PO BEDTIME PRN 03/01/18 [History] SUMAtriptan [Imitrex] 6 mg SUBCUT DAILY PRN vial 03/04/18 [Rx] Sucralfate [Carafate] 1 gm PO QIDACANDBED #120 cup 03/04/18 [Rx] Clotrimazole [Lotrimin AF 1% Crm] 30 gm TOP BID PRN 03/09/18 [History] Sulfamethoxazole/Trimethoprim [Bactrim Ds Tablet] 1 each PO BID #10 tablet 05/04 [Rx] Past Medical History - Past Health History Medical/Surgical History: Denies Medical/Surgical History HEENT History: Reports: Other (See Below) Other HEENT History: chronic headaches Cardiovascular History: Reports: Blood Clots/VTE/DVT Other Cardiovascular History: Hx palpitations. Hx DVT and pulmonary embolism. 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 Intractable chronic migraine headaches. Psychiatric History: Reports: Addiction, Depression Other Psychiatric History: Hx polypharmacy. Endocrine/Metabolic History: Reports: Hypothyroidism Hematologic History: Reports: Other (See Below) Other Hematologic History: low potassium Dermatologic History: Reports: Other (See Below) Other Dermatologic History: Open sores noted on bilateral arms, lower back - Infectious Disease History Infectious Disease History: Reports: Mumps - Past Surgical History Head Surgeries/Procedures: Reports: None GI Surgical History: Reports: Other (See Below) Other GI Surgeries/Procedures: removed part of stomach due to ulcers Female Surgical History: Reports: None Other Musculoskeletal Surgeries/Procedures:: Hip surgery May 2017 Social & Family History - Family History Family Medical History: Noncontributory - Caffeine Use Caffeine Use: Reports: None Other Caffeine Use: 3 sodas a day ED ROS GENERAL - Review of Systems Review Of Systems: ROS reveals no pertinent complaints other than HPI. ED EXAM, GENERAL - Physical Exam Exam: See Below Exam Limited By: No Limitations General Appearance: Alert, WD/WN, No Apparent Distress, Thin Eye Exam: Bilateral Eye: EOMI, Normal Inspection, PERRL Ears: Normal External Exam, Normal TMs Nose: Normal Inspection Throat/Mouth: Normal Inspection, Normal Lips, Normal Oropharynx, Normal Voice, No Airway Compromise Head: Normocephalic, Other (limited occipital temporal tenderness) Neck: Normal Inspection, Supple, Full Range of Motion Respiratory/Chest: Lungs Clear, Normal Breath Sounds, Chest Non-Tender Cardiovascular: Regular Rate, Rhythm, No Murmur Back Exam: Normal Inspection Extremities: Normal Inspection Neurological: Alert, Oriented, CN II-XII Intact, Normal Cognition, Normal Gait, No Motor/Sensory Deficits Psychiatric: Normal Affect, Anxious Skin Exam: Warm, Dry, Intact, Normal Color, No Rash Lymphatic: No Adenopathy Course - Vital Signs Text/Narrative:: A review of screening labs remains baseline. The UA was abnormal, and a UC was set up. - Orders/Labs/Meds Orders: Active Orders 24 hr Category Date Time Status CULTURE URINE [RM] Stat Lab 05/04/18 11:01 Received Labs: Laboratory Tests 05/04/18 05/04/18 05/04/18 Range/Units 11:01 11:48 11:48 WBC 7.8 (4.5-12.0) X10-3/uL RBC 3.88 (3.23-5.20) x10(6)uL Hgb 10.9 L (11.5-15.5) g/dL Hct 33.4 (30.0-51.3) % MCV 86.0 (80-96) fL MCH 28.0 (27.7-33.6) pg MCHC 32.6 (32.2-35.4) g/dL RDW 16.5 H (11.5-15.5) % Plt Count 308 (125-369) X10(3)uL MPV 7.9 (7.4-10.4) fL Neut % (Auto) 79.6 (46-82) % Lymph % (Auto) 13.6 (13-37) % [place] % (Auto) 5.6 (4-12) % Eos % (Auto) 0 L (1.0-5.0) % Baso % (Auto) 1 (0-2) % Neut # (Auto) 6.2 (1.6-8.3) # Lymph # (Auto) 1.1 (0.6-5.0) # [place] # (Auto) 0.4 (0.0-1.3) # Eos # (Auto) 0.0 (0.0-0.8) # Baso # (Auto) 0.1 (0.0-0.2) # Sodium 140 (135-145) mmol/L Potassium 3.8 (3.5-5.3) mmol/L Chloride 105 (100-110) mmol/L Carbon Dioxide 24 (21-32) mmol/L BUN 5 L (7-18) mg/dL Creatinine 0.9 (0.55-1.02) mg/dL Est Cr Clr Drug Dosing TNP Estimated GFR (MDRD) > 60 (>60) BUN/Creatinine Ratio 5.6 L (9-20) Glucose 131 H (80-116) mg/dL Calcium 8.6 (8.6-10.2) mg/dL Urine Color Yellow (YELLOW) Urine Appearance Slightly cloudy (CLEAR) Urine pH 5.0 (5.0-6.5) Ur Specific [place] 1.020 (1.010-1.025) Urine Protein Negative (NEGATIVE) mg/dL Urine Glucose (UA) Normal (NORMAL) mg/dL Urine Ketones Negative (NEGATIVE) mg/dL Urine Occult Blood Large H (NEGATIVE) Urine Nitrite Positive H (NEGATIVE) Urine Bilirubin Negative (NEGATIVE) Urine Urobilinogen Normal (NEGATIVE) mg/dL Ur Leukocyte Esterase Large H (NEGATIVE) Urine RBC 30-40 H (0-5) Urine WBC 75-100 H (0-5) Ur Squamous Epith Cells Few H (NS,R,O) Urine Bacteria Many H (NS) Meds: Medications Discontinued Medications Generic Name Dose Route Start Last Admin Trade Name Freq PRN Reason Stop Dose Admin Heparin Sodium (Porcine) 500 units 05/04/18 12:18 Heparin Lock Flush 100 Units/Ml FLUSH 05/04/18 12:19 ASDIRECTED ONE Departure - Departure Time of Disposition: 12:33 Disposition: Home, Self-Care 01 Condition: Fair Clinical Impression: UTI, Urinary tract infectious disease - Discharge Information *PRESCRIPTION DRUG MONITORING PROGRAM REVIEWED*: Not Applicable *COPY OF PRESCRIPTION DRUG MONITORING REPORT IN PATIENT [place]: Not Applicable Prescriptions: Sulfamethoxazole/Trimethoprim [Bactrim Ds Tablet] 1 each PO BID #10 tablet Referrals: Jesse Gresham MD [Primary Care Provider] - Forms: ED Department Discharge - Problem List & Annotations (1) UTI, Urinary tract infectious disease SNOMED Code(s): 64204451 Code(s): N39.0 - URINARY TRACT INFECTION, SITE NOT SPECIFIED Status: Acute Current Visit: Yes Annotation/Comment:: I dispensed Bactrim DS bid for 5 days. - Problem List Review Problem List Initiated/Reviewed/Updated: Yes - My Orders Last 24 Hours: My Active Orders 05/04/18 11:01 CULTURE URINE [RM] Stat - Assessment/Plan Last 24 Hours: My Active Orders 05/04/18 11:01 CULTURE URINE [RM] Stat Plan: Follow up with PCP if needed.
[2018-05-04 17:43] VITALS: BP 158/96
== END 2018-05-04 13:00 | disposition home or self-care (01) ==
LOC: FB.ED 10:00
DX: N39.0 Urinary tract infection, site not specified (principal); F32.9 Major depressive disorder, single episode, unspecified; E03.9 Hypothyroidism, unspecified; Z88.8 Allergy status to other drugs, medicaments and biological substances; Z79.899 Other long term (current) drug therapy
CPT/HCPCS: 80048; 81001; 85025; 87086; 87088; 87186; 99283; J1642

== ENCOUNTER 2018-05-08 10:31 | Emergency (ER) | payer BC ==
[2018-05-08] MEDS ORDERED: Sodium Chloride 0.9% 10 ML Syringe FLUSH PRN (10:55)
--- NOTE | 2018-05-08 11:39 | EDM.PDOC ---
ED HPI GENERAL MEDICAL PROBLEM - General Stated Complaint: MENTAL STATUS Time Seen by Provider: 05/08/18 10:35 Source of Information: Reports: Patient, Family History Limitations: Reports: No Limitations - History of Present Illness INITIAL COMMENTS - FREE TEXT/NARRATIVE: c/o inc'd delusions and poor PO intake lives with parents, father had a TIA 3m ago, parents not as able to care for her as they have in the past pt "living on Coke" as per mother, will not eat the food her mother has prepared in the last several days, regular Coke has been losing wt has a port during the night she had inc'd confusion and delusions in ED 4d ago and had Kleb UTi, tx with Bactrim DS BID x 10d, to which it was sensitive, however not clear if she has been taking her meds with any consistency pt with ST [facility] and no change in past 3m last INR 1.44 from with new inc'd LFTs, will recheck along with ammonia level pt talking in complete sensitives, stating CORDOVA and N (almost as if by romel) and asking for bupinorephine NAD here except the ST Mg 1.6 when last checked, alb 2.7 from 4d ago with baselie 4.0 from 8m ago R frontal headache Pain Score (Numeric/FACES): 9 - Related Data Allergies Allergy/AdvReac Type Severity Reaction Status Date / Time bupropion HCl Allergy Respiratory Verified 05/08/18 10:48 [From Wellbutrin] Distress chlorpromazine HCl Allergy Respiratory Verified 05/08/18 10:48 [From Thorazine] Distress gabapentin Allergy Anaphylactic Verified 05/08/18 10:48 Shock metoclopramide [From Reglan] Allergy Anaphylactic Verified 05/08/18 10:48 Shock ondansetron HCl [From Zofran] Allergy Respiratory Verified 05/08/18 10:48 Distress prochlorperazine edisylate Allergy Respiratory Verified 05/08/18 10:48 [From Compazine] Distress prochlorperazine maleate Allergy Respiratory Verified 05/08/18 10:48 [From Compazine] Distress temazepam [From Restoril] Allergy Headache Verified 05/08/18 10:48 Home Meds: Home Meds Esomeprazole Magnesium [Nexium 24Hr] 20 mg PO DAILY 10/18/17 [History] Potassium Chloride 20 meq PO DAILY 10/18/17 [History] hydrOXYzine pamoate [Vistaril] 50 mg PO TID PRN 10/18/17 [History] Scopolamine [Transderm-Scop] 1 each TD Q72H PRN 10/28/17 [History] PARoxetine HCl [Paxil] 20 mg PO BEDTIME 11/03/17 [History] Erenumab-Aooe [Aimovig Autoinjector] 70 mg SUBCUT Q30D 03/01/18 [History] Eszopiclone [Lunesta] 2 mg PO BEDTIME PRN 03/01/18 [History] Melatonin 10 mg PO BEDTIME PRN 03/01/18 [History] Ranitidine HCl [Zantac] 150 mg PO BID 03/01/18 [History] traZODone 100 mg PO BEDTIME PRN 03/01/18 [History] SUMAtriptan [Imitrex] 6 mg SUBCUT DAILY PRN vial 03/04/18 [Rx] Sucralfate [Carafate] 1 gm PO QIDACANDBED #120 cup 03/04/18 [Rx] Clotrimazole [Lotrimin AF 1% Crm] 30 gm TOP BID PRN 03/09/18 [History] Sulfamethoxazole/Trimethoprim [Bactrim Ds Tablet] 1 each PO BID #10 tablet 05/04 [Rx] LORazepam 0.5 mg TID PRN 05/08/18 [History] Past Medical History - Past Health History Medical/Surgical History: Denies Medical/Surgical History HEENT History: Reports: None, Other (See Below) Other HEENT History: chronic headaches Cardiovascular History: Reports: Blood Clots/VTE/DVT Other Cardiovascular History: Hx palpitations. Hx DVT arm from plugged port. 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 Intractable chronic migraine headaches. Hx CVA x 7. Psychiatric History: Reports: Addiction, Depression, Psych Hospitalization(s) Other Psychiatric History: Hx polypharmacy. Endocrine/Metabolic History: Reports: Hypothyroidism Hematologic History: Reports: Anemia, Blood Transfusion(s), Other (See Below) Other Hematologic History: low potassium Dermatologic History: Reports: Decubitus Ulcer, Other (See Below) Other Dermatologic History: Open sores noted on bilateral arms, lower back - Infectious Disease History Infectious Disease History: Reports: Mumps - Past Surgical History Head Surgeries/Procedures: Reports: None HEENT Surgical History: Reports: Oral Surgery Cardiovascular Surgical History: Reports: None Respiratory Surgical History: Reports: None GI Surgical History: Reports: Colonoscopy, EGD, Other (See Below) Other GI Surgeries/Procedures: removed part of stomach due to ulcers Female Surgical History: Reports: None Endocrine Surgical History: Reports: None Neurological Surgical History: Reports: None Musculoskeletal Surgical History: Reports: Hip Replacement, ORIF Other Musculoskeletal Surgeries/Procedures:: bilat hip replacments, L ORIF Dermatological Surgical History: Reports: None Social & Family History - Family History Family Medical History: Noncontributory - Tobacco Use Smoking Status *Q: Never Smoker - Caffeine Use Caffeine Use: Reports: Soda Other Caffeine Use: 3 sodas a day - Recreational Drug Use Recreational Drug Use: No ED ROS GENERAL - Review of Systems Review Of Systems: See Below Constitutional: Reports: Weakness, Fatigue, Weight Loss. Denies: Fever, Chills HEENT: Reports: No Symptoms Respiratory: Reports: No Symptoms Cardiovascular: Reports: No Symptoms Endocrine: Reports: No Symptoms GI/Abdominal: Reports: Nausea : Reports: No Symptoms Musculoskeletal: Reports: No Symptoms Skin: Reports: No Symptoms Neurological: Reports: Confusion, Headache Psychiatric: Reports: Hallucinations Hematologic/Lymphatic: Reports: No Symptoms Immunologic: Reports: No Symptoms ED EXAM, GENERAL - Physical Exam Exam: See Below General Appearance: Alert, WD/WN, No Apparent Distress, Other (alert, talking complete sentences, good eye contact) Eye Exam: Bilateral Eye: Normal Inspection Ears: Normal External Exam, Normal Canal Nose: Normal Inspection, Normal Mucosa, No Blood Throat/Mouth: Normal Inspection, Normal Lips Head: Atraumatic Neck: Normal Inspection, Supple, Non-Tender, Full Range of Motion. No: Lymphadenopathy (R), Lymphadenopathy (L) Respiratory/Chest: No Respiratory Distress, Lungs Clear, Normal Breath Sounds, No Accessory Muscle Use, Chest Non-Tender Cardiovascular: No Edema, Other (mild tachy, regular, quiet precordium, 2/6 JAYLA at [facility]). No: Gallop/S3, Gallop/S4 GI/Abdominal: Soft, Non-Tender, No Distention Back Exam: Normal Inspection, Full Range of Motion Extremities: Other (emaciated, dec'd turgor without tenting, no edema) Neurological: Alert, CN II-XII Intact, No Motor/Sensory Deficits Skin Exam: Warm, Dry, Intact, Normal Color, No Rash Lymphatic: No Adenopathy Course - Vital Signs Last Recorded V/S: Last Vital Signs Temp 36.8 C 05/08/18 11:09 Pulse 118 H 05/08/18 10:31 Resp 20 05/08/18 11:09 BP 149/101 H 05/08/18 11:09 Pulse Ox 94 L 05/08/18 11:09 - Orders/Labs/Meds Orders: Active Orders 24 hr Category Date Time Status EKG Documentation Completion [RC] ASDIRECTED Care 05/08/18 11:10 Ordered AMMONIA, PLASMA Stat Lab 05/08/18 11:09 Ordered CULTURE BLOOD [BC] Urgent Lab 05/08/18 11:10 Ordered CULTURE BLOOD [BC] Urgent Lab 05/08/18 11:10 Ordered Blood Culture x2 Reflex Set [OM.PC] Urgent Oth 05/08/18 11:09 Ordered EKG 12 Lead [EK] Routine Ther 05/08/18 11:09 Ordered Labs: Laboratory Tests 05/08/18 05/08/18 05/08/18 Range/Units 10:55 10:55 10:55 WBC 6.9 (4.5-12.0) X10-3/uL RBC 3.95 (3.23-5.20) x10(6)uL Hgb 11.2 L (11.5-15.5) g/dL Hct 34.7 (30.0-51.3) % MCV 88.0 (80-96) fL MCH 28.4 (27.7-33.6) pg MCHC 32.2 (32.2-35.4) g/dL RDW 16.5 H (11.5-15.5) % Plt Count 282 (125-369) X10(3)uL MPV 7.5 (7.4-10.4) fL Neut % (Auto) 79.5 (46-82) % Lymph % (Auto) 15.2 (13-37) % [place] % (Auto) 4.1 (4-12) % Eos % (Auto) 1 (1.0-5.0) % Baso % (Auto) 0 (0-2) % Neut # (Auto) 5.5 (1.6-8.3) # Lymph # (Auto) 1.0 (0.6-5.0) # [place] # (Auto) 0.3 (0.0-1.3) # Eos # (Auto) 0.1 (0.0-0.8) # Baso # (Auto) 0.0 (0.0-0.2) # PT 14.3 H (8.7-11.1) INR 1.48 H (0.89-1.13) Sodium 138 (135-145) mmol/L Potassium 2.8 L* D (3.5-5.3) mmol/L Chloride 105 (100-110) mmol/L Carbon Dioxide 19 L (21-32) mmol/L BUN 4 L (7-18) mg/dL Creatinine 1.0 (0.55-1.02) mg/dL Est Cr Clr Drug Dosing 44.98 mL/min Estimated GFR (MDRD) 57 L (>60) BUN/Creatinine Ratio 4.0 L (9-20) Glucose 151 H (80-116) mg/dL Lactic Acid (0.4-2.2) mmol/L Calcium 8.2 L (8.6-10.2) mg/dL Magnesium 1.4 L (1.8-2.5) mg/dL Total Bilirubin 0.8 (0.1-1.3) mg/dL AST 29 H D (5-25) IU/L ALT 28 D (12-36) U/L Alkaline Phosphatase 201 H (56-112) IU/L Troponin I (<0.017-0.056) ng/mL C-Reactive Protein (0.5-0.9) mg/dL Total Protein 5.6 L (6.0-8.0) g/dL Albumin 3.1 L (3.2-4.6) g/dL Globulin 2.5 g/dL Albumin/Globulin Ratio 1.2 TSH, Ultra Sensitive (0.36-3.74) IU/mL Urine Color (YELLOW) Urine Appearance (CLEAR) Urine pH (5.0-6.5) Ur Specific [place] (1.010-1.025) Urine Protein (NEGATIVE) mg/dL Urine Glucose (UA) (NORMAL) mg/dL Urine Ketones (NEGATIVE) mg/dL Urine Occult Blood (NEGATIVE) Urine Nitrite (NEGATIVE) Urine Bilirubin (NEGATIVE) Urine Urobilinogen (NEGATIVE) mg/dL Ur Leukocyte Esterase (NEGATIVE) Urine RBC (0-5) Urine WBC (0-5) Ur Squamous Epith Cells (NS,R,O) Urine Bacteria (NS) Urine Opiates Screen (NEGATIVE) Ur Oxycodone Screen (NEGATIVE) Ur Propoxyphene Screen (NEGATIVE) Ur Barbituates Screen (NEGATIVE) Ur Tricyclics Screen (NEGATIVE) Ur Phencyclidine Scrn (NEGATIVE) Ur Amphetamine Screen (NEGATIVE) Urine MDMA Screen (NEGATIVE) U Benzodiazepines Scrn (NEGATIVE) U Cocaine Metab Screen (NEGATIVE) U Marijuana (THC) Screen (NEGATIVE) 05/08/18 05/08/18 05/08/18 Range/Units 10:55 10:55 11:42 WBC (4.5-12.0) X10-3/uL RBC (3.23-5.20) x10(6)uL Hgb (11.5-15.5) g/dL Hct (30.0-51.3) % MCV (80-96) fL MCH (27.7-33.6) pg MCHC (32.2-35.4) g/dL RDW (11.5-15.5) % Plt Count (125-369) X10(3)uL MPV (7.4-10.4) fL Neut % (Auto) (46-82) % Lymph % (Auto) (13-37) % [place] % (Auto) (4-12) % Eos % (Auto) (1.0-5.0) % Baso % (Auto) (0-2) % Neut # (Auto) (1.6-8.3) # Lymph # (Auto) (0.6-5.0) # [place] # (Auto) (0.0-1.3) # Eos # (Auto) (0.0-0.8) # Baso # (Auto) (0.0-0.2) # PT (8.7-11.1) INR (0.89-1.13) Sodium (135-145) mmol/L Potassium (3.5-5.3) mmol/L Chloride (100-110) mmol/L Carbon Dioxide (21-32) mmol/L BUN (7-18) mg/dL Creatinine (0.55-1.02) mg/dL Est Cr Clr Drug Dosing mL/min Estimated GFR (MDRD) (>60) BUN/Creatinine Ratio (9-20) Glucose (80-116) mg/dL Lactic Acid 1.8 (0.4-2.2) mmol/L Calcium (8.6-10.2) mg/dL Magnesium (1.8-2.5) mg/dL Total Bilirubin (0.1-1.3) mg/dL AST (5-25) IU/L ALT (12-36) U/L Alkaline Phosphatase (56-112) IU/L Troponin I < 0.017 L (<0.017-0.056) ng/mL C-Reactive Protein 1.4 H (0.5-0.9) mg/dL Total Protein (6.0-8.0) g/dL Albumin (3.2-4.6) g/dL Globulin g/dL Albumin/Globulin Ratio TSH, Ultra Sensitive 1.33 (0.36-3.74) IU/mL Urine Color Yellow (YELLOW) Urine Appearance Clear (CLEAR) Urine pH 5.0 (5.0-6.5) Ur Specific [place] 1.020 (1.010-1.025) Urine Protein Negative (NEGATIVE) mg/dL Urine Glucose (UA) Normal (NORMAL) mg/dL Urine Ketones Negative (NEGATIVE) mg/dL Urine Occult Blood Moderate H (NEGATIVE) Urine Nitrite Negative (NEGATIVE) Urine Bilirubin Moderate H (NEGATIVE) Urine Urobilinogen 4 H (NEGATIVE) mg/dL Ur Leukocyte Esterase Negative (NEGATIVE) Urine RBC 0-5 (0-5) Urine WBC 0-5 (0-5) Ur Squamous Epith Cells Few H (NS,R,O) Urine Bacteria Few H (NS) Urine Opiates Screen (NEGATIVE) Ur Oxycodone Screen (NEGATIVE) Ur Propoxyphene Screen (NEGATIVE) Ur Barbituates Screen (NEGATIVE) Ur Tricyclics Screen (NEGATIVE) Ur Phencyclidine Scrn (NEGATIVE) Ur Amphetamine Screen (NEGATIVE) Urine MDMA Screen (NEGATIVE) U Benzodiazepines Scrn (NEGATIVE) U Cocaine Metab Screen (NEGATIVE) U Marijuana (THC) Screen (NEGATIVE) 05/08/18 Range/Units 11:42 WBC (4.5-12.0) X10-3/uL RBC (3.23-5.20) x10(6)uL Hgb (11.5-15.5) g/dL Hct (30.0-51.3) % MCV (80-96) fL MCH (27.7-33.6) pg MCHC (32.2-35.4) g/dL RDW (11.5-15.5) % Plt Count (125-369) X10(3)uL MPV (7.4-10.4) fL Neut % (Auto) (46-82) % Lymph % (Auto) (13-37) % [place] % (Auto) (4-12) % Eos % (Auto) (1.0-5.0) % Baso % (Auto) (0-2) % Neut # (Auto) (1.6-8.3) # Lymph # (Auto) (0.6-5.0) # [place] # (Auto) (0.0-1.3) # Eos # (Auto) (0.0-0.8) # Baso # (Auto) (0.0-0.2) # PT (8.7-11.1) INR (0.89-1.13) Sodium (135-145) mmol/L Potassium (3.5-5.3) mmol/L Chloride (100-110) mmol/L Carbon Dioxide (21-32) mmol/L BUN (7-18) mg/dL Creatinine (0.55-1.02) mg/dL Est Cr Clr Drug Dosing mL/min Estimated GFR (MDRD) (>60) BUN/Creatinine Ratio (9-20) Glucose (80-116) mg/dL Lactic Acid (0.4-2.2) mmol/L Calcium (8.6-10.2) mg/dL Magnesium (1.8-2.5) mg/dL Total Bilirubin (0.1-1.3) mg/dL AST (5-25) IU/L ALT (12-36) U/L Alkaline Phosphatase (56-112) IU/L Troponin I (<0.017-0.056) ng/mL C-Reactive Protein (0.5-0.9) mg/dL Total Protein (6.0-8.0) g/dL Albumin (3.2-4.6) g/dL Globulin g/dL Albumin/Globulin Ratio TSH, Ultra Sensitive (0.36-3.74) IU/mL Urine Color (YELLOW) Urine Appearance (CLEAR) Urine pH (5.0-6.5) Ur Specific [place] (1.010-1.025) Urine Protein (NEGATIVE) mg/dL Urine Glucose (UA) (NORMAL) mg/dL Urine Ketones (NEGATIVE) mg/dL Urine Occult Blood (NEGATIVE) Urine Nitrite (NEGATIVE) Urine Bilirubin (NEGATIVE) Urine Urobilinogen (NEGATIVE) mg/dL Ur Leukocyte Esterase (NEGATIVE) Urine RBC (0-5) Urine WBC (0-5) Ur Squamous Epith Cells (NS,R,O) Urine Bacteria (NS) Urine Opiates Screen Negative (NEGATIVE) Ur Oxycodone Screen Negative (NEGATIVE) Ur Propoxyphene Screen Negative (NEGATIVE) Ur Barbituates Screen Negative (NEGATIVE) Ur Tricyclics Screen Negative (NEGATIVE) Ur Phencyclidine Scrn Negative (NEGATIVE) Ur Amphetamine Screen Negative (NEGATIVE) Urine MDMA Screen Negative (NEGATIVE) U Benzodiazepines Scrn Positive H (NEGATIVE) U Cocaine Metab Screen Negative (NEGATIVE) U Marijuana (THC) Screen Negative (NEGATIVE) - Re-Assessments/Exams Free Text/Narrative Re-Assessment/Exam: 05/08/18 13:16 labs back, Kleb UTi from 4d ago has cleared on oral TMP/SMX ds has dropped K 3.8 to 2.8 in 4d d/t caffeine abuse Mg 1.4 and low banana bag with 3 gm Mg and 20 meq Kcl is being sent over from pharmacy still [address] 115 d/t dehydration d/wo Dr Anderson at [facility] who accepted her in admission pt needs nutritional support, calorie counts, electrolyte replacement and fluid replacement she will need intermediate placement upon d/c to a intermodal customer service care facility pt has benefited form psych eval at [facility] including a longer term inpatient nutritional and psychiatric program which can be a consideration after medical stabilization pt and mother agree to transfer Departure - Departure Time of Disposition: 13:36 Disposition: DC/Tfer to Acute Hospital 02 Condition: Fair Clinical Impression: Hallucinations, Moderate dehydration, Sinus tachycardia, Noncompliance, Hypokalemia, Hypomagnesemia, Drug-seeking behavior, Malnutrition, Decreased oral intake, Excessive caffeine abuse, continuous - Discharge Information *PRESCRIPTION DRUG MONITORING PROGRAM REVIEWED*: Not Applicable *COPY OF PRESCRIPTION DRUG MONITORING REPORT IN PATIENT [place]: Not Applicable Referrals: Jesse Gresham MD [Primary Care Provider] - - My Orders Last 24 Hours: My Active Orders 05/08/18 11:09 AMMONIA, PLASMA Stat Blood Culture x2 Reflex Set [OM.PC] Urgent EKG 12 Lead [EK] Routine 05/08/18 11:10 EKG Documentation Completion [RC] ASDIRECTED CULTURE BLOOD [BC] Urgent CULTURE BLOOD [BC] Urgent - Assessment/Plan Last 24 Hours: My Active Orders 05/08/18 11:09 AMMONIA, PLASMA Stat Blood Culture x2 Reflex Set [OM.PC] Urgent EKG 12 Lead [EK] Routine 05/08/18 11:10 EKG Documentation Completion [RC] ASDIRECTED CULTURE BLOOD [BC] Urgent CULTURE BLOOD [BC] Urgent
[2018-05-08] MEDS ORDERED: Ketorolac 30 MG/ML SDV IVPUSH ONE (13:00)
[2018-05-08] MEDS ORDERED: hydrOXYzine HCl 50 MG/ML SDV IM ONE (13:00)
[2018-05-08] MEDS ORDERED: MVI, Adult with Vitamin K 10 ML, Thiamine 100 MG, Folic Acid 1 MG, Magnesium Sulfate 3 ... IV SCH ×12 (13:00→13:06)
[2018-05-08] MEDS ORDERED: Acetaminophen 500 MG Tab PO ONE (14:32)
[2018-05-08 15:04] VITALS: BP 155/101
== END 2018-05-08 14:45 ==
LOC: FB.ED 10:31
DX: E86.0 Dehydration (principal); R44.3 Hallucinations, unspecified; R00.0 Tachycardia, unspecified; E87.6 Hypokalemia; E83.42 Hypomagnesemia; E46 Unspecified protein-calorie malnutrition; F15.10 Other stimulant abuse, uncomplicated; Z91.19 Patient's noncompliance with other medical treatment and regimen; Z76.5 Malingerer [conscious simulation]; F32.9 Major depressive disorder, single episode, unspecified; K21.9 Gastro-esophageal reflux disease without esophagitis; E03.9 Hypothyroidism, unspecified; Z79.899 Other long term (current) drug therapy; Z88.8 Allergy status to other drugs, medicaments and biological substances
CPT/HCPCS: 36415; 80053; 80305; 81001; 82140; 83605; 83735; 84443; 84484; 85025; 85610; 86140; 87040; 93005; 96365; 96372; 96375; 99285; A9270; J1885; J3410; J3411; J3475; J3480; J7030; J3490

== ENCOUNTER 2018-05-25 16:14 | Emergency (ER) | payer BC ==
[2018-05-25] MEDS ORDERED: Sodium Chloride 0.9% 1,000 ML IV ONE (17:04)
--- NOTE | 2018-05-25 17:18 | EDM.PDOC ---
ED HPI GENERAL MEDICAL PROBLEM - General Chief Complaint: Headache Stated Complaint: SHAKY, FEELS UNWELL, fast heart rate, headache Time Seen by Provider: 05/25/18 16:35 Source of Information: Reports: Patient History Limitations: Reports: No Limitations - History of Present Illness INITIAL COMMENTS - FREE TEXT/NARRATIVE: 58-year-old female who presents with her mother with reports of headache, fast heart rate and not feeling well. She had told her mother that she was having fevers. Apparently the patient has been having intermittent confusion and delusions and was seen on 05/22/[address] Gresham and Dr. Gresham apparently told the mother to take the patient to [facility] on 05/23/2018 for evaluation. The patient apparently refused this and this morning, cooked breakfast and ate for egg which is unusual for the patient as she normally eats very little and only drinks pop. The mother reports that yesterday and today she seemed to be more herself and even today seemed to be better than she normally would be. This afternoon however she was complaining of the headache, fast heart rate and not feeling well and she also seemed to be somewhat confused and not herself. No vomiting. The patient complains of a headache that is a 10/10. It is pounding and throbbing as it usually is. Other reports that this is per her usual as she does have chronic headaches. She was initially seen in walk-in clinic where her heart rate was 112 and her blood pressure was 145/112 and they sent her here for further evaluation. The patient is alert and conversant with me but she does seem somewhat sent agitated. She is oriented to person and place but not to date. She does know that it is May. She was also recently here in this emergency department on 05/08/2018 and was sent to [facility] for admission. She apparently was admitted there for 5 days and treated for dehydration and discharged. There are no other associated signs or symptoms. There are no other modifying factors. Onset: Other (As above) Duration: Constant Location: Reports: Head Quality: Reports: Ache, Throbbing Severity: Severe (But no real difference from previous except she feels the headache is more severe.) Improves with: Reports: None Worsens with: Reports: None Associated Symptoms: Reports: Headaches, Nausea/Vomiting (Nausea but no vomiting.), Other (Fast heart rate) Treatments COMPOSITION PROFESSOR: Reports: Other (see below) Other Treatments COMPOSITION PROFESSOR: Nothing. R headache Pain Score (Numeric/FACES): 8 - Related Data Allergies Allergy/AdvReac Type Severity Reaction Status Date / Time bupropion HCl Allergy Respiratory Verified 05/25/18 16:26 [From Wellbutrin] Distress chlorpromazine HCl Allergy Respiratory Verified 05/25/18 16:26 [From Thorazine] Distress gabapentin Allergy Anaphylactic Verified 05/25/18 16:26 Shock metoclopramide [From Reglan] Allergy Anaphylactic Verified 05/25/18 16:26 Shock ondansetron HCl [From Zofran] Allergy Respiratory Verified 05/25/18 16:26 Distress prochlorperazine edisylate Allergy Respiratory Verified 05/25/18 16:26 [From Compazine] Distress prochlorperazine maleate Allergy Respiratory Verified 05/25/18 16:26 [From Compazine] Distress temazepam [From Restoril] Allergy Headache Verified 05/25/18 16:26 Home Meds: Home Meds Esomeprazole Magnesium [Nexium 24Hr] 20 mg PO DAILY 10/18/17 [History] Potassium Chloride 20 meq PO DAILY 10/18/17 [History] hydrOXYzine pamoate [Vistaril] 50 mg PO TID PRN 10/18/17 [History] Scopolamine [Transderm-Scop] 1 each TD Q72H PRN 10/28/17 [History] PARoxetine HCl [Paxil] 20 mg PO BEDTIME 11/03/17 [History] Erenumab-Aooe [Aimovig Autoinjector] 70 mg SUBCUT Q30D 03/01/18 [History] Eszopiclone [Lunesta] 2 mg PO BEDTIME PRN 03/01/18 [History] Melatonin 10 mg PO BEDTIME PRN 03/01/18 [History] Ranitidine HCl [Zantac] 150 mg PO BID 03/01/18 [History] traZODone 100 mg PO BEDTIME PRN 03/01/18 [History] SUMAtriptan [Imitrex] 6 mg SUBCUT DAILY PRN vial 03/04/18 [Rx] Sucralfate [Carafate] 1 gm PO QIDACANDBED #120 cup 03/04/18 [Rx] Sulfamethoxazole/Trimethoprim [Bactrim Ds Tablet] 1 each PO BID #10 tablet 05/04 [Rx] LORazepam 0.5 mg TID PRN 05/08/18 [History] Magnesium Oxide 400 mg PO DAILY #30 tab 05/25/18 [Rx] Past Medical History Other HEENT History: chronic headaches Cardiovascular History: Reports: Blood Clots/VTE/DVT Other Cardiovascular History: Hx palpitations. Hx DVT arm from plugged port. 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 Intractable chronic migraine headaches. Hx CVA x 7. Psychiatric History: Reports: Addiction, Anxiety, Depression, Psych Hospitalization(s) Other Psychiatric History: Hx polypharmacy. Endocrine/Metabolic History: Reports: Hypothyroidism Hematologic History: Reports: Anemia, Blood Transfusion(s), Other (See Below) Other Hematologic History: low potassium Dermatologic History: Reports: Decubitus Ulcer, Other (See Below) Other Dermatologic History: Open sores noted on bilateral arms, lower back - Infectious Disease History Infectious Disease History: Reports: Mumps - Past Surgical History Head Surgeries/Procedures: Reports: None HEENT Surgical History: Reports: Oral Surgery Cardiovascular Surgical History: Reports: None Respiratory Surgical History: Reports: None GI Surgical History: Reports: Colonoscopy, EGD, Other (See Below) Other GI Surgeries/Procedures: removed part of stomach due to ulcers Female Surgical History: Reports: None Endocrine Surgical History: Reports: None Neurological Surgical History: Reports: None Musculoskeletal Surgical History: Reports: Hip Replacement, ORIF Other Musculoskeletal Surgeries/Procedures:: bilat hip replacments, L ORIF Dermatological Surgical History: Reports: None Social & Family History - Tobacco Use Smoking Status *Q: Never Smoker - Caffeine Use Caffeine Use: Reports: Soda Other Caffeine Use: 3 sodas a day - Alcohol Use Alcohol Use History: No - Recreational Drug Use Recreational Drug Use: No - Living Situation & Occupation Occupation: Unemployed Social History Comment: Lives at home with her mother and father. Her mother is here with her today. ED ROS GENERAL - Review of Systems Review Of Systems: See Below Constitutional: Reports: Malaise, Weakness, Fatigue HEENT: Reports: Other (Dry mouth) Respiratory: Reports: No Symptoms Cardiovascular: Reports: Palpitations (With fast heart rate.) Endocrine: Reports: No Symptoms GI/Abdominal: Reports: Abdominal Pain (Chronic), Nausea (Chronic) : Reports: No Symptoms Musculoskeletal: Reports: No Symptoms Skin: Reports: No Symptoms Neurological: Reports: Headache (Chronic) Psychiatric: Reports: Anxiety, Other (Otherwise as above) Hematologic/Lymphatic: Denies: Easy Bleeding Immunologic: Reports: No Symptoms ED EXAM, GENERAL - Physical Exam Exam: See Below Exam Limited By: No Limitations General Appearance: Alert, No Apparent Distress, Cachetic Eye Exam: Bilateral Eye: EOMI, PERRL Ears: Normal External Exam, Hearing Grossly Normal Nose: Normal Inspection, Normal Mucosa, No Blood Throat/Mouth: Normal Inspection, Normal Voice Head: Atraumatic, Normocephalic Neck: Normal Inspection, Supple, Non-Tender, Full Range of Motion Respiratory/Chest: No Respiratory Distress, Lungs Clear, Normal Breath Sounds, No Accessory Muscle Use, Chest Non-Tender Cardiovascular: Normal Peripheral Pulses, No Edema, No JVD, Tachycardia (Mild) Peripheral Pulses: 2+: Radial (L), Radial (R) GI/Abdominal: Normal Bowel Sounds, Soft, Non-Tender, No Organomegaly, No Mass Back Exam: Normal Inspection Extremities: Normal Inspection, Normal Range of Motion, Normal Capillary Refill Neurological: Alert, CN II-XII Intact, Disoriented (to day of week and date at oriented to month and people), Abnormal Gait (Somewhat ataxic gait but I am told this is her normal.) Psychiatric: Anxious Skin Exam: Warm, Dry, Intact, Normal Color, No Rash Lymphatic: No Adenopathy EKG INTERPRETATION EKG Date: 05/25/18 Time: 17:31 Rhythm: NSR Rate (Beats/Min): 106 Dewitt: LAD-Left Dewitt Deviation (Borderline LAD) P-Wave: Present QRS: Normal ST-T: Other (Diffuse nonspecific ST-T changes that are unchanged from previous.) QT: Prolonged Comparison: No Change (No change from previous EKG on 05/08/2018 except heart rate is improved.) Course - Vital Signs Last Recorded V/S: Last Vital Signs Temp 36.4 C 05/25/18 16:20 Pulse 100 05/25/18 17:50 Resp 18 05/25/18 17:50 BP 172/100 H 05/25/18 17:50 Pulse Ox 100 05/25/18 17:50 - Orders/Labs/Meds Orders: Active Orders 24 hr Category Date Time Status Cardiac Monitoring [RC] .As Directed Care 05/25/18 17:03 Active EKG Documentation Completion [RC] ASDIRECTED Care 05/25/18 17:03 Active Head wo Cont [CT] Stat Exams 05/25/18 17:31 Ordered Potassium Chloride [Klor-Con] Med 05/25/18 18:15 Active 40 meq PO ASDIRECTED Sodium Chloride 0.9% [Saline Flush] Med 05/25/18 17:03 Active 10 ml FLUSH ASDIRECTED PRN Peripheral IV Insertion Adult [OM.PC] Routine Oth 05/25/18 17:03 Ordered EKG 12 Lead [EK] Routine Ther 05/25/18 17:02 Ordered Medication Orders Potassium Chloride (Klor-Con) 40 meq PO ASDIRECTED DOMINIQUE Last Admin: 05/25/18 18:43 Dose: 40 meq Sodium Chloride (Saline Flush) 10 ml FLUSH ASDIRECTED PRN PRN Reason: Keep Vein Open Last Admin: 05/25/18 17:28 Dose: 10 ml Labs: Laboratory Tests 05/25/18 05/25/18 05/25/18 Range/Units 17:28 17:28 17:28 WBC 7.5 (4.5-12.0) X10-3/uL RBC 4.02 (3.23-5.20) x10(6)uL Hgb 11.7 (11.5-15.5) g/dL Hct 35.8 (30.0-51.3) % MCV 89.2 (80-96) fL MCH 29.1 (27.7-33.6) pg MCHC 32.6 (32.2-35.4) g/dL RDW 18.7 H (11.5-15.5) % Plt Count 315 (125-369) X10(3)uL MPV 7.9 (7.4-10.4) fL Neut % (Auto) 63.9 (46-82) % Lymph % (Auto) 28.4 (13-37) % Emmons % (Auto) 5.4 (4-12) % Eos % (Auto) 2 (1.0-5.0) % Baso % (Auto) 0 (0-2) % Neut # (Auto) 4.9 (1.6-8.3) # Lymph # (Auto) 2.1 (0.6-5.0) # Emmons # (Auto) 0.4 (0.0-1.3) # Eos # (Auto) 0.1 (0.0-0.8) # Baso # (Auto) 0.0 (0.0-0.2) # PT (8.7-11.1) INR (0.89-1.13) APTT (24.4-33.2) SECONDS Sodium 142 (135-145) mmol/L Potassium 2.9 L (3.5-5.3) mmol/L Chloride 105 (100-110) mmol/L Carbon Dioxide 23 (21-32) mmol/L BUN 9 (7-18) mg/dL Creatinine 0.7 (0.55-1.02) mg/dL Est Cr Clr Drug Dosing 51.41 mL/min Estimated GFR (MDRD) > 60 (>60) BUN/Creatinine Ratio 12.9 (9-20) Glucose 126 H (80-116) mg/dL Calcium 8.4 L (8.6-10.2) mg/dL Magnesium 1.6 L (1.8-2.5) mg/dL Total Bilirubin 0.5 (0.1-1.3) mg/dL AST 33 H D (5-25) IU/L ALT 30 (12-36) U/L Alkaline Phosphatase 148 H (56-112) IU/L Troponin I < 0.017 L (<0.017-0.056) ng/mL C-Reactive Protein (0.5-0.9) mg/dL Total Protein 5.9 L (6.0-8.0) g/dL Albumin 3.2 (3.2-4.6) g/dL Globulin 2.7 g/dL Albumin/Globulin Ratio 1.2 05/25/18 05/25/18 Range/Units 17:28 17:28 WBC (4.5-12.0) X10-3/uL RBC (3.23-5.20) x10(6)uL Hgb (11.5-15.5) g/dL Hct (30.0-51.3) % MCV (80-96) fL MCH (27.7-33.6) pg MCHC (32.2-35.4) g/dL RDW (11.5-15.5) % Plt Count (125-369) X10(3)uL MPV (7.4-10.4) fL Neut % (Auto) (46-82) % Lymph % (Auto) (13-37) % Emmons % (Auto) (4-12) % Eos % (Auto) (1.0-5.0) % Baso % (Auto) (0-2) % Neut # (Auto) (1.6-8.3) # Lymph # (Auto) (0.6-5.0) # Emmons # (Auto) (0.0-1.3) # Eos # (Auto) (0.0-0.8) # Baso # (Auto) (0.0-0.2) # PT 11.1 (8.7-11.1) INR 1.14 H (0.89-1.13) APTT 34.1 H (24.4-33.2) SECONDS Sodium (135-145) mmol/L Potassium (3.5-5.3) mmol/L Chloride (100-110) mmol/L Carbon Dioxide (21-32) mmol/L BUN (7-18) mg/dL Creatinine (0.55-1.02) mg/dL Est Cr Clr Drug Dosing mL/min Estimated GFR (MDRD) (>60) BUN/Creatinine Ratio (9-20) Glucose (80-116) mg/dL Calcium (8.6-10.2) mg/dL Magnesium (1.8-2.5) mg/dL Total Bilirubin (0.1-1.3) mg/dL AST (5-25) IU/L ALT (12-36) U/L Alkaline Phosphatase (56-112) IU/L Troponin I (<0.017-0.056) ng/mL C-Reactive Protein < 0.2 L (0.5-0.9) mg/dL Total Protein (6.0-8.0) g/dL Albumin (3.2-4.6) g/dL Globulin g/dL Albumin/Globulin Ratio Meds: Medications Generic Name Dose Route Start Last Admin Trade Name Kyung PRN Reason Stop Dose Admin Potassium Chloride 40 meq 05/25/18 18:15 05/25/18 18:43 Klor-Con PO 40 meq ASDIRECTED DOMINIQUE Administration Sodium Chloride 10 ml 05/25/18 17:03 05/25/18 17:28 Saline Flush FLUSH 10 ml ASDIRECTED PRN Administration Keep Vein Open Discontinued Medications Generic Name Dose Route Start Last Admin Trade Name Edmondq PRN Reason Stop Dose Admin Heparin Sodium (Porcine) 500 units 05/25/18 19:12 Heparin Lock Flush 100 Units/Ml FLUSH 05/25/18 19:13 ONETIME ONE Sodium Chloride 1,000 mls @ 999 mls/hr 05/25/18 17:04 05/25/18 17:40 Normal Saline IV 05/25/18 18:04 999 mls/hr .BOLUS ONE Administration Magnesium Sulfate 2 gm/ Premix 50 mls @ 150 mls/hr 05/25/18 18:15 05/25/18 18 :35 IV 05/25/18 18:34 150 mls/hr ONETIME ONE Administration Lorazepam 0.5 mg 05/25/18 18:39 05/25/18 18:57 Ativan IVPUSH 05/25/18 18:40 0.5 mg ONETIME ONE Administration - Radiology Interpretation Free Text/Narrative:: CT scan of head shows no acute changes from CT in 2016 per the radiologist. - Re-Assessments/Exams Free Text/Narrative Re-Assessment/Exam: 05/25/18 19:15: The patient's lab tests show hypokalemia with potassium of 2.9 and hypomagnesemia with a magnesium of 1.6. The remainder of her labs are normal /improved from 05/08/2018. The patient has received 40 mg once of oral potassium and 2 g of magnesium IV. She has also received 1 L of normal saline over an hour. She has also received Ativan 0.5 mg IV. Currently her pulse is 97. Her blood pressure is 161/92. She has ambulated to the bathroom without difficulty. She is more bright and coherent. She no longer appears confused. Her mother feels that the patient is improved. The plan is to discharge the patient now and the mother and the patient are in agreement with this plan. I have strongly recommended that the patient follow Dr. Gresham's recommendations about [facility] and she is also encouraged to follow up with Dr. Gresham tomorrow. I told the mother to make sure that the patient takes potassium, 20 mEq twice daily. I am also placing the patient on magnesium oxide. The patient is encouraged to eat 3 well balanced meals a day. Departure - Departure Time of Disposition: 19:21 Disposition: Home, Self-Care 01 Condition: Good Clinical Impression: Hypomagnesemia, Hypokalemia, Mild dehydration, Organic brain syndrome (chronic) Chronic headache Qualifiers: Headache type: unspecified Intractability: not intractable Qualified Code(s): R51 - Headache - Discharge Information Prescriptions: Magnesium Oxide 400 mg PO DAILY #30 tab Instructions: Dehydration, Adult Referrals: Jesse Gresham MD [Primary Care Provider] - Forms: ED Department Discharge Additional Instructions: Your potassium and magnesium were again low. I did give you some replacement of her potassium and magnesium in the emergency department. He will need to take your potassium, 20 mEq, twice daily. I will also give you a prescription for magnesium oxide to help replace your magnesium. He were also given IV fluids because of some mild dehydration. You should drink plenty of fluids. You should try to eat 3 well balanced meals a day. Follow-up with Dr. Gresham tomorrow to try to help facilitate evaluation at [facility] that was recommended by him. - My Orders Last 24 Hours: My Active Orders 05/25/18 17:02 EKG 12 Lead [EK] Routine 05/25/18 17:03 Cardiac Monitoring [RC] .As Directed EKG Documentation Completion [RC] ASDIRECTED Sodium Chloride 0.9% [Saline Flush] 10 ml FLUSH ASDIRECTED PRN Peripheral IV Insertion Adult [OM.PC] Routine 05/25/18 17:31 Head wo Cont [CT] Stat 05/25/18 18:15 Potassium Chloride [Klor-Con] 40 meq PO ASDIRECTED - Assessment/Plan Last 24 Hours: My Active Orders 05/25/18 17:02 EKG 12 Lead [EK] Routine 05/25/18 17:03 Cardiac Monitoring [RC] .As Directed EKG Documentation Completion [RC] ASDIRECTED Sodium Chloride 0.9% [Saline Flush] 10 ml FLUSH ASDIRECTED PRN Peripheral IV Insertion Adult [OM.PC] Routine 05/25/18 17:31 Head wo Cont [CT] Stat 05/25/18 18:15 Potassium Chloride [Klor-Con] 40 meq PO ASDIRECTED
[2018-05-25] MEDS: Sodium Chloride 0.9% 10 ML Syringe FLUSH PRN ×2 (17:28→19:20)
[2018-05-25] MEDS ORDERED: Magnesium Sulfate/Water 2 GM in Premix Bag 1 BAG IV ONE (18:15)
[2018-05-25] MEDS ORDERED: Potassium Chloride 20 MEQ Packet PO SCH (18:15)
[2018-05-25] MEDS ORDERED: LORazepam 2 MG/ML SDV IVPUSH ONE (18:39)
[2018-05-25 19:31] VITALS: BP 161/92
--- NOTE | 2018-05-26 10:39 | CT ---
INDICATION: Headache, right temporal, times five weeks, confusion. CT HEAD WITHOUT CONTRAST: Spiral examination of the brain was obtained axially with sagittal and coronal reconstructions, 05/25/18, and compared with [place] images from 05/05/16. Total exam DLP = 1,451.16 mGy-cm. A large area of encephalomalacia is noted in the left frontal lobe, extending from the inferior portion cranially to a moderate degree. No other abnormal areas of density could be identified - no bleeding site or hematoma was seen. Specifically, no temporal abnormality was identified to suggest an etiology for the patients right temporal pain. Calcifications are noted in the internal carotid arteries, as previously. The orbits appear to be unremarkable. Paranasal sinuses and mastoid air cells are well-aerated. No cranial abnormality was identified. IMPRESSION: 1. Stable CT brain. No acute intracranial abnormality is identified. 2. Area of encephalomalacia left frontal lobe again noted, unchanged. 3. Internal carotid artery calcifications are again noted. Report was called to Dr. Ricki Padilla at 1802 hours on 05/25/18. [facility]
== END 2018-05-25 19:35 | disposition home or self-care (01) ==
LOC: FB.ED 16:14
DX: E83.42 Hypomagnesemia (principal); E87.6 Hypokalemia; E86.0 Dehydration; F09 Unspecified mental disorder due to known physiological condition; R51 Headache; E03.9 Hypothyroidism, unspecified; F41.9 Anxiety disorder, unspecified; F32.9 Major depressive disorder, single episode, unspecified; Z88.8 Allergy status to other drugs, medicaments and biological substances; Z79.899 Other long term (current) drug therapy
CPT/HCPCS: 36415; 70450; 80053; 83735; 84484; 85025; 85610; 85730; 86140; 93005; 96361; 96365; 96375; 99284; A9270; J1642; J2060; J3475; J7030

== ENCOUNTER 2018-10-30 11:49 | Emergency (ER) | payer BC ==
--- NOTE | 2018-10-30 12:11 | EDM.PDOC ---
ED HPI GENERAL MEDICAL PROBLEM - General Chief Complaint: General Stated Complaint: SWOLLEN LEGS; HIGH BP Time Seen by Provider: 10/30/18 11:49 Source of Information: Reports: Patient, Family History Limitations: Reports: No Limitations - History of Present Illness INITIAL COMMENTS - FREE TEXT/NARRATIVE: 58 y.o.w.f came to the ed requesting Lab test for her heart and thyroid, which was not done yesterday her PMD office. Pt had a full W/U yesterday for the pitting edema of her lower extremities. No N/V/D, fnp C/P no SOB or any other acute med issues. BP 125/74 RR 17 Pulse ox 100% on RA Temp 36.8 Pulse 65 Onset Date: 10/25/18 Onset Time: 08:00 Duration: Day(s):, Intermittent Location: Reports: Lower Extremity, Left, Lower Extremity, Right Quality: Reports: Same as Previous Episode Severity: Mild Improves with: Reports: Other (elevation of legs) Worsens with: Reports: Other (standimng) Context: Reports: Other Associated Symptoms: Reports: No Other Symptoms - Related Data Allergies Allergy/AdvReac Type Severity Reaction Status Date / Time bupropion HCl Allergy Respiratory Verified 10/30/18 11:59 [From Wellbutrin] Distress chlorpromazine HCl Allergy Respiratory Verified 10/30/18 11:59 [From Thorazine] Distress gabapentin Allergy Anaphylactic Verified 10/30/18 11:59 Shock metoclopramide [From Reglan] Allergy Anaphylactic Verified 10/30/18 11:59 Shock ondansetron HCl [From Zofran] Allergy Respiratory Verified 10/30/18 11:59 Distress prochlorperazine edisylate Allergy Respiratory Verified 10/30/18 11:59 [From Compazine] Distress prochlorperazine maleate Allergy Respiratory Verified 10/30/18 11:59 [From Compazine] Distress temazepam [From Restoril] Allergy Headache Verified 10/30/18 11:59 Home Meds: Home Meds Esomeprazole Magnesium [Nexium 24Hr] 20 mg PO DAILY 10/18/17 [History] Potassium Chloride 20 meq PO DAILY 10/18/17 [History] hydrOXYzine pamoate [Vistaril] 50 mg PO TID PRN 10/18/17 [History] Scopolamine [Transderm-Scop] 1 each TD Q72H PRN 10/28/17 [History] PARoxetine HCl [Paxil] 20 mg PO BEDTIME 11/03/17 [History] Erenumab-Aooe [Aimovig Autoinjector] 70 mg SUBCUT Q30D 03/01/18 [History] Eszopiclone [Lunesta] 2 mg PO BEDTIME PRN 03/01/18 [History] Melatonin 10 mg PO BEDTIME PRN 03/01/18 [History] raNITIdine HCl [Zantac] 150 mg PO BID 03/01/18 [History] traZODone 100 mg PO BEDTIME PRN 03/01/18 [History] SUMAtriptan [Imitrex] 6 mg SUBCUT DAILY PRN vial 03/04/18 [Rx] Sucralfate [Carafate] 1 gm PO QIDACANDBED #120 cup 03/04/18 [Rx] Sulfamethoxazole/Trimethoprim [Bactrim Ds Tablet] 1 each PO BID #10 tablet 05/04 [Rx] LORazepam 0.5 mg TID PRN 05/08/18 [History] Magnesium Oxide 400 mg PO DAILY #30 tab 05/25/18 [Rx] Past Medical History - Past Health History Medical/Surgical History: Denies Medical/Surgical History HEENT History: Reports: None, Other (See Below) Other HEENT History: chronic headaches Cardiovascular History: Reports: Blood Clots/VTE/DVT Other Cardiovascular History: Hx palpitations. Hx DVT arm from plugged port. 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 Intractable chronic migraine headaches. Hx CVA x 7. Psychiatric History: Reports: Addiction, Anxiety, Depression, Psych Hospitalization(s) Other Psychiatric History: Hx polypharmacy. Endocrine/Metabolic History: Reports: Hypothyroidism Hematologic History: Reports: Anemia, Blood Transfusion(s), Other (See Below) Other Hematologic History: low potassium Dermatologic History: Reports: Decubitus Ulcer, Other (See Below) Other Dermatologic History: Open sores noted on bilateral arms, lower back - Infectious Disease History Infectious Disease History: Reports: Mumps - Past Surgical History Head Surgeries/Procedures: Reports: None HEENT Surgical History: Reports: Oral Surgery Cardiovascular Surgical History: Reports: None Respiratory Surgical History: Reports: None GI Surgical History: Reports: Colonoscopy, EGD, Other (See Below) Other GI Surgeries/Procedures: removed part of stomach due to ulcers Female Surgical History: Reports: None Endocrine Surgical History: Reports: None Neurological Surgical History: Reports: None Musculoskeletal Surgical History: Reports: Hip Replacement, ORIF Other Musculoskeletal Surgeries/Procedures:: bilat hip replacments, L ORIF Dermatological Surgical History: Reports: None Social & Family History - Family History Family Medical History: Noncontributory - Caffeine Use Caffeine Use: Reports: Soda Other Caffeine Use: 3 sodas a day - Living Situation & Occupation Occupation: Unemployed ED ROS GENERAL - Review of Systems Review Of Systems: See Below Constitutional: Reports: No Symptoms HEENT: Reports: No Symptoms Respiratory: Reports: No Symptoms Cardiovascular: Reports: No Symptoms Endocrine: Reports: No Symptoms GI/Abdominal: Reports: No Symptoms : Reports: No Symptoms Musculoskeletal: Reports: No Symptoms Skin: Reports: No Symptoms Neurological: Reports: No Symptoms Psychiatric: Reports: No Symptoms Hematologic/Lymphatic: Reports: No Symptoms Immunologic: Reports: No Symptoms ED EXAM, GENERAL - Physical Exam Exam: See Below Exam Limited By: No Limitations General Appearance: Alert, WD/WN, Mild Distress, Thin Eye Exam: Bilateral Eye: Normal Inspection Ears: Normal External Exam Ear Exam: Bilateral Ear: Auricle Normal Nose: Normal Inspection, Normal Mucosa Throat/Mouth: Normal Lips, Normal Voice, No Airway Compromise, Other (poor dentition) Head: Atraumatic, Normocephalic Neck: Normal Inspection, Supple, Non-Tender, Full Range of Motion Respiratory/Chest: No Respiratory Distress, Lungs Clear, Normal Breath Sounds, Chest Non-Tender Cardiovascular: Normal Peripheral Pulses, Regular Rate, Rhythm, Other (1+ pitting lower leg edema) Peripheral Pulses: 1+: Carotid (R) GI/Abdominal: Normal Bowel Sounds, Soft, Non-Tender, No Abnormal Bruit, No Mass (Female) Exam: Deferred Rectal (Female) Exam: Deferred Back Exam: Normal Inspection, Full Range of Motion Extremities: Normal Inspection, Normal Range of Motion, Non-Tender, Normal Capillary Refill Neurological: Alert, Oriented, CN II-XII Intact, Normal Cognition, Normal Gait Psychiatric: Normal Affect, Normal Mood Skin Exam: Warm, Dry, Intact, Normal Color, No Rash Lymphatic: No Adenopathy Course - Vital Signs Text/Narrative:: 58 y.o.w.f came to the ed requesting Lab test for her heart and thyroid, which was not done yesterday her PMD office. Pt had a full W/U yesterday for the pitting edema of her lower extremities. No N/V/D, fnp C/P no SOB or any other acute med issues. BP 125/74 RR 17 Pulse ox 100% on RA Temp 36.8 Pulse 65 PE: WNWD W F with minor pitting edema lower extremities Imaging: Not indicated Labs: TSH 2.43 BNP 131 Impression: Lab tests, minor pitting edema lower extremities (minor) Tx: None, Heparin flush of port Reexam: Improved Plan: D/C with instructions Last Recorded V/S: Last Vital Signs Temp 36.6 C 10/30/18 11:49 Pulse 98 10/30/18 11:49 Resp 17 10/30/18 11:49 BP 125/74 10/30/18 11:49 Pulse Ox 100 10/30/18 11:49 - Orders/Labs/Meds Orders: Active Orders 24 hr Category Date Time Status Heparin Sodium [Heparin Lock Flush 100 Units/ML] Med 10/30/18 13:25 Active 500 units FLUSH ASDIRECTED PRN Medication Orders Heparin Sodium (Porcine) (Heparin Lock Flush 100 Units/Ml) 500 units FLUSH ASDIRECTED PRN PRN Reason: Keep Vein Open Labs: Laboratory Tests 10/30/18 Range/Units 12:34 NT-Pro-B Natriuret Pep 131 H (<=125) pg/mL TSH, Ultra Sensitive 2.61 (0.36-3.74) IU/mL Meds: Medications Generic Name Dose Route Start Last Admin Trade Name Freq PRN Reason Stop Dose Admin Heparin Sodium (Porcine) 500 units 10/30/18 13:25 Heparin Lock Flush 100 Units/Ml FLUSH ASDIRECTED PRN Keep Vein Open Discontinued Medications Generic Name Dose Route Start Last Admin Trade Name Freq PRN Reason Stop Dose Admin Heparin Sodium (Porcine) 50 unit 10/30/18 13:14 Heparin Lock Flush 10 Units/Ml FLUSH 10/30/18 13:15 ASDIRECTED STA Departure - Departure Time of Disposition: 13:15 Disposition: Home, Self-Care 01 Condition: Good Clinical Impression: Laboratory test, Pitting edema - Discharge Information Instructions: Edema, [id number] Referrals: Jesse Gresham MD [Primary Care Provider] - Forms: ED Department Discharge Additional Instructions: Please take the meds as recommended, please f/u with your PMD, come back if your symptoms get worse acutely. - My Orders Last 24 Hours: My Active Orders 10/30/18 13:25 Heparin Sodium [Heparin Lock Flush 100 Units/ML] 500 units FLUSH ASDIRECTED PRN - Assessment/Plan Last 24 Hours: My Active Orders 10/30/18 13:25 Heparin Sodium [Heparin Lock Flush 100 Units/ML] 500 units FLUSH ASDIRECTED PRN
[2018-10-30] MEDS ORDERED: Heparin Sodium 10 Units/ML 5 ML Syringe FLUSH STA (13:14)
[2018-10-30 17:42] VITALS: BP 146/87; PULSE 75
== END 2018-10-30 13:50 | disposition home or self-care (01) ==
LOC: FB.ED 11:49
DX: R60.9 Edema, unspecified (principal); Z00.01 Encounter for general adult medical examination with abnormal findings; K21.9 Gastro-esophageal reflux disease without esophagitis; F41.9 Anxiety disorder, unspecified; F32.9 Major depressive disorder, single episode, unspecified; Z86.2 Personal history of diseases of the blood and blood-forming organs and certain disorders involving the immune mechanism; Z86.718 Personal history of other venous thrombosis and embolism; Z88.8 Allergy status to other drugs, medicaments and biological substances; Z79.899 Other long term (current) drug therapy
CPT/HCPCS: 36415; 83880; 84443; 99283; J1642

== ENCOUNTER 2019-09-14 10:54 | Emergency (ER) | payer BC ==
[2019-09-14] MEDS: Sodium Chloride 0.9% 10 ML Syringe FLUSH PRN ×2 (11:15→15:05)
--- NOTE | 2019-09-14 12:23 | EDM.PDOC ---
ED HPI GENERAL MEDICAL PROBLEM - General Stated Complaint: leg swelling Time Seen by Provider: 09/14/19 11:00 Source of Information: Reports: Patient History Limitations: Reports: No Limitations - History of Present Illness INITIAL COMMENTS - FREE TEXT/NARRATIVE: pt c/o legs swelling , tells me she had for this year but this has been getting worse past few days a,d today she noted redness at her left innter thigh and some red spotts at right leg, she reports mild discomfort , denies fever or chills, report ongoing dyspnea that hasnt changes and denies weight gain, pt denies any other associated sx or concerns. report compliance with taking her medications and report Hx of PE, she is on Xarelto Bilateral lower legs & feet Pain Score (Numeric/FACES): 7 - Related Data Allergies Allergy/AdvReac Type Severity Reaction Status Date / Time bupropion HCl Allergy Respiratory Verified 09/14/19 11:23 [From Wellbutrin] Distress chlorpromazine HCl Allergy Respiratory Verified 09/14/19 11:23 [From Thorazine] Distress gabapentin Allergy Anaphylactic Verified 09/14/19 11:23 Shock metoclopramide [From Reglan] Allergy Anaphylactic Verified 09/14/19 11:23 Shock ondansetron HCl [From Zofran] Allergy Respiratory Verified 09/14/19 11:23 Distress prochlorperazine edisylate Allergy Respiratory Verified 09/14/19 11:23 [From Compazine] Distress prochlorperazine maleate Allergy Respiratory Verified 09/14/19 11:23 [From Compazine] Distress temazepam [From Restoril] Allergy Headache Verified 09/14/19 11:23 Home Meds: Home Meds Esomeprazole Magnesium [Nexium 24Hr] 20 mg PO DAILY 10/18/17 [History] Potassium Chloride 20 meq PO DAILY 10/18/17 [History] hydrOXYzine pamoate [Vistaril] 50 mg PO TID PRN 10/18/17 [History] Scopolamine [Transderm-Scop] 1 each TD Q72H PRN 10/28/17 [History] PARoxetine HCl [Paxil] 20 mg PO BEDTIME 11/03/17 [History] Erenumab-Aooe [Aimovig Autoinjector] 70 mg SUBCUT Q30D 03/01/18 [History] Eszopiclone [Lunesta] 2 mg PO BEDTIME PRN 03/01/18 [History] Melatonin 10 mg PO BEDTIME PRN 03/01/18 [History] raNITIdine HCl [Zantac] 150 mg PO BID 03/01/18 [History] traZODone 100 mg PO BEDTIME PRN 03/01/18 [History] SUMAtriptan [Imitrex] 6 mg SUBCUT DAILY PRN vial 03/04/18 [Rx] Sucralfate [Carafate] 1 gm PO QIDACANDBED #120 cup 03/04/18 [Rx] Sulfamethoxazole/Trimethoprim [Bactrim Ds Tablet] 1 each PO BID #10 tablet 05/04/18 [Rx] LORazepam 0.5 mg TID PRN 05/08/18 [History] Magnesium Oxide 400 mg PO DAILY #30 tab 05/25/18 [Rx] Potassium Chloride 20 meq PO DAILY #14 tablet.er 09/14/19 [Rx] Past Medical History - Past Health History Medical/Surgical History: Denies Medical/Surgical History HEENT History: Reports: None, Other (See Below) Other HEENT History: chronic headaches Cardiovascular History: Reports: Blood Clots/VTE/DVT Other Cardiovascular History: Hx palpitations. Hx DVT arm from plugged port. 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 Intractable chronic migraine headaches. Hx CVA x 7. Psychiatric History: Reports: Addiction, Anxiety, Depression, Psych Hospitalization(s) Other Psychiatric History: Hx polypharmacy. Endocrine/Metabolic History: Reports: Hypothyroidism Hematologic History: Reports: Anemia, Blood Transfusion(s), Other (See Below) Other Hematologic History: low potassium Dermatologic History: Reports: Decubitus Ulcer, Other (See Below) Other Dermatologic History: Open sores noted on bilateral arms, lower back - Infectious Disease History Infectious Disease History: Reports: Mumps - Past Surgical History Head Surgeries/Procedures: Reports: None HEENT Surgical History: Reports: Oral Surgery Cardiovascular Surgical History: Reports: None Respiratory Surgical History: Reports: None GI Surgical History: Reports: Colonoscopy, EGD, Other (See Below) Other GI Surgeries/Procedures: removed part of stomach due to ulcers Female Surgical History: Reports: None Endocrine Surgical History: Reports: None Neurological Surgical History: Reports: None Musculoskeletal Surgical History: Reports: Hip Replacement, ORIF Other Musculoskeletal Surgeries/Procedures:: bilat hip replacments, L ORIF Dermatological Surgical History: Reports: None Social & Family History - Family History Family Medical History: Noncontributory - Caffeine Use Caffeine Use: Reports: Soda Other Caffeine Use: 3 sodas a day - Living Situation & Occupation Occupation: Unemployed ED ROS GENERAL - Review of Systems Review Of Systems: See Below Constitutional: Reports: No Symptoms HEENT: Reports: No Symptoms Respiratory: Reports: No Symptoms, Shortness of Breath Cardiovascular: Reports: Dyspnea on Exertion, Edema. Denies: Chest Pain, Lightheadedness, Orthopnea, Palpitations, PND, Syncope GI/Abdominal: Reports: No Symptoms Musculoskeletal: Reports: Joint Pain Neurological: Reports: No Symptoms ED EXAM, GENERAL - Physical Exam Exam: See Below Exam Limited By: No Limitations General Appearance: Alert, No Apparent Distress Eye Exam: Bilateral Eye: Normal Inspection Throat/Mouth: Normal Inspection, Normal Oropharynx Head: Atraumatic, Normocephalic Neck: Normal Inspection, Supple, Non-Tender Respiratory/Chest: No Respiratory Distress, Lungs Clear, Normal Breath Sounds Cardiovascular: Normal Peripheral Pulses, Regular Rate, Rhythm GI/Abdominal: Normal Bowel Sounds, Soft, Non-Tender Extremities: Normal Inspection, Normal Range of Motion, Non-Tender, Other (+1-+2 pitting edema noted at both feet with extensssive ven[place] stasis and an area of blistering with clear drainge onlateral left leg also erythema at inner left and right thighs , no induration or warmth or tendernss. ). No: Roland's Sign, Leg Pain Neurological: Alert, Oriented, CN II-XII Intact Skin Exam: Warm Course - Vital Signs Text/Narrative:: labs results were explained to pt, , pt has chronic peripheral edema and venous stasis , she is medically stable to follow up with PCP on this issue. pt has erythema and drainage from venous stasis , no signs of clotting or infection at this time. she has hypokalemia/ this is also chronic for her, K today is 2.7 , was given kcl 40 PO. recommended she go up on her torsemide to 20 for 3 days also gave Rx on Kcl 20 daily X 1 week , pt to follow with PCP on Tuesday for re-check. Last Recorded V/S: Last Vital Signs Temp 37.3 C 09/14/19 10:55 Pulse 113 H 09/14/19 10:55 Resp 20 09/14/19 10:55 BP 135/89 09/14/19 10:55 Pulse Ox 100 09/14/19 10:55 - Orders/Labs/Meds Orders: Active Orders 24 hr Category Date Time Status EKG Documentation Completion [RC] ASDIRECTED Care 09/14/19 11:50 Active Chest 2V [CR] Routine Exams 09/14/19 11:50 Taken EKG 12 Lead [EK] Routine Ther 09/14/19 11:50 Ordered Labs: Laboratory Tests 09/14/19 09/14/19 Range/Units 11:19 11:19 WBC 10.3 (4.5-12.0) X10-3/uL RBC 4.28 (3.23-5.20) x10(6)uL Hgb 11.1 L (11.5-15.5) g/dL Hct 34.8 (30.0-51.3) % MCV 81.3 (80-96) fL MCH 25.9 L (27.7-33.6) pg MCHC 31.8 L (32.2-35.4) g/dL RDW 15.0 (11.5-15.5) % Plt Count 390 H (125-369) X10(3)uL MPV 8.4 (7.4-10.4) fL Neut % (Auto) 90.2 H (46-82) % Lymph % (Auto) 4.6 L (13-37) % Cole % (Auto) 5.0 (4-12) % Eos % (Auto) 0 L (1.0-5.0) % Baso % (Auto) 0 (0-2) % Neut # (Auto) 9.2 H (1.6-8.3) # Lymph # (Auto) 0.5 L (0.6-5.0) # Cole # (Auto) 0.5 (0.0-1.3) # Eos # (Auto) 0.0 (0.0-0.8) # Baso # (Auto) 0.0 (0.0-0.2) # Sodium 132 L (135-145) mmol/L Potassium 2.7 L* D (3.5-5.3) mmol/L Chloride 96 L D (100-110) mmol/L Carbon Dioxide 28 (21-32) mmol/L BUN 12 (7-18) mg/dL Creatinine 1.3 H (0.55-1.02) mg/dL Est Cr Clr Drug Dosing 39.24 mL/min Estimated GFR (MDRD) 42 L (>60) BUN/Creatinine Ratio 9.2 (9-20) Glucose 156 H (80-116) mg/dL Calcium 8.1 L (8.6-10.2) mg/dL Total Bilirubin 0.6 (0.1-1.3) mg/dL AST 15 D (5-25) IU/L ALT 15 D (12-36) U/L Alkaline Phosphatase 176 H (56-112) IU/L Total Protein 6.9 (6.0-8.0) g/dL Albumin 3.1 L (3.2-4.6) g/dL Globulin 3.8 g/dL Albumin/Globulin Ratio 0.8 Departure - Departure Time of Disposition: 14:37 Disposition: Home, Self-Care 01 Clinical Impression: Peripheral edema - Discharge Information Referrals: Jesse Gresham MD [Primary Care Provider] - Sepsis Event Note (ED) - Evaluation Sepsis Screening Result: No Definite Risk - Focused Exam Vital Signs: Vital Signs Temp Pulse Resp BP Pulse Ox 09/14/19 10:55 37.3 C 113 H 20 135/89 100 - My Orders Last 24 Hours: My Active Orders 09/14/19 11:50 EKG Documentation Completion [RC] ASDIRECTED Chest 2V [CR] Routine EKG 12 Lead [EK] Routine - Assessment/Plan Last 24 Hours: My Active Orders 09/14/19 11:50 EKG Documentation Completion [RC] ASDIRECTED Chest 2V [CR] Routine EKG 12 Lead [EK] Routine
[2019-09-14] MEDS ORDERED: Potassium Chloride 20 MEQ Tab.ER PO ONE (14:23)
--- NOTE | 2019-09-14 16:19 | CR ---
INDICATION: Short of breath. Edema. CHEST, TWO VIEWS: PA And lateral views of the chest 09/14/19 were compared with 08/20/13 and 04/09/08. Somewhat flattened diaphragm leaves with prominent AP diameter and hyperaeration suggests COPD. There is suggestion of a moderately large fixed hiatal hernia. There is again noted a central line in place from the right subclavian, unchanged in position with its tip in the area of the superior vena cava just above the right atrium. There is some minimal calcification in the arch of the aorta. The heart did not appear enlarged. Diminished bone density is suggested, compatible with osteoporosis. There is anterior vertebral body volume loss at what appear to be T11 and T12, which appear to be new compared with the previous study of 2008. However, they appear to have been present on a previous CT of the abdomen and pelvis dated 01/16/19 and likely are stable compared with that previous study. No definite evidence of CHF, infiltrate or effusion was identified. Healed or healing fracture sites are noted posterolaterally on the right and possibly also on the left. IMPRESSION: 1. No definite acute process. 2. COPD. 3. ASD aorta. 4. Moderately large fixed hiatal hernia. 5. Osteoporotic compressions stable, T11-12 with multiple rib fractures that appear to be healing. 6. No definite evidence of CHF is identified. MTDD
[2019-09-14 18:47] VITALS: BP 133/80; PULSE 97
== END 2019-09-14 14:50 | disposition home or self-care (01) ==
LOC: FB.ED 10:54
DX: R60.0 Localized edema (principal); K21.9 Gastro-esophageal reflux disease without esophagitis; F41.9 Anxiety disorder, unspecified; F32.9 Major depressive disorder, single episode, unspecified; Z79.899 Other long term (current) drug therapy; Z88.8 Allergy status to other drugs, medicaments and biological substances; Z86.73 Personal history of transient ischemic attack (TIA), and cerebral infarction without residual deficits
CPT/HCPCS: 36556; 71046; 80053; 85025; 93005; 99284; A9270; J1642; 99283

== ENCOUNTER 2020-06-17 16:42 | Emergency (ER) | payer BC ==
[2020-06-17] MEDS ORDERED: Sodium Chloride 0.9% 10 ML Syringe FLUSH PRN (16:44)
[2020-06-17] MEDS ORDERED: Ondansetron 4 MG/2 ML SDV IVPUSH STA (16:47)
[2020-06-17] MEDS ORDERED: Ketorolac 30 MG/ML SDV IVPUSH ONE (16:56)
[2020-06-17] MEDS ORDERED: hydrOXYzine HCl 50 MG/ML SDV IM STA (16:57)
[2020-06-17] MEDS ORDERED: Sodium Chloride 0.9% 1,000 ML IV SCH (17:45)
--- NOTE | 2020-06-17 18:39 | EDM.PDOC ---
ED HPI GENERAL MEDICAL PROBLEM - General Chief Complaint: Abdominal Pain Stated Complaint: ABDOMINBAL PAIN Time Seen by Provider: 06/17/20 16:45 Source of Information: Reports: Patient, Family History Limitations: Reports: No Limitations - History of Present Illness INITIAL COMMENTS - FREE TEXT/NARRATIVE: Patient presented to the ED because of abdominal pain and constipation for 3 days. She has a history of chronic constipation and was prescribed Linzess 290 micrograms daily but doesn't seem to help. She also c/o nausea but no vomiting. There is no associated urinary s/s, fever, or chills. - Related Data Allergies Allergy/AdvReac Type Severity Reaction Status Date / Time bupropion HCl Allergy Respiratory Verified 06/17/20 16:52 [From Wellbutrin] Distress chlorpromazine HCl Allergy Respiratory Verified 06/17/20 16:52 [From Thorazine] Distress gabapentin Allergy Anaphylactic Verified 06/17/20 16:52 Shock metoclopramide [From Reglan] Allergy Anaphylactic Verified 06/17/20 16:52 Shock ondansetron HCl [From Zofran] Allergy Respiratory Verified 06/17/20 16:52 Distress prochlorperazine edisylate Allergy Respiratory Verified 06/17/20 16:52 [From Compazine] Distress prochlorperazine maleate Allergy Respiratory Verified 06/17/20 16:52 [From Compazine] Distress temazepam [From Restoril] Allergy Headache Verified 06/17/20 16:52 Home Meds: Home Meds Potassium Chloride 10 meq PO DAILY 10/18/17 [History] Docusate Sodium [Colace] 8 tab PO DAILY 09/14/19 [History] Docusate Sodium/Sennosides [Senna Plus] 6 each PO DAILY 09/14/19 [History] Rivaroxaban [Xarelto] 10 mg PO DAILY 09/14/19 [History] Acetaminophen [Tylenol] 325 mg PO ASDIRECTED PRN 06/17/20 [History] Dicyclomine [Bentyl] 20 mg PO Q6HR 06/17/20 [History] Doxepin [SINEquan] 20 mg PO BEDTIME 06/17/20 [History] Eszopiclone [Lunesta] 3 mg PO DAILY 06/17/20 [History] Furosemide [Lasix] 40 mg PO DAILY 06/17/20 [History] Gabapentin [Neurontin] 300 mg PO BEDTIME 06/17/20 [History] LORazepam [Ativan] 0.5 mg PO ASDIRECTED PRN 06/17/20 [History] Lactulose 10 gm PO TID 06/17/20 [History] Melatonin 10 mg PO DAILY 06/17/20 [History] Mirtazapine [Remeron] 15 mg PO BEDTIME 06/17/20 [History] Pantoprazole Sodium [Protonix] 40 mg PO DAILY 06/17/20 [History] Zolpidem Tartrate [Ambien] 10 mg PO BEDTIME 06/17/20 [History] hydrOXYzine pamoate [Vistaril] 50 mg PO Q6HR 06/17/20 [History] polyethylene glycoL 3350 [MiraLAX] 17 gm PO ASDIRECTED 06/17/20 [History] Past Medical History - Past Health History Medical/Surgical History: Denies Medical/Surgical History HEENT History: Reports: None, Other (See Below) Other HEENT History: chronic headaches Cardiovascular History: Reports: Blood Clots/VTE/DVT Other Cardiovascular History: Hx palpitations. Hx DVT arm from plugged port. 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 Intractable chronic migraine headaches. Hx CVA x 7. Psychiatric History: Reports: Addiction, Anxiety, Depression, Psych Hospitalization(s) Other Psychiatric History: Hx polypharmacy. Endocrine/Metabolic History: Reports: Hypothyroidism Hematologic History: Reports: Anemia, Blood Transfusion(s), Other (See Below) Other Hematologic History: low potassium Dermatologic History: Reports: Decubitus Ulcer, Other (See Below) Other Dermatologic History: Open sores noted on bilateral arms, lower back - Infectious Disease History Infectious Disease History: Reports: Mumps - Past Surgical History Head Surgeries/Procedures: Reports: None HEENT Surgical History: Reports: Oral Surgery Cardiovascular Surgical History: Reports: None Respiratory Surgical History: Reports: None GI Surgical History: Reports: Colonoscopy, EGD, Other (See Below) Other GI Surgeries/Procedures: removed part of stomach due to ulcers Female Surgical History: Reports: None Endocrine Surgical History: Reports: None Neurological Surgical History: Reports: None Musculoskeletal Surgical History: Reports: Hip Replacement, ORIF Other Musculoskeletal Surgeries/Procedures:: bilat hip replacments, L ORIF Dermatological Surgical History: Reports: None Social & Family History - Family History Family Medical History: No Pertinent Family History - Tobacco Use Tobacco Use Status *Q: Never Tobacco User - Caffeine Use Caffeine Use: Reports: Soda Other Caffeine Use: 3 sodas a day - Recreational Drug Use Recreational Drug Use: No - Living Situation & Occupation Occupation: Unemployed ED ROS GENERAL - Review of Systems Review Of Systems: See Below Constitutional: Reports: No Symptoms HEENT: Reports: No Symptoms Respiratory: Reports: No Symptoms Cardiovascular: Reports: No Symptoms Endocrine: Reports: No Symptoms GI/Abdominal: Reports: Abdominal Pain, Nausea Musculoskeletal: Reports: No Symptoms Skin: Reports: No Symptoms Neurological: Reports: No Symptoms Psychiatric: Reports: No Symptoms ED EXAM, GI/ABD - Physical Exam Exam: See Below Exam Limited By: No Limitations General Appearance: Alert, No Apparent Distress Ears: Normal External Exam, Normal Canal Throat/Mouth: Normal Inspection, Normal Lips Head: Atraumatic, Normocephalic Neck: Normal Inspection, Supple, Non-Tender, Full Range of Motion Respiratory/Chest: No Respiratory Distress, Lungs Clear, Normal Breath Sounds, No Accessory Muscle Use, Chest Non-Tender Cardiovascular: Normal Peripheral Pulses, Regular Rate, Rhythm, No Edema, No Gallop, No JVD, No Murmur, No Rub GI/Abdominal Exam: Normal Bowel Sounds, Soft, No Organomegaly, Distended, Other (suprapubic and llq tenderness) Extremities: Normal Inspection, Normal Range of Motion Neurological: Alert, Oriented, CN II-XII Intact Course - Vital Signs Text/Narrative:: Lab result was reviewed and discussed with patient and her mom NS 1 L bolus Zofran 4 mg IV x1 Vistaril 50 mg IM x 1 Toradol 15 mg IV x1 Last Recorded V/S: Last Vital Signs Temp 36.6 C 06/17/20 16:42 Pulse 67 06/17/20 19:01 Resp 20 06/17/20 19:01 BP 145/83 H 06/17/20 19:01 Pulse Ox 100 06/17/20 19:01 - Orders/Labs/Meds Orders: Active Orders 24 hr Category Date Time Status Abdomen 2V AP Flat Upright [CR] Stat Exams 06/17/20 16:44 Taken Saline Lock Insert [OM.PC] Routine Oth 06/17/20 16:44 Ordered Labs: Laboratory Tests 06/17/20 06/17/20 06/17/20 Range/Units 17:05 17:05 17:05 WBC 5.4 (3.0-10.3) x10-3/uL RBC 4.29 (3.60-5.20) x10(6)uL Hgb 13.1 (11.4-15.5) g/dL Hct 39.0 (34.2-48.2) % MCV 90.9 (76.7-100.5) fL MCH 30.6 (23.9-33.9) pg MCHC 33.6 (31.9-34.8) g/dL RDW 12.6 (12.3-16.5) % Plt Count 243 (151-488) x10(3)uL MPV 7.9 (7.1-12.4) fL Neut % (Auto) 85.1 H (30.8-76.2) % Lymph % (Auto) 10.1 L (18.4-52.1) % [place] % (Auto) 3.6 L (4.4-15.7) % Eos % (Auto) 0.7 (0.6-8.1) % Baso % (Auto) 0.5 (0.2-1.5) % Neut # (Auto) 4.6 (1.5-6.3) x10-3/uL Lymph # (Auto) 0.5 L (1.0-4.4) x10-3/uL [place] # (Auto) 0.2 L (0.3-1.0) x10-3/uL Eos # (Auto) 0.0 (0.0-0.8) x10-3/uL Baso # (Auto) 0.0 (0.0-0.1) x10-3/uL Sodium 139 (135-145) mmol/L Potassium 3.5 (3.5-5.3) mmol/L Chloride 100 (100-110) mmol/L Carbon Dioxide 26 (21-32) mmol/L BUN 15 (7-18) mg/dL Creatinine 1.3 H (0.55-1.02) mg/dL Est Cr Clr Drug Dosing 37.12 mL/min Estimated GFR (MDRD) 42 L (>60) BUN/Creatinine Ratio 11.5 (9-20) Glucose 121 H (80-116) mg/dL Calcium 8.1 L (8.6-10.2) mg/dL Total Bilirubin 0.4 (0.1-1.3) mg/dL AST 16 (5-25) IU/L ALT 17 D (12-36) U/L Alkaline Phosphatase 251 H (56-112) IU/L Total Protein 7.1 (6.0-8.0) g/dL Albumin 3.8 (3.2-4.6) g/dL Globulin 3.3 g/dL Albumin/Globulin Ratio 1.2 Amylase 73 (25-115) U/L Lipase 161 (73-393) U/L Urine Color (YELLOW) Urine Appearance (CLEAR) Urine pH (5.0-6.5) Ur Specific [place] (1.010-1.025) Urine Protein (NEGATIVE) mg/dL Urine Glucose (UA) (NORMAL) mg/dL Urine Ketones (NEGATIVE) mg/dL Urine Occult Blood (NEGATIVE) Urine Nitrite (NEGATIVE) Urine Bilirubin (NEGATIVE) Urine Urobilinogen (NEGATIVE) mg/dL Ur Leukocyte Esterase (NEGATIVE) Urine RBC (0-5) Urine WBC (0-5) Ur Squamous Epith Cells (NS,R,O) Urine Bacteria (NS) 06/17/20 Range/Units 19:25 WBC (3.0-10.3) x10-3/uL RBC (3.60-5.20) x10(6)uL Hgb (11.4-15.5) g/dL Hct (34.2-48.2) % MCV (76.7-100.5) fL MCH (23.9-33.9) pg MCHC (31.9-34.8) g/dL RDW (12.3-16.5) % Plt Count (151-488) x10(3)uL MPV (7.1-12.4) fL Neut % (Auto) (30.8-76.2) % Lymph % (Auto) (18.4-52.1) % [place] % (Auto) (4.4-15.7) % Eos % (Auto) (0.6-8.1) % Baso % (Auto) (0.2-1.5) % Neut # (Auto) (1.5-6.3) x10-3/uL Lymph # (Auto) (1.0-4.4) x10-3/uL [place] # (Auto) (0.3-1.0) x10-3/uL Eos # (Auto) (0.0-0.8) x10-3/uL Baso # (Auto) (0.0-0.1) x10-3/uL Sodium (135-145) mmol/L Potassium (3.5-5.3) mmol/L Chloride (100-110) mmol/L Carbon Dioxide (21-32) mmol/L BUN (7-18) mg/dL Creatinine (0.55-1.02) mg/dL Est Cr Clr Drug Dosing mL/min Estimated GFR (MDRD) (>60) BUN/Creatinine Ratio (9-20) Glucose (80-116) mg/dL Calcium (8.6-10.2) mg/dL Total Bilirubin (0.1-1.3) mg/dL AST (5-25) IU/L ALT (12-36) U/L Alkaline Phosphatase (56-112) IU/L Total Protein (6.0-8.0) g/dL Albumin (3.2-4.6) g/dL Globulin g/dL Albumin/Globulin Ratio Amylase (25-115) U/L Lipase (73-393) U/L Urine Color Yellow (YELLOW) Urine Appearance Clear (CLEAR) Urine pH 6.5 (5.0-6.5) Ur Specific [place] 1.010 (1.010-1.025) Urine Protein Negative (NEGATIVE) mg/dL Urine Glucose (UA) Normal (NORMAL) mg/dL Urine Ketones Negative (NEGATIVE) mg/dL Urine Occult Blood Moderate H (NEGATIVE) Urine Nitrite Negative (NEGATIVE) Urine Bilirubin Negative (NEGATIVE) Urine Urobilinogen Normal (NEGATIVE) mg/dL Ur Leukocyte Esterase Negative (NEGATIVE) Urine RBC 0-5 (0-5) Urine WBC 0-5 (0-5) Ur Squamous Epith Cells Few H (NS,R,O) Urine Bacteria Few H (NS) Meds: Medications Discontinued Medications Generic Name Dose Route Start Last Admin Trade Name Freq PRN Reason Stop Dose Admin Heparin Sodium (Porcine) 500 units 06/17/20 19:11 06/17/20 19:20 Heparin Sodium 100 Units/Ml 5 Ml Syringe FLUSH 06/17/20 19:12 500 units ASDIRECTED ONE Administration Hydroxyzine HCl 50 mg 06/17/20 16:57 06/17/20 18:38 Hydroxyzine Hcl 50 Mg/Ml Sdv IM 06/17/20 16:58 50 mg NOW STA Administration Sodium Chloride 1,000 mls @ 999 mls/hr 06/17/20 17:45 06/17/20 18:04 Normal Saline IV 999 mls/hr ASDIRECTED DOMINIQUE Administration Ketorolac Tromethamine 15 mg 06/17/20 16:56 06/17/20 18:37 Ketorolac 30 Mg/Ml Sdv IVPUSH 06/17/20 16:57 15 mg ONETIME ONE Administration Ondansetron HCl 4 mg 06/17/20 16:47 06/17/20 17:57 Ondansetron 4 Mg/2 Ml Sdv IVPUSH 06/17/20 16:48 4 mg NOW STA Administration Sodium Chloride 10 ml 06/17/20 16:44 Sodium Chloride 0.9% 10 Ml Syringe FLUSH ASDIRECTED PRN Keep Vein Open Departure - Departure Time of Disposition: 19:00 Disposition: Home, Self-Care 01 Condition: Good Clinical Impression: Constipation, Chronic abdominal pain - Discharge Information Instructions: Chronic Constipation, Abdominal Pain, Adult, [id number] Referrals: Jesse Gresham MD [Primary Care Provider] - Forms: ED Department Discharge Additional Instructions: Please read discharge instructions on chronic constipation Drink at least 2 liters of water daily Zofran/ODT 4 mg every 4 hours as needed for nausea Vistaril 50 mg every 6 hours as needed for nausea Take the golytely as instructed Follow up as needed Sepsis Event Note (ED) - Evaluation Sepsis Screening Result: No Definite Risk - Focused Exam Vital Signs: Vital Signs Pulse Resp BP Pulse Ox 06/17/20 19:01 67 20 145/83 H 100 06/17/20 18:45 73 20 153/87 H 100 06/17/20 18:30 81 20 143/91 H 100 06/17/20 18:15 64 20 133/89 100 06/17/20 18:00 78 20 130/91 H 100 06/17/20 17:45 82 20 133/81 100 - My Orders Last 24 Hours: My Active Orders 06/17/20 16:44 Abdomen 2V AP Flat Upright [CR] Stat Saline Lock Insert [OM.PC] Routine - Assessment/Plan Last 24 Hours: My Active Orders 06/17/20 16:44 Abdomen 2V AP Flat Upright [CR] Stat Saline Lock Insert [OM.PC] Routine
[2020-06-17 19:17] VITALS: BP 145/83; PULSE 67
--- NOTE | 2020-06-18 10:49 | CR ---
ABDOMEN TWO VIEW 9350 INDICATION: Constipation. Four images of the abdomen in supine and upright projections were obtained 06/17/2020 and compared with 02/28/2018. Massive distention of the colon is noted with air-fluid levels raising question of at least partial mechanically obstructive process of the distal colon above the level of the sigmoid. The sigmoid colon is normal in caliber. There is gas and some stool in the rectosigmoid area suggested. Otherwise no organomegaly or definite mass lesions could be identified. Clips in the right upper quadrant are noted compatible with cholecystectomy. Calcifications are noted overlying the buttocks compatible with multiple injection sites. Hip pinnings are noted bilaterally. Degenerative changes noted at the right sacroiliac joint. IMPRESSION: 1. The possibility of a mechanically obstructive process is difficult to exclude at the distal colon--descending area. Further workup may be warranted. Severe paralytic ileus would be another consideration but is felt to be less likely. No free air was seen. 2. Post cholecystectomy. MTDD
== END 2020-06-17 19:30 | disposition home or self-care (01) ==
LOC: FB.ED 16:42
DX: K59.00 Constipation, unspecified (principal); K21.9 Gastro-esophageal reflux disease without esophagitis; G43.909 Migraine, unspecified, not intractable, without status migrainosus; Z86.718 Personal history of other venous thrombosis and embolism; Z88.8 Allergy status to other drugs, medicaments and biological substances; Z79.01 Long term (current) use of anticoagulants; Z79.899 Other long term (current) drug therapy
CPT/HCPCS: 36415; 74019; 80053; 81001; 82150; 83690; 85025; 96372; 96374; 96375; 99284; J1642; J1885; J2405; J3410; J7030

== ENCOUNTER 2020-06-18 12:30 | Observation (INO) | payer BC ==
[2020-06-18] MEDS ORDERED: Non-Formulary Medication 1 Each (Acetaminophen [Tylenol] 325 MG Tablet) PO PRN (12:49)
[2020-06-18] MEDS ORDERED: Non-Formulary Medication 1 Each (Dicyclomine [Bentyl] 20 MG Tablet) PO SCH (13:00)
--- NOTE | 2020-06-18 13:02 | PCM.HP.2 ---
H&P History of Present Illness - General Date of Service: 06/18/20 Admit Problem/Dx: Admission Diagnosis/Problem Admission Diagnosis/Problem Abdominal pain Source of Information: Patient, Provider History Limitations: Reports: No Limitations - History of Present Illness Initial Comments - Free Text/Narative: 60-year-old lady with a very complicated past medical history including colonic inertia was seen in her primary care physician's office this morning for severe abdominal pain. Her GI specialist had prescribed her GoLYTELY to help relieve colonic constipation secondary to her chronic condition but she has been suffering significant abdominal pain and nausea and has not been able to drink the GoLYTELY. He is being admitted for pain and nausea control so that she can drink her GoLYTELY and hopefully relieve her obstruction. Onset of Symptoms: Reports: Gradual Location: Reports: Abdomen - Related Data Allergies/Adverse Reactions: Allergies Allergy/AdvReac Type Severity Reaction Status Date / Time bupropion HCl Allergy Respiratory Verified 06/17/20 16:52 [From Wellbutrin] Distress chlorpromazine HCl Allergy Respiratory Verified 06/17/20 16:52 [From Thorazine] Distress gabapentin Allergy Anaphylactic Verified 06/17/20 16:52 Shock metoclopramide [From Reglan] Allergy Anaphylactic Verified 06/17/20 16:52 Shock ondansetron HCl [From Zofran] Allergy Respiratory Verified 06/17/20 16:52 Distress prochlorperazine edisylate Allergy Respiratory Verified 06/17/20 16:52 [From Compazine] Distress prochlorperazine maleate Allergy Respiratory Verified 06/17/20 16:52 [From Compazine] Distress temazepam [From Restoril] Allergy Headache Verified 06/17/20 16:52 Home Medications: Home Meds Potassium Chloride 10 meq PO DAILY 10/18/17 [History] Docusate Sodium [Colace] 8 tab PO DAILY 09/14/19 [History] Docusate Sodium/Sennosides [Senna Plus] 6 each PO DAILY 09/14/19 [History] Rivaroxaban [Xarelto] 10 mg PO DAILY 09/14/19 [History] Acetaminophen [Tylenol] 325 mg PO ASDIRECTED PRN 06/17/20 [History] Dicyclomine [Bentyl] 20 mg PO Q6HR 06/17/20 [History] Doxepin [SINEquan] 20 mg PO BEDTIME 06/17/20 [History] Eszopiclone [Lunesta] 3 mg PO DAILY 06/17/20 [History] Furosemide [Lasix] 40 mg PO DAILY 06/17/20 [History] Gabapentin [Neurontin] 300 mg PO BEDTIME 06/17/20 [History] LORazepam [Ativan] 0.5 mg PO ASDIRECTED PRN 06/17/20 [History] Lactulose 10 gm PO TID 06/17/20 [History] Melatonin 10 mg PO DAILY 06/17/20 [History] Mirtazapine [Remeron] 15 mg PO BEDTIME 06/17/20 [History] Pantoprazole Sodium [Protonix] 40 mg PO DAILY 06/17/20 [History] Zolpidem Tartrate [Ambien] 10 mg PO BEDTIME 06/17/20 [History] hydrOXYzine pamoate [Vistaril] 50 mg PO Q6HR 06/17/20 [History] polyethylene glycoL 3350 [MiraLAX] 17 gm PO ASDIRECTED 06/17/20 [History] Past Medical History - Past Health History Medical/Surgical History: Denies Medical/Surgical History HEENT History: Reports: None, Other (See Below) Other HEENT History: chronic headaches Cardiovascular History: Reports: Blood Clots/VTE/DVT Other Cardiovascular History: Hx palpitations. Hx DVT arm from plugged port. 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 Intractable chronic migraine headaches. Hx CVA x 7. Psychiatric History: Reports: Addiction, Anxiety, Depression, Psych Hospitalization(s) Other Psychiatric History: Hx polypharmacy. Endocrine/Metabolic History: Reports: Hypothyroidism Hematologic History: Reports: Anemia, Blood Transfusion(s), Other (See Below) Other Hematologic History: low potassium Dermatologic History: Reports: Decubitus Ulcer, Other (See Below) Other Dermatologic History: Open sores noted on bilateral arms, lower back - Infectious Disease History Infectious Disease History: Reports: Mumps - Past Surgical History Head Surgeries/Procedures: Reports: None HEENT Surgical History: Reports: Oral Surgery Cardiovascular Surgical History: Reports: None Respiratory Surgical History: Reports: None GI Surgical History: Reports: Colonoscopy, EGD, Other (See Below) Other GI Surgeries/Procedures: removed part of stomach due to ulcers Female Surgical History: Reports: None Endocrine Surgical History: Reports: None Neurological Surgical History: Reports: None Musculoskeletal Surgical History: Reports: Hip Replacement, ORIF Other Musculoskeletal Surgeries/Procedures:: bilat hip replacments, L ORIF Dermatological Surgical History: Reports: None Social & Family History - Family History Family Medical History: No Pertinent Family History - Caffeine Use Caffeine Use: Reports: Soda Other Caffeine Use: 3 sodas a day - Living Situation & Occupation Occupation: Unemployed H&P Review of Systems - Review of Systems: Review Of Systems: See Below General: Reports: Malaise HEENT: Reports: No Symptoms Pulmonary: Reports: No Symptoms Cardiovascular: Reports: No Symptoms Gastrointestinal: Reports: Abdominal Pain, Constipation, Nausea Genitourinary: Reports: No Symptoms Musculoskeletal: Reports: No Symptoms Skin: Reports: No Symptoms Psychiatric: Reports: No Symptoms Neurological: Reports: No Symptoms Hematologic/Lymphatic: Reports: No Symptoms Immunologic: Reports: No Symptoms Exam - Exam Exam: See Below - Exam Quality Assessment: Supplemental Oxygen, DVT Prophylaxis, Skin Breakdown General: Alert, Oriented, Cooperative, Mild Distress HEENT: EOMI Lungs: Clear to Auscultation Cardiovascular: Regular Rate, Regular Rhythm GI/Abdominal Exam: Distended, Tender, Other (Abdominal sounds are present without any high-pitched bowel sounds) Back Exam: Normal Inspection Extremities: Normal Inspection Peripheral Pulses: 2+: Radial (L), Radial (R), Dorsalis Pedis (L), Dorsalis Pedis (R) Skin: Warm, Dry, Intact Neurological: Cranial Nerves Intact Neuro Extensive - Mental Status: Alert, Oriented x3, Normal Mood/Affect Psychiatric: Alert, Normal Affect, Anxious, Agitated - Problem List (1) Nausea and vomiting SNOMED Code(s): 55985549 ICD Code: R11.2 - NAUSEA WITH VOMITING, UNSPECIFIED Status: Acute Current Visit: No (2) Abdominal pain SNOMED Code(s): 20073606 ICD Code: R10.9 - UNSPECIFIED ABDOMINAL PAIN Status: Acute Current Visit: No Onset Date: 08/20/13 (3) Anxiety SNOMED Code(s): 59937445 ICD Code: F41.9 - ANXIETY DISORDER, UNSPECIFIED Status: Acute Current Visit: No Problem Details: Anxiety improved with Ativan 1 mg po. She must see PCP for any maintenance management of chronic anxiety. (4) Narcotic addiction SNOMED Code(s): 432709338 ICD Code: F11.20 - OPIOID DEPENDENCE, UNCOMPLICATED Status: Acute Current Visit: No (5) Insomnia SNOMED Code(s): 663814656 ICD Code: G47.00 - INSOMNIA, UNSPECIFIED Status: Acute Current Visit: No Qualifiers: Insomnia type: other insomnia Qualified Code(s): G47.09 - Other insomnia (6) Palliative care status SNOMED Code(s): 423744394 ICD Code: Z51.5 - ENCOUNTER FOR PALLIATIVE CARE Status: Acute Current Visit: No (7) Depression SNOMED Code(s): 78294840 ICD Code: F32.9 - MAJOR DEPRESSIVE DISORDER, SINGLE EPISODE, UNSPECIFIED Status: Acute Current Visit: No Qualifiers: Depression Type: major depressive disorder Major depression recurrence: recurrent Active/Remission status: in partial remission Qualified Code(s): F33.41 - Major depressive disorder, recurrent, in partial remission Problem List Initiated/Reviewed/Updated: Yes Orders Last 24hrs: Active Orders 24 hr Category Date Time Status Patient Status [ADT] Routine ADT 06/18/20 12:53 Ordered Antiembolic Devices [RC] .Routine Care 06/18/20 12:56 Ordered Cardiac Monitoring [RC] .As Directed Care 06/18/20 12:48 Ordered Pulse Oximetry [RC] PRN Care 06/18/20 12:53 Ordered VTE/DVT Education [RC] Click to Edit Care 06/18/20 12:56 Ordered Vital Signs [RC] Q4H Care 06/18/20 12:53 Ordered Regular Diet [DIET] Diet 06/18/20 Dinner Ordered Acetaminophen [Tylenol] Med 06/18/20 12:49 Ordered 325 mg PO ASDIRECTED PRN Dicyclomine [Bentyl] Med 06/18/20 13:00 Ordered 20 mg PO Q6HR Docusate Sodium [Colace] Med 06/19/20 09:00 Ordered 8 tab PO DAILY Docusate Sodium/Sennosides [Senna Plus] Med 06/19/20 09:00 Ordered 6 each PO DAILY Doxepin [SINEquan] Med 06/18/20 21:00 Ordered 20 mg PO BEDTIME Eszopiclone [Lunesta] Med 06/19/20 09:00 Ordered 3 mg PO DAILY Furosemide [Lasix] Med 06/19/20 09:00 Ordered 40 mg PO DAILY Gabapentin [Neurontin] Med 06/18/20 21:00 Ordered 300 mg PO BEDTIME HYDROmorphone [Dilaudid] Med 06/18/20 12:41 Ordered 0.5 mg IVPUSH Q1H PRN LORazepam [Ativan] Med 06/18/20 12:49 Ordered 0.5 mg PO ASDIRECTED PRN Lactated Ringers @ 75 MLS/HR(1000ml) Med 06/18/20 13:00 Ordered Lactated Ringers [Ringers, Lactated] 1,000 ml IV ASDIRECTED Lactulose [Lactulose] Med 06/18/20 14:00 Ordered 10 gm PO TID Melatonin [Melatonin] Med 06/19/20 09:00 Ordered 10 mg PO DAILY Mirtazapine [Remeron] Med 06/18/20 21:00 Ordered 15 mg PO BEDTIME Pantoprazole Sodium [Protonix] Med 06/19/20 09:00 Ordered 40 mg PO DAILY Potassium Chloride [Potassium Chloride] Med 06/19/20 09:00 Ordered 10 meq PO DAILY Rivaroxaban [Xarelto] Med 06/19/20 09:00 Ordered 10 mg PO DAILY Zolpidem Tartrate [Ambien] Med 06/18/20 21:00 Ordered 10 mg PO BEDTIME hydrOXYzine pamoate [Vistaril] Med 06/18/20 13:00 Ordered 50 mg PO Q6HR polyethylene glycoL 3350 [MiraLAX] Med 06/18/20 13:00 Ordered 17 gm PO ASDIRECTED DVT/VTE Prophylaxis Reflex [OM.PC] Per Unit Routine Oth 06/18/20 12:53 Ordered Resuscitation Status Routine Resus Stat 06/18/20 12:53 Ordered Medication Orders Hydromorphone HCl (Hydromorphone 2 Mg/Ml Sdv) 0.5 mg IVPUSH Q1H PRN PRN Reason: Abdominal Pain Lactated Ringer's (Ringers, Lactated) 1,000 mls @ 75 mls/hr IV ASDIRECTED [facility] Non-Formulary Medication (Acetaminophen [Tylenol]) 325 mg PO ASDIRECTED PRN PRN Reason: Pain Non-Formulary Medication (Dicyclomine [Bentyl]) 20 mg PO Q6HR [facility] Non-Formulary Medication (Docusate Sodium [Colace]) 8 tab PO DAILY [facility] Non-Formulary Medication (Docusate Sodium/Sennosides [Senna Plus]) 6 each PO DAILY [facility] Non-Formulary Medication (Doxepin [Sinequan]) 20 mg PO BEDTIME [facility] Non-Formulary Medication (Eszopiclone [Lunesta]) 3 mg PO DAILY [facility] Non-Formulary Medication (Furosemide [Lasix]) 40 mg PO DAILY [facility] Non-Formulary Medication (Gabapentin [Neurontin]) 300 mg PO BEDTIME [facility] Non-Formulary Medication (Hydroxyzine Pamoate [Vistaril]) 50 mg PO Q6HR [facility] Non-Formulary Medication (Lactulose [Lactulose]) 10 gm PO TID [facility] Non-Formulary Medication (Lorazepam [Ativan]) 0.5 mg PO ASDIRECTED PRN PRN Reason: Anxiety Non-Formulary Medication (Melatonin [Melatonin]) 10 mg PO DAILY [facility] Non-Formulary Medication (Mirtazapine [Remeron]) 15 mg PO BEDTIME [facility] Non-Formulary Medication (Pantoprazole Sodium [Protonix]) 40 mg PO DAILY [facility] Non-Formulary Medication (Polyethylene Glycol 3350 [Miralax]) 17 gm PO ASDIRECTED [facility] Non-Formulary Medication (Potassium Chloride [Potassium Chloride]) 10 meq PO DAILY [facility] Non-Formulary Medication (Rivaroxaban [Xarelto]) 10 mg PO DAILY [facility] Non-Formulary Medication (Zolpidem Tartrate [Ambien]) 10 mg PO BEDTIME [facility] Assessment/Plan Comment:: Patient will be admitted to observation and will continue her home medications. She will be given scopolamine patch for nausea control, lactated Ringer's at 75 mL/h, Dilaudid, 0.5 mg every hour as needed for pain control. She will try to drink her GoLYTELY to help relieve her colonic pain/obstruction. If the patient has not improved in 24 hours we will consult with her specialist. DVT prophylaxis -continue patient's home Xarelto
[2020-06-18] MEDS ORDERED: Scopolamine 1.5 MG Transdermal Patch TOP SCH (13:15)
[2020-06-18] MEDS ORDERED: Non-Formulary Medication 1 Each (Lactulose [Lactulose] 10 GM/15 ML Solution) PO SCH (14:00)
[2020-06-18] MEDS: Lactated Ringers 1,000 ML IV SCH (14:45)
[2020-06-18] MEDS: HYDROmorphone 2 MG/ML SDV IVPUSH PRN ×5 (14:46→22:49)
[2020-06-18] MEDS ORDERED: HYDROXYZINE PAMOATE 50 MG PO PRN (14:58)
[2020-06-18] MEDS ORDERED: LORazepam 0.5 MG Tab PO PRN (14:59)
[2020-06-18] MEDS ORDERED: Polyethylene Glycol 3350 Powder 238 GM Bot PO SCH (15:15)
[2020-06-18] MEDS ORDERED: Acetaminophen 500 MG Tab PO PRN (17:55)
[2020-06-18] MEDS ORDERED: Sodium Phosphate,Monobasic/Sodium Phosphate,Dibasic Enema 133 ML Bottle RECTAL ONE (17:56)
[2020-06-18] MEDS: hydrOXYzine HCl 50 MG/ML SDV IM PRN ×2 (18:18→22:51)
[2020-06-18] MEDS ORDERED: DOXEPIN 10 MG PO SCH (21:00)
[2020-06-18] MEDS ORDERED: Zolpidem 10 MG Tab PO SCH (21:00)
[2020-06-18] MEDS ORDERED: Gabapentin 300 MG Cap *PTOM PO SCH (21:00)
[2020-06-18] MEDS ORDERED: Mirtazapine 15 MG Tab *PTOM PO SCH (21:00)
[2020-06-18] MEDS: DIPHENHYDRAMINE 25 MG PO SCH ×2 (21:38→21:44)
[2020-06-18] MEDS: Acetaminophen 500 MG Tab PO SCH (22:30)
[2020-06-19] MEDS: HYDROmorphone 2 MG/ML SDV IVPUSH PRN ×4 (00:46→07:41)
[2020-06-19] MEDS: Acetaminophen 500 MG Tab PO SCH ×3 (03:02→09:02)
[2020-06-19] MEDS: Lactated Ringers 1,000 ML IV SCH (03:06)
[2020-06-19] MEDS: hydrOXYzine HCl 50 MG/ML SDV IM PRN (05:41)
[2020-06-19] MEDS ORDERED: LINZESS 290 MCG PO SCH (06:00)
[2020-06-19] MEDS ORDERED: Furosemide 40 MG Tab *PTOM PO SCH (06:00)
[2020-06-19] MEDS ORDERED: HYDROmorphone 2 MG Tab PO PRN (07:51)
[2020-06-19] MEDS ORDERED: hydrOXYzine HCl 25 MG Tab PO PRN (08:18)
[2020-06-19] MEDS ORDERED: oxyCODONE 5 MG Tab PO PRN (08:33)
[2020-06-19] MEDS ORDERED: Sodium Chloride 0.9% 10 ML Syringe FLUSH PRN (08:56)
[2020-06-19] MEDS ORDERED: [UNRECOGNIZED DRUG - OTHER] PO SCH (09:00)
[2020-06-19] MEDS ORDERED: Non-Formulary Medication 1 Each (Docusate Sodium [Colace] 100 MG Cap) PO SCH (09:00)
[2020-06-19] MEDS ORDERED: RIVAROXABAN 10 MG PO SCH (09:00)
[2020-06-19] MEDS ORDERED: DOCUSATE SODIUM PO SCH (09:00)
[2020-06-19] MEDS ORDERED: Potassium Chloride 20 MEQ Tab.ER *PTOM PO SCH (09:00)
[2020-06-19] MEDS ORDERED: Non-Formulary Medication 1 Each (Pantoprazole Sodium [Protonix] 40 MG Tablet.Dr) PO SCH (09:00)
--- NOTE | 2020-06-19 12:12 | PCM.DCSUM1 ---
Discharge Summary - Hospital Course Free Text/Narrative:: Patient was admitted to observation and treated with IV fluids, enemas, antinausea medications, and pain control. The patient was able to have a scant bowel movement after the first enema. She was given this opportunity with pain control and nausea control and to drink the GoLYTELY that was prescribed by her GI specialist. She has had mild improvement and is almost back to baseline. She is stable for discharge back home and advised to follow-up with her specialist. Is also advised to follow-up with her primary care physician. HPI Initial Comments: 60-year-old lady with a very complicated past medical history including colonic inertia was seen in her primary care physician's office this morning for severe abdominal pain. Her GI specialist had prescribed her GoLYTELY to help relieve colonic constipation secondary to her chronic condition but she has been suffering significant abdominal pain and nausea and has not been able to drink the GoLYTELY. He is being admitted for pain and nausea control so that she can drink her GoLYTELY and hopefully relieve her obstruction. Diagnosis: Stroke: No - Discharge Data Discharge Date: 06/19/20 Discharge Disposition: Home, Self-Care 01 Condition: Good - Referral to Home Health Primary Care Physician: Jesse Gresham MD - Discharge Diagnosis/Problem(s) (1) Nausea and vomiting SNOMED Code(s): 99966412 ICD Code: R11.2 - NAUSEA WITH VOMITING, UNSPECIFIED Status: Acute Current Visit: No (2) Abdominal pain SNOMED Code(s): 48997656 ICD Code: R10.9 - UNSPECIFIED ABDOMINAL PAIN Status: Acute Current Visit: No Onset Date: 08/20/13 (3) Anxiety SNOMED Code(s): 59208088 ICD Code: F41.9 - ANXIETY DISORDER, UNSPECIFIED Status: Acute Current Visit: No Problem Details: Anxiety improved with Ativan 1 mg po. She must see PCP for any maintenance management of chronic anxiety. (4) Narcotic addiction SNOMED Code(s): 495897580 ICD Code: F11.20 - OPIOID DEPENDENCE, UNCOMPLICATED Status: Acute Current Visit: No (5) Insomnia SNOMED Code(s): 608989334 ICD Code: G47.00 - INSOMNIA, UNSPECIFIED Status: Acute Current Visit: No Qualifiers: Insomnia type: other insomnia Qualified Code(s): G47.09 - Other insomnia (6) Palliative care status SNOMED Code(s): 570153433 ICD Code: Z51.5 - ENCOUNTER FOR PALLIATIVE CARE Status: Acute Current Visit: No (7) Depression SNOMED Code(s): 47379926 ICD Code: F32.9 - MAJOR DEPRESSIVE DISORDER, SINGLE EPISODE, UNSPECIFIED Status: Acute Current Visit: No Qualifiers: Depression Type: major depressive disorder Major depression recurrence: recurrent Active/Remission status: in partial remission Qualified Code(s): F33.41 - Major depressive disorder, recurrent, in partial remission - Patient Instructions Diet: Usual Diet as Tolerated Activity: As Tolerated Showering/Bathing: May Shower - Discharge Plan *PRESCRIPTION DRUG MONITORING PROGRAM REVIEWED*: Not Applicable *COPY OF PRESCRIPTION DRUG MONITORING REPORT IN PATIENT [place]: Not Applicable Prescriptions/Med Rec: Acetaminophen [Tylenol Extra Strength] 500 mg PO Q4H 30 Days #180 tablet Home Medications: Home Meds Potassium Chloride 30 meq PO DAILY@0600 10/18/17 [History] Doxepin [SINEquan] 20 mg PO BEDTIME 06/17/20 [History] Eszopiclone [Lunesta] 3 mg PO BEDTIME 06/17/20 [History] Furosemide [Lasix] 40 mg PO DAILY@0600 06/17/20 [History] Gabapentin [Neurontin] 600 mg PO BEDTIME 06/17/20 [History] LORazepam [Ativan] 0.5 mg PO DAILY 06/17/20 [History] Melatonin 100 mg PO BEDTIME 06/17/20 [History] Mirtazapine [Remeron] 15 mg PO BEDTIME 06/17/20 [History] Zolpidem Tartrate [Ambien] 10 mg PO BEDTIME 06/17/20 [History] hydrOXYzine pamoate [Vistaril] 50 mg PO Q6H PRN 06/17/20 [History] polyethylene glycoL 3350 [MiraLAX] 17 gm PO 6XDAY PRN 06/17/20 [History] Glycerin 1 - 2 supp RECTAL DAILY PRN 06/18/20 [History] Linaclotide [Linzess] 290 mcg PO DAILY@0600 06/18/20 [History] diphenhydrAMINE [Benadryl] 50 mg PO BEDTIME PRN 06/18/20 [History] Acetaminophen [Tylenol Extra Strength] 500 mg PO Q4H 30 Days #180 tablet [Rx] Patient Handouts: Chronic Constipation Referrals: Jesse Gresham MD [Primary Care Provider] - - Discharge Summary/Plan Comment DC Time >30 min.: No - General Info Date of Service: 06/19/20 Admission Dx/Problem (Free Text: Admission Diagnosis/Problem Admission Diagnosis/Problem Abdominal pain Subjective Update: Patient states that she was able to have a scant bowel movement and as of this morning has drank about half of her GoLYTELY. States that she has had some relief but continues to have significant discomfort Functional Status: Reports: Pain Controlled, Tolerating Diet, Ambulating, Urinating - Review of Systems General: Reports: Weakness, Fatigue, Malaise HEENT: Reports: No Symptoms Pulmonary: Reports: No Symptoms Cardiovascular: Reports: No Symptoms Gastrointestinal: Reports: Abdominal Pain, Nausea Genitourinary: Reports: No Symptoms Musculoskeletal: Reports: No Symptoms Skin: Reports: No Symptoms Neurological: Reports: No Symptoms Psychiatric: Reports: Anxiety - Patient Data Vitals - Most Recent: Last Vital Signs Temp 36.6 C 06/19/20 05:31 Pulse 78 06/19/20 05:31 Resp 18 06/19/20 05:31 BP 118/78 06/19/20 05:31 Pulse Ox 94 L 06/19/20 05:31 Weight - Most Recent: 57.153 kg I&O - Last 24 hours: Intake & Output 06/18/20 06/19/20 06/19/20 22:59 06:59 14:59 Intake Total 648 460 Balance 648 460 Lab Results - Last 24 hrs: Laboratory Results - last 24 hr 06/18/20 06/18/20 Range/Units 14:27 14:27 WBC 4.0 (3.0-10.3) x10-3/uL RBC 4.11 (3.60-5.20) x10(6)uL Hgb 12.1 (11.4-15.5) g/dL Hct 37.4 (34.2-48.2) % MCV 91.0 (76.7-100.5) fL MCH 29.5 (23.9-33.9) pg MCHC 32.4 (31.9-34.8) g/dL RDW 12.9 (12.3-16.5) % Plt Count 254 (151-488) x10(3)uL MPV 8.0 (7.1-12.4) fL Neut % (Auto) 60.3 (30.8-76.2) % Lymph % (Auto) 28.0 (18.4-52.1) % Dane % (Auto) 9.3 (4.4-15.7) % Eos % (Auto) 1.5 (0.6-8.1) % Baso % (Auto) 0.9 (0.2-1.5) % Neut # (Auto) 2.4 (1.5-6.3) x10-3/uL Lymph # (Auto) 1.1 (1.0-4.4) x10-3/uL Dane # (Auto) 0.4 (0.3-1.0) x10-3/uL Eos # (Auto) 0.1 (0.0-0.8) x10-3/uL Baso # (Auto) 0.0 (0.0-0.1) x10-3/uL Sodium 139 (135-145) mmol/L Potassium 3.6 (3.5-5.3) mmol/L Chloride 102 (100-110) mmol/L Carbon Dioxide 26 (21-32) mmol/L BUN 14 (7-18) mg/dL Creatinine 1.4 H (0.55-1.02) mg/dL Est Cr Clr Drug Dosing TNP Estimated GFR (MDRD) 38 L (>60) BUN/Creatinine Ratio 10.0 (9-20) Glucose 111 (80-116) mg/dL Calcium 8.5 L (8.6-10.2) mg/dL Total Bilirubin 0.6 (0.1-1.3) mg/dL AST 17 (5-25) IU/L ALT 19 D (12-36) U/L Alkaline Phosphatase 235 H (56-112) IU/L Total Protein 6.9 (6.0-8.0) g/dL Albumin 3.7 (3.2-4.6) g/dL Globulin 3.2 g/dL Albumin/Globulin Ratio 1.2 Med Orders - Current: Current Medications Acetaminophen (Acetaminophen 500 Mg Tab) 500 mg PO Q4H [facility] Last Admin: 06/19/20 09:02 Dose: 500 mg Documented by: Diphenhydramine HCl (Diphenhydramine 25 Mg Cap *Ptom) 50 mg PO BEDTIME [facility] Last Admin: 06/18/20 21:44 Dose: 50 mg Documented by: Doxepin HCl (Doxepin 10 Mg Cap *Ptom) 20 mg PO BEDTIME [facility] Last Admin: 06/18/20 21:35 Dose: 20 mg Documented by: Furosemide (Furosemide 40 Mg Tab *Ptom) 40 mg PO DAILY@0600 [facility] Last Admin: 06/19/20 05:17 Dose: 40 mg Documented by: Gabapentin (Gabapentin 300 Mg Cap *Ptom) 600 mg PO BEDTIME [facility] Last Admin: 06/18/20 21:36 Dose: 600 mg Documented by: Heparin Sodium (Porcine) (Heparin Sodium 100 Units/Ml 5 Ml Syringe) 300 units FLUSH ASDIRECTED PRN PRN Reason: flush Last Admin: 06/19/20 08:54 Dose: 300 units Documented by: Hydroxyzine HCl (Hydroxyzine Hcl 25 Mg Tab) 25 mg PO Q4H PRN PRN Reason: Abdominal Pain Lorazepam (Lorazepam 0.5 Mg Tab) 0.5 mg PO DAILY PRN PRN Reason: Anxiety Mirtazapine (Mirtazapine 15 Mg Tab *Ptom) 15 mg PO BEDTIME [facility] Last Admin: 06/18/20 21:35 Dose: 15 mg Documented by: Eszopiclone [Lunesta (] 3 Mg Tablet *Ptom) 3 mg PO BEDTIME [facility] Melatonin 10mg Tab ( (Ptom)) 10 mg PO BEDTIME [facility] Last Admin: 06/18/20 21:37 Dose: 10 mg Documented by: Beenas 290 Mcg (Capsule *Ptom) 0 each PO DAILY@0600 [facility] Last Admin: 06/19/20 05:17 Dose: 1 each Documented by: Oxycodone HCl (Oxycodone 5 Mg Tab) 5 mg PO Q4H PRN PRN Reason: SEVERE PAIN Polyethylene Glycol (Polyethylene Glycol 3350 Powder 238 Gm Bot) 17 gm PO ASDIRECTED [facility] Potassium Chloride (Potassium Chloride 20 Meq Tab.Er *Ptom) 30 meq PO DAILY [facility] Last Admin: 06/19/20 08:57 Dose: 30 meq Documented by: Scopolamine (Scopolamine 1.5 Mg Transdermal Patch) 1.5 mg TOP Q72H [facility] Last Admin: 06/18/20 14:44 Dose: 1.5 mg Documented by: Sodium Chloride (Sodium Chloride 0.9% 10 Ml Syringe) 10 ml FLUSH ASDIRECTED PRN PRN Reason: flush Last Admin: 06/19/20 09:20 Dose: 10 ml Documented by: Zolpidem Tartrate (Zolpidem 10 Mg Tab) 10 mg PO BEDTIME [facility] Last Admin: 06/18/20 22:30 Dose: 10 mg Documented by: Discontinued Medications Acetaminophen (Acetaminophen 500 Mg Tab) 500 mg PO Q4H PRN PRN Reason: Pain (mild 1-3) Last Admin: 06/18/20 18:18 Dose: 500 mg Documented by: Hydromorphone HCl (Hydromorphone 2 Mg/Ml Sdv) 0.5 mg IVPUSH Q1H PRN PRN Reason: Abdominal Pain Last Admin: 06/19/20 07:41 Dose: 0.5 mg Documented by: Hydroxyzine HCl (Hydroxyzine Hcl 50 Mg/Ml Sdv) 25 mg IM Q4H PRN PRN Reason: Nausea Last Admin: 06/19/20 05:41 Dose: 25 mg Documented by: Hydroxyzine Pamoate (Hydroxyzine Pamoate 50 Mg Cap *Ptom) 50 mg PO Q6H PRN PRN Reason: NAUSEA Lactated Ringer's (Ringers, Lactated) 1,000 mls @ 75 mls/hr IV ASDIRECTED [facility] Last Admin: 06/19/20 03:06 Dose: 75 mls/hr Documented by: Non-Formulary Medication (Acetaminophen [Tylenol]) 325 mg PO ASDIRECTED PRN PRN Reason: Pain Non-Formulary Medication (Dicyclomine [Bentyl]) 20 mg PO Q6HR [facility] Non-Formulary Medication (Docusate Sodium [Colace]) 8 tab PO DAILY [facility] Non-Formulary Medication (Docusate Sodium/Sennosides [Senna Plus]) 6 each PO DAILY [facility] Non-Formulary Medication (Pantoprazole Sodium [Protonix]) 40 mg PO DAILY [facility] Sodium Biphosphate/Sodium Phosphate (Sodium Phosphate,Monobasic/Sodium Phosphate,Dibasic Enema 133 Ml Bottle) 133 ml RECTAL ONETIME ONE Stop: 06/18/20 17:57 Last Admin: 06/18/20 18:21 Dose: 133 ml Documented by: Comments:: Patient was sitting in the bed, interactive, pleasant - Exam Quality Assessment: Reports: Supplemental Oxygen, DVT Prophylaxis, Skin Breakdo wn General: Reports: Alert, Oriented, Cooperative, Mild Distress Lungs: Reports: Clear to Auscultation Cardiovascular: Reports: Regular Rate GI/Abdominal Exam: Normal Bowel Sounds, Soft, Tender, Other Extremities: Normal Inspection Skin: Reports: Warm, Dry, Intact Neurological: Reports: No New Focal Deficit Psy/Mental Status: Reports: Alert, Normal Affect, Anxious
[2020-06-19 13:09] VITALS: BP 120/80; PULSE 92
[2020-06-19] MEDS ORDERED: ESZOPICLONE 3 MG PO SCH (21:00)
== END 2020-06-19 13:00 | disposition home or self-care (01) ==
LOC: FB.MS 12:30
PROVIDERS: ADMIT Student in an Organized Health Care Education/Training Program; ATTEND Student in an Organized Health Care Education/Training Program
DX: R11.2 Nausea with vomiting, unspecified (principal); R10.9 Unspecified abdominal pain; K59.00 Constipation, unspecified; F11.20 Opioid dependence, uncomplicated; G47.00 Insomnia, unspecified; Z88.8 Allergy status to other drugs, medicaments and biological substances; Z79.899 Other long term (current) drug therapy
CPT/HCPCS: 36415; 80053; 85025; 96372; 96374; 96376; A9270-GY; G0378; G0379; J1170; J1642; J3410; J7120

== ENCOUNTER 2020-09-26 19:42 | Emergency (ER) | payer BC ==
[2020-09-26 19:54] VITALS: PULSE 94
[2020-09-26] MEDS ORDERED: Ketorolac 30 MG/ML SDV IM ONE (19:58)
--- NOTE | 2020-09-26 20:20 | EDM.PDOC ---
ED HPI GENERAL MEDICAL PROBLEM - General Chief Complaint: Headache Stated Complaint: MIGRAINE Time Seen by Provider: 09/26/20 20:00 Source of Information: Reports: Patient History Limitations: Reports: No Limitations - History of Present Illness INITIAL COMMENTS - FREE TEXT/NARRATIVE: pt is well known to this ER, comes in with c/o recurrent chronic headaches, she had those for many years, describe bilateral pressure like pain with nausea, denies emesis, fever chills neck pain or stiffness or any other associated sx, has taken her Vistaril at home few hrs ago and that s=did not help.pt noted to have elevated BP here, she has no known Hx of hypertension. her HAs today are very typical of chronic recurrent HAs in description . Treatments PRECISION FILER HAND: Reports: Other Medication(s) Other Treatments PRECISION FILER HAND: vistaril at 1715 Headache Pain Score (Numeric/FACES): 8 - Related Data Allergies Allergy/AdvReac Type Severity Reaction Status Date / Time bupropion HCl Allergy Respiratory Verified 06/17/20 16:52 [From Wellbutrin] Distress chlorpromazine HCl Allergy Respiratory Verified 06/17/20 16:52 [From Thorazine] Distress metoclopramide [From Reglan] Allergy Anaphylactic Verified 06/17/20 16:52 Shock ondansetron HCl [From Zofran] Allergy Respiratory Verified 06/17/20 16:52 Distress prochlorperazine edisylate Allergy Respiratory Verified 06/17/20 16:52 [From Compazine] Distress prochlorperazine maleate Allergy Respiratory Verified 06/17/20 16:52 [From Compazine] Distress temazepam [From Restoril] Allergy Headache Verified 06/17/20 16:52 Home Meds: Home Meds Potassium Chloride 30 meq PO DAILY@0600 10/18/17 [History] Doxepin [SINEquan] 20 mg PO BEDTIME 06/17/20 [History] Eszopiclone [Lunesta] 3 mg PO BEDTIME 06/17/20 [History] Furosemide [Lasix] 40 mg PO DAILY@0600 06/17/20 [History] Gabapentin [Neurontin] 600 mg PO BEDTIME 06/17/20 [History] LORazepam [Ativan] 0.5 mg PO DAILY 06/17/20 [History] Melatonin 100 mg PO BEDTIME 06/17/20 [History] Mirtazapine [Remeron] 15 mg PO BEDTIME 06/17/20 [History] Zolpidem Tartrate [Ambien] 10 mg PO BEDTIME 06/17/20 [History] hydrOXYzine pamoate [Vistaril] 50 mg PO Q6H PRN 06/17/20 [History] polyethylene glycoL 3350 [MiraLAX] 17 gm PO 6XDAY PRN 06/17/20 [History] Glycerin 1 - 2 supp RECTAL DAILY PRN 06/18/20 [History] Linaclotide [Linzess] 290 mcg PO DAILY@0600 06/18/20 [History] diphenhydrAMINE [Benadryl] 50 mg PO BEDTIME PRN 06/18/20 [History] Acetaminophen [Tylenol Extra Strength] 500 mg PO Q4H 30 Days #180 tablet 06/19/20 [Rx] Past Medical History - Past Health History Medical/Surgical History: Denies Medical/Surgical History HEENT History: Reports: None, Other (See Below) Other HEENT History: chronic headaches Cardiovascular History: Reports: Blood Clots/VTE/DVT Other Cardiovascular History: Hx palpitations. Hx DVT arm from plugged port. 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 Intractable chronic migraine headaches. Hx CVA x 7. Psychiatric History: Reports: Addiction, Anxiety, Depression, Psych Hospitalization(s) Other Psychiatric History: Hx polypharmacy. Endocrine/Metabolic History: Reports: Hypothyroidism Hematologic History: Reports: Anemia, Blood Transfusion(s), Other (See Below) Other Hematologic History: low potassium Dermatologic History: Reports: Decubitus Ulcer, Other (See Below) Other Dermatologic History: Open sores noted on bilateral arms, lower back - Infectious Disease History Infectious Disease History: Reports: Mumps - Past Surgical History Head Surgeries/Procedures: Reports: None HEENT Surgical History: Reports: Oral Surgery Cardiovascular Surgical History: Reports: None Respiratory Surgical History: Reports: None GI Surgical History: Reports: Colonoscopy, EGD, Other (See Below) Other GI Surgeries/Procedures: removed part of stomach due to ulcers Female Surgical History: Reports: None Endocrine Surgical History: Reports: None Neurological Surgical History: Reports: None Musculoskeletal Surgical History: Reports: Hip Replacement, ORIF Other Musculoskeletal Surgeries/Procedures:: bilat hip replacments, L ORIF Dermatological Surgical History: Reports: None Social & Family History - Family History Family Medical History: No Pertinent Family History - Tobacco Use Tobacco Use Status *Q: Never Tobacco User - Caffeine Use Caffeine Use: Reports: Soda Other Caffeine Use: 3 sodas a day - Recreational Drug Use Recreational Drug Use: No - Living Situation & Occupation Occupation: Unemployed ED ROS GENERAL - Review of Systems Review Of Systems: See Below Constitutional: Reports: No Symptoms HEENT: Reports: No Symptoms Respiratory: Reports: No Symptoms Cardiovascular: Reports: No Symptoms GI/Abdominal: Reports: No Symptoms Musculoskeletal: Reports: No Symptoms Skin: Reports: No Symptoms Neurological: Reports: Headache. Denies: Confusion, Dizziness, Numbness, Seizure, Syncope, Tingling, Trouble Speaking, Weakness, Change in Speech Psychiatric: Reports: No Symptoms ED EXAM, GENERAL - Physical Exam Exam: See Below Exam Limited By: No Limitations General Appearance: Alert, No Apparent Distress, Anxious Eye Exam: Bilateral Eye: Normal Inspection Ear Exam: Bilateral Ear: Canal Normal, TM normal Nose: Normal Inspection Throat/Mouth: Normal Inspection, Normal Lips, Normal Oropharynx Head: Atraumatic, Normocephalic Neck: Normal Inspection, Supple, Non-Tender Respiratory/Chest: No Respiratory Distress, Lungs Clear Cardiovascular: Normal Peripheral Pulses, Regular Rate, Rhythm, No Murmur GI/Abdominal: Normal Bowel Sounds, Soft, Non-Tender Back Exam: Normal Inspection Extremities: Normal Inspection, Normal Range of Motion Neurological: Alert, Oriented, CN II-XII Intact, No Motor/Sensory Deficits Psychiatric: Normal Affect Course - Vital Signs Text/Narrative:: pt has recurrent stable HAs , was given Toradol and Phenergan here with mod improvement. her BP is elevated but she is stable in this regards and normally she is normo tensive, this today is likely secondary to underlying anxiety. she was given Catapres here and she is to follow on this issue as well along with mng of chronic HAs with PCP. Last Recorded V/S: Last Vital Signs Temp 36.6 C 09/26/20 19:51 Pulse 94 09/26/20 19:51 Resp 18 09/26/20 19:51 BP 185/109 H 09/26/20 19:51 Pulse Ox 98 09/26/20 19:51 - Orders/Labs/Meds Meds: Medications Discontinued Medications Generic Name Dose Route Start Last Admin Trade Name Kyung PRN Reason Stop Dose Admin Ketorolac Tromethamine 30 mg 09/26/20 19:58 09/26/20 20:05 Ketorolac 30 Mg/Ml Sdv IM 09/26/20 19:59 30 mg ONETIME ONE Administration Departure - Departure Time of Disposition: 20:23 Disposition: Home, Self-Care 01 Clinical Impression: Frequent headaches - Discharge Information Referrals: Jesse Gresham MD [Primary Care Provider] - Sepsis Event Note (ED) - Evaluation Sepsis Screening Result: No Definite Risk - Focused Exam Vital Signs: Vital Signs Temp Pulse Resp BP Pulse Ox 09/26/20 19:51 36.6 C 94 18 185/109 H 98
[2020-09-26] MEDS ORDERED: cloNIDine 0.1 MG Tab PO ONE (20:24)
[2020-09-26] MEDS ORDERED: Promethazine 25 MG/ML SDV IM PRN (20:24)
[2020-09-26 21:39] VITALS: BP 174/98
== END 2020-09-26 21:35 | disposition home or self-care (01) ==
LOC: FB.ED 19:42
DX: R51.9 Headache, unspecified (principal); Z88.5 Allergy status to narcotic agent; Z88.8 Allergy status to other drugs, medicaments and biological substances; Z86.718 Personal history of other venous thrombosis and embolism
CPT/HCPCS: 96372; 99283; A9270; J1885; J2550

== ENCOUNTER 2020-10-12 10:23 | Emergency (ER) | payer BC ==
--- NOTE | 2020-10-12 11:00 | EDM.PDOC ---
ED HPI GENERAL MEDICAL PROBLEM - General Chief Complaint: Headache Stated Complaint: SEVERE HEADACHE Time Seen by Provider: 10/12/20 10:55 Source of Information: Reports: Patient History Limitations: Reports: No Limitations - History of Present Illness INITIAL COMMENTS - FREE TEXT/NARRATIVE: 60-year-old female who presents to the emergency department reporting headache which began yesterday and responded somewhat to Imitrex that she took but came back again last night and is still present today. It is a throbbing headache with pressure feeling and she rates it as a 8-9/10. She has had nausea but no vomiting. She also has some stiffness in her neck but this is something that had been present in the past when she had these headaches on a daily basis. There has been no fever or chills. No history of trauma. No vision changes. No localized area of weakness or numbness. The headaches are very similar to the headaches that she has had in the past. She also has been having elevated blood pressure when these headaches occur (that happened in the past when she had her headaches as well) with her blood pressure being up to the 180 systolic range. She reports that her blood pressure is usually in the 110 systolic range and she is on no medication for her blood pressure. She cannot identify any inciting event. Patient does have a long-standing history of chronic headaches that were bitemporal in location and were pressure type headaches that she got pretty much every day and she was on multiple preventative treatments including Botox in the past and apparently was followed by a neurologist for these headaches. These headaches for the most part seemed to resolve in her mid 50s and she has been pretty much headache free since then except for occasional headaches and she states that she was able to wean herself off of all of her preventative medications. Recently she has had problems with irritable bowel and chronic constipation and was evaluated fairly thoroughly for this in June of this year at the [facility] and currently the patient is on Linzess and her chronic pain and chronic constipation have improved. She still has some abdominal distention owning that has been present for greater than 2 years according to the patient is still concerned about this but the concern that brought her to the emergency department today was the recurrence of her headaches as she has had them in the past and her elevated blood pressure. She is awake, alert and appropriate. She is ambulatory without any problems. She appears nontoxic and not appear to be in any distress. There are no other associated signs or symptoms. There are no other modifying factors. 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: Reports: Other Medication(s) (Imitrex yesterday) Headache Pain Score (Numeric/FACES): 9 - Related Data Allergies Allergy/AdvReac Type Severity Reaction Status Date / Time bupropion HCl Allergy Respiratory Verified 10/12/20 10:56 [From Wellbutrin] Distress chlorpromazine HCl Allergy Respiratory Verified 10/12/20 10:56 [From Thorazine] Distress metoclopramide [From Reglan] Allergy Anaphylactic Verified 10/12/20 10:56 Shock ondansetron HCl [From Zofran] Allergy Respiratory Verified 10/12/20 10:56 Distress prochlorperazine edisylate Allergy Respiratory Verified 10/12/20 10:56 [From Compazine] Distress prochlorperazine maleate Allergy Respiratory Verified 10/12/20 10:56 [From Compazine] Distress temazepam [From Restoril] Allergy Headache Verified 10/12/20 10:56 Home Meds: Home Meds Potassium Chloride 30 meq PO DAILY@0600 10/18/17 [History] Doxepin [SINEquan] 20 mg PO BEDTIME 06/17/20 [History] Eszopiclone [Lunesta] 3 mg PO BEDTIME 06/17/20 [History] Furosemide [Lasix] 40 mg PO DAILY@0600 06/17/20 [History] Gabapentin [Neurontin] 600 mg PO BEDTIME 06/17/20 [History] LORazepam [Ativan] 0.5 mg PO DAILY 06/17/20 [History] Melatonin 100 mg PO BEDTIME 06/17/20 [History] Mirtazapine [Remeron] 15 mg PO BEDTIME 06/17/20 [History] Zolpidem Tartrate [Ambien] 10 mg PO BEDTIME 06/17/20 [History] hydrOXYzine pamoate [Vistaril] 50 mg PO Q6H PRN 06/17/20 [History] polyethylene glycoL 3350 [MiraLAX] 17 gm PO 6XDAY PRN 06/17/20 [History] Glycerin 1 - 2 supp RECTAL DAILY PRN 06/18/20 [History] Linaclotide [Linzess] 290 mcg PO DAILY@0600 06/18/20 [History] diphenhydrAMINE [Benadryl] 50 mg PO BEDTIME PRN 06/18/20 [History] Acetaminophen [Tylenol Extra Strength] 500 mg PO Q4H 30 Days #180 tablet 06/19/20 [Rx] Promethazine [Phenergan] 25 mg PO Q6H PRN #16 tab 10/12/20 [Rx] Past Medical History Cardiovascular History: Reports: Blood Clots/VTE/DVT Other Cardiovascular History: Hx palpitations. Hx DVT arm from plugged port. 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 Intractable chronic migraine headaches. Hx CVA x 7. Psychiatric History: Reports: Addiction, Anxiety, Depression, Psych Hospitalization(s) Other Psychiatric History: Hx polypharmacy. Endocrine/Metabolic History: Reports: Hypothyroidism Hematologic History: Reports: Anemia, Blood Transfusion(s), Other (See Below) Other Hematologic History: low potassium Dermatologic History: Reports: Decubitus Ulcer, Other (See Below) Other Dermatologic History: Open sores noted on bilateral arms, lower back - Infectious Disease History Infectious Disease History: Reports: Mumps - Past Surgical History HEENT Surgical History: Reports: Oral Surgery GI Surgical History: Reports: Colonoscopy, EGD, Other (See Below) Other GI Surgeries/Procedures: removed part of stomach due to ulcers Musculoskeletal Surgical History: Reports: Hip Replacement, ORIF Other Musculoskeletal Surgeries/Procedures:: bilat hip replacments, L ORIF Social & Family History - Tobacco Use Tobacco Use Status *Q: Unknown Ever Used Tobacco (Nonsmoker.) - Caffeine Use Caffeine Use: Reports: Soda Other Caffeine Use: 3 sodas a day - Alcohol Use Alcohol Use History: No - Living Situation & Occupation Occupation: Unemployed ED ROS GENERAL - Review of Systems Review Of Systems: See Below Constitutional: Reports: Decreased Appetite (This is chronic.). Denies: Fever, Chills HEENT: Reports: Eye Pain (Pain behind both eyes.). Denies: Vision Change Respiratory: Denies: Shortness of Breath, Cough Cardiovascular: Reports: Blood Pressure Problem (Blood pressures have been elevated with these headaches.). Denies: Chest Pain, Palpitations Endocrine: Denies: Polydypsia, Polyuria GI/Abdominal: Reports: Decreased Appetite, Nausea. Denies: Vomiting : Denies: Dysuria, Pain, Urgency Musculoskeletal: Denies: Neck Pain, Back Pain Neurological: Reports: Headache. Denies: Confusion, Numbness Psychiatric: Reports: Anxiety Hematologic/Lymphatic: Denies: Easy Bleeding, Easy Bruising - Physical Exam Exam: See Below Exam Limited By: No Limitations General Appearance: Alert, Mild Distress, Thin, Other (Nontoxic-appearing) Eye Exam: Bilateral Eye: EOMI, Normal Inspection (Sclera are anicteric), PERRL Ears: Normal External Exam, Hearing Grossly Normal Nose: Normal Inspection, Normal Mucosa, No Blood Throat/Mouth: Normal Inspection, Normal Lips, Normal Oropharynx, Normal Voice, No Airway Compromise Head Exam: Atraumatic, Normocephalic Neck: Normal Inspection, Supple, Non-Tender, Full Range of Motion Respiratory/Chest: No Respiratory Distress, Lungs Clear, Normal Breath Sounds, No Accessory Muscle Use, Chest Non-Tender Cardiovascular: Normal Peripheral Pulses, Regular Rate, Rhythm, No Murmur GI/Abdominal: Normal Bowel Sounds, Soft, Non-Tender, No Mass Neuro Exam (Abbreviated): Alert, Oriented, CN II-XII Intact, Normal Cognition, No Motor/Sensory Deficits Back Exam: Normal Inspection, Full Range of Motion Extremities: Normal Inspection, Normal Range of Motion, Non-Tender, No Pedal Edema, Normal Capillary Refill Psychiatric: Normal Affect Skin Exam: Warm, Dry, Intact, Normal Color, No Rash Course - Vital Signs Last Recorded V/S: Last Vital Signs Temp 36.6 C 10/12/20 10:23 Pulse 95 10/12/20 12:27 Resp 95 H 10/12/20 12:27 BP 137/90 10/12/20 12:27 Pulse Ox 98 10/12/20 10:23 - Orders/Labs/Meds Orders: Active Orders 24 hr Category Date Time Status Implanted Port Access [RC] ONETIME Care 10/12/20 11:33 Active Labs: Laboratory Tests 10/12/20 10/12/20 Range/Units 11:39 11:39 WBC 3.5 (3.0-10.3) x10-3/uL RBC 4.83 (3.60-5.20) x10(6)uL Hgb 14.0 (11.4-15.5) g/dL Hct 43.2 (34.2-48.2) % MCV 89.4 (76.7-100.5) fL MCH 28.9 (23.9-33.9) pg MCHC 32.3 (31.9-34.8) g/dL RDW 14.0 (12.3-16.5) % Plt Count 262 (151-488) x10(3)uL MPV 7.4 (7.1-12.4) fL Neut % (Auto) 62.0 (30.8-76.2) % Lymph % (Auto) 29.4 (18.4-52.1) % [place] % (Auto) 6.8 (4.4-15.7) % Eos % (Auto) 0.8 (0.6-8.1) % Baso % (Auto) 1.0 (0.2-1.5) % Neut # (Auto) 2.2 (1.5-6.3) x10-3/uL Lymph # (Auto) 1.0 (1.0-4.4) x10-3/uL [place] # (Auto) 0.2 L (0.3-1.0) x10-3/uL Eos # (Auto) 0.0 (0.0-0.8) x10-3/uL Baso # (Auto) 0.0 (0.0-0.1) x10-3/uL ESR 1 (0-20) mm/hr Sodium 142 (135-145) mmol/L Potassium 4.3 (3.5-5.3) mmol/L Chloride 108 D (100-110) mmol/L Carbon Dioxide 21 (21-32) mmol/L BUN 13 (7-18) mg/dL Creatinine 1.1 H (0.55-1.02) mg/dL Est Cr Clr Drug Dosing 45.79 mL/min Estimated GFR (MDRD) 50 L (>60) BUN/Creatinine Ratio 11.8 (9-20) Glucose 127 H (80-116) mg/dL Calcium 8.5 L (8.6-10.2) mg/dL Total Bilirubin 0.3 (0.1-1.3) mg/dL AST 16 (5-25) IU/L ALT 21 D (12-36) U/L Alkaline Phosphatase 239 H (56-112) IU/L Total Protein 6.7 (6.0-8.0) g/dL Albumin 3.9 (3.2-4.6) g/dL Globulin 2.8 g/dL Albumin/Globulin Ratio 1.4 Meds: Medications Discontinued Medications Generic Name Dose Route Start Last Admin Trade Name Freq PRN Reason Stop Dose Admin Promethazine HCl 12.5 mg/ 50.5 mls @ 200 mls/hr 10/12/20 11:33 10/12/20 11:48 Sodium Chloride IV 10/12/20 11:48 200 mls/hr ONETIME ONE Administration Ketorolac Tromethamine 30 mg 10/12/20 11:20 10/12/20 11:51 Ketorolac 30 Mg/Ml Sdv IM 10/12/20 11:21 Not Given ONETIME ONE Ketorolac Tromethamine 30 mg 10/12/20 11:32 10/12/20 11:49 Ketorolac 30 Mg/Ml Sdv IVPUSH 10/12/20 11:33 30 mg ONETIME ONE Administration Lorazepam 1 mg 10/12/20 11:20 10/12/20 11:50 Lorazepam 2 Mg/Ml Sdv IM 10/12/20 11:21 Not Given ONETIME ONE Lorazepam 1 mg 10/12/20 11:32 10/12/20 11:46 Lorazepam 2 Mg/Ml Sdv IVPUSH 10/12/20 11:33 1 mg ONETIME ONE Administration Promethazine HCl 25 mg 10/12/20 11:21 10/12/20 11:50 Promethazine 25 Mg/Ml Sdv IM 10/12/20 11:22 Not Given ONETIME ONE Sumatriptan Succinate 6 mg 10/12/20 11:20 10/12/20 12:19 Sumatriptan 6 Mg/0.5 Ml Sdv SUBCUT 10/12/20 11:21 6 mg ONETIME ONE Administration - Re-Assessments/Exams Free Text/Narrative Re-Assessment/Exam: 10/12/20 12:55: White blood cell count was normal. Hemoglobin was 14. Sedimentation rate was normal. Serum electrolyte profile was normal. The creatinine was 1.1. LFTs were normal. The patient reports that her nausea has resolved. Her headache is not much improved but she is awake and alert and appears nontoxic and in no acute distress. She has remained neurologically stable. There is no meningismus or any other concerning signs or symptoms. I will give the patient prescription for Phenergan that she can use for nausea (I will send it to her pharmacy at [facility] at her request). She is to follow- up with Dr. Gresham on Tuesday of this coming week. She will need to make an appointment to see her neurologist again as well. Precautions and reasons for return to the emergency department were discussed with the patient while she was in the emergency department over detailed in the patient's discharge instructions. Departure - Departure Time of Disposition: 13:05 Disposition: Home, Self-Care 01 Condition: Good Clinical Impression: Elevated blood pressure reading Headache Qualifiers: Headache type: unspecified Headache chronicity pattern: chronic headache Intractability: not intractable Qualified Code(s): R51 - Headache - Discharge Information Prescriptions: Promethazine [Phenergan] 25 mg PO Q6H PRN #16 tab PRN Reason: Nausea/Vomiting Instructions: General Headache Without Cause, [id number] Referrals: Jesse Gresham MD [Primary Care Provider] - Forms: ED Department Discharge Additional Instructions: All of your blood tests were reassuringly normal. I am unsure why you are having a recurrence of your headaches. Your blood pressure was somewhat elevated while in the emergency department as you have noted previously with your headaches. There did not appear to be anything of a serious nature or anything that would require any acute intervention this time. You will need to keep your appointment with Dr. Gresham this coming week. I have sent a prescription of Phenergan to [facility] that you can use for nausea as needed. Increase your fluid intake. Take Tylenol 1000 mg by mouth every 6 hours as needed for pain. You can also take ibuprofen 600 mg by mouth every 6 hours as needed for pain. Back to the emergency department for unrelenting vomiting, fever, localized area of weakness or numbness or any other concerning signs or symptoms. Sepsis Event Note (ED) - Focused Exam Vital Signs: Vital Signs Temp Pulse Resp BP Pulse Ox 10/12/20 12:27 95 95 H 137/90 10/12/20 10:23 36.6 C 96 18 142/86 H 98 - My Orders Last 24 Hours: My Active Orders 10/12/20 11:33 Implanted Port Access [RC] ONETIME - Assessment/Plan Last 24 Hours: My Active Orders 10/12/20 11:33 Implanted Port Access [RC] ONETIME
[2020-10-12] MEDS ORDERED: Ketorolac 30 MG/ML SDV IM ONE (11:20)
[2020-10-12] MEDS ORDERED: SUMAtriptan 6 MG/0.5 ML SDV SUBCUT ONE (11:20)
[2020-10-12] MEDS ORDERED: LORazepam 2 MG/ML SDV IM ONE (11:20)
[2020-10-12] MEDS ORDERED: Promethazine 25 MG/ML SDV IM ONE (11:21)
[2020-10-12] MEDS ORDERED: Ketorolac 30 MG/ML SDV IVPUSH ONE (11:32)
[2020-10-12] MEDS ORDERED: LORazepam 2 MG/ML SDV IVPUSH ONE (11:32)
[2020-10-12] MEDS ORDERED: Promethazine 12.5 MG in Sodium Chloride 0.9% 50 ML IV ONE (11:33)
[2020-10-12 13:31] VITALS: BP 133/98; PULSE 89
== END 2020-10-12 13:43 | disposition home or self-care (01) ==
LOC: FB.ED 10:23
DX: R51.9 Headache, unspecified (principal); R03.0 Elevated blood-pressure reading, without diagnosis of hypertension; Z88.8 Allergy status to other drugs, medicaments and biological substances
CPT/HCPCS: 80053; 85025; 85651; 96372; 96374; 96375; 99284; J1642; J1885; J2060; J2550; J3030

== ENCOUNTER 2021-10-31 12:46 | Emergency (ER) | payer BC ==
[2021-10-31 13:04] VITALS: BP 128/75; PULSE 109
[2021-10-31] MEDS ORDERED: Sodium Chloride 0.9% 10 ML Syringe FLUSH PRN (14:21)
[2021-10-31] MEDS ORDERED: Sodium Chloride 0.9% 1,000 ML IV SCH (14:30)
[2021-10-31] MEDS ORDERED: traMADol 50 MG Tab PO ONE (14:37)
[2021-10-31 14:44] LABS: ESTIMATED GFR 56 mL/min (>60)
== END 2021-10-31 16:30 | disposition home or self-care (01) ==
LOC: FB.ED 12:46
DX: S22.42XA Multiple fractures of ribs, left side, initial encounter for closed fracture (principal); S76.011A Strain of muscle, fascia and tendon of right hip, initial encounter; S40.012A Contusion of left shoulder, initial encounter; Z88.8 Allergy status to other drugs, medicaments and biological substances; Z88.6 Allergy status to analgesic agent; Z79.899 Other long term (current) drug therapy; W01.0XXA Fall on same level from slipping, tripping and stumbling without subsequent striking against object, initial encounter
CPT/HCPCS: 36415; 71101-LT; 73030-LT; 73521; 80048; 80307; 81001; 85025; 96360; 99283-25; A9270-GY; J3490; J7030

== ENCOUNTER 2021-11-05 11:55 | Inpatient (IN) | payer BC ==
[2021-11-05] MEDS ORDERED: Acetaminophen/HYDROcodone 325-5 MG Tab PO ONE (12:14)
[2021-11-05 12:40] LABS: ESTIMATED GFR 56 mL/min (>60)
[2021-11-05] MEDS ORDERED: Simethicone 80 MG Tab.Chew PO STA (12:41)
[2021-11-05] MEDS ORDERED: hydrOXYzine HCl 50 MG/ML SDV IM ONE (12:42)
[2021-11-05] MEDS ORDERED: Sodium Chloride 0.9% 10 ML Syringe FLUSH PRN ×2 (12:43→15:59)
[2021-11-05] MEDS ORDERED: Ketorolac 30 MG/ML SDV IVPUSH ONE (13:55)
[2021-11-05] MEDS: Sodium Chloride 0.9% 10 ML Syringe FLUSH PRN (14:11)
[2021-11-05] MEDS ORDERED: Iopamidol 755 Mg/ML 75 ML Bottle IV ONE (15:40)
[2021-11-05] MEDS ORDERED: Acetaminophen 325 MG Tab PO PRN (15:59)
[2021-11-05] MEDS ORDERED: Acetaminophen 650 MG Supp RECTAL PRN (15:59)
[2021-11-05] MEDS ORDERED: Metoclopramide 10 MG/2 ML SDV IVPUSH PRN (16:13)
[2021-11-05] MEDS ORDERED: LORazepam 0.5 MG Tab PO PRN (16:30)
[2021-11-05] MEDS ORDERED: Ketorolac 15 MG/ML SDV IVPUSH PRN (16:44)
[2021-11-05] MEDS ORDERED: hydrOXYzine HCl 25 MG Tab PO PRN (17:11)
[2021-11-05] MEDS: Sodium Chloride 0.9% 1,000 ML IV SCH (17:42)
[2021-11-05] MEDS: Acetaminophen 500 MG Tab PO SCH ×2 (17:42→21:37)
[2021-11-05] MEDS: Potassium Chloride 10 MEQ Tab.ER PO SCH (17:42)
[2021-11-05] MEDS ORDERED: ESZOPICLONE 3 MG PO SCH (21:00)
[2021-11-05] MEDS: Melatonin 3 MG Tab PO SCH (21:39)
[2021-11-05] MEDS: Mirtazapine 15 MG Tab PO SCH (21:39)
[2021-11-05] MEDS: Zolpidem 10 MG Tab PO SCH (21:52)
[2021-11-05] MEDS: Gabapentin 600 MG Tab PO SCH (21:52)
[2021-11-06] MEDS: Acetaminophen 500 MG Tab PO SCH ×3 (00:25→18:59)
[2021-11-06] MEDS: Sodium Chloride 0.9% 1,000 ML IV SCH ×3 (01:45→19:36)
[2021-11-06 06:51] LABS: ESTIMATED GFR 63 mL/min (>60)
[2021-11-06] MEDS: Potassium Chloride 10 MEQ Tab.ER PO SCH (08:21)
[2021-11-06] MEDS ORDERED: Promethazine 25 MG Tab PO PRN (10:11)
[2021-11-06] MEDS ORDERED: SUMAtriptan 6 MG/0.5 ML SDV SUBCUT ONE (10:11)
[2021-11-06] MEDS ORDERED: Potassium Chloride 10 MEQ Tab.ER PO ONE (10:15)
[2021-11-06] MEDS: Docusate Sodium 100 MG Cap PO SCH (12:27)
[2021-11-06] MEDS: Acetaminophen/HYDROcodone 325-5 MG Tab PO PRN (12:31)
[2021-11-06] MEDS ORDERED: LINACLOTIDE 290 MCG PO ONE (13:45)
[2021-11-06] MEDS: Enoxaparin 40 MG/0.4 ML Syringe SUBCUT SCH (14:36)
[2021-11-06] MEDS ORDERED: Zolpidem 10 MG Tab PO SCH (21:00)
[2021-11-06] MEDS: Mirtazapine 15 MG Tab PO SCH (21:46)
[2021-11-06] MEDS: Doxepin 10 MG Cap PO SCH (21:46)
[2021-11-06] MEDS: Melatonin 3 MG Tab PO SCH (21:47)
[2021-11-06] MEDS: Gabapentin 600 MG Tab PO SCH (21:56)
[2021-11-06] MEDS: Zolpidem 10 MG Tab PO SCH (21:56)
[2021-11-07] MEDS: Sodium Chloride 0.9% 1,000 ML IV SCH ×2 (03:20→12:18)
[2021-11-07] MEDS: Sodium Chloride 0.9% 10 ML Syringe FLUSH PRN ×2 (08:50→11:25)
[2021-11-07] MEDS: Docusate Sodium 100 MG Cap PO SCH (09:10)
[2021-11-07] MEDS: Potassium Chloride 20 MEQ Tab.ER PO SCH (09:11)
[2021-11-07] MEDS: guaiFENesin/Dextromethorphan 100-10 MG/5 ML Soln 5 ML Cup PO PRN ×2 (09:22→18:14)
[2021-11-07] MEDS: Acetaminophen/HYDROcodone 325-5 MG Tab PO PRN ×2 (09:27→18:14)
[2021-11-07] MEDS: Enoxaparin 40 MG/0.4 ML Syringe SUBCUT SCH (09:32)
[2021-11-07] MEDS: Doxycycline 100 MG Tab PO SCH ×2 (09:40→21:59)
[2021-11-07] MEDS ORDERED: SUMAtriptan 6 MG/0.5 ML SDV SUBCUT ONE (10:59)
[2021-11-07] MEDS: LINACLOTIDE 290 MCG PO SCH (11:00)
[2021-11-07] MEDS ORDERED: Iopamidol 755 Mg/ML 75 ML Bottle IV ONE (11:10)
[2021-11-07] MEDS: Gabapentin 600 MG Tab PO SCH (21:55)
[2021-11-07] MEDS: Zolpidem 10 MG Tab PO SCH (21:55)
[2021-11-07] MEDS: Melatonin 3 MG Tab PO SCH (21:56)
[2021-11-07] MEDS: Mirtazapine 15 MG Tab PO SCH (21:57)
[2021-11-07] MEDS: Doxepin 10 MG Cap PO SCH (21:58)
[2021-11-08] MEDS: Sodium Chloride 0.9% 1,000 ML IV SCH (04:25)
[2021-11-08] MEDS: Acetaminophen/HYDROcodone 325-5 MG Tab PO PRN ×2 (06:36→16:55)
[2021-11-08] MEDS ORDERED: SUMAtriptan 6 MG/0.5 ML SDV SUBCUT PRN (09:00)
[2021-11-08] MEDS: Doxycycline 100 MG Tab PO SCH ×2 (09:36→20:47)
[2021-11-08] MEDS: Potassium Chloride 20 MEQ Tab.ER PO SCH (09:38)
[2021-11-08] MEDS: Docusate Sodium 100 MG Cap PO SCH (09:38)
[2021-11-08] MEDS: LINACLOTIDE 290 MCG PO SCH (09:40)
[2021-11-08] MEDS: Enoxaparin 40 MG/0.4 ML Syringe SUBCUT SCH (10:52)
[2021-11-08] MEDS: Zolpidem 10 MG Tab PO SCH (20:47)
[2021-11-08] MEDS: Melatonin 3 MG Tab PO SCH (20:47)
[2021-11-08] MEDS: Doxepin 10 MG Cap PO SCH (20:48)
[2021-11-08] MEDS: Mirtazapine 15 MG Tab PO SCH (20:48)
[2021-11-08] MEDS: Gabapentin 600 MG Tab PO SCH (20:55)
[2021-11-08] MEDS: guaiFENesin/Dextromethorphan 100-10 MG/5 ML Soln 5 ML Cup PO PRN (22:15)
[2021-11-09 01:16] VITALS: BP 136/67; PULSE 78
== END 2021-11-10 13:45 | disposition swing bed (61) | DRG 930 ==
LOC: FB.ED 11:55 → FB.MS 15:59
PROVIDERS: ADMIT Emergency Medicine; ATTEND Family Medicine
DX: S22.42XA Multiple fractures of ribs, left side, initial encounter for closed fracture (principal); S32.591A Other specified fracture of right pubis, initial encounter for closed fracture; J18.9 Pneumonia, unspecified organism; N17.9 Acute kidney failure, unspecified; E87.1 Hypo-osmolality and hyponatremia; K59.00 Constipation, unspecified; Z51.5 Encounter for palliative care; G40.909 Epilepsy, unspecified, not intractable, without status epilepticus; E55.9 Vitamin D deficiency, unspecified; E53.8 Deficiency of other specified B group vitamins; G47.00 Insomnia, unspecified; F41.9 Anxiety disorder, unspecified; F32.A Depression, unspecified; K21.9 Gastro-esophageal reflux disease without esophagitis; D64.9 Anemia, unspecified; E86.0 Dehydration; E83.42 Hypomagnesemia; R64 Cachexia; G44.329 Chronic post-traumatic headache, not intractable; S46.812A Strain of other muscles, fascia and tendons at shoulder and upper arm level, left arm, initial encounter; K59.9 Functional intestinal disorder, unspecified; W19.XXXA Unspecified fall, initial encounter; Z96.643 Presence of artificial hip joint, bilateral; Z88.8 Allergy status to other drugs, medicaments and biological substances; Z87.440 Personal history of urinary (tract) infections; Z86.711 Personal history of pulmonary embolism
CPT/HCPCS: 36415; 70450; 71275; 72170; 73221-LT; 74018; 74177; 80048; 81001; 83735; 85027; 85379; 86140; 94150; 96372; 96374; 99284; 99285-25; A9270-GY; J1642; J1650; J1885; J3030; J3410; J3490; J7030; Q9967

== ENCOUNTER 2021-11-10 13:45 | Inpatient (IN) | payer BC ==
[2021-11-11] MEDS ORDERED: Acetaminophen/HYDROcodone 325-5 MG Tab PO PRN (16:53)
[2021-11-11] MEDS ORDERED: LORazepam 0.5 MG Tab PO PRN (16:53)
[2021-11-11] MEDS ORDERED: Promethazine 25 MG Tab PO PRN (16:54)
[2021-11-11] MEDS ORDERED: SUMAtriptan 6 MG/0.5 ML SDV SUBCUT PRN (16:55)
[2021-11-11] MEDS ORDERED: Acetaminophen 500 MG Tab PO PRN (16:55)
[2021-11-11] MEDS: Doxycycline 100 MG Tab PO SCH (20:45)
[2021-11-11] MEDS ORDERED: LUNESTA 3 MG PO SCH (21:00)
[2021-11-11] MEDS ORDERED: Doxepin 10 MG Cap PO SCH (21:00)
[2021-11-11] MEDS ORDERED: Gabapentin 600 MG Tab PO SCH (21:00)
[2021-11-11] MEDS ORDERED: Melatonin 3 MG Tab PO SCH (21:00)
[2021-11-11] MEDS ORDERED: Zolpidem 10 MG Tab PO SCH (21:00)
[2021-11-11] MEDS ORDERED: Acetaminophen/Diphenhydramine 500-25 MG Tab PO SCH (21:00)
[2021-11-11] MEDS ORDERED: Mirtazapine 15 MG Tab PO SCH (21:00)
[2021-11-12 04:11] VITALS: BP 172/83; PULSE 78
[2021-11-12] MEDS ORDERED: LINZESS 290 MCG PO SCH (09:00)
[2021-11-12] MEDS ORDERED: Potassium Chloride 20 MEQ Tab.ER PO SCH (09:00)
[2021-11-12] MEDS ORDERED: Docusate Sodium 100 MG Cap PO SCH (09:00)
[2021-11-12] MEDS: Doxycycline 100 MG Tab PO SCH (09:10)
[2021-11-12] MEDS ORDERED: Ketorolac 30 MG/ML SDV ONE (18:05)
[2021-11-13] MEDS ORDERED: Ketorolac 30 MG/ML SDV IM PRN (07:53)
[2021-11-14] MEDS ORDERED: Ketorolac 30 MG/ML SDV ONE (10:57)
== END 2021-11-17 13:15 | DRG 861 ==
LOC: FB.MS 13:45 → FB.ZCENSUS 13:46
PROVIDERS: ADMIT Family Medicine; ATTEND Family Medicine
DX: R53.1 Weakness (principal); K59.00 Constipation, unspecified; G40.909 Epilepsy, unspecified, not intractable, without status epilepticus; F41.9 Anxiety disorder, unspecified; F32.A Depression, unspecified; Z86.711 Personal history of pulmonary embolism; S22.42XK Multiple fractures of ribs, left side, subsequent encounter for fracture with nonunion; Z79.899 Other long term (current) drug therapy; Z90.49 Acquired absence of other specified parts of digestive tract; E55.9 Vitamin D deficiency, unspecified; K44.9 Diaphragmatic hernia without obstruction or gangrene; E53.8 Deficiency of other specified B group vitamins; Z88.8 Allergy status to other drugs, medicaments and biological substances; Z87.01 Personal history of pneumonia (recurrent); Z20.822 Contact with and (suspected) exposure to COVID-19
CPT/HCPCS: A9270-GY; J3030; U0002

== ENCOUNTER 2022-03-05 16:12 | Emergency (ER) | payer BC ==
[2022-03-05 17:35] LABS: ESTIMATED GFR 72 mL/min (>60)
[2022-03-05] MEDS ORDERED: hydrOXYzine HCl 50 MG/ML SDV IM ONE (20:59)
[2022-03-05 21:39] VITALS: BP 131/82; PULSE 72
== END 2022-03-05 21:30 | disposition home or self-care (01) ==
LOC: FB.ED 16:12
DX: K59.81 Ogilvie syndrome (principal); K59.09 Other constipation; Z79.899 Other long term (current) drug therapy; Z88.8 Allergy status to other drugs, medicaments and biological substances
CPT/HCPCS: 36415; 74176; 80053; 83735; 85025; 96372; 99282; 99284; J3410

== ENCOUNTER 2022-05-04 16:53 | Emergency (ER) | payer BC ==
[2022-05-04 17:39] LABS: ESTIMATED GFR 83 mL/min (>60)
[2022-05-04 19:23] VITALS: BP 158/94; PULSE 70
== END 2022-05-04 19:45 | disposition home or self-care (01) ==
LOC: FB.ED 16:53
DX: K59.09 Other constipation (principal); K59.81 Ogilvie syndrome; Z88.8 Allergy status to other drugs, medicaments and biological substances; Z79.899 Other long term (current) drug therapy
CPT/HCPCS: 36415; 71045; 74176; 80053; 81001; 83605; 85025; 86140; 93005; 99284

== ENCOUNTER 2022-05-11 10:29 | Inpatient (IN) | payer BC ==
[2022-05-11] MEDS ORDERED: hydrOXYzine HCl 50 MG/ML SDV IM ONE (10:53)
[2022-05-11] MEDS ORDERED: Sodium Chloride 0.9% 1,000 ML IV SCH (11:00)
[2022-05-11 11:28] LABS: ESTIMATED GFR 56 mL/min (>60)
[2022-05-11] MEDS ORDERED: Promethazine 25 MG in Sodium Chloride 0.9% 50 ML IV STA (11:34)
[2022-05-11] MEDS ORDERED: fentaNYL 100 MCG/2 ML SDV IVPUSH STA ×2 (11:36→14:25)
[2022-05-11] MEDS ORDERED: Iopamidol 755 Mg/ML 100 ML Bottle IV ONE (12:20)
[2022-05-11] MEDS: Sodium Chloride 0.9% 1,000 ML IV SCH ×2 (14:57→16:30)
[2022-05-11] MEDS: Promethazine 25 MG in Sodium Chloride 0.9% 50 ML IV PRN (15:02)
[2022-05-12] MEDS: fentaNYL 100 MCG/2 ML SDV IVPUSH PRN ×3 (00:34→15:50)
[2022-05-12] MEDS: Promethazine 25 MG in Sodium Chloride 0.9% 50 ML IV PRN ×3 (00:35→21:34)
[2022-05-12] MEDS ORDERED: Lidocaine 2% Jelly 30 ML Tube MUCMEM STA (03:09)
[2022-05-12] MEDS ORDERED: Lidocaine 2% HCl 6 ML Jel ONE (03:29)
[2022-05-12] MEDS: Sodium Chloride 0.9% 1,000 ML IV SCH ×3 (06:41→16:00)
[2022-05-12 07:46] LABS: ESTIMATED GFR 71 mL/min (>60)
[2022-05-12] MEDS ORDERED: Enoxaparin 40 MG/0.4 ML Syringe SUBCUT ONE (14:33)
[2022-05-12] MEDS: Pantoprazole 40 MG Vial IVPUSH SCH (15:45)
[2022-05-12] MEDS: hydrOXYzine HCl 50 MG/ML SDV IM PRN ×2 (15:58→21:37)
[2022-05-13] MEDS: Sodium Chloride 0.9% 1,000 ML IV SCH ×3 (01:52→22:16)
[2022-05-13] MEDS: Sodium Chloride 0.9% 10 ML Syringe FLUSH PRN ×8 (06:48→21:50)
[2022-05-13 07:10] LABS: ESTIMATED GFR 82 mL/min (>60)
[2022-05-13] MEDS: Pantoprazole 40 MG Vial IVPUSH SCH (08:58)
[2022-05-13] MEDS: fentaNYL 100 MCG/2 ML SDV IVPUSH PRN ×3 (09:10→21:48)
[2022-05-13] MEDS: Ketorolac 30 MG/ML SDV IVPUSH PRN ×2 (12:35→18:54)
[2022-05-13] MEDS ORDERED: LORazepam 2 MG/ML SDV IVPUSH PRN ×2 (16:57→16:59)
[2022-05-14 06:45] LABS: ESTIMATED GFR 82 mL/min (>60)
[2022-05-14] MEDS: Pantoprazole 40 MG Vial IVPUSH SCH ×2 (08:08→19:03)
[2022-05-14] MEDS: Dextrose 5 %-0.2 % NaCl 1,000 ML IV SCH ×2 (08:35→18:54)
[2022-05-14] MEDS: Ketorolac 30 MG/ML SDV IVPUSH PRN (10:06)
[2022-05-14] MEDS ORDERED: LORazepam 2 MG/ML SDV IVPUSH PRN (13:56)
[2022-05-14] MEDS: Enoxaparin 40 MG/0.4 ML Syringe SUBCUT SCH (14:49)
[2022-05-14] MEDS: diphenhydrAMINE 50 MG Cap PO SCH (20:55)
[2022-05-14] MEDS: Gabapentin 600 MG Tab PO SCH (20:55)
[2022-05-14] MEDS: Zolpidem 10 MG Tab PO SCH (20:55)
[2022-05-14] MEDS: Mirtazapine 15 MG Tab PO SCH (20:55)
[2022-05-14] MEDS: Doxepin 10 MG Cap PO SCH (20:55)
[2022-05-15] MEDS: Dextrose 5 %-0.2 % NaCl 1,000 ML IV SCH (04:58)
[2022-05-15] MEDS: Sodium Chloride 0.9% 10 ML Syringe FLUSH PRN ×2 (06:28→06:35)
[2022-05-15] MEDS: Pantoprazole 40 MG Vial IVPUSH SCH (06:34)
[2022-05-15 06:39] LABS: ESTIMATED GFR 82 mL/min (>60)
[2022-05-15] MEDS ORDERED: oxyCODONE 5 MG Tab PO PRN (08:21)
[2022-05-15] MEDS ORDERED: Acetaminophen 500 MG Tab PO PRN (08:21)
[2022-05-15] MEDS ORDERED: Bisacodyl 10 MG Supp RECTAL PRN (08:21)
[2022-05-15] MEDS ORDERED: LORazepam 0.5 MG Tab PO PRN (08:21)
[2022-05-15] MEDS ORDERED: Magnesium Hydroxide 400 MG/5 ML Susp 30 ML Cup PO PRN (08:21)
[2022-05-15] MEDS: Acetaminophen 500 MG Tab PO SCH ×3 (10:07→20:56)
[2022-05-15] MEDS: Docusate Sodium 100 MG Cap PO SCH (10:07)
[2022-05-15] MEDS: Sennosides 8.6 MG Tab PO SCH (10:08)
[2022-05-15] MEDS: Pantoprazole 40 MG Tab.CR PO SCH ×2 (10:10→17:30)
[2022-05-15] MEDS: Enoxaparin 40 MG/0.4 ML Syringe SUBCUT SCH (14:07)
[2022-05-15] MEDS: Zolpidem 10 MG Tab PO SCH (20:55)
[2022-05-15] MEDS: diphenhydrAMINE 50 MG Cap PO SCH (20:55)
[2022-05-15] MEDS: Mirtazapine 15 MG Tab PO SCH (20:56)
[2022-05-15] MEDS: Doxepin 10 MG Cap PO SCH (20:56)
[2022-05-15] MEDS: Gabapentin 600 MG Tab PO SCH (20:56)
[2022-05-15] MEDS ORDERED: Gabapentin 600 MG Tab PO SCH (21:00)
[2022-05-15] MEDS ORDERED: Doxepin 10 MG Cap PO SCH (21:00)
[2022-05-15] MEDS ORDERED: Mirtazapine 15 MG Tab PO SCH (21:00)
[2022-05-16] MEDS: Sodium Chloride 0.9% 10 ML Syringe FLUSH PRN (06:27)
[2022-05-16 06:47] LABS: ESTIMATED GFR 82 mL/min (>60)
[2022-05-16] MEDS: Pantoprazole 40 MG Tab.CR PO SCH ×2 (06:47→17:22)
[2022-05-16] MEDS ORDERED: LINACLOTIDE 290 MCG PO SCH (09:00)
[2022-05-16] MEDS: Acetaminophen 500 MG Tab PO SCH ×3 (09:21→20:26)
[2022-05-16] MEDS: Polyethylene Glycol 3350 Powder 17 GM Packet PO SCH (09:21)
[2022-05-16] MEDS: Docusate Sodium 100 MG Cap PO SCH (09:21)
[2022-05-16] MEDS: Sennosides 8.6 MG Tab PO SCH (11:05)
[2022-05-16] MEDS: Enoxaparin 40 MG/0.4 ML Syringe SUBCUT SCH (14:44)
[2022-05-16] MEDS: Zolpidem 10 MG Tab PO SCH (20:26)
[2022-05-16] MEDS: Gabapentin 600 MG Tab PO SCH (20:26)
[2022-05-16] MEDS: diphenhydrAMINE 50 MG Cap PO SCH (20:26)
[2022-05-16] MEDS: Doxepin 10 MG Cap PO SCH (20:27)
[2022-05-16] MEDS: Mirtazapine 15 MG Tab PO SCH (20:27)
[2022-05-17] MEDS: Pantoprazole 40 MG Tab.CR PO SCH (06:31)
[2022-05-17] MEDS: Acetaminophen 500 MG Tab PO SCH (08:52)
[2022-05-17] MEDS: Polyethylene Glycol 3350 Powder 17 GM Packet PO SCH (08:53)
[2022-05-17] MEDS: Sodium Chloride 0.9% 10 ML Syringe FLUSH PRN (10:08)
[2022-05-17 14:10] VITALS: BP 112/68; PULSE 76
== END 2022-05-17 14:00 | disposition home health service (06) | DRG 247 ==
LOC: FB.ED 10:29 → FB.MS 05-12 11:15
PROVIDERS: ADMIT Emergency Medicine; ATTEND Family Medicine
PROC: 0D9670Z Drainage of Stomach with Drainage Device, Via Natural or Artificial Opening (ICD-10-PCS; principal; 2022-05-12)
DX: K56.609 Unspecified intestinal obstruction, unspecified as to partial versus complete obstruction (principal); K44.9 Diaphragmatic hernia without obstruction or gangrene; N17.9 Acute kidney failure, unspecified; E86.0 Dehydration; G47.09 Other insomnia; K59.09 Other constipation; K21.9 Gastro-esophageal reflux disease without esophagitis; F41.9 Anxiety disorder, unspecified; Z20.822 Contact with and (suspected) exposure to COVID-19; F32.A Depression, unspecified; E03.9 Hypothyroidism, unspecified; D64.9 Anemia, unspecified; Z96.643 Presence of artificial hip joint, bilateral; K59.81 Ogilvie syndrome; K76.0 Fatty (change of) liver, not elsewhere classified; F11.20 Opioid dependence, uncomplicated; Z93.2 Ileostomy status; Z86.718 Personal history of other venous thrombosis and embolism; Z79.01 Long term (current) use of anticoagulants; Z86.73 Personal history of transient ischemic attack (TIA), and cerebral infarction without residual deficits; Z79.899 Other long term (current) drug therapy; Z88.8 Allergy status to other drugs, medicaments and biological substances
CPT/HCPCS: 36415; 74018; 74019; 74177; 80048; 80053; 81001; 82150; 83605; 83690; 85025; 86140; 99223; 99232; 99233; 99238; 99284; A9270-GY; C9113; J1642; J1650; J1885; J2060; J2550; J3010; J3410; J3490; J7030; Q9967; U0002

== ENCOUNTER 2022-05-23 19:45 | Emergency (ER) | payer BC ==
[2022-05-23] MEDS ORDERED: Sodium Chloride 0.9% 10 ML Syringe FLUSH PRN (19:57)
[2022-05-23] MEDS ORDERED: Sodium Chloride 0.9% 1,000 ML IV SCH (20:00)
[2022-05-23] MEDS ORDERED: hydrOXYzine HCl 50 MG/ML SDV IM ONE (20:01)
[2022-05-23 20:32] LABS: ESTIMATED GFR 71 mL/min (>60)
[2022-05-23] MEDS ORDERED: Iopamidol 755 Mg/ML 100 ML Bottle IV ONE (21:28)
[2022-05-23] MEDS ORDERED: Promethazine 25 MG in Sodium Chloride 0.9% 50 ML IV STA (22:35)
[2022-05-23] MEDS ORDERED: Promethazine 25 MG/ML SDV ONE (22:39)
[2022-05-24 00:01] VITALS: BP 134/83; PULSE 97
== END 2022-05-23 23:30 ==
LOC: FB.ED 19:45
DX: K56.699 Other intestinal obstruction unspecified as to partial versus complete obstruction (principal); K21.9 Gastro-esophageal reflux disease without esophagitis; Z88.8 Allergy status to other drugs, medicaments and biological substances; Z79.899 Other long term (current) drug therapy
CPT/HCPCS: 36415; 74177; 80053; 81001; 82150; 83605; 83690; 85025; 96372; 99285; J2550; J3410; J3490; J7030; Q9967

== ENCOUNTER 2022-12-04 14:01 | Emergency (ER) | payer BC ==
[2022-12-04] MEDS ORDERED: Promethazine 25 MG/ML SDV IM ONE (14:27)
[2022-12-04] MEDS ORDERED: Morphine 4 MG/ML VIAL IM ONE (14:37)
[2022-12-04 15:01] VITALS: BP 114/84
[2022-12-04 16:00] VITALS: PULSE 71
== END 2022-12-04 15:18 | disposition home or self-care (01) ==
LOC: FB.ED 14:01
DX: G43.009 Migraine without aura, not intractable, without status migrainosus (principal); K21.9 Gastro-esophageal reflux disease without esophagitis; Z86.73 Personal history of transient ischemic attack (TIA), and cerebral infarction without residual deficits; Z88.8 Allergy status to other drugs, medicaments and biological substances; Z79.899 Other long term (current) drug therapy
CPT/HCPCS: 96372; 99283; J2270; J2550

== ENCOUNTER 2023-02-18 10:11 | Emergency (ER) | payer BC ==
[2023-02-18] MEDS ORDERED: Promethazine 25 MG/ML SDV IM STA (11:01)
[2023-02-18] MEDS ORDERED: SUMAtriptan 6 MG/0.5 ML SDV SUBCUT ONE (11:01)
[2023-02-18] MEDS ORDERED: Acetaminophen/oxyCODONE 325-5 MG Tab PO STA (11:01)
[2023-02-18 15:13] VITALS: BP 161/88; PULSE 82
== END 2023-02-18 12:57 | disposition home or self-care (01) ==
LOC: FB.ED 10:11
DX: G43.909 Migraine, unspecified, not intractable, without status migrainosus (principal); K21.9 Gastro-esophageal reflux disease without esophagitis; E03.9 Hypothyroidism, unspecified; Z86.73 Personal history of transient ischemic attack (TIA), and cerebral infarction without residual deficits; Z79.899 Other long term (current) drug therapy; Z88.8 Allergy status to other drugs, medicaments and biological substances; Z88.5 Allergy status to narcotic agent
CPT/HCPCS: 96372; 99283; A9270; J2550; J3030

== ENCOUNTER 2023-05-05 15:14 | Emergency (ER) | payer BC ==
[2023-05-05 15:50] LABS: HEMATOCRIT 42.1 % (34.2-48.2); HEMOGLOBIN 13.5 g/dL (11.4-15.5); MEAN CORPUSCULAR HEMOGLOBIN 33.2 pg (23.9-33.9); MEAN CORPUSCULAR VOLUME 103.6 fL (76.7-100.5); MEAN PLATELET VOLUME 9.6 fL (7.1-12.4); PLATELET COUNT,PLT 360 x10(3)uL (151-488); RED BLOOD CELL COUNT 4.06 x10(6)uL (3.60-5.20); RED CELL DISTRIBUTION WIDTH 17.1 % (12.3-16.5); WHITE BLOOD CELL COUNT,WBC 22.1 x10-3/uL (3.0-10.3)
[2023-05-05] MEDS: Sodium Chloride 0.9% 1,000 ML IV ONE ×2 (15:50→19:16)
[2023-05-05 16:07] LABS: A/G RATIO 0.7; ALANINE AMINOTRANSFERASE,ALT 20 U/L (12-36); ALBUMIN 2.6 g/dL (3.2-4.6); ALKALINE PHOSPHATASE 102 IU/L (56-112); ASPARTATE AMNIOTRANSFERASE,AST 21 IU/L (5-25); BILIRUBIN TOTAL 0.5 mg/dL (0.1-1.3); BUN/CREATININE RATIO 35.9 (9-20); CALCIUM 8.5 mg/dL (8.6-10.2); CARBON DIOXIDE,CO2 13 mmol/L (21-32); ESTIMATED GFR 13 mL/min (>60); GLUCOSE RANDOM 143 mg/dL (80-116); POTASSIUM,K 4.7 mmol/L (3.5-5.3); PROTEIN TOTAL,TP 6.2 g/dL (6.0-8.0)
[2023-05-05 16:10] LABS: TSH ULTRASENSITIVE 2.41 IU/mL (0.36-3.74)
[2023-05-05 16:21] LABS: CHLORIDE,CL 124 mmol/L (100-110); SODIUM,NA 161 mmol/L (135-145)
[2023-05-05 16:22] LABS: BLOOD UREA NITROGEN,BUN 133 mg/dL (7-18); CREATINE KINASE,CK 398 IU/L (60-160); CREATININE 3.7 mg/dL (0.55-1.02)
[2023-05-05 16:23] LABS: C-REACTIVE PROTEIN 2.92 mg/dL (<0.50)
[2023-05-05 17:02] LABS: BASE EXCESS VENOUS,POC -15 mmol/L (-2 - 3+); PCO2 VENOUS,POC 24 mmHg (41-51)
[2023-05-05 17:03] LABS: AMPHETAMINES SCREEN, URINE NEGATIVE (NEGATIVE); BARBITURATE SCREEN,URINE NEGATIVE (NEGATIVE); BENZODIAZEPINES SCREEN,URINE NEGATIVE (NEGATIVE); BUPRENORPHINE SCREEN,URINE NEGATIVE (NEGATIVE); METHADONE SCREEN, URINE NEGATIVE (NEGATIVE); METHAMPHETAMINE SCREEN, URINE NEGATIVE (NEGATIVE); OXYCODONE SCREEN,URINE NEGATIVE (NEGATIVE); THC SCREEN,URINE NEGATIVE (NEGATIVE)
[2023-05-05 17:09] LABS: PH VENOUS,POC 7.24 pH Units (7.32-7.43)
[2023-05-05 17:33] LABS: BAND PERCENT MAN 2 % (0-6); LYMPHOCYTES PERCENT MAN 5 % (13-37); MONOCYTES PERCENT MAN 3 % (4-12); SEG NEUTROPHILS PERCENT MAN 90 % (46-82)
[2023-05-05 19:25] LABS: BILIRUBIN,URINE SMALL (NEGATIVE); COLOR,URINE YELLOW (YELLOW); GLUCOSE,URINE NORMAL (NORMAL); KETONES,URINE 15 mg/dL (NEGATIVE); LEUKOCYTE ESTERASE,URINE NEGATIVE (NEGATIVE); NITRITE,URINE NEGATIVE (NEGATIVE); OCCULT BLOOD,URINE NEGATIVE (NEGATIVE); PROTEIN,URINE 30 mg/dL (NEGATIVE); UROBILINOGEN,URINE NORMAL (NEGATIVE)
[2023-05-05 19:26] LABS: APPEARANCE,URINE SLIGHTLY CLOUDY (CLEAR); BACTERIA,URINE RARE (NS); HYALINE CASTS,URINE FEW (NS); RBC,URINE 0-5 (0-5); SQUAMOUS EPITHELIAL CELLS,UR OCCASIONAL (NS,R,O); WBC,URINE 0-5 (0-5)
[2023-05-05] MEDS: Piperacillin/Tazobactam 4.5 GM in Sodium Chloride 0.9% 100 ML IV ONE (19:49)
[2023-05-05] MEDS: VANCOmycin 1 GM/200 ML 1 GM in Premix Bag 1 BAG IV ONE (20:43)
[2023-05-05 21:46] LABS: BASE EXCESS VENOUS,POC -21 mmol/L (-2 - 3+); PCO2 VENOUS,POC 17 mmHg (41-51)
[2023-05-05 21:52] LABS: BLOOD UREA NITROGEN,BUN 67 mg/dL (7-18); CREATININE 1.6 mg/dL (0.55-1.02); EST CRCL DRUG DOSING (CG) 31.96 mL/min; ESTIMATED GFR 36 mL/min (>60); GLUCOSE RANDOM 57 mg/dL (80-116)
[2023-05-05 21:55] LABS: BUN/CREATININE RATIO 41.9 (9-20); CARBON DIOXIDE,CO2 8 mmol/L (21-32); CHLORIDE,CL 132 mmol/L (100-110); POTASSIUM,K 2.2 mmol/L (3.5-5.3); SODIUM,NA 160 mmol/L (135-145)
[2023-05-05 21:56] LABS: CALCIUM < 5.0 mg/dL (8.6-10.2)
[2023-05-05 21:57] LABS: PH VENOUS,POC 7.16 pH Units (7.32-7.43)
[2023-05-05 22:11] VITALS: BP 101/60; PULSE 86
== END 2023-05-05 22:13 ==
LOC: FB.ED 15:14
DX: S42.302K Unspecified fracture of shaft of humerus, left arm, subsequent encounter for fracture with nonunion (principal); T68.XXXA Hypothermia, initial encounter; L89.213 Pressure ulcer of right hip, stage 3; R53.1 Weakness; R64 Cachexia; N17.9 Acute kidney failure, unspecified; I95.9 Hypotension, unspecified; E87.20 Acidosis, unspecified; E86.0 Dehydration; E88.09 Other disorders of plasma-protein metabolism, not elsewhere classified; M62.82 Rhabdomyolysis; G93.89 Other specified disorders of brain; D72.829 Elevated white blood cell count, unspecified; E03.9 Hypothyroidism, unspecified; Z88.8 Allergy status to other drugs, medicaments and biological substances; Z79.899 Other long term (current) drug therapy; W19.XXXA Unspecified fall, initial encounter
CPT/HCPCS: 36415; 51702; 70450; 71045; 73060-LT; 73502-RT; 80048; 80053; 80307; 81001; 82550; 83605; 83690; 84443; 84484; 85025; 86140; 87040; 93005; 96361; 96365; 96367; 99285; 99285-25; J2543; J3370; J3490; J7030

== ENCOUNTER 2023-08-04 04:32 | Emergency (ER) | payer BC ==
[2023-08-04] MEDS: Ondansetron 4 MG/2 ML SDV IVPUSH ONE (04:49)
[2023-08-04] MEDS: Ketorolac 30 MG/ML SDV IVPUSH ONE (05:02)
[2023-08-04 05:11] LABS: BASOPHILS PERCENT AUTO 0.2 % (0.2-1.5); EOSINOPHILS ABSOLUTE AUTO 0.1 x10-3/uL (0.0-0.8); EOSINOPHILS PERCENT AUTO 1.4 % (0.6-8.1); HEMATOCRIT 35.9 % (34.2-48.2); HEMOGLOBIN 11.5 g/dL (11.4-15.5); LYMPHOCYTES ABSOLUTE AUTO 1.7 x10-3/uL (1.0-4.4); LYMPHOCYTES PERCENT AUTO 31.5 % (18.4-52.1); MEAN CORPUSCULAR HGB CONC 32.1 g/dL (31.9-34.8); MEAN CORPUSCULAR VOLUME 93.7 fL (76.7-100.5); MONOCYTES ABSOLUTE AUTO 0.4 x10-3/uL (0.3-1.0); MONOCYTES PERCENT AUTO 7.2 % (4.4-15.7); NEUTROPHILS ABSOLUTE AUTO 3.3 x10-3/uL (1.5-6.3); NEUTROPHILS PERCENT AUTO 59.7 % (30.8-76.2); PLATELET COUNT,PLT 403 x10(3)uL (151-488); RED BLOOD CELL COUNT 3.83 x10(6)uL (3.60-5.20); RED CELL DISTRIBUTION WIDTH 14.1 % (12.3-16.5); WHITE BLOOD CELL COUNT,WBC 5.5 x10-3/uL (3.0-10.3)
[2023-08-04] MEDS: hydrOXYzine HCl 50 MG/ML SDV IM ONE (05:13)
[2023-08-04 05:14] LABS: BLOOD UREA NITROGEN,BUN 8 mg/dL (7-18); BUN/CREATININE RATIO 6.7 (9-20); CALCIUM 9.5 mg/dL (8.6-10.2); CARBON DIOXIDE,CO2 19 mmol/L (21-32); CHLORIDE,CL 106 mmol/L (100-110); CREATININE 1.2 mg/dL (0.55-1.02); ESTIMATED GFR 50 mL/min (>60); GLUCOSE RANDOM 131 mg/dL (80-116); SODIUM,NA 139 mmol/L (135-145)
[2023-08-04] MEDS: Acetaminophen/oxyCODONE 325-5 MG Tab PO STA (06:15)
[2023-08-04] MEDS: Promethazine 25 MG/ML SDV IM ONE (06:15)
[2023-08-04 07:10] VITALS: BP 156/94; PULSE 88
== END 2023-08-04 06:42 | disposition home or self-care (01) ==
LOC: FB.ED 04:32
DX: B95.62 Methicillin resistant Staphylococcus aureus infection as the cause of diseases classified elsewhere (principal); R51.9 Headache, unspecified; K21.9 Gastro-esophageal reflux disease without esophagitis; Z79.899 Other long term (current) drug therapy; Z88.8 Allergy status to other drugs, medicaments and biological substances
CPT/HCPCS: 80048; 85025; 96372; 96374; 99284; A9270; J1885; J2550; J3410

== ENCOUNTER 2023-09-09 13:52 | Emergency (ER) | payer BC ==
[2023-09-09] MEDS: Sodium Chloride 0.9% 1,000 ML IV ONE (14:16)
[2023-09-09 14:25] LABS: BASOPHILS PERCENT AUTO 0.3 % (0.2-1.5); HEMATOCRIT 35.1 % (34.2-48.2); HEMOGLOBIN 11.5 g/dL (11.4-15.5); LYMPHOCYTES ABSOLUTE AUTO 1.1 x10-3/uL (1.0-4.4); LYMPHOCYTES PERCENT AUTO 8.5 % (18.4-52.1); MEAN CORPUSCULAR HEMOGLOBIN 30.3 pg (23.9-33.9); MEAN CORPUSCULAR HGB CONC 32.7 g/dL (31.9-34.8); MEAN CORPUSCULAR VOLUME 92.6 fL (76.7-100.5); MEAN PLATELET VOLUME 7.1 fL (7.1-12.4); MONOCYTES ABSOLUTE AUTO 0.8 x10-3/uL (0.3-1.0); MONOCYTES PERCENT AUTO 6.4 % (4.4-15.7); NEUTROPHILS ABSOLUTE AUTO 10.9 x10-3/uL (1.5-6.3); NEUTROPHILS PERCENT AUTO 84.8 % (30.8-76.2); PLATELET COUNT,PLT 557 x10(3)uL (151-488); RED BLOOD CELL COUNT 3.79 x10(6)uL (3.60-5.20); RED CELL DISTRIBUTION WIDTH 18.8 % (12.3-16.5); WHITE BLOOD CELL COUNT,WBC 12.8 x10-3/uL (3.0-10.3)
[2023-09-09 14:28] LABS: BLOOD UREA NITROGEN,BUN 13 mg/dL (7-18); CALCIUM 8.6 mg/dL (8.6-10.2); CARBON DIOXIDE,CO2 16 mmol/L (21-32); CHLORIDE,CL 109 mmol/L (100-110); CREATININE 1.3 mg/dL (0.55-1.02); ESTIMATED GFR 46 mL/min (>60); GLUCOSE RANDOM 124 mg/dL (80-116); POTASSIUM,K 3.4 mmol/L (3.5-5.3); SODIUM,NA 143 mmol/L (135-145)
[2023-09-09 14:34] LABS: A/G RATIO 0.7; ALANINE AMINOTRANSFERASE,ALT 9 U/L (12-36); ALBUMIN 2.9 g/dL (3.2-4.6); ALKALINE PHOSPHATASE 156 IU/L (56-112); ASPARTATE AMNIOTRANSFERASE,AST 15 IU/L (5-25); BILIRUBIN TOTAL 0.5 mg/dL (0.1-1.3); EST CRCL DRUG DOSING (CG) 34.12 mL/min; PROTEIN TOTAL,TP 7.3 g/dL (6.0-8.0)
[2023-09-09] MEDS: Promethazine 12.5 MG in Sodium Chloride 0.9% 50 ML IV ONE (15:36)
[2023-09-09] MEDS: hydrOXYzine HCl 50 MG/ML SDV IM ONE (16:52)
[2023-09-09 20:50] VITALS: BP 124/80; PULSE 99
== END 2023-09-09 18:00 | disposition home or self-care (01) ==
LOC: FB.ED 13:52
DX: S42.351A Displaced comminuted fracture of shaft of humerus, right arm, initial encounter for closed fracture (principal); S60.211A Contusion of right wrist, initial encounter; S70.01XA Contusion of right hip, initial encounter; G44.209 Tension-type headache, unspecified, not intractable; K21.9 Gastro-esophageal reflux disease without esophagitis; Z86.73 Personal history of transient ischemic attack (TIA), and cerebral infarction without residual deficits; Z79.899 Other long term (current) drug therapy; Z88.8 Allergy status to other drugs, medicaments and biological substances; W19.XXXA Unspecified fall, initial encounter
CPT/HCPCS: 73030-LT; 73110-RT; 73502-RT; 80053; 85025; 96361; 96372; 96374; 99284; 99284-25; J2550; J3410; J3490; J7030

== ENCOUNTER 2023-09-21 14:51 | Emergency (ER) | payer BC ==
[2023-09-21] MEDS: Sodium Chloride 0.9% 1,000 ML IV ONE (15:28)
[2023-09-21 15:29] LABS: BASOPHILS ABSOLUTE AUTO 0.1 x10-3/uL (0.0-0.1); BASOPHILS PERCENT AUTO 0.7 % (0.2-1.5); EOSINOPHILS ABSOLUTE AUTO 0.1 x10-3/uL (0.0-0.8); EOSINOPHILS PERCENT AUTO 0.7 % (0.6-8.1); HEMATOCRIT 42.4 % (34.2-48.2); HEMOGLOBIN 13.5 g/dL (11.4-15.5); LYMPHOCYTES ABSOLUTE AUTO 1.7 x10-3/uL (1.0-4.4); LYMPHOCYTES PERCENT AUTO 11.7 % (18.4-52.1); MEAN CORPUSCULAR HEMOGLOBIN 29.5 pg (23.9-33.9); MEAN CORPUSCULAR HGB CONC 31.8 g/dL (31.9-34.8); MEAN CORPUSCULAR VOLUME 92.8 fL (76.7-100.5); MEAN PLATELET VOLUME 9.4 fL (7.1-12.4); MONOCYTES ABSOLUTE AUTO 1.1 x10-3/uL (0.3-1.0); MONOCYTES PERCENT AUTO 7.3 % (4.4-15.7); NEUTROPHILS ABSOLUTE AUTO 11.6 x10-3/uL (1.5-6.3); NEUTROPHILS PERCENT AUTO 79.6 % (30.8-76.2); PLATELET COUNT,PLT 439 x10(3)uL (151-488); RED BLOOD CELL COUNT 4.57 x10(6)uL (3.60-5.20); RED CELL DISTRIBUTION WIDTH 19.2 % (12.3-16.5); WHITE BLOOD CELL COUNT,WBC 14.5 x10-3/uL (3.0-10.3)
[2023-09-21 15:32] LABS: BLOOD UREA NITROGEN,BUN 35 mg/dL (7-18); CALCIUM 9.3 mg/dL (8.6-10.2); CARBON DIOXIDE,CO2 22 mmol/L (21-32); CHLORIDE,CL 111 mmol/L (100-110); CREATININE 1.4 mg/dL (0.55-1.02); ESTIMATED GFR 42 mL/min (>60); GLUCOSE RANDOM 148 mg/dL (80-116); POTASSIUM,K 3.4 mmol/L (3.5-5.3); SODIUM,NA 150 mmol/L (135-145)
[2023-09-21 15:38] LABS: A/G RATIO 0.6; ALANINE AMINOTRANSFERASE,ALT 26 U/L (12-36); ALBUMIN 2.9 g/dL (3.2-4.6); ALKALINE PHOSPHATASE 298 IU/L (56-112); ASPARTATE AMNIOTRANSFERASE,AST 39 IU/L (5-25); BILIRUBIN TOTAL 0.6 mg/dL (0.1-1.3); PROTEIN TOTAL,TP 7.6 g/dL (6.0-8.0)
[2023-09-21] MEDS: Potassium Chloride 20 MEQ Tab.ER PO ONE (18:02)
[2023-09-21] MEDS: Sodium Chloride 0.45% 1,000 ML IV SCH (18:02)
[2023-09-21 18:42] LABS: BILIRUBIN,URINE NEGATIVE (NEGATIVE); GLUCOSE,URINE NORMAL (NORMAL); KETONES,URINE NEGATIVE (NEGATIVE); LEUKOCYTE ESTERASE,URINE SMALL (NEGATIVE); NITRITE,URINE NEGATIVE (NEGATIVE); OCCULT BLOOD,URINE MODERATE (NEGATIVE); PROTEIN,URINE NEGATIVE (NEGATIVE); UROBILINOGEN,URINE NORMAL (NEGATIVE)
[2023-09-21 18:51] LABS: APPEARANCE,URINE CLEAR (CLEAR); BACTERIA,URINE FEW (NS); COLOR,URINE YELLOW (YELLOW); RBC,URINE 0-5 (0-5); SQUAMOUS EPITHELIAL CELLS,UR RARE (NS,R,O); WBC,URINE 0-5 (0-5)
[2023-09-21 18:59] VITALS: BP 140/86; PULSE 88
== END 2023-09-21 20:17 ==
LOC: FB.ED 14:51
DX: R53.1 Weakness (principal); E86.0 Dehydration; E87.6 Hypokalemia; E87.0 Hyperosmolality and hypernatremia; R79.82 Elevated C-reactive protein (CRP); E88.09 Other disorders of plasma-protein metabolism, not elsewhere classified; N17.9 Acute kidney failure, unspecified; R74.8 Abnormal levels of other serum enzymes; L89.219 Pressure ulcer of right hip, unspecified stage; E46 Unspecified protein-calorie malnutrition; Z68.23 Body mass index [BMI] 23.0-23.9, adult; Z79.899 Other long term (current) drug therapy; Z88.8 Allergy status to other drugs, medicaments and biological substances
CPT/HCPCS: 36415; 71045; 73552-RT; 80053; 81001; 82550; 83605; 83735; 85025; 86140; 87040; 87070; 87205; 96360; 96361; 99285-25; A9270-GY; J7030

== ENCOUNTER 2024-05-06 18:10 | Emergency (ER) | payer BC, MEDICARE ==
[2024-05-06 18:42] LABS: BASOPHILS ABSOLUTE AUTO 0.1 x10-3/uL (0.0-0.1); BASOPHILS PERCENT AUTO 1.2 % (0.2-1.5); EOSINOPHILS ABSOLUTE AUTO 0.2 x10-3/uL (0.0-0.8); EOSINOPHILS PERCENT AUTO 3.8 % (0.6-8.1); HEMATOCRIT 34.2 % (34.2-48.2); HEMOGLOBIN 11.1 g/dL (11.4-15.5); LYMPHOCYTES ABSOLUTE AUTO 1.6 x10-3/uL (1.0-4.4); MEAN CORPUSCULAR HEMOGLOBIN 25.5 pg (23.9-33.9); MEAN CORPUSCULAR HGB CONC 32.4 g/dL (31.9-34.8); MEAN CORPUSCULAR VOLUME 78.7 fL (76.7-100.5); MEAN PLATELET VOLUME 7.8 fL (7.1-12.4); MONOCYTES ABSOLUTE AUTO 0.3 x10-3/uL (0.3-1.0); MONOCYTES PERCENT AUTO 5.3 % (4.4-15.7); NEUTROPHILS ABSOLUTE AUTO 3.3 x10-3/uL (1.5-6.3); NEUTROPHILS PERCENT AUTO 60.7 % (30.8-76.2); PLATELET COUNT,PLT 335 x10(3)uL (151-488); RED CELL DISTRIBUTION WIDTH 17.3 % (12.3-16.5); WHITE BLOOD CELL COUNT,WBC 5.4 x10-3/uL (3.0-10.3)
[2024-05-06 18:43] LABS: BLOOD UREA NITROGEN,BUN 7 mg/dL (7-18); BUN/CREATININE RATIO 4.4 (9-20); CALCIUM 8.9 mg/dL (8.6-10.2); CARBON DIOXIDE,CO2 25 mmol/L (21-32); CHLORIDE,CL 101 mmol/L (100-110); CREATININE 1.6 mg/dL (0.55-1.02); EST CRCL DRUG DOSING (CG) 30.27 mL/min; ESTIMATED GFR 36 mL/min (>60); GLUCOSE RANDOM 115 mg/dL (80-116); POTASSIUM,K 4.2 mmol/L (3.5-5.3); SODIUM,NA 135 mmol/L (135-145)
[2024-05-06 18:56] LABS: RED BLOOD CELL COUNT 4.35 x10(6)uL (3.60-5.20)
[2024-05-06 18:58] LABS: A/G RATIO 0.6; ALANINE AMINOTRANSFERASE,ALT 12 U/L (12-36); ALKALINE PHOSPHATASE 133 IU/L (56-112); ASPARTATE AMNIOTRANSFERASE,AST 15 IU/L (5-25); BILIRUBIN TOTAL 0.2 mg/dL (0.1-1.3); PROTEIN TOTAL,TP 7.9 g/dL (6.0-8.0)
[2024-05-06 20:00] VITALS: BP 124/71; PULSE 93
== END 2024-05-06 19:45 ==
LOC: FB.ED 18:10
DX: L89.216 Pressure-induced deep tissue damage of right hip (principal); K21.9 Gastro-esophageal reflux disease without esophagitis; Z88.8 Allergy status to other drugs, medicaments and biological substances; Z79.899 Other long term (current) drug therapy; Z93.3 Colostomy status
CPT/HCPCS: 36415; 80053; 85025; 99283

== ENCOUNTER 2024-12-14 19:50 | Emergency (ER) | payer BC, MEDICARE ==
[2024-12-14 20:28] LABS: GLUCOSE,URINE NORMAL (NORMAL); OCCULT BLOOD,URINE LARGE (NEGATIVE)
[2024-12-14 20:29] LABS: APPEARANCE,URINE SLIGHTLY CLOUDY (CLEAR); SQUAMOUS EPITHELIAL CELLS,UR RARE (NS,R,O)
[2024-12-14 20:47] LABS: BASOPHILS ABSOLUTE AUTO 0.0 x10-3/uL (0.0-0.1); BASOPHILS PERCENT AUTO 0.4 % (0.2-1.5); EOSINOPHILS ABSOLUTE AUTO 0.1 x10-3/uL (0.0-0.8); EOSINOPHILS PERCENT AUTO 1.0 % (0.6-8.1); LYMPHOCYTES ABSOLUTE AUTO 2.2 x10-3/uL (1.0-4.4); LYMPHOCYTES PERCENT AUTO 19.6 % (18.4-52.1); MEAN PLATELET VOLUME 7.9 fL (7.1-12.4); MONOCYTES ABSOLUTE AUTO 0.7 x10-3/uL (0.3-1.0); MONOCYTES PERCENT AUTO 6.4 % (4.4-15.7); NEUTROPHILS ABSOLUTE AUTO 8.2 x10-3/uL (1.5-6.3); NEUTROPHILS PERCENT AUTO 72.6 % (30.8-76.2); PLATELET COUNT,PLT 297 x10(3)uL (151-488); RED BLOOD CELL COUNT 5.05 x10(6)uL (3.60-5.20); RED CELL DISTRIBUTION WIDTH 16.7 % (12.3-16.5); WHITE BLOOD CELL COUNT,WBC 11.4 x10-3/uL (3.0-10.3)
[2024-12-14 20:50] LABS: BLOOD UREA NITROGEN,BUN 18 mg/dL (7-18); CARBON DIOXIDE,CO2 26 mmol/L (21-32); CHLORIDE,CL 106 mmol/L (100-110); CREATININE 1.4 mg/dL (0.55-1.02); EST CRCL DRUG DOSING (CG) 34.13 mL/min; ESTIMATED GFR 41 mL/min (>60); GLUCOSE RANDOM 89 mg/dL (80-116); POTASSIUM,K 3.7 mmol/L (3.5-5.3); SODIUM,NA 141 mmol/L (135-145)
[2024-12-14 21:46] VITALS: BP 162/98; PULSE 90
== END 2024-12-14 21:45 ==
LOC: FB.ED 19:50
DX: N39.0 Urinary tract infection, site not specified (principal); K21.9 Gastro-esophageal reflux disease without esophagitis; E03.9 Hypothyroidism, unspecified; Z86.16 Personal history of COVID-19; Z79.899 Other long term (current) drug therapy; Z79.890 Hormone replacement therapy; Z88.8 Allergy status to other drugs, medicaments and biological substances; Z88.5 Allergy status to narcotic agent
CPT/HCPCS: 36415; 51702; 80048; 81001; 85025; 87086; 87088; 87186; 99284; A9270-GY